=== PATIENT | female | born 1990 | race Caucasian/White ===

== ENCOUNTER 2017-02-22 11:56 | Emergency (ER) | payer MEDICAID ==
[~2017-02-22] VITALS: Ht 157.5 cm; Wt 68.0 kg
[2017-02-22 12:04] VITALS: Ht 157.5 cm; Wt 68.0 kg
[2017-02-22] MEDS ORDERED: ONDANSETRON (ODT) 4 MG TAB ODT STA (13:24)
[2017-02-22] MEDS ORDERED: ACETAMINOPHEN 325 MG TAB PO ONE (13:30)
[2017-02-22 13:35] LABS: URINE BLOOD (Dip) POC Negative (NEGATIVE)
[2017-02-22 13:48] LABS: ADD SCAN DIFF NO
[2017-02-22 13:51] LABS: BASOPHILS % 0.2 % (0.0-2.0); EOSINOPHILS # 0.1 10^3/ul (0.0-0.5); EOSINOPHILS % 1.6 % (0.0-7.0); HEMATOCRIT 36.3 % (37.0-47.0); HEMOGLOBIN 11.7 g/dl (12.0-16.0); LYMPHOCYTES # 1.3 10^3/ul (0.8-2.9); LYMPHOCYTES % 20.3 % (15.0-51.0); MEAN CORPUSCULAR HGB CONC 32.2 g/dl (32.0-37.0); MEAN CORPUSCULAR VOLUME 93.1 fl (82.0-101.0); MEAN PLATELET VOLUME 8.4 fl (7.4-10.4); MONOCYTE # 0.7 10^3/ul (0.3-0.9); MONOCYTES % 10.3 % (0.0-11.0); NEUTROPHIL # 4.3 10^3/ul (1.6-7.5); NEUTROPHILS % 67.1 % (39.0-77.0); PLATELET COUNT 355 10^3/UL (140-415); RED CELL DISTRIBUTION WIDTH 14.4 % (11.5-14.5); WHITE BLOOD COUNT 6.4 10^3/ul (4.8-10.8)
[2017-02-22 14:02] LABS: POTASSIUM 3.9 mmol/L (3.5-5.1)
[2017-02-22 14:04] LABS: CREATININE 0.58 mg/dl (0.44-1.00)
[2017-02-22 14:05] LABS: CALCIUM 9.1 mg/dl (8.4-10.2)
[2017-02-22] MEDS ORDERED: ACET500C5 PO (14:17)
[2017-02-22] MEDS ORDERED: ONDA4TAB8 PO (14:17)
[2017-02-22] MEDS ORDERED: IBUP400T22 PO (14:18)
[2017-02-22 14:25] VITALS: BP 111/69; PULSE 70; RESP 18; TEMP 98.3
--- NOTE | 2017-02-22 14:48 | ERD ---
ER Documentation Chief Complaint Date/Time DATE: 02/22/17 TIME: 14:45 Chief Complaint bodyache fever headache HPI Patient is a 26-year-old female who presents to the ED with 1 month of body aches. She states that she has pain along all her joints and muscles. She states that this has been going on for 1 month and she has taken Tylenol which is helped with her symptoms. She denies headache, dizziness, weakness. She denies cough, chest pain, shortness of breath or difficulty breathing. She denies abdominal pain, vomiting, diarrhea or constipation. She states that she occasionally gets nauseous. She denies dysuria or urgency. Denies any other complaints. She has not seen a primary care regarding this issue. Denies leg pain or swelling. ROS All systems reviewed and are negative except as per history of present illness. Medications Home Meds Active Scripts Ibuprofen* (Motrin*) 400 Mg Tab, 400 MG PO Q6, #30 TAB Prov:KRISTIN ALVAREZ-C 02/22/17 Ondansetron Hcl* (Zofran*) 4 Mg Tablet, 4 MG PO Q6H for NAUSEA AND/OR VOMITING, #30 TAB Prov:KRISTIN ALVAREZC 02/22/17 Acetaminophen* (Tylophen*) 500 Mg Capsule, 1 CAP PO Q6H Y for PAIN AND OR ELEVATED TEMP, #20 CAP Prov:KRISTIN ALVAREZ-C 02/22/17 Allergies Allergies: Coded Allergies: No Known Allergy (Unverified , 02/22/17) PMhx/Soc Medical and Surgical Hx: pt denies Medical Hx, pt denies Surgical Hx History of Surgery: No Anesthesia Reaction: No Hx Neurological Disorder: No Hx Respiratory Disorders: No Hx Cardiac Disorders: No Hx Psychiatric Problems: No Hx Miscellaneous Medical Probl: No Hx Alcohol Use: No Hx Substance Use: No Hx Tobacco Use: No FmHx Family History: No coronary disease, No diabetes, No other Physical Exam Vitals Vital Signs Date Time Temp Pulse Resp B/P Pulse Ox O2 Delivery O2 Flow Rate FiO2 02/22/17 14:25 98.3 70 18 111/69 100 Room Air 02/22/17 12:04 98.3 72 18 110/69 100 Physical Exam GENERAL: Well-developed, well-nourished female. Appears in no acute distress. HEAD: Normocephalic, atraumatic. EYES: Pupils are equally reactive bilaterally. EOMs grossly intact. No conjunctival erythema. ENT: Moist mucous membranes. No uvula deviation. No kissing tonsils. No exudates. NECK: Supple. No lymphadenopathy or thyromegaly. No meningismus. negative kernig. negative brudinski. LUNG: Clear to auscultation bilaterally. No rhonchi, wheezing, rales or coarse breath sounds. HEART: Regular rate and rhythm. No murmurs, rubs or gallops. ABDOMEN: No scars, ecchymosis or rashes noted. Soft, nontender, and nondistended. Positive bowel sounds in all four quadrants. No rebound tenderness , no guarding. (-) McBurneys point tenderness. No CVA tenderness. BACK: No midline tenderness. Extremities: Equal pulses bilaterally. No peripheral clubbing, cyanosis or edema. No unilateral leg swelling. NEUROLOGIC: Alert and oriented. Moving all four extremities. 5/5 strength in all extremities. Normal speech. Steady gait. SKIN: Normal color. Warm and dry. No rashes or lesions. Capillary refill < 2 seconds Result Diagram: 02/22/17 1340 02/22/17 1340 Results 24 hrs Laboratory Tests Test 02/22/17 13:35 02/22/17 13:40 Bedside Urine pH (LAB) 6.0 Bedside Urine Protein (LAB) Negative Bedside Urine Glucose (UA) Negative Bedside Urine Ketones (LAB) Negative Bedside Urine Blood Negative Bedside Urine Nitrite (LAB) Negative Bedside Urine Leukocyte Esterase (L Negative White Blood Count 6.410^3/ul Red Blood Count 3.9010^6/ul Hemoglobin 11.7g/dl Hematocrit 36.3% Mean Corpuscular Volume 93.1fl Mean Corpuscular Hemoglobin 30.0pg Mean Corpuscular Hemoglobin Concent 32.2g/dl Red Cell Distribution Width 14.4% Platelet Count 35859^3/UL Mean Platelet Volume 8.4fl Neutrophils % 67.1% Lymphocytes % 20.3% Monocytes % 10.3% Eosinophils % 1.6% Basophils % 0.2% Nucleated Red Blood Cells % 0.0/100WBC Neutrophils # 4.310^3/ul Lymphocytes # 1.310^3/ul Monocytes # 0.710^3/ul Eosinophils # 0.110^3/ul Basophils # 0.010^3/ul Nucleated Red Blood Cells # 0.010^3/ul Sodium Level 142mmol/L Potassium Level 3.9mmol/L Chloride Level 105mmol/L Carbon Dioxide Level 24mmol/L Anion Gap 17 Blood Urea Nitrogen 10mg/dl Creatinine 0.58mg/dl Glucose Level 117mg/dl Calcium Level 9.1mg/dl Current Medications Medications (Trade) Dose Ordered Sig/Lilli Route PRN Reason Start Time Stop Time Status Last Admin Dose Admin Acetaminophen (Tylenol Tab) 650 mg ONCE ONCE PO 02/22/17 13:30 02/22/17 13:31 DC 02/22/17 13:36 Ondansetron HCl (Zofran Odt) 4 mg ONCE STAT ODT 02/22/17 13:24 02/22/17 13:26 DC 02/22/17 13:36 Procedures/MDM ER COURSE: I kept the patient and/or family informed of laboratory and diagnostic imaging results throughout the emergency room course. MEDICATIONS: tylenol, zofran. Tolerated well with no adverse reaction. LAB INTERPRETATION: CBC showed no evidence of systemic infection or severe anemia. BMP showed no evidence of electrolyte abnormalities, severe acidosis, alkalosis, renal failure , or liver disease. UA showed no evidence of leukocytes, nitrites or hematuria. Urine test was negative. MEDICAL DECISION MAKING: This is a 26-year-old who presents with 1 month of body aches. Vital signs were reviewed. Patient is afebrile. Patient is not hypoxic. Patient is not toxic or ill-appearing. Patient has body aches of unknown etiology. I do not think any imaging studies was necessary at this time as she did not have focal tenderness upon exam. Her cranial nerves II through XII are intact. And her symptoms have been going on for over one month. I advised patient to follow-up with her medical insurance claims specialist for autoimmune check. Low suspicion for pneumonia, PE, pneumothorax, ACS, epiglottitis, obstruction, TB, pertussis, meningitis, sepsis. Low suspicion for ACS, PE, AAA, dissection, DVT DISCHARGE: At this time, patient is stable for discharge and outpatient management with no new complaints during the ER course. Patient was sent home with Tylenol, Motrin , Zofran and list of rheumatologists in the area to follow-up with.. Patient will be discharged home with instructions to recheck for new or worsening symptoms such as fever, nausea, weakness, LOC and to follow up with primary care in the next 1-2 days. Patient was advised to return to the ER for any new or worsening symptoms. Plan was discussed and patient and/or family understands and agrees. Home instructions were given. Departure Diagnosis: Primary Impression: Body aches Condition: Stable Referrals: [facility] () Usted se ribera hecho un examen mdico de control que le indica que no est en na condicin que requiera tratamiento urgente en el Departamento de Emergencia. Un estudio ms profundo y el tratamiento de torres condicin pueden esperar sin ningn riesgo hasta que usted sea atendida/o en el consultorio de torres mdico o na cl radha. Es responsabilidad suya arreglar na terry para el seguimiento del aranza. MANEJO DE CONDICIONES NO URGENTES EN EL FUTURO 1) Si usted tiene un mdico de atencin primaria: Usted debera llamar a torres mdico de atencin primaria antes de venir al departamento de emergencia. Despus de las horas de consultorio, torres doctor o torres asociado/a est disponible por telfono. El mdico o enfermero de katelyn en el servicio telefnico puede asesorarle por robyn medio para atender el problema, o aranza contrario se puede programar na terry. 2) Si usted no tiene un mdico de atencin primaria: Llame al mdico o clnica de referencia que aparece abajo tanya las horas de consultorio para hacer na terry para que le vean. CLINICAS: [facility] [phone] [address] [facility] [phone] [facility] [phone] [address] [facility] [phone] [place] [id number] [phone] [facility]. [phone] [address] Additional Instructions: Llame al doctor MAANA y emeterio na TERRY PARA DENTRO DE 1-2 MCCOLLUM.Dgale a la secretaria que nosotros le instruimos hacer esta terry.Avise o llame si torres condicin se empeora antes de la terry. Regresa aqui si peor o no mejor. seguimiento con rheumatologo para chequar autoinmune KRISTIN ALVAREZ PA-C Feb 22, 2017 14:48
== END 2017-02-22 14:25 | disposition home or self-care (01) ==
LOC: FTE 11:56
DX: R52 Pain, unspecified (principal); R11.0 Nausea
CPT/HCPCS: 80048; 81003; 85025; Z7610; 99283

== ENCOUNTER 2017-05-17 21:12 | Inpatient (IN) | payer MEDICAID ==
[~2017-05-17] VITALS: Ht 165.1 cm; Wt 55.6 kg
[~2017-05-17 21:12] MED LIST: ACET500C5 PO; IBUP400T22 PO; ONDA4TAB8 PO
--- NOTE | 2017-05-17 22:06 | ERD ---
ER Documentation Chief Complaint Date/Time DATE: 05/17/17 TIME: 22:02 Chief Complaint SOB; no hx of resp prob; cough for 2 mos HPI This 26-year-old female presents here in emergency department for complaints of cough for 2 months, on-and-off shortness of breath. Patient denies any wheezing. Patient denies any fever or chills. Patient has been having dry cough , does not cough up any phlegm or blood. Patient has on and off chest pain at times. Patient does not have any sick contact. Patient does verbalize feeling anxious at times. She does complain of dyspnea on exertion and dyspnea on lying down at times. ROS All systems reviewed and are negative except as per history of present illness. Medications Home Meds Active Scripts Ibuprofen* (Motrin*) 400 Mg Tab, 400 MG PO Q6, #30 TAB Prov:KRISTIN ALVAREZ PA-C 02/22/17 Ondansetron Hcl* (Zofran*) 4 Mg Tablet, 4 MG PO Q6H for NAUSEA AND/OR VOMITING, #30 TAB Prov:KRISTIN ALVAREZ PA-C 02/22/17 Acetaminophen* (Tylophen*) 500 Mg Capsule, 1 CAP PO Q6H Y for PAIN AND OR ELEVATED TEMP, #20 CAP Prov:KRISTIN ALVAREZ PA-C 02/22/17 Allergies Allergies: Coded Allergies: No Known Allergy (Unverified , 02/22/17) PMhx/Soc Medical and Surgical Hx: pt denies Medical Hx, pt denies Surgical Hx History of Surgery: No Anesthesia Reaction: No Hx Neurological Disorder: No Hx Respiratory Disorders: No Hx Cardiac Disorders: No Hx Psychiatric Problems: No Hx Miscellaneous Medical Probl: No Hx Alcohol Use: No Hx Substance Use: No Hx Tobacco Use: No FmHx Family History: No coronary disease, No diabetes, No other Physical Exam Vitals Vital Signs Date Time Temp Pulse Resp B/P Pulse Ox O2 Delivery O2 Flow Rate FiO2 05/18/17 05:06 Nasal Cannula 2.0 05/17/17 21:18 97.7 65 20 138/83 100 Physical Exam GENERAL: The patient is well developed and appropriate for usual state of health, in no apparent distress. CHEST: Clear to auscultation bilaterally. There are no rales, wheezes or rhonchi. HEART: Regular rate and rhythm. No murmurs, clicks, rubs or gallops. No S3 or S4. ABDOMEN: Soft, nontender and nondistended. Good bowel sounds. No rebound or guarding. No gross peritonitis. No gross organomegaly or masses. No Spring sign or McBurney point tenderness. BACK: No midline or flank tenderness. EXTREMITIES: Equal pulses bilaterally. There is no peripheral clubbing, cyanosis or edema. No focal swelling or erythema. Full range of motion. Grossly neurovascularly intact. NEURO: Alert and oriented. Cranial nerves 2-12 intact. Motor strength in all 4 extremities with 5/5 strength. Sensation grossly intact. Normal speech and gait. SKIN: There is no apparent rash or petechia. The skin is warm and dry. HEMATOLOGIC AND LYMPHATIC: There is no evidence of excessive bruising or lymphedema. No gross cervical, axillary, or inguinal lymphadenopathy. Result Diagram: 05/17/178 05/17/178 Results 24 hrs Laboratory Tests Test 05/17/17 02:18 White Blood Count 6.710^3/ul Red Blood Count 4.3810^6/ul Hemoglobin 13.3g/dl Hematocrit 41.4% Mean Corpuscular Volume 94.5fl Mean Corpuscular Hemoglobin 30.4pg Mean Corpuscular Hemoglobin Concent 32.1g/dl Red Cell Distribution Width 15.6% Platelet Count 84557^3/UL Mean Platelet Volume 10.5fl Neutrophils % 55.7% Lymphocytes % 34.8% Monocytes % 7.8% Eosinophils % 0.3% Basophils % 0.5% Nucleated Red Blood Cells % 0.0/100WBC Neutrophils # 3.710^3/ul Lymphocytes # 2.310^3/ul Monocytes # 0.510^3/ul Eosinophils # 0.010^3/ul Basophils # 0.010^3/ul Nucleated Red Blood Cells # 0.010^3/ul Sodium Level 139mmol/L Potassium Level 5.1mmol/L Chloride Level 107mmol/L Carbon Dioxide Level 21mmol/L Anion Gap 16 Blood Urea Nitrogen 10mg/dl Creatinine 0.69mg/dl Glucose Level 93mg/dl Calcium Level 9.0mg/dl Total Bilirubin 0.2mg/dl Direct Bilirubin 0.00mg/dl Indirect Bilirubin 0.2mg/dl Aspartate Amino Transf (AST/SGOT) 117IU/L Alanine Aminotransferase (ALT/SGPT) 91IU/L Alkaline Phosphatase 141IU/L Troponin I 0.034ng/ml B-Type Natriuretic Peptide 4100PG/ML Total Protein 9.8g/dl Albumin 4.6g/dl Globulin 5.20g/dl Albumin/Globulin Ratio 0.88 Current Medications Medications (Trade) Dose Ordered Sig/Lilli Route PRN Reason Start Time Stop Time Status Last Admin Dose Admin Sodium Chloride (NS) 100 ml @ ud STK-MED ONCE .ROUTE 05/18/17 04:29 05/18/17 04:30 DC Iohexol (Omnipaque 300mg/ ml) 150 ml STK-MED ONCE .ROUTE 05/18/17 04:29 05/18/17 04:30 DC EKG was done, read by me and is sinus tachycardia at a rate of 101, normal axis , there is no ST changes or changes in the EKG that indicates any cardiac emergencies at this time. Patient's EKG was also reviewed by Dr. Maloney. Impression: no acute findings on EKG PROCEDURE: Chest. CLINICAL INDICATION: Cough. TECHNIQUE: Single frontal view of the chest was obtained. COMPARISON: None. FINDINGS: The cardiac silhouette is enlarged. The aortic arch is unremarkable. There is no focal consolidation, vascular congestion or pleural effusion. There is no pneumothorax. IMPRESSION: Cardiomegaly. .Felix Fonseca MD, Date Time Electronically viewed and signed by .Felix Fonseca MD, on 05/17/2017 22:58 .T/ CC: WILLOW HAWLEY SLEEP TECHNICIAN Procedures/MDM Medical Decision Making: Patient is elevated BNP, has cardiomegaly, considering this, I discussed this case with my attending physician, , patient will be transferred to ER 1 for further evaluation and management, CT angiogram of the chest was ordered and pending results at this time. She is stable at this time. No symptoms of respiratory distress. Departure Diagnosis: Primary Impression: Shortness of breath Additional Impressions: Elevated brain natriuretic peptide (BNP) level Cardiomegaly Condition: Fair WILLOW HAWLEY NP May 17, 2017 22:06
--- NOTE | 2017-05-17 22:59 | RADRPT ---
PROCEDURE: Chest. CLINICAL INDICATION: Cough. TECHNIQUE: Single frontal view of the chest was obtained. COMPARISON: None. FINDINGS: The cardiac silhouette is enlarged. The aortic arch is unremarkable. There is no focal consolidati on, vascular congestion or pleural effusion. There is no pneumothorax. IMPRESSION: Cardiomegaly. .Felix Fonseca MD, MD Date Time Electronically viewed and signed by .Felix Fonseca MD, on 05/17/2017 22:58 .T/
[2017-05-18] VITALS (8 sets, daily range): BP systolic 111–118; BP diastolic 70–79; PULSE 88–101; RESP 16–20; Ht 165.1 cm; Wt 55.6 kg
[2017-05-18 02:32] LABS: ADD SCAN DIFF NO
[2017-05-18 02:34] LABS: BASOPHILS % 0.5 % (0.0-2.0); EOSINOPHILS % 0.3 % (0.0-7.0); HEMATOCRIT 41.4 % (37.0-47.0); HEMOGLOBIN 13.3 g/dl (12.0-16.0); LYMPHOCYTES # 2.3 10^3/ul (0.8-2.9); LYMPHOCYTES % 34.8 % (15.0-51.0); MEAN CORPUSCULAR HEMOGLOBIN 30.4 pg (29.0-33.0); MEAN CORPUSCULAR HGB CONC 32.1 g/dl (32.0-37.0); MEAN CORPUSCULAR VOLUME 94.5 fl (82.0-101.0); MEAN PLATELET VOLUME 10.5 fl (7.4-10.4); MONOCYTE # 0.5 10^3/ul (0.3-0.9); MONOCYTES % 7.8 % (0.0-11.0); NEUTROPHIL # 3.7 10^3/ul (1.6-7.5); NEUTROPHILS % 55.7 % (39.0-77.0); PLATELET COUNT 257 10^3/UL (140-415); RED BLOOD COUNT 4.38 10^6/ul (4.20-5.40); RED CELL DISTRIBUTION WIDTH 15.6 % (11.5-14.5); WHITE BLOOD COUNT 6.7 10^3/ul (4.8-10.8)
[2017-05-18 02:58] LABS: ALBUMIN 4.6 g/dl (3.3-4.9); ALBUMIN/GLOBULIN RATIO 0.88; BILIRUBIN,INDIRECT 0.2 mg/dl (0-1.1); BILIRUBIN,TOTAL 0.2 mg/dl (0.2-1.3); CREATININE 0.69 mg/dl (0.44-1.00); POTASSIUM 5.1 mmol/L (3.5-5.1); TOTAL PROTEIN 9.8 g/dl (6.1-8.1)
[2017-05-18 03:09] LABS: TROPONIN-I 0.034 ng/ml (0.00-0.12)
[2017-05-18] MEDS ORDERED: IOHEXOL 300MG/ML 150 ML BTL ONE (04:29)
[2017-05-18] MEDS ORDERED: SOD CHLORIDE 0.9% 100 ML ONE (04:29)
[2017-05-18] MEDS ORDERED: LEVO75TA5 PO (05:51)
--- NOTE | 2017-05-18 05:55 | RADRPT ---
PROCEDURE: CT angiogram of the chest with contrast. CLINICAL INDICATION: Shortness of breath. TECHNIQUE: CT angiogram of the chest was obtained using a multi-detector high-resolution CT. Con tiguous axial images were obtained during the dynamic injection of 100 cc of Omnipaque 300 intraveno us contrast. Coronal and sagittal reformatted images were obtained. 3-D reformatted images were al so obtained. Images were reviewed on a PACS workstation. One or more of the following dose reduction techniques were used: - Automated exposure control. - Adjustment of the mA and/or kV according to patient size. - Use of iterative reconstruction technique. Exam CTD/vol = 5.99 mGy. Total exam DLP = 233.43 mGy-cm. COMPARISON: None. FINDINGS: The main pulmonary artery followed to the segmental divisions are well opacified. There is no filli ng defect or evidence of pulmonary embolism. The heart is mildly enlarged. There is a moderate to l arge pericardial effusion measuring up to 2.0 cm in thickness. The aorta is of normal course and arnie iber without evidence of aneurysm or dissection. There is no evidence of chest wall mass. The visualized thyroid is unremarkable. There are enlarge d axillary lymph nodes bilaterally with the largest measuring 2.5 x 1.8 cm. There are no enlarged m ediastinal lymph nodes by CT criteria. There are small hilar lymph nodes bilaterally with the large st measuring 1.3 x 1.1 cm. There are small calcified subcarinal and left hilar lymph nodes. There are mild ground-glass and tree-in-bud opacities bilaterally. There is no parenchymal consolidation or pleural effusion. The central tracheobronchial tree is within normal limits. Limited evaluation of the upper abdomen is unremarkable. IMPRESSION: No evidence of pulmonary embolism or aortic dissection. Mild cardiomegaly with moderate to large pericardial effusion. Bilateral mild ground-glass and tree-in-bud opacities suggestive of an infectious/inflammatory bronc hiolitis. Bilateral mild to moderate axillary lymphadenopathy. .Felix Fonseca MD, Date Time Electronically viewed and signed by .Felix Fonseca MD, on 05/18/2017 05:54 .T/
[2017-05-18] MEDS ORDERED: ONDANSETRON 4 MG INJ IV PRN ×2 (06:00→20:00)
[2017-05-18] MEDS ORDERED: ACETAMINOPHEN 325 MG TAB PO PRN ×2 (06:00→20:00)
[2017-05-18] MEDS ORDERED: NACL 0.9% 3 ML SYG IV SCH (06:30)
[2017-05-18] MEDS ORDERED: FUROSEMIDE 40 MG INJ IV ONE (06:30)
[2017-05-18] MEDS ORDERED: LEVOTHYROXINE 75 MCG TAB PO SCH (07:00)
[2017-05-18] MEDS: PANTOPRAZOLE 40 MG INJ IV SCH (09:01)
--- NOTE | 2017-05-18 11:08 | HP ---
Date/Time of Note Date/Time of Note DATE: 05/18/17 TIME: 10:58 Assessment/Plan VTE Prophylaxis VTE Prophylaxis Intervention: SCD's Lines/Catheters IV Catheter Type (from [facility]): [facility] Assessment/Plan Assessment/Plan 26 yo F discharged from [facility] February 2017 after new diagnosis of severe hypothyroidism who now presents with shortness of breath and is found to have pericardial effusion as well as bronchiolitis 1. Acute Shortness of breath 2/2 #2 2. Interesting constellation of symptoms to include 1. Moderate to large pericardial effusion. 2. Bilateral infectious/inflammatory bronchiolitis. 3. Bilateral mild to moderate axillary lymphadenopathy and diffuse cervical adenopathy on Thyroid USS 03/2017. 4. Positive rheumatoid factor 3. Severe Hypothyroidism with evidence of thyroiditis and single 1.7cm R sided nodule concerning for autoimmune disease 4. Acute r/o chronic transaminitis PLAN: Patient's condition has a broad list of differentials including autoimmune disease, possible TB, or a rare not so visible pathology. However her acute problem now is her shortness of breath which is likely secondary to her pericardial effusion and bronchiolitis. We will therefore start her on empiric antibiotics, get cardiology consultation to assist in management of the pericardial effusion. If patient is to undergo a pericardiocentesis, sample will be sent for workup and further testing. I have obtained Endocrinology consultation, and I will also obtain hematology oncology consultation to see what their recommendations are. Patient also has cervical and axillary lymphnodes which we may be able to biopsy. I will also attempt to obtain rheumatology review and further interventions will be the security system sales consultant recommendations on the patient's clinical course. In the interim the patient to be kept comfortable with supplemental oxygen, pain control, antiemetics and antipyretics if indicated. She will be continued on her home dose of 75 mcg of levothyroxine, I will defer to Endocrinology for further management. Prophylaxis will be with ambulation and SCDs Patient HPI/ROS Admit Date/Time Admit Date/Time May 18, 2017 at 05:57 Hx of Present Illness Patient is a 26-year-old female with an interesting medical history. She was recently seen at all review in February 2014 where she had presented with severe lethargy. She was worked up in detail, and she was diagnosed with severe hypothyroidism after she was found to have a TSH of 115. At that time as well she has complained of some joint pain lethargy and muscle tenderness, and from the records the patient has with her it looks like they might have done a basic rheumatologic screen. She was found to have a positive rheumatoid factor but there is no other significant finding. She was discharged home and she was scheduled to follow-up as outpatient with Endocrinology next month. She was started on levothyroxine at 75 mcg. However she developed shortness of breath over the last 3-4 days that has worsened. Because of that she came to the emergency room. A CAT scan was abnormal for moderate to large pericardial effusion as well as bilateral bronchiolitis as well as bilateral lymphadenopathy. She is being admitted for further workup. She has not had any fever, the patient also denies cough, she continues to have lethargy and occasional muscle joint pains and aches. There is no family history of autoimmune disorder as far as the family knows, however they are not really sure what that means. The patient's grandmother also had thyroid problems, and she also had joint and muscle pains. There is no other significant findings. The patient has not had hemoptysis, no blood in her stool in her urine, she has not had any weight loss, she does get fatigued easily. She denies heat or cold intolerance, has been no nausea or vomiting. All other systems are reviewed and negative. ROS 12 point review if systems was done and pertinent findings are as noted. PMH/Family/Social Past Medical History * Recently diagnosed severe hypothyroidism Past Surgical History Past Surgical Hx: no surgical history Family History Significant Family History: other Social History Alcohol Use: none Smoking Status: Never smoker Drug Use: none Exam/Review of Systems Vital Signs Vitals Vital Signs Date Time Temp Pulse Resp B/P Pulse Ox O2 Delivery O2 Flow Rate FiO2 05/18/17 09:35 88 05/18/17 08:23 98.2 18 111/79 100 05/18/17 05:06 Nasal Cannula 2.0 Exam Constitutional: alert, oriented, other (ill looking) Psych: anxiety Head: atraumatic, normocephalic Eyes: PERRL, No icteric ENMT: mucosa pink and moist Neck: non-tender, supple, No jvd Respiratory: clear to auscultation, diminished breath sounds Cardiovascular: murmurs/extra sounds, regular rate and rhythm, No edema Gastrointestinal: bowel sounds, non-tender, soft Musculoskeletal: nl extremities to inspection, nl gait and stance Extremities: normal pulses, No edema Neurological: lethargic, nl mental status, No focal weakness Skin: No rash or lesions Labs Result Diagram: 05/17/1721705/17/17217 Medications Medications Current Medications Ondansetron HCl (Zofran Inj) 4 mg Q6H PRN IV NAUSEA AND/OR VOMITING; Start at 06:30 Pantoprazole (Protonix Iv) 40 mg DAILY@06 IV Last administered on 05/18/17t 09: 01; Admin Dose 40 MG; Start 05/18/17 at 07:00 Procedures Procedures Current Medications Medications (Trade) Dose Ordered Sig/Lilli Route PRN Reason Start Time Stop Time Status Last Admin Dose Admin Sodium Chloride (NS) 100 ml @ ud STK-MED ONCE .ROUTE 05/18/17 04:29 05/18/17 04:30 DC 05/18/17 04:29 20 ML/SEC Iohexol (Omnipaque 300mg/ ml) 150 ml STK-MED ONCE .ROUTE 05/18/17 04:29 05/18/17 04:30 DC 05/18/17 04:29 150 ML Ondansetron HCl (Zofran Inj) 4 mg ER BRIDGE PRN IV NAUSEA AND/OR VOMITING 05/18/17 06:00 05/18/17 06:33 DC Acetaminophen (Tylenol Tab) 650 mg ER BRIDGE PRN PO MILD PAIN/FEVER 05/18/17 06:00 05/18/17 06:33 DC IV Flush (NS 3 ml) 3 ml PER PROTOCOL IV 05/18/17 06:30 Ondansetron HCl (Zofran Inj) 4 mg Q6H PRN IV NAUSEA AND/OR VOMITING 05/18/17 06:30 Furosemide (Lasix) 40 mg ONCE ONCE IV 05/18/17 06:30 05/18/17 06:32 DC Pantoprazole (Protonix Iv) 40 mg DAILY@06 IV 05/18/17 07:00 05/18/17 09:01 40 MG Levothyroxine Sodium (Synthroid) 75 mcg BEFORE BREAKFAST PO 05/18/17 07:00 05/18/17 09:01 75 MCG PROCEDURE: CT angiogram of the chest with contrast. CLINICAL INDICATION: Shortness of breath. TECHNIQUE: CT angiogram of the chest was obtained using a multi-detector high -resolution CT. Contiguous axial images were obtained during the dynamic injection of 100 cc of Omnipaque 300 intravenous contrast. Coronal and sagittal reformatted images were obtained. 3-D reformatted images were also obtained. Images were reviewed on a PACS workstation. One or more of the following dose reduction techniques were used: - Automated exposure control. - Adjustment of the mA and/or kV according to patient size. - Use of iterative reconstruction technique. Exam CTD/vol = 5.99 mGy. Total exam DLP = 233.43 mGy-cm. COMPARISON: None. FINDINGS: The main pulmonary artery followed to the segmental divisions are well opacified. There is no filling defect or evidence of pulmonary embolism. The heart is mildly enlarged. There is a moderate to large pericardial effusion measuring up to 2.0 cm in thickness. The aorta is of normal course and caliber without evidence of aneurysm or dissection. There is no evidence of chest wall mass. The visualized thyroid is unremarkable. There are enlarged axillary lymph nodes bilaterally with the largest measuring 2.5 x 1.8 cm. There are no enlarged mediastinal lymph nodes by CT criteria. There are small hilar lymph nodes bilaterally with the largest measuring 1.3 x 1.1 cm. There are small calcified subcarinal and left hilar lymph nodes. There are mild ground-glass and tree-in-bud opacities bilaterally. There is no parenchymal consolidation or pleural effusion. The central tracheobronchial tree is within normal limits. Limited evaluation of the upper abdomen is unremarkable. IMPRESSION: No evidence of pulmonary embolism or aortic dissection. Mild cardiomegaly with moderate to large pericardial effusion. Bilateral mild ground-glass and tree-in-bud opacities suggestive of an infectious/inflammatory bronchiolitis. Bilateral mild to moderate axillary lymphadenopathy. .Felix Fonseca MD, MD Date Time Electronically viewed and signed by .Felix Fonseca MD, MD on 05/18/2017 05:54 PROCEDURE: Chest. CLINICAL INDICATION: Cough. TECHNIQUE: Single frontal view of the chest was obtained. COMPARISON: None. FINDINGS: The cardiac silhouette is enlarged. The aortic arch is unremarkable. There is no focal consolidation, vascular congestion or pleural effusion. There is no pneumothorax. IMPRESSION: Cardiomegaly. .Felix Fonseca MD, MD Date Time Electronically viewed and signed by .Felix Fonseca MD, MD on 05/17/2017 22:58 .T/ CC: WILLOW HAWLEY. PET COUNSELOR Thyroid ultrasound done March 22, 2017 Impression: Diffusely hypoechoic and mildly heterogeneous thyroid, parenchymal changes are of unclear etiology. Differential considerations included thyroiditis such as Cecil's thyroiditis will order autoimmune thyroiditis and clinical correlation is needed. Irregularly margined nodule is suggested as well within the isthmus to the right of the midline. Cervical adenopathy of unclear significance STEPHANIE MACIAS. May 18, 2017 11:07
[2017-05-18 14:42] LABS: C-REACTIVE PROTEIN < 0.5 mg/dl (0.0-0.9)
[2017-05-18 14:51] LABS: T3 UPTAKE 26.5 % (23.5-40.5)
[2017-05-18] MEDS: morphine 2 MG INJ IV PRN (16:19)
--- NOTE | 2017-05-18 19:39 | RADRPT ---
Echocardiogram Report Patient Name: GORGE ROBERT Gender: Female Date: 1990 Study Date: 18-May-2017 Maintenance Services Dispatcher: Jose Burk [facility] Location: [id number] Ref. Physician: LAZ LUCIANO Quality: Good Procedures: Transthoracic echocardiogram with complete 2D, M-Mode, and doppler examination. Indications: Pericardial Effusion. Shortness of breath. 2D/M Mode Doppler Measurement Value Normal Ranges Measurement Value Normal Ranges LVIDd 2D 4.1 3.5 - 5.6 cm AV Peak Abdon 0.8 m/sec LVIDs 2D 2.8 2.1 - 4.1 cm AV Peak PG 3.0 mmHg FS 2D 31.9 % LVOT Peak Abdon 0.6 m/sec LVPWd 2D 0.9 0.6 - 1.1 cm LVOT Peak PG 2.0 mmHg IVSd 2D 1.0 0.6 - 1.1 cm MV E Peak Abdon 0.6 m/sec IVS/LVPW 2D 1.1 MV A Peak Abdon 0.4 m/sec AoR Diam 2D 2.9 2.0 - 3.7 cm MV E/A 1.4 LA/Ao 2D 1 0 - 1 MV Decel Time 102 msec EDV 2D 69.4 cm3 MV E/A 1.4 ESV 2D 22.0 cm3 TR Peak Abdon 3.0 m/sec LA Dimen 2D 2.1 2.3 - 4.0 cm TR Peak PG 36.0 mmHg RVSP 39.0 mmHg Findings Left Ventricle: Normal left ventricular cavity size. Normal left ventricular wall thickness. Mild global left ventricular systolic dysfunction. Ejection fraction is visually estimated at 4045 %. Right Ventricle: Mild right ventricular systolic dysfunction. Mild enlargement of right ventricle. Moderate right ventricular hypokinesis. Left Atrium: The left atrium is normal in size. Right Atrium: There is mild enlargement of right atrium. Mitral Valve: Normal appearance and function of the mitral valve with trace physiologic regurgitation. Aortic Valve: Normal appearance of the aortic valve. No significant aortic stenosis or insufficiency. Tricuspid Valve: Normal appearance of the tricuspid valve. Estimated peak PA systolic pressure 39 mmHg. There is trace to mild tricuspid regurgitation. Pulmonic Valve: Normal pulmonic valve appearance. There is mild pulmonic regurgitation. Pericardium: Moderate pericardial effusion. Aorta: Normal aortic root. IVC: Normal size and normal respiratory collapse consistent with normal right atrial pressure. Conclusions Normal left ventricular cavity size. Normal left ventricular wall thickness. Mild global left ventricular systolic dysfunction. Ejection fraction is visually estimated at 40-45 %. Mild right ventricular systolic dysfunction.. Mild enlargement of right ventricle. Moderate right ventricular hypokinesis. There is mild enlargement of right atrium. Normal appearance of the tricuspid valve. Estimated peak PA systolic pressure 39 mmHg. There is trace to mild tricuspid regurgitation. Normal pulmonic valve appearance. There is mild pulmonic regurgitation. Moderate pericardial effusion. Electronically Signed By: Byron Baptiste 18-May-2017 19:38:21 -0700 Patient Name: GORGE ROBERT Study Date: 18-May-2017 [id number]
--- NOTE | 2017-05-18 19:54 | CONS ---
Date/Time of Note Date/Time of Note DATE: 05/18/17 TIME: 19:46 Assessment/Plan Assessment/Plan Chief Complaint/Hosp Course IMp: 1.Pericardial effusion-moderate by echo with no isgns of echo tamponade at this time. STable BP, HR at 100. ? viral/secondary to hypothyroid/rheum 2.Cardiomyopathy-EF 40-45% by echo 3.Increased LFT's 4.Hypothyroid Recc: -Tele -serial ecg's -TREat hypothyroid state -follow BP/HR -Avoid signifcany volume depletion -NSAIDS for now. POssible need to drain if becomes more significant with signs of tamponade/pending tamponade Problems: Consultation Date/Type/Reason Admit Date/Time May 18, 2017 at 05:57 Date of Consultation: May 18, 2017 Type of Consultation: cardiology Reason for Consultation pericardial effusion Referring Provider: STEPHANIE MACIAS Hx of Present Illness 26 y/o female without significant PMH who p/w c/o sob and was found to have pericardial effusion and mild transaminitis and possible pulmonary infection by CT. Constitutional: no complaints Eyes: no complaints ENT: no complaints Respiratory: shortness of breath Cardiovascular: orthopenea Gastrointestinal: no complaints, other Genitourinary: no complaints Musculoskeletal: other (weakness) Skin: no complaints Neurologic: no complaints Endocrine: no complaints Psychological: anxiety Past Medical History Medical History: no pertinent history Past Surgical History Past Surgical Hx: no surgical history Social History Alcohol Use: none Smoking Status: Never smoker Drug Use: none Exam/Review of Systems Vital Signs Vitals Vital Signs Date Time Temp Pulse Resp B/P Pulse Ox O2 Delivery O2 Flow Rate FiO2 05/18/17 17:08 98.0 73 20 112/79 100 05/18/17 05:06 Nasal Cannula 2.0 Exam Constitutional: alert, oriented Psych: no complaints Head: normocephalic ENMT: mucosa pink and moist Neck: jvd (8-9 cm water), supple Respiratory: diminished breath sounds (at bases/B) Cardiovascular: regular rate and rhythm Gastrointestinal: non-tender, soft Musculoskeletal: muscle tone (normal) Extremities: edema (none) Neurological: other (No focal deficits) Results Result Diagram: 05/17/1721705/17/17217 Results 24 hrs Laboratory Tests Test 05/18/17 09:00 05/18/17 09:15 Erythrocyte Sedimentation Rate 96 H C-Reactive Protein < 0.5 Free Thyroxine Index 2.57 Thyroxine (T4) 9.7 Triiodothyronine (T3) Uptake 26.5 Hemoglobin A1c 5.4 Triglycerides Level 222 H Cholesterol Level 80 L LDL Cholesterol, Calculated 20 HDL Cholesterol 16 L Cholesterol/HDL Ratio 5.0 Thyroid Stimulating Hormone (TSH) 132.000 H Medications Medications Current Medications Ondansetron HCl (Zofran Inj) 4 mg Q6H PRN IV NAUSEA AND/OR VOMITING; Start at 06:30 Pantoprazole (Protonix Iv) 40 mg DAILY@06 IV Last administered on 05/18/17 09: 01; Admin Dose 40 MG; Start 05/18/17 at 07:00 Morphine Sulfate (morphine) 2 mg Q4H PRN IV pain 6-10 Last administered on 05/18 16:19; Admin Dose 2 MG; Start 05/18/17 at 16:00 GENEVIEVE HERNANDEZ May 18, 2017 19:54
[2017-05-18 21:22] LABS: CREATINE KINASE 114 IU/L (23-200)
[2017-05-18 21:41] LABS: TIME 2135
[2017-05-18] MEDS: IBUPROFEN 600 MG TAB PO SCH (21:56)
[2017-05-18] MEDS ORDERED: LIOTHYRONINE 5 MCG TAB PO ONE (23:30)
--- NOTE | 2017-05-18 23:39 | CONS ---
Date/Time of Note Date/Time of Note DATE: 05/18/17 TIME: 23:37 Assessment/Plan Assessment/Plan Chief Complaint/Hosp Course Bilateral mild to moderate axillary lymphadenopathy and diffuse cervical adenopathy on Thyroid USS 03/2017. PROCEED WITH BIOCHEMICAL W-UP CT ABD- TO COMPLETE STAGING MAY NEED A BX INCREASED TOTAL PROTEIN AND GLOBULIN W-UP ORDERED Moderate to large pericardial effusion. Bilateral infectious/inflammatory bronchiolitis. Positive rheumatoid factor RHEUMATOLOGY EVAL Pericardial effusion-moderate by echo with no signs of echo tamponade at this time. Cardiomyopathy-EF 40-45% by echo Acute Shortness of breath Increased LFT's Severe Hypothyroidism with evidence of thyroiditis and single 1.7cm R sided nodule concerning for autoimmune disease Problems: Consultation Date/Type/Reason Admit Date/Time May 18, 2017 at 05:57 Date of Consultation: May 18, 2017 Type of Consultation: HEMEON Reason for Consultation LN-[facility] Referring Provider: STEPHANIE MACIAS Hx of Present Illness Patient is a 26-year-old female with an interesting medical history. She was recently seen at all review in February 2014 where she had presented with severe lethargy. She was worked up in detail, and she was diagnosed with severe hypothyroidism after she was found to have a TSH of 115. At that time as well she has complained of some joint pain lethargy and muscle tenderness, and from the records the patient has with her it looks like they might have done a basic rheumatologic screen. She was found to have a positive rheumatoid factor but there is no other significant finding. She was discharged home and she was scheduled to follow-up as outpatient with Endocrinology next month. She was started on levothyroxine at 75 mcg. However she developed shortness of breath over the last 3-4 days that has worsened. Because of that she came to the emergency room. A CAT scan was abnormal for moderate to large pericardial effusion as well as bilateral bronchiolitis as well as bilateral lymphadenopathy. She is being admitted for further workup. She has not had any fever, the patient also denies cough, she continues to have lethargy and occasional muscle joint pains and aches. There is no family history of autoimmune disorder as far as the family knows, however they are not really sure what that means. The patient's grandmother also had thyroid problems, and she also had joint and muscle pains. There is no other significant findings. The patient has not had hemoptysis, no blood in her stool in her urine, she has not had any weight loss, she does get fatigued easily. She denies heat or cold intolerance, has been no nausea or vomiting. All other systems are reviewed and negative. CT angiogram of the chest with contrast. - Bilateral mild to moderate axillary lymphadenopathy. I WAS ASKED TO PROVIDE HEMEONC CONSULT ROS 12 point review if systems was done and pertinent findings are as noted. PMH/Family/Social Past Medical History * Recently diagnosed severe hypothyroidism Past Surgical History Past Surgical Hx: no surgical history Family History Significant Family History: other Social History Alcohol Use: none Smoking Status: Never smoker Drug Use: none Constitutional: no complaints Eyes: no complaints ENT: no complaints Respiratory: shortness of breath Cardiovascular: orthopenea Gastrointestinal: no complaints, other Genitourinary: no complaints Musculoskeletal: other (weakness) Skin: no complaints Neurologic: no complaints Endocrine: no complaints Psychological: no complaints Past Medical History Medical History: no pertinent history Past Surgical History Past Surgical Hx: no surgical history Social History Alcohol Use: none Smoking Status: Never smoker Drug Use: none Exam/Review of Systems Vital Signs Vitals Vital Signs Date Time Temp Pulse Resp B/P Pulse Ox O2 Delivery O2 Flow Rate FiO2 05/18/17 20:27 101 05/18/17 20:08 98.2 16 112/70 96 05/18/17 05:06 Nasal Cannula 2.0 Exam Constitutional: alert, oriented, other (ill looking) Psych: anxiety Head: atraumatic, normocephalic Eyes: PERRL, No icteric ENMT: mucosa pink and moist Neck: non-tender, supple, No jvd Respiratory: clear to auscultation, diminished breath sounds Cardiovascular: murmurs/extra sounds, regular rate and rhythm, No edema Gastrointestinal: bowel sounds, non-tender, soft Musculoskeletal: nl extremities to inspection, nl gait and stance Extremities: normal pulses, No edema Neurological: lethargic, nl mental status, No focal weakness Skin: No rash or lesions LN- MILD BL LN-[facility] BREAST- NO MASSES Results Result Diagram: 05/17/1721705/17/17217 Results 24 hrs Laboratory Tests Test 05/18/17 09:00 05/18/17 09:15 05/18/17 20:35 05/18/17 21:35 Erythrocyte Sedimentation Rate 96 H C-Reactive Protein < 0.5 Free Thyroxine Index 2.57 Thyroxine (T4) 9.7 Triiodothyronine (T3) Uptake 26.5 Hemoglobin A1c 5.4 Triglycerides Level 222 H Cholesterol Level 80 L LDL Cholesterol, Calculated 20 HDL Cholesterol 16 L Cholesterol/HDL Ratio 5.0 Thyroid Stimulating Hormone (TSH) 132.000 H Creatine Kinase 114 Rheumatoid Factor Screen NEGATIVE Hepatitis B Surface Antigen NEGATIVE Hepatitis C Antibody NEGATIVE HIV (1&2) Antibody NEGATIVE TB Skin Test Induration Pending TB Skin Test Administer Date 05/18/17 TB Skin Test Administer Time 2134 TB Skin Test Injection Site Left Upper Forearm Medications Medications Current Medications Ondansetron HCl (Zofran Inj) 4 mg Q6H PRN IV NAUSEA AND/OR VOMITING; Start at 06:30 Pantoprazole (Protonix Iv) 40 mg DAILY@06 IV Last administered on 05/18/17 09: 01; Admin Dose 40 MG; Start 05/18/17 at 07:00 Morphine Sulfate (morphine) 2 mg Q4H PRN IV pain 6-10 Last administered on 05/18 16:19; Admin Dose 2 MG; Start 05/18/17 at 16:00 Acetaminophen (Tylenol Tab) 650 mg Q6H PRN PO PAIN AND OR ELEVATED TEMP; Start 05/18/17 at 20:00 Ibuprofen (Motrin) 600 mg Q8 PO Last administered on 05/18/17 21:56; Admin Dose 600 MG; Start 05/18/17 at 22:00 Procedures Procedures [place] [address] Radiology Main Line: [phone] DIAGNOSTIC IMAGING REPORT Patient: GORGE ROBERT : 1990 Age: 26 Sex: F MR #: [id number] DOS: 05/18/17 0355 Ordering MD: DEREJE JEAN BAPTISTE DO Location: E/R Room/Bed: PROCEDURE: CT angiogram of the chest with contrast. CLINICAL INDICATION: Shortness of breath. TECHNIQUE: CT angiogram of the chest was obtained using a multi-detector high -resolution CT. Contiguous axial images were obtained during the dynamic injection of 100 cc of Omnipaque 300 intravenous contrast. Coronal and sagittal reformatted images were obtained. 3-D reformatted images were also obtained. Images were reviewed on a PACS workstation. One or more of the following dose reduction techniques were used: - Automated exposure control. - Adjustment of the mA and/or kV according to patient size. - Use of iterative reconstruction technique. Exam CTD/vol = 5.99 mGy. Total exam DLP = 233.43 mGy-cm. COMPARISON: None. FINDINGS: The main pulmonary artery followed to the segmental divisions are well opacified. There is no filling defect or evidence of pulmonary embolism. The heart is mildly enlarged. There is a moderate to large pericardial effusion measuring up to 2.0 cm in thickness. The aorta is of normal course and caliber without evidence of aneurysm or dissection. There is no evidence of chest wall mass. The visualized thyroid is unremarkable. There are enlarged axillary lymph nodes bilaterally with the largest measuring 2.5 x 1.8 cm. There are no enlarged mediastinal lymph nodes by CT criteria. There are small hilar lymph nodes bilaterally with the largest measuring 1.3 x 1.1 cm. There are small calcified subcarinal and left hilar lymph nodes. There are mild ground-glass and tree-in-bud opacities bilaterally. There is no parenchymal consolidation or pleural effusion. The central tracheobronchial tree is within normal limits. Limited evaluation of the upper abdomen is unremarkable. IMPRESSION: No evidence of pulmonary embolism or aortic dissection. Mild cardiomegaly with moderate to large pericardial effusion. Bilateral mild ground-glass and tree-in-bud opacities suggestive of an infectious/inflammatory bronchiolitis. Bilateral mild to moderate axillary lymphadenopathy. .Felix Fonseca MD, MD Date Time Electronically viewed and signed by .Felix Fonseca MD, MD on 05/18/2017 05:54 .T/ CC: DEREJE JEAN BAPTISTE VERA M MD May 18, 2017 23:39
[2017-05-19] VITALS (12 sets, daily range): BP systolic 99–109; BP diastolic 54–68; PULSE 78–105; RESP 16–20
[2017-05-19] MEDS: IBUPROFEN 600 MG TAB PO SCH ×3 (06:34→22:30)
[2017-05-19] MEDS: LEVOTHYROXINE 125 MCG TAB PO SCH (06:34)
[2017-05-19] MEDS: PANTOPRAZOLE 40 MG INJ IV SCH (06:34)
[2017-05-19] MEDS ORDERED: LEVOTHYROXINE 75 MCG TAB PO SCH (07:00)
[2017-05-19 07:32] LABS: BASOPHILS % 0.4 % (0.0-2.0); EOSINOPHILS % 0.6 % (0.0-7.0); HEMATOCRIT 36.2 % (37.0-47.0); HEMOGLOBIN 11.5 g/dl (12.0-16.0); LYMPHOCYTES # 1.9 10^3/ul (0.8-2.9); LYMPHOCYTES % 40.5 % (15.0-51.0); MEAN CORPUSCULAR HEMOGLOBIN 30.7 pg (29.0-33.0); MEAN CORPUSCULAR HGB CONC 31.8 g/dl (32.0-37.0); MEAN CORPUSCULAR VOLUME 96.5 fl (82.0-101.0); MEAN PLATELET VOLUME 11.3 fl (7.4-10.4); MONOCYTE # 0.4 10^3/ul (0.3-0.9); MONOCYTES % 7.6 % (0.0-11.0); NEUTROPHIL # 2.3 10^3/ul (1.6-7.5); PLATELET COUNT 237 10^3/UL (140-415); RED BLOOD COUNT 3.75 10^6/ul (4.20-5.40); RED CELL DISTRIBUTION WIDTH 15.3 % (11.5-14.5); WHITE BLOOD COUNT 4.6 10^3/ul (4.8-10.8)
[2017-05-19 07:39] LABS: ADD SCAN DIFF NO
[2017-05-19 07:47] LABS: INR 0.95; PROTIME 12.7 Sec (12.2-14.2)
[2017-05-19 07:48] LABS: PARTIAL THROMBOPLASTIN TIME 41.9 Sec (25.0-35.0)
[2017-05-19 07:54] LABS: BILIRUBIN,INDIRECT 0.2 mg/dl (0-1.1); BILIRUBIN,TOTAL 0.2 mg/dl (0.2-1.3); CALCIUM 8.7 mg/dl (8.4-10.2); CREATININE 0.78 mg/dl (0.44-1.00); MAGNESIUM 2.1 mg/dl (1.7-2.5); POTASSIUM 4.7 mmol/L (3.5-5.1); TOTAL PROTEIN 8.5 g/dl (6.1-8.1)
[2017-05-19 07:56] LABS: CHOL/HDL RATIO 4.9 RATIO
[2017-05-19 07:57] LABS: IRON 23 ug/dl (35-150)
[2017-05-19 08:06] LABS: TOTAL IRON BINDING CAPACITY 315 ug/dl (241-421)
[2017-05-19 08:07] LABS: ALBUMIN 3.9 g/dl (3.3-4.9); ALBUMIN/GLOBULIN RATIO 0.95; BILIRUBIN,INDIRECT 0.2 mg/dl (0-1.1); BILIRUBIN,TOTAL 0.2 mg/dl (0.2-1.3); CALCIUM 8.5 mg/dl (8.4-10.2); CREATININE 0.74 mg/dl (0.44-1.00)
[2017-05-19 08:21] LABS: LACTATE DEHYDROGENASE 974 IU/L (313-618); URIC ACID 6.7 mg/dl (3.1-7.9)
[2017-05-19 08:29] LABS: IMMUNOGLOBULIN A 292 mg/dl (70-400); IMMUNOGLOBULIN M 270 mg/dl (40-230)
[2017-05-19 08:42] LABS: IMMUNOGLOBULIN G 2603 mg/dl (700-1600)
[2017-05-19] MEDS: LEVOFLOXACIN 750MG/D5W (PMX) 150 ML IVPB SCH (14:32)
--- NOTE | 2017-05-19 16:10 | CONS ---
Date/Time of Note Date/Time of Note DATE: 05/19/17 TIME: 15:56 Assessment/Plan Assessment/Plan Problems: (1) Pericardial effusion Status: Acute Comment: As near as I am able to infer from the records from all of you she had had normal chest x-ray in February then had an abnormal chest x-ray with cardiomegaly in March. The patient has plus minus shortness of breath. She clearly has a myxedematous state. These states can be associated with pleural effusions. I will of course defer off to our colleagues in cardiology about how to best approach this but I have a suspicion this may not be insidious. However given that she is also from [facility] we have limited information on her and she has diffuse adenopathy which is not necessarily consistent with a mixed edematous state we may need to keep a very open mind about what is going on here. I concur with the infectious disease and rheumatologic workups the primary team has undertaken (2) Chronic thyroiditis Status: Chronic Comment: She has positive antithyroid antibodies based on the information we have from [facility]. 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 She is to be on thyroid hormone replacement therapy. Due to her youth we can go to full dose replacement therapy. She had been on 75 mcg and is barely budged her thyroid test based compared to when she was at [facility]. As such we will go ahead and push this up to 125 mcg a day. To accelerate the process I gave her a single dose of liothyronine to help get her feeling better. Is my anticipation that if we assume that all is due to the thyroid she will straighten out in the next few weeks. Please note she has almost all of the physical manifestations and findings of hypothyroidism Consultation Date/Type/Reason Admit Date/Time May 18, 2017 at 05:57 Date of Consultation: May 19, 2017 Type of Consultation: Endocrinology Reason for Consultation Hypothyroidism with myxedema; pericardial effusion; pleural effusion Referring Provider: STEPHANIE MACIAS Hx of Present Illness 26-year-old [facility] single young lady recently admitted and worked up at [facility]. She presented with change in voice is gravelly voice thickened cool dry skin and a goiter. She is found to have a TSH in excess of 100 and a low free T4. As patient describes that she had an ultrasound-guided biopsy of the submandibular lymph glands. Pathology was consistent with benign reactive process the lymph nodes were 3.1 cm in size. She was placed on levothyroxine 75 mcg a day and discharged to follow-up in the clinic. She has a 3 month history of cough without fevers chills or sweats. She has no other known medical problems the best of the information the family can give. We have received information from [facility] which is reviewed in conjunction with this case. Constitutional: no complaints (Denies fevers chills or sweats) Eyes: no complaints ENT: other (The mother reports the patient has had a change in her voice over the last a month with a significantly deeper and gravelly voice. This is reportedly improved in the few short weeks that she has been on levothyroxine) Respiratory: cough (3 months of cough without hemoptysis or sputum production. Plus minus shortness of breath.), shortness of breath Cardiovascular: orthopenea (1 of my colleagues is described orthopnea although my history with the patient is modestly different) Gastrointestinal: constipation, other Genitourinary: no complaints Musculoskeletal: other (Patient reports arthralgias and myalgias and achiness.) Skin: other (Thickening of the skin with lack of perspiration and cool to the touch.) Neurologic: no complaints Endocrine: no complaints Psychological: no complaints Past Medical History New diagnosis of hypothyroidism; Ab0 Medical History: no pertinent history Past Surgical History Past Surgical Hx: no surgical history Family History Significant Family History: no pertinent family hx Social History Alcohol Use: none Smoking Status: Never smoker Drug Use: none Exam/Review of Systems Vital Signs Vitals Vital Signs Date Time Temp Pulse Resp B/P Pulse Ox O2 Delivery O2 Flow Rate FiO2 05/19/17 12:41 105 05/19/17 11:53 98.7 18 105/67 100 05/19/17 07:44 Nasal Cannula 2.0 Intake and Output 05/18/17 05/18/17 05/19/17 15:00 23:00 07:00 Intake Total 800 ml Balance 800 ml Exam Constitutional: alert, oriented Head: atraumatic, normocephalic Eyes: EOMI, nl conjunctiva, nl lids, nl sclera ENMT: mucosa pink and moist, nl external ears & nose, nl lips & teeth, nl nasal mucosa & septum Neck: non-tender, supple, thyromegaly (Thyroid is modestly enlarged and rather firm to the touch.) Respiratory: clear to auscultation, normal air movement Cardiovascular: nl pulses, other (I do not appreciate a pulses paradoxus on examination), regular rate and rhythm Gastrointestinal: nl liver, spleen, non-tender, soft Results Result Diagram: 05/19/17 0630 05/19/17 0630 Results 24 hrs Laboratory Tests Test 05/18/17 20:35 05/18/17 21:35 05/19/17 00:30 05/19/17 05:24 Creatine Kinase 114 Rheumatoid Factor Screen NEGATIVE Hepatitis B Surface Antigen NEGATIVE Hepatitis C Antibody NEGATIVE HIV (1&2) Antibody NEGATIVE TB Skin Test Induration Pending TB Skin Test Administer Date 05/18/17 TB Skin Test Administer Time 2134 TB Skin Test Injection Site Left Upper Forearm Troponin I 0.039 Iron Level 23 L Total Iron Binding Capacity 315 Percent Iron Saturation 7 L Test 05/19/17 06:30 White Blood Count 4.6 #L Red Blood Count 3.75 L Hemoglobin 11.5 L Hematocrit 36.2 L Mean Corpuscular Volume 96.5 Mean Corpuscular Hemoglobin 30.7 Mean Corpuscular Hemoglobin Concent 31.8 L Red Cell Distribution Width 15.3 H Platelet Count 237 Mean Platelet Volume 11.3 H Neutrophils % 50.0 Lymphocytes % 40.5 Monocytes % 7.6 Eosinophils % 0.6 Basophils % 0.4 Nucleated Red Blood Cells % 0.0 Neutrophils # 2.3 Lymphocytes # 1.9 Monocytes # 0.4 Eosinophils # 0.0 Basophils # 0.0 Nucleated Red Blood Cells # 0.0 Prothrombin Time 12.7 Prothrombin Time Ratio 1.0 INR International Normalized Ratio 0.95 Activated Partial Thromboplast Time 41.9 H Sodium Level 141 Potassium Level 4.7 Chloride Level 104 Carbon Dioxide Level 23 Anion Gap 19 H Blood Urea Nitrogen 11 Creatinine 0.78 Glucose Level 73 Hemoglobin A1c 5.5 Uric Acid 6.7 Calcium Level 8.7 Magnesium Level 2.1 Total Bilirubin 0.2 Direct Bilirubin 0.00 Indirect Bilirubin 0.2 Aspartate Amino Transf (AST/SGOT) 83 H Alanine Aminotransferase (ALT/SGPT) 71 H Alkaline Phosphatase 117 Lactate Dehydrogenase 974 H Troponin I 0.031 Total Protein 8.5 H Albumin 4.0 Globulin 4.10 H Albumin/Globulin Ratio 0.95 Triglycerides Level 198 H Cholesterol Level 89 L LDL Cholesterol, Calculated 31 # HDL Cholesterol 18 L Cholesterol/HDL Ratio 4.9 Vitamin B12 Level > 1000 H Folate 16.0 Immunoglobulin A 292 Immunoglobulin G 2603 H Immunoglobulin M 270 H Medications Medications Current Medications Ondansetron HCl (Zofran Inj) 4 mg Q6H PRN IV NAUSEA AND/OR VOMITING; Start at 06:30 Pantoprazole (Protonix Iv) 40 mg DAILY@06 IV Last administered on 05/19/17 06: 34; Admin Dose 40 MG; Start 05/18/17 at 07:00 Morphine Sulfate (morphine) 2 mg Q4H PRN IV pain 6-10 Last administered on 05/18 16:19; Admin Dose 2 MG; Start 05/18/17 at 16:00 Acetaminophen (Tylenol Tab) 650 mg Q6H PRN PO PAIN AND OR ELEVATED TEMP; Start 05/18/17 at 20:00 Ibuprofen 600 mg 600 mg Q8 PO Last administered on 05/19/17 13:44; Admin Dose 600 MG; Start 05/18/17 at 22:00 Levofloxacin/ Dextrose (Levaquin 750 Mg/ D5W 150 ml (Pmx)) 150 ml @ 100 mls/hr Q24H IVPB Last administered on 05/19/17 14:32; Admin Dose 100 MLS/HR; Start at 14:30 ISABELLA FRENCH MD May 19, 2017 16:09
--- NOTE | 2017-05-19 17:37 | CONS ---
Date/Time of Note Date/Time of Note DATE: 05/19/17 TIME: 17:30 Assessment/Plan Assessment/Plan Chief Complaint/Hosp Course IMp: 1.Pericardial effusion-moderate by echo with no signs of echo tamponade by initial echo. Sable BP, HR around 100. ? secondary to hypothyroid-most likely/ viral/rheum 2.Cardiomyopathy-EF 40-45% by echo 3.Increased LFT's 4.Hypothyroid-secondary to Cecil's Thyroiditis/+ antithyroid AB at OSH Recc: -maintain on tele and follow closely for signs of pnding tamponade -serial ecg's -Treat hypothyroid state as you are doing -follow BP/HR -Avoid signifcant volume depletion -NSAIDS for now. -AM ECG -Follow exam/Pulsus -No definite indication for pericardiocentesis at this time. Will repeat echo in 1-2 days to re-assess effusion Problems: Consultation Date/Type/Reason Admit Date/Time May 18, 2017 at 05:57 Initial Consult Date 05/19/17 Type of Consultation: cardiology Reason for Consultation pericardial effusion Referring Provider: STEPHANIE MACIAS Exam/Review of Systems Vital Signs Vitals Vital Signs Date Time Temp Pulse Resp B/P Pulse Ox O2 Delivery O2 Flow Rate FiO2 05/19/17 16:44 97.5 105 18 109/60 98 05/19/17 07:44 Nasal Cannula 2.0 Intake and Output 05/18/17 05/18/17 05/19/17 15:00 23:00 07:00 Intake Total 800 ml Balance 800 ml Exam Review of Systems: CONSTITUTIONAL: No fevers, chills. PULMONARY: mild sob-improving CARDIOVASCULAR: No chest pain/palpitations GASTROINTESTINAL: No nausea/vomiting. GENITOURINARY: No hematuria/dysuria. MUSCULOSKELETAL: No myagias/arthalgias. PSYCHIATRIC: The patient denies depression. NEUROLOGIC: No weakness Constitutional: alert, oriented Psych: no complaints Head: normocephalic ENMT: mucosa pink and moist Neck: jvd (8-9 cm water), supple Respiratory: clear to auscultation Cardiovascular: other (mild tachycardia, regular rhythm) Gastrointestinal: non-tender, soft Musculoskeletal: muscle tone (normal) Extremities: edema (none) Neurological: other (No focal defcits) Results Result Diagram: 05/19/1730 05/19/17 0630 Results 24 hrs Laboratory Tests Test 05/18/17 20:35 05/18/17 21:35 05/19/17 00:30 05/19/17 05:24 Creatine Kinase 114 Rheumatoid Factor Screen NEGATIVE Hepatitis B Surface Antigen NEGATIVE Hepatitis C Antibody NEGATIVE HIV (1&2) Antibody NEGATIVE TB Skin Test Induration Pending TB Skin Test Administer Date 05/18/17 TB Skin Test Administer Time 2134 TB Skin Test Injection Site Left Upper Forearm Troponin I 0.039 Iron Level 23 L Total Iron Binding Capacity 315 Percent Iron Saturation 7 L Test 05/19/17 06:30 White Blood Count 4.6 #L Red Blood Count 3.75 L Hemoglobin 11.5 L Hematocrit 36.2 L Mean Corpuscular Volume 96.5 Mean Corpuscular Hemoglobin 30.7 Mean Corpuscular Hemoglobin Concent 31.8 L Red Cell Distribution Width 15.3 H Platelet Count 237 Mean Platelet Volume 11.3 H Neutrophils % 50.0 Lymphocytes % 40.5 Monocytes % 7.6 Eosinophils % 0.6 Basophils % 0.4 Nucleated Red Blood Cells % 0.0 Neutrophils # 2.3 Lymphocytes # 1.9 Monocytes # 0.4 Eosinophils # 0.0 Basophils # 0.0 Nucleated Red Blood Cells # 0.0 Prothrombin Time 12.7 Prothrombin Time Ratio 1.0 INR International Normalized Ratio 0.95 Activated Partial Thromboplast Time 41.9 H Sodium Level 141 Potassium Level 4.7 Chloride Level 104 Carbon Dioxide Level 23 Anion Gap 19 H Blood Urea Nitrogen 11 Creatinine 0.78 Glucose Level 73 Hemoglobin A1c 5.5 Uric Acid 6.7 Calcium Level 8.7 Magnesium Level 2.1 Total Bilirubin 0.2 Direct Bilirubin 0.00 Indirect Bilirubin 0.2 Aspartate Amino Transf (AST/SGOT) 83 H Alanine Aminotransferase (ALT/SGPT) 71 H Alkaline Phosphatase 117 Lactate Dehydrogenase 974 H Troponin I 0.031 Total Protein 8.5 H Albumin 4.0 Globulin 4.10 H Albumin/Globulin Ratio 0.95 Triglycerides Level 198 H Cholesterol Level 89 L LDL Cholesterol, Calculated 31 # HDL Cholesterol 18 L Cholesterol/HDL Ratio 4.9 Vitamin B12 Level > 1000 H Folate 16.0 Immunoglobulin A 292 Immunoglobulin G 2603 H Immunoglobulin M 270 H Medications Medications Current Medications Ondansetron HCl (Zofran Inj) 4 mg Q6H PRN IV NAUSEA AND/OR VOMITING; Start at 06:30 Pantoprazole (Protonix Iv) 40 mg DAILY@06 IV Last administered on 05/19/17 06: 34; Admin Dose 40 MG; Start 05/18/17 at 07:00 Morphine Sulfate (morphine) 2 mg Q4H PRN IV pain 6-10 Last administered on 05/18 16:19; Admin Dose 2 MG; Start 05/18/17 at 16:00 Acetaminophen (Tylenol Tab) 650 mg Q6H PRN PO PAIN AND OR ELEVATED TEMP; Start 05/18/17 at 20:00 Ibuprofen 600 mg 600 mg Q8 PO Last administered on 05/19/17 13:44; Admin Dose 600 MG; Start 05/18/17 at 22:00 Levofloxacin/ Dextrose (Levaquin 750 Mg/ D5W 150 ml (Pmx)) 150 ml @ 100 mls/hr Q24H IVPB Last administered on 05/19/17 14:32; Admin Dose 100 MLS/HR; Start at 14:30 GENEVIEVE HERNANDEZ May 19, 2017 17:37
--- NOTE | 2017-05-19 19:09 | PN ---
Date/Time of Note Date/Time of Note DATE: 05/19/17 TIME: 18:50 Assessment/Plan VTE Prophylaxis VTE Prophylaxis Intervention: SCD's Lines/Catheters IV Catheter Type (from Nrs): Saline Lock Urinary Cath still in place: No Assessment/Plan Assessment/Plan 26 yo F discharged from [facility] February 2017 after new diagnosis of severe hypothyroidism who now presents with shortness of breath and is found to have pericardial effusion as well as bronchiolitis 1. Acute Shortness of breath 2/2 #2 ; improving 2. Severe Hypothyroidism with evidence of thyroiditis and single 1.7cm R sided nodule concerning for autoimmune disease with + antithyroid AB 3. Moderate pericardial effusion with no signs of echo tamponade ? secondary to hypothyroid-most likely/viral/rheum 3. Bilateral infectious/inflammatory bronchiolitis;' on abx 4. Bilateral mild to moderate axillary lymphadenopathy and diffuse cervical adenopathy on Thyroid USS 03/2017. 5. Positive rheumatoid factor 6. Acute transaminitis 7. Cardiomyopathy-EF 40-45% by echo 8. Dyslipidemia PLAN: Continue current supportive care Appreciate all consultants review will follow their recommendations Await all test results try to get rheumatology consult Continue abx repeat echo planned for 2-3 days Subjective 24 Hr Interval Summary Free Text/Dictation Patient states she's feeling slightly better, she had L/n biopsy done in [place] but doesn't know the results Exam/Review of Systems Vital Signs Vitals Vital Signs Date Time Temp Pulse Resp B/P Pulse Ox O2 Delivery O2 Flow Rate FiO2 05/19/17 16:44 97.5 105 18 109/60 98 05/19/17 07:44 Nasal Cannula 2.0 Intake and Output 05/18/17 05/18/17 05/19/17 15:00 23:00 07:00 Intake Total 800 ml Balance 800 ml Exam Constitutional: alert, oriented, other less ill looking Psych: anxiety Head: atraumatic, normocephalic Eyes: PERRL, No icteric ENMT: mucosa pink and moist Neck: non-tender, supple, No jvd Respiratory: clear to auscultation, diminished breath sounds Cardiovascular: murmurs/extra sounds, regular rate and rhythm, No edema Gastrointestinal: bowel sounds, non-tender, soft Musculoskeletal: nl extremities to inspection, nl gait and stance Extremities: normal pulses, No edema Neurological: lethargic, nl mental status, No focal weakness Skin: No rash or lesions Results Result Diagram: 05/19/17 0630 05/19/17 0630 Results 24 hrs Laboratory Tests Test 05/18/17 20:35 05/18/17 21:35 05/19/17 00:30 05/19/17 05:24 Creatine Kinase 114 Rheumatoid Factor Screen NEGATIVE Hepatitis B Surface Antigen NEGATIVE Hepatitis C Antibody NEGATIVE HIV (1&2) Antibody NEGATIVE TB Skin Test Induration Pending TB Skin Test Administer Date 05/18/17 TB Skin Test Administer Time 2134 TB Skin Test Injection Site Left Upper Forearm Troponin I 0.039 Iron Level 23 L Total Iron Binding Capacity 315 Percent Iron Saturation 7 L Test 05/19/17 06:30 White Blood Count 4.6 #L Red Blood Count 3.75 L Hemoglobin 11.5 L Hematocrit 36.2 L Mean Corpuscular Volume 96.5 Mean Corpuscular Hemoglobin 30.7 Mean Corpuscular Hemoglobin Concent 31.8 L Red Cell Distribution Width 15.3 H Platelet Count 237 Mean Platelet Volume 11.3 H Neutrophils % 50.0 Lymphocytes % 40.5 Monocytes % 7.6 Eosinophils % 0.6 Basophils % 0.4 Nucleated Red Blood Cells % 0.0 Neutrophils # 2.3 Lymphocytes # 1.9 Monocytes # 0.4 Eosinophils # 0.0 Basophils # 0.0 Nucleated Red Blood Cells # 0.0 Prothrombin Time 12.7 Prothrombin Time Ratio 1.0 INR International Normalized Ratio 0.95 Activated Partial Thromboplast Time 41.9 H Sodium Level 141 Potassium Level 4.7 Chloride Level 104 Carbon Dioxide Level 23 Anion Gap 19 H Blood Urea Nitrogen 11 Creatinine 0.78 Glucose Level 73 Hemoglobin A1c 5.5 Uric Acid 6.7 Calcium Level 8.7 Magnesium Level 2.1 Total Bilirubin 0.2 Direct Bilirubin 0.00 Indirect Bilirubin 0.2 Aspartate Amino Transf (AST/SGOT) 83 H Alanine Aminotransferase (ALT/SGPT) 71 H Alkaline Phosphatase 117 Lactate Dehydrogenase 974 H Troponin I 0.031 Total Protein 8.5 H Albumin 4.0 Globulin 4.10 H Albumin/Globulin Ratio 0.95 Triglycerides Level 198 H Cholesterol Level 89 L LDL Cholesterol, Calculated 31 # HDL Cholesterol 18 L Cholesterol/HDL Ratio 4.9 Vitamin B12 Level > 1000 H Folate 16.0 Immunoglobulin A 292 Immunoglobulin G 2603 H Immunoglobulin M 270 H Medications Medications Current Medications Ondansetron HCl (Zofran Inj) 4 mg Q6H PRN IV NAUSEA AND/OR VOMITING; Start at 06:30 Pantoprazole (Protonix Iv) 40 mg DAILY@06 IV Last administered on 05/19/17 06: 34; Admin Dose 40 MG; Start 05/18/17 at 07:00 Morphine Sulfate (morphine) 2 mg Q4H PRN IV pain 6-10 Last administered on 05/18 16:19; Admin Dose 2 MG; Start 05/18/17 at 16:00 Acetaminophen (Tylenol Tab) 650 mg Q6H PRN PO PAIN AND OR ELEVATED TEMP; Start 05/18/17 at 20:00 Ibuprofen 600 mg 600 mg Q8 PO Last administered on 05/19/17 13:44; Admin Dose 600 MG; Start 05/18/17 at 22:00 Levofloxacin/ Dextrose (Levaquin 750 Mg/ D5W 150 ml (Pmx)) 150 ml @ 100 mls/hr Q24H IVPB Last administered on 05/19/17 14:32; Admin Dose 100 MLS/HR; Start at 14:30 STEPHANIE MACIAS May 19, 2017 19:00
--- NOTE | 2017-05-19 20:59 | CONS ---
Date/Time of Note Date/Time of Note DATE: 05/19/17 TIME: 20:56 Assessment/Plan Assessment/Plan Chief Complaint/Hosp Course Bilateral mild to moderate axillary lymphadenopathy, MORE ON THE L and diffuse cervical adenopathy on Thyroid USS 03/2017. PROCEED WITH BIOCHEMICAL W-UP CT ABD- TO COMPLETE STAGING BX L AXILLARY LN IF NO OTHER LN NOTED ANEMIA PROB DILUTIONAL LEUKOPENIA- NEW MONITOR INCREASED TOTAL PROTEIN AND GLOBULIN W-UP ORDERED Cecil's disease with myxedema Severe Hypothyroidism with evidence of thyroiditis and single 1.7cm R sided nodule concerning for autoimmune disease Moderate to large pericardial effusion. Bilateral infectious/inflammatory bronchiolitis. Positive rheumatoid factor RHEUMATOLOGY EVAL Pericardial effusion-moderate by echo with no signs of echo tamponade at this time. Cardiomyopathy-EF 40-45% by echo Acute Shortness of breath Increased LFT's Problems: Consultation Date/Type/Reason Admit Date/Time May 18, 2017 at 05:57 Initial Consult Date 05/19/17 Type of Consultation: HEMEON Referring Provider: STEPHANIE MACIAS Exam/Review of Systems Vital Signs Vitals Vital Signs Date Time Temp Pulse Resp B/P Pulse Ox O2 Delivery O2 Flow Rate FiO2 05/19/17 20:29 90 05/19/17 20:23 97.8 16 102/66 100 05/19/17 07:44 Nasal Cannula 2.0 Intake and Output 05/18/17 05/18/17 05/19/17 15:00 23:00 07:00 Intake Total 800 ml Balance 800 ml Results Result Diagram: 05/19/17 0630 05/19/17 0630 Results 24 hrs Laboratory Tests Test 05/18/17 21:35 05/19/17 00:30 05/19/17 05:24 05/19/17 06:30 TB Skin Test Induration Pending TB Skin Test Administer Date 05/18/17 TB Skin Test Administer Time 2134 TB Skin Test Injection Site Left Upper Forearm Troponin I 0.039 0.031 Iron Level 23 L Total Iron Binding Capacity 315 Percent Iron Saturation 7 L White Blood Count 4.6 #L Red Blood Count 3.75 L Hemoglobin 11.5 L Hematocrit 36.2 L Mean Corpuscular Volume 96.5 Mean Corpuscular Hemoglobin 30.7 Mean Corpuscular Hemoglobin Concent 31.8 L Red Cell Distribution Width 15.3 H Platelet Count 237 Mean Platelet Volume 11.3 H Neutrophils % 50.0 Lymphocytes % 40.5 Monocytes % 7.6 Eosinophils % 0.6 Basophils % 0.4 Nucleated Red Blood Cells % 0.0 Neutrophils # 2.3 Lymphocytes # 1.9 Monocytes # 0.4 Eosinophils # 0.0 Basophils # 0.0 Nucleated Red Blood Cells # 0.0 Prothrombin Time 12.7 Prothrombin Time Ratio 1.0 INR International Normalized Ratio 0.95 Activated Partial Thromboplast Time 41.9 H Sodium Level 141 Potassium Level 4.7 Chloride Level 104 Carbon Dioxide Level 23 Anion Gap 19 H Blood Urea Nitrogen 11 Creatinine 0.78 Glucose Level 73 Hemoglobin A1c 5.5 Uric Acid 6.7 Calcium Level 8.7 Magnesium Level 2.1 Total Bilirubin 0.2 Direct Bilirubin 0.00 Indirect Bilirubin 0.2 Aspartate Amino Transf (AST/SGOT) 83 H Alanine Aminotransferase (ALT/SGPT) 71 H Alkaline Phosphatase 117 Lactate Dehydrogenase 974 H Total Protein 8.5 H Albumin 4.0 Globulin 4.10 H Albumin/Globulin Ratio 0.95 Triglycerides Level 198 H Cholesterol Level 89 L LDL Cholesterol, Calculated 31 # HDL Cholesterol 18 L Cholesterol/HDL Ratio 4.9 Vitamin B12 Level > 1000 H Folate 16.0 Immunoglobulin A 292 Immunoglobulin G 2603 H Immunoglobulin M 270 H Medications Medications Current Medications Ondansetron HCl (Zofran Inj) 4 mg Q6H PRN IV NAUSEA AND/OR VOMITING; Start at 06:30 Pantoprazole (Protonix Iv) 40 mg DAILY@06 IV Last administered on 05/19/17 06: 34; Admin Dose 40 MG; Start 05/18/17 at 07:00 Morphine Sulfate (morphine) 2 mg Q4H PRN IV pain 6-10 Last administered on 05/18 16:19; Admin Dose 2 MG; Start 05/18/17 at 16:00 Acetaminophen (Tylenol Tab) 650 mg Q6H PRN PO PAIN AND OR ELEVATED TEMP; Start 05/18/17 at 20:00 Ibuprofen 600 mg 600 mg Q8 PO Last administered on 05/19/17 13:44; Admin Dose 600 MG; Start 05/18/17 at 22:00 Levofloxacin/ Dextrose (Levaquin 750 Mg/ D5W 150 ml (Pmx)) 150 ml @ 100 mls/hr Q24H IVPB Last administered on 05/19/17 14:32; Admin Dose 100 MLS/HR; Start at 14:30 DEEPA OCONNELL MD May 19, 2017 20:59
[2017-05-20] VITALS (13 sets, daily range): BP systolic 97–114; BP diastolic 63–76; PULSE 77–93; RESP 16–18
[2017-05-20] MEDS: morphine 2 MG INJ IV PRN (01:57)
[2017-05-20 05:15] LABS: PROTEIN, TOTAL 8.3 g/dL (6.1-8.1)
[2017-05-20] MEDS: IBUPROFEN 600 MG TAB PO SCH ×3 (05:58→21:38)
[2017-05-20] MEDS: LEVOTHYROXINE 125 MCG TAB PO SCH (05:58)
[2017-05-20] MEDS: PANTOPRAZOLE 40 MG INJ IV SCH (05:58)
[2017-05-20] MEDS ORDERED: BARIUM SULF 2% 450 ML BTL (BERRY SMOOTHIE) PO ONE (07:00)
[2017-05-20 08:16] LABS: CALCIUM 8.4 mg/dl (8.4-10.2); CREATININE 0.72 mg/dl (0.44-1.00); POTASSIUM 4.9 mmol/L (3.5-5.1)
--- NOTE | 2017-05-20 11:06 | PN ---
Date/Time of Note Date/Time of Note DATE: 05/20/17 TIME: 11:05 Assessment/Plan VTE Prophylaxis VTE Prophylaxis Intervention: SCD's Lines/Catheters IV Catheter Type (from Nrs): Saline Lock Urinary Cath still in place: No Assessment/Plan Assessment/Plan 26 yo F discharged from [facility] February 2017 after new diagnosis of severe hypothyroidism who now presents with shortness of breath and is found to have pericardial effusion as well as bronchiolitis 1. Acute Shortness of breath 2/2 #2 ; improving 2. Severe Hypothyroidism with evidence of thyroiditis and single 1.7cm R sided nodule concerning for autoimmune disease with + antithyroid AB 3. Moderate pericardial effusion with no signs of echo tamponade ? secondary to hypothyroid-most likely/viral/rheum 3. Bilateral infectious/inflammatory bronchiolitis;' on abx 4. Bilateral mild to moderate axillary lymphadenopathy and diffuse cervical adenopathy on Thyroid USS 03/2017. * Pathology from needle biopsy showed reactive lymphocytes 5. Acute transaminitis: improved 6. Dyslipidemia 7. Cardiomyopathy-EF 40-45% by echo 8. New ?Raynaud's phenomenon and hand petechiae PLAN: * repeat echo planned per cardiology, f/u timimg * This patient needs rheumatology review, all evidence is pointing to an autoimmune or inflammatory process in my opinion. Dr Wyatt had earlier accepted to consult on the patient, will await his review, if not, patient may need to be transferred for higher level of care. * Continue levothyroxine per endo * Await all test results * Continue abx / Continue current supportive care * Appreciate all consultants review will follow their recommendations / rheum will review today Subjective 24 Hr Interval Summary Free Text/Dictation Patient c/o purple discoloration of fingers and point erythema in palms Exam/Review of Systems Vital Signs Vitals Vital Signs Date Time Temp Pulse Resp B/P Pulse Ox O2 Delivery O2 Flow Rate FiO2 05/20/17 08:15 79 05/20/17 08:02 98.0 18 97/63 98 05/19/17 07:44 Nasal Cannula 2.0 Intake and Output 05/19/17 05/19/17 05/20/17 15:00 23:00 07:00 Intake Total 1100 ml Output Total 200 ml 400 ml Balance 900 ml -400 ml Exam Constitutional: alert, oriented, ill looking, Psych: anxiety Head: atraumatic, normocephalic Eyes: PERRL, No icteric ENMT: mucosa pink and moist Neck: non-tender, supple, No jvd Respiratory: clear to auscultation, diminished breath sounds Cardiovascular: murmurs/extra sounds, regular rate and rhythm, No edema Gastrointestinal: bowel sounds, non-tender, soft Musculoskeletal: ?Raynaud's Phenomenon in fingers with petechial lesion in palm Extremities: normal pulses, No edema Neurological: lethargic, nl mental status, No focal weakness Skin: No rash or lesions Results Result Diagram: 05/19/17 0630 05/20/17 0645 Results 24 hrs Laboratory Tests Test 05/20/17 06:45 Sodium Level 140 Potassium Level 4.9 Chloride Level 102 Carbon Dioxide Level 23 Anion Gap 20 H Blood Urea Nitrogen 14 Creatinine 0.72 Glucose Level 80 Calcium Level 8.4 Medications Medications Current Medications Ondansetron HCl (Zofran Inj) 4 mg Q6H PRN IV NAUSEA AND/OR VOMITING; Start at 06:30 Pantoprazole (Protonix Iv) 40 mg DAILY@06 IV Last administered on 05/20/17 05: 58; Admin Dose 40 MG; Start 05/18/17 at 07:00 Morphine Sulfate (morphine) 2 mg Q4H PRN IV pain 6-10 Last administered on 01:57; Admin Dose 2 MG; Start 05/18/17 at 16:00 Acetaminophen (Tylenol Tab) 650 mg Q6H PRN PO PAIN AND OR ELEVATED TEMP; Start 05/18/17 at 20:00 Ibuprofen 600 mg 600 mg Q8 PO Last administered on 05/20/17 05:58; Admin Dose 600 MG; Start 05/18/17 at 22:00 Levofloxacin/ Dextrose (Levaquin 750 Mg/ D5W 150 ml (Pmx)) 150 ml @ 100 mls/hr Q24H IVPB Last administered on 05/19/17 14:32; Admin Dose 100 MLS/HR; Start at 14:30 Procedures Procedures Summary of findings: 1. Leukopenia and hypochromic anemia with normal platelet count and normal indicis 2. Elevated LDH 974 3. Normal creatinine kinase 4. Mild hypoproteinemia 5. Dyslipidemia with elevated triglycerides and low HDL 6. Elevated IgG and IgM with normal IgA 7. Negative rheumatoid factor GILBERTO,BOLATITO M. May 20, 2017 11:06
--- NOTE | 2017-05-20 12:41 | CONS ---
Date/Time of Note Date/Time of Note DATE: 05/20/17 TIME: 12:38 Assessment/Plan Assessment/Plan Problems: (1) Acute labyrinthitis Status: Acute Comment: Will add meclizine 25 mg tid and advise that there is ondansetron available if pt. 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 LT4 125 mcg daily. Family advised it will be weeks to months for symptoms to fully resolve. Consultation Date/Type/Reason Admit Date/Time May 18, 2017 at 05:57 Initial Consult Date 05/19/17 Type of Consultation: Endocrinology Reason for Consultation Hypothyroidism Referring Provider: STEPHANIE MACIAS 24 HR Interval Summary Constitutional: No no complaints Detailed Summary Respiratory: no complaints, No cough, No shortness of breath Cardiovascular: chest pain Gastrointestinal: nausea (associated w/ primary complaint of dizziness) Genitourinary: no complaints Musculoskeletal: no complaints Neurologic: dizziness Exam/Review of Systems Vital Signs Vitals VS - Last 72 Hours, by Label Date Time Temp Pulse Resp B/P Pulse Ox O2 Delivery O2 Flow Rate FiO2 05/20/17 12:14 90 05/20/17 11:59 98.0 67 18 105/72 98 05/20/17 08:15 79 05/20/17 08:02 98.0 80 18 97/63 98 05/20/17 04:49 97.8 83 16 97/64 99 05/20/17 04:43 77 05/20/17 00:46 93 05/20/17 00:09 97.0 82 16 107/66 99 05/19/17 20:29 90 05/19/17 20:23 97.8 94 16 102/66 100 05/19/17 16:44 97.5 105 18 109/60 98 05/19/17 16:33 95 05/19/17 12:41 105 05/19/17 11:53 98.7 83 18 105/67 100 05/19/17 08:47 78 05/19/17 08:27 97.6 81 19 107/68 95 05/19/17 07:44 Nasal Cannula 2.0 05/19/17 04:22 98.1 77 20 99/67 99 05/19/17 04:21 80 05/19/17 00:49 98.2 79 20 109/54 99 05/19/17 00:19 93 05/18/17 22:45 98.0 05/18/17 20:27 101 05/18/17 20:08 98.2 101 16 112/70 96 05/18/17 17:08 98.0 73 20 112/79 100 05/18/17 16:50 94 05/18/17 12:55 90 05/18/17 12:27 98.4 93 20 118/70 100 05/18/17 09:35 88 05/18/17 08:23 98.2 77 18 111/79 100 05/18/17 05:06 Nasal Cannula 2.0 05/17/17 21:18 97.7 65 20 138/83 100 Vital Signs Date Time Temp Pulse Resp B/P Pulse Ox O2 Delivery O2 Flow Rate FiO2 05/20/17 12:14 90 05/20/17 11:59 98.0 18 105/72 98 05/19/17 07:44 Nasal Cannula 2.0 Intake and Output 05/19/17 05/19/17 05/20/17 15:00 23:00 07:00 Intake Total 1100 ml Output Total 200 ml 400 ml Balance 900 ml -400 ml Exam Constitutional: alert, oriented, well developed Psych: nl mood/affect, no complaints Respiratory: clear to auscultation, normal air movement Cardiovascular: nl pulses, regular rate and rhythm, No edema, No murmurs/extra sounds, No rub Gastrointestinal: bowel sounds, nl liver, spleen, non-tender, soft, No mass, No rebound or guarding Musculoskeletal: nl extremities to inspection Extremities: normal pulses, No clubbing, No cyanosis, No edema Neurological: [employer]EL[employer] II-XII intact, nl mental status, nl speech, nl strength Results Result Diagram: 05/19/17 0630 05/20/17 0645 Results 24 hrs Laboratory Tests Test 05/20/17 06:45 Sodium Level 140 Potassium Level 4.9 Chloride Level 102 Carbon Dioxide Level 23 Anion Gap 20 H Blood Urea Nitrogen 14 Creatinine 0.72 Glucose Level 80 Calcium Level 8.4 Medications Medications Current Medications Ondansetron HCl (Zofran Inj) 4 mg Q6H PRN IV NAUSEA AND/OR VOMITING; Start at 06:30 Pantoprazole (Protonix Iv) 40 mg DAILY@06 IV Last administered on 05/20/17 05: 58; Admin Dose 40 MG; Start 05/18/17 at 07:00 Morphine Sulfate (morphine) 2 mg Q4H PRN IV pain 6-10 Last administered on 01:57; Admin Dose 2 MG; Start 05/18/17 at 16:00 Acetaminophen (Tylenol Tab) 650 mg Q6H PRN PO PAIN AND OR ELEVATED TEMP; Start 05/18/17 at 20:00 Ibuprofen 600 mg 600 mg Q8 PO Last administered on 05/20/17 05:58; Admin Dose 600 MG; Start 05/18/17 at 22:00 Levofloxacin/ Dextrose (Levaquin 750 Mg/ D5W 150 ml (Pmx)) 150 ml @ 100 mls/hr Q24H IVPB Last administered on 05/19/17 14:32; Admin Dose 100 MLS/HR; Start at 14:30 GLEN ALMARAZ MD May 20, 2017 12:41
[2017-05-20] MEDS: LEVOFLOXACIN 750MG/D5W (PMX) 150 ML IVPB SCH (14:16)
[2017-05-20] MEDS ORDERED: SOD CHLORIDE 0.9% 100 ML ONE (15:03)
[2017-05-20] MEDS ORDERED: IOHEXOL 300MG/ML 150 ML BTL ONE (15:03)
[2017-05-20 15:06] LABS: ALBUMIN 3.4 g/dL (3.8-4.8)
--- NOTE | 2017-05-20 16:05 | RADRPT ---
PROCEDURE: CT abdomen and pelvis without and with contrast. CLINICAL INDICATION: Neoplastic disease. Staging examination. TECHNIQUE: CT scan of the abdomen and pelvis was performed before and after the uneventful intravenous administ ration of 100 cc of Omnipaque 300. Oral contrast was also given prior to the examination. Coronal an d sagittal reformatted images were obtained from the axial source images. The total exam CTDI equal s 4.39, 4.78 mGy and the total exam DLP equals 476.3 mGy-cm. One or more of the following dose reduction techniques were used: - Automated exposure control. - Adjustment of the mA and/or kV according to patient size. - Use of iterative reconstruction technique. COMPARISON: CT angiography of the chest dated 05/18/2017. FINDINGS: Visualized lower thorax: There is extensive tree in bud opacity and subpleural ground-glass opacity in within the visualized lungs, mildly improved. The heart is enlarged and there is a moderate to large pericardial effusion measuring 2.1 cm in maximal thickness, similar when compared with the recent CT scan. Hepatobiliary system and spleen: There is mild diffuse heterogeneous enhancement of the liver, consistent with a phase of contrast be tween arterial and portal venous phases. There are indeterminate enhancing foci at the junction of segments 4 be and 5 measuring 7 mm, in segment 4B measuring 10 mm, and in the junction of segment 5 and 6 measuring 4.4 cm. There is no intra or extrahepatic biliary ductal dilatation. The gallbladder is unremarkable. The spleen is unremarkable. The pancreas is unremarkable. Adrenal glands and genitourinary system: The adrenal glands are unremarkable. There is a punctate nonobstructing stone at the lower pole of t he left kidney. There are no renal masses or hydronephrosis. The urinary bladder is unremarkable. The uterus and adnexa are unremarkable. Gastrointestinal system: The stomach and small bowel are unremarkable. There is no bowel wall thickening or evidence of obstr uction. The appendix is not identified. There is nonspecific trace fluid adjacent to the cecum in t he right lower quadrant, but no additional findings to suggest underlying appendicitis. Peritoneum, avascular, and lymphatics: There is no free intraperitoneal air. There are prominent bilateral inguinal and bilateral external iliac chain lymph nodes The aorta is nonaneurysmal. There is a small fat containing umbilical herni a. Musculoskeletal system: There are no concerning osseous lesions. IMPRESSION: 1. Cardiomegaly and moderate to large pericardial effusion, not significantly change. 2. Bibasilar bronchiolitis, mildly improved when compared with the prior chest CT of 05/18/2017. 3. Nonspecific enhancing foci within the liver as described. Correlation with a multiphase CT scan or MRI with Eovist is recommended for further evaluation. 4. Punctate left nonobstructing nephrolithiasis. 5. Nonspecific trace fluid adjacent to the cecum in the right lower quadrant. Nonvisualization of the appendix, but without additional findings to suggest appendicitis. 6. Prominent bilateral inguinal and left external iliac chain lymph nodes, which are nonspecific. RPTAT: EE .Serge Coreas MD, MD Date Time Electronically viewed and signed by .Serge Coreas MD, on 05/20/2017 16:05 .P/
[2017-05-20] MEDS: MECLIZINE 25 MG TAB PO SCH ×2 (16:21→21:38)
--- NOTE | 2017-05-20 16:35 | CONS ---
Date/Time of Note Date/Time of Note DATE: 05/20/17 TIME: 16:31 Assessment/Plan Assessment/Plan Additional Assessment/Plan 1.Pericardial effusion-moderate by echo with no signs of echo tamponade by initial echo.\ Sable BP, HR 2.Cardiomyopathy-EF 40-45% by echo and CT scan 3.Increased LFT's 4.Hypothyroid-secondary to Cecil's Thyroiditis/+ antithyroid AB at OSH Ct chest No evidence of pulmonary embolism or aortic dissection. Mild cardiomegaly with moderate to large pericardial effusion. Bilateral mild ground-glass and tree-in-bud opacities suggestive of an infectious/inflammatory bronchiolitis. Bilateral mild to moderate axillary lymphadenopathy. Recc: -Follow exam/Pulsus and BP -No definite indication for pericardial window pericardiocentesis at this time. Will repeat echo in 1-2 days to re-assess effusion Consultation Date/Type/Reason Admit Date/Time May 18, 2017 at 05:57 Constitutional: No no complaints Eyes: no complaints, No discharge, No other, No pain, No redness, No visual change ENT: other (The mother reports the patient has had a change in her voice over the last a month with a significantly deeper and gravelly voice. This is reportedly improved in the few short weeks that she has been on levothyroxine), No bleeding, No congestion, No discharge, No dysphagia, No no complaints, No pain, No sore throat Respiratory: no complaints, No cough, No other, No pain, No pleuritic pain, No shortness of breath, No sputum, No wheezing Cardiovascular: chest pain Gastrointestinal: nausea (associated w/ primary complaint of dizziness) Genitourinary: no complaints Musculoskeletal: no complaints Skin: other (Thickening of the skin with lack of perspiration and cool to the touch.) Neurologic: dizziness Endocrine: no complaints Psychological: nl mood/affect, no complaints Past Medical History Medical History: no pertinent history Past Surgical History Past Surgical Hx: no surgical history Social History Alcohol Use: none Smoking Status: Never smoker Drug Use: none Exam/Review of Systems Vital Signs Vitals Vital Signs Date Time Temp Pulse Resp B/P Pulse Ox O2 Delivery O2 Flow Rate FiO2 05/20/17 16:19 79 05/20/17 11:59 98.0 18 105/72 98 05/19/17 07:44 Nasal Cannula 2.0 Intake and Output 05/19/17 05/19/17 05/20/17 15:00 23:00 07:00 Intake Total 1100 ml Output Total 200 ml 400 ml Balance 900 ml -400 ml Exam Psych: nl mood/affect, no complaints Head: atraumatic, normocephalic Eyes: EOMI, PERRL, nl conjunctiva, nl lids, nl sclera ENMT: nl external ears & nose, nl lips & teeth, nl nasal mucosa & septum Neck: non-tender, supple Respiratory: clear to auscultation, normal air movement Cardiovascular: nl pulses, regular rate and rhythm Results Result Diagram: 05/19/17 0630 05/20/17 0645 Results 24 hrs Laboratory Tests Test 05/20/17 06:45 Sodium Level 140 Potassium Level 4.9 Chloride Level 102 Carbon Dioxide Level 23 Anion Gap 20 H Blood Urea Nitrogen 14 Creatinine 0.72 Glucose Level 80 Calcium Level 8.4 Medications Medications Current Medications Ondansetron HCl (Zofran Inj) 4 mg Q6H PRN IV NAUSEA AND/OR VOMITING; Start at 06:30 Pantoprazole (Protonix Iv) 40 mg DAILY@06 IV Last administered on 05/20/17 05: 58; Admin Dose 40 MG; Start 05/18/17 at 07:00 Morphine Sulfate (morphine) 2 mg Q4H PRN IV pain 6-10 Last administered on 01:57; Admin Dose 2 MG; Start 05/18/17 at 16:00 Acetaminophen (Tylenol Tab) 650 mg Q6H PRN PO PAIN AND OR ELEVATED TEMP; Start 05/18/17 at 20:00 Ibuprofen 600 mg 600 mg Q8 PO Last administered on 05/20/17 16:20; Admin Dose 600 MG; Start 05/18/17 at 22:00 Levofloxacin/ Dextrose (Levaquin 750 Mg/ D5W 150 ml (Pmx)) 150 ml @ 100 mls/hr Q24H IVPB Last administered on 05/20/17 14:16; Admin Dose 100 MLS/HR; Start at 14:30 Meclizine HCl (Antivert) 25 mg TID PO Last administered on 05/20/17 16:21; Admin Dose 25 MG; Start 05/20/17 at 14:00 KRYSTAL HARRIS MD May 20, 2017 16:35
[2017-05-20 17:02] LABS: TB-NIL 0.03 IU/mL
--- NOTE | 2017-05-20 17:19 | CONS ---
Date/Time of Note Date/Time of Note DATE: 05/20/17 TIME: 17:17 Assessment/Plan Assessment/Plan Additional Assessment/Plan 1.Pericardial effusion-moderate by echo with no signs of echo tamponade by initial echo. Sable BP, HR around 100. ? secondary to hypothyroid-most likely/ viral/rheum - BP stable - will f/up with ECHO tomorrow to evaluate for effusion cahnges if any 2.Cardiomyopathy-EF 40-45% by echo - not in CHF by exam 3.Increased LFT's - primary follows 4.Hypothyroid-secondary to Cecil's Thyroiditis/+ antithyroid AB at OSH - Rx as needed Consultation Date/Type/Reason Admit Date/Time May 18, 2017 at 05:57 Initial Consult Date 05/19/17 Type of Consultation: Endocrinology Referring Provider: STEPHANIE MACIAS 24 HR Interval Summary Free Text/Dictation No acute change - not in tamponade by exam - seen by CT surgery - no pericardial window for no w- pending repeat ECHO. ROS: No fever, no chills, no nausea, no vomiting, no diarrhea/constipation No recent weight changes No chest pain, no PND, no orthopnea No dizziness, blurred vision No thirst, no heat or cold intolerance Exam/Review of Systems Vital Signs Vitals Vital Signs Date Time Temp Pulse Resp B/P Pulse Ox O2 Delivery O2 Flow Rate FiO2 05/20/17 16:19 79 05/20/17 11:59 98.0 18 105/72 98 05/19/17 07:44 Nasal Cannula 2.0 Intake and Output 05/19/17 05/19/17 05/20/17 15:00 23:00 07:00 Intake Total 1100 ml Output Total 200 ml 400 ml Balance 900 ml -400 ml Exam General: WN/WD/NAD, AOx 3 HEENT: Unicetric/atraumatic/EOMI (follow commands) NECK: JVD elevated, no thyromegaly Lymph: no lymphadenopathy HEART: regular with no S3, II/ systolic murmur at apex LUNGS: Coarse sounds ABD: soft, NT, ND, +BS : Intact Neuro: non focal SKIN: chronic changes EXT: trace edema Results Result Diagram: 05/19/17 0630 05/20/17 0645 Results 24 hrs Laboratory Tests Test 05/20/17 06:45 Sodium Level 140 Potassium Level 4.9 Chloride Level 102 Carbon Dioxide Level 23 Anion Gap 20 H Blood Urea Nitrogen 14 Creatinine 0.72 Glucose Level 80 Calcium Level 8.4 Medications Medications Current Medications Ondansetron HCl (Zofran Inj) 4 mg Q6H PRN IV NAUSEA AND/OR VOMITING; Start at 06:30 Pantoprazole (Protonix Iv) 40 mg DAILY@06 IV Last administered on 05/20/17 05: 58; Admin Dose 40 MG; Start 05/18/17 at 07:00 Morphine Sulfate (morphine) 2 mg Q4H PRN IV pain 6-10 Last administered on 01:57; Admin Dose 2 MG; Start 05/18/17 at 16:00 Acetaminophen (Tylenol Tab) 650 mg Q6H PRN PO PAIN AND OR ELEVATED TEMP; Start 05/18/17 at 20:00 Ibuprofen 600 mg 600 mg Q8 PO Last administered on 05/20/17 16:20; Admin Dose 600 MG; Start 05/18/17 at 22:00 Levofloxacin/ Dextrose (Levaquin 750 Mg/ D5W 150 ml (Pmx)) 150 ml @ 100 mls/hr Q24H IVPB Last administered on 05/20/17 14:16; Admin Dose 100 MLS/HR; Start at 14:30 Meclizine HCl (Antivert) 25 mg TID PO Last administered on 05/20/17 16:21; Admin Dose 25 MG; Start 05/20/17 at 14:00 WILL LUNA MD May 20, 2017 17:19
--- NOTE | 2017-05-20 17:35 | CONS ---
Date/Time of Note Date/Time of Note DATE: 05/20/17 TIME: 17:30 Assessment/Plan Assessment/Plan Chief Complaint/Hosp Course Bilateral mild to moderate axillary lymphadenopathy, MORE ON THE L and diffuse cervical adenopathy on Thyroid USS 03/2017. BIOCHEMICAL W-UP- P CT ABD- Prominent bilateral inguinal and left external iliac chain lymph nodes, which are nonspecific. 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 Bilateral infectious/inflammatory bronchiolitis. Positive rheumatoid factor RHEUMATOLOGY EVAL Pericardial effusion-moderate by echo with no signs of echo tamponade at this time. Cardiomyopathy-EF 40-45% by echo Acute Shortness of breath Increased LFT's Problems: Consultation Date/Type/Reason Admit Date/Time May 18, 2017 at 05:57 Initial Consult Date 05/19/17 [facility] Referring Provider: STEPHANIE MACIAS 24 HR Interval Summary Free Text/Dictation ALL NOTED NO NEW EVENTS W-UP IN PROGRESS Exam/Review of Systems Vital Signs Vitals Vital Signs Date Time Temp Pulse Resp B/P Pulse Ox O2 Delivery O2 Flow Rate FiO2 05/20/17 16:19 79 05/20/17 11:59 98.0 18 105/72 98 05/19/17 07:44 Nasal Cannula 2.0 Intake and Output 05/19/17 05/19/17 05/20/17 15:00 23:00 07:00 Intake Total 1100 ml Output Total 200 ml 400 ml Balance 900 ml -400 ml Exam Constitutional: alert, oriented, other less ill looking Psych: anxiety Head: atraumatic, normocephalic Eyes: PERRL, No icteric ENMT: mucosa pink and moist Neck: non-tender, supple, No jvd Respiratory: clear to auscultation, diminished breath sounds Cardiovascular: murmurs/extra sounds, regular rate and rhythm, No edema Gastrointestinal: bowel sounds, non-tender, soft Musculoskeletal: nl extremities to inspection, nl gait and stance Extremities: normal pulses, No edema Neurological: lethargic, nl mental status, No focal weakness Skin: No rash or lesions Results Result Diagram: 05/19/17 0630 05/20/17 0645 Results 24 hrs Laboratory Tests Test 05/20/17 06:45 Sodium Level 140 Potassium Level 4.9 Chloride Level 102 Carbon Dioxide Level 23 Anion Gap 20 H Blood Urea Nitrogen 14 Creatinine 0.72 Glucose Level 80 Calcium Level 8.4 Medications Medications Current Medications Ondansetron HCl (Zofran Inj) 4 mg Q6H PRN IV NAUSEA AND/OR VOMITING; Start at 06:30 Pantoprazole (Protonix Iv) 40 mg DAILY@06 IV Last administered on 05/20/17 05: 58; Admin Dose 40 MG; Start 05/18/17 at 07:00 Morphine Sulfate (morphine) 2 mg Q4H PRN IV pain 6-10 Last administered on 01:57; Admin Dose 2 MG; Start 05/18/17 at 16:00 Acetaminophen (Tylenol Tab) 650 mg Q6H PRN PO PAIN AND OR ELEVATED TEMP; Start 05/18/17 at 20:00 Ibuprofen 600 mg 600 mg Q8 PO Last administered on 05/20/17 16:20; Admin Dose 600 MG; Start 05/18/17 at 22:00 Levofloxacin/ Dextrose (Levaquin 750 Mg/ D5W 150 ml (Pmx)) 150 ml @ 100 mls/hr Q24H IVPB Last administered on 05/20/17 14:16; Admin Dose 100 MLS/HR; Start at 14:30 Meclizine HCl (Antivert) 25 mg TID PO Last administered on 05/20/17 16:21; Admin Dose 25 MG; Start 05/20/17 at 14:00 Procedures Procedures [place] [id number] Radiology Main Line: [phone] DIAGNOSTIC IMAGING REPORT Patient: GORGE ROBERT : 1990 Age: 26 Sex: F MR #: [id number] DOS: 05/20/17 0000 Ordering MD: DEEPA OCONNELL MD [place] [facility] [place]Bed: [facility] PROCEDURE: CT abdomen and pelvis without and with contrast. CLINICAL INDICATION: Neoplastic disease. Staging examination. TECHNIQUE: CT scan of the abdomen and pelvis was performed before and after the uneventful intravenous administration of 100 cc of Omnipaque 300. Oral contrast was also given prior to the examination. Coronal and sagittal reformatted images were obtained from the axial source images. The total exam CTDI equals 4.39, 4.78 mGy and the total exam DLP equals 476.3 mGy-cm. One or more of the following dose reduction techniques were used: - Automated exposure control. - Adjustment of the mA and/or kV according to patient size. - Use of iterative reconstruction technique. COMPARISON: CT angiography of the chest dated 05/18/2017. FINDINGS: Visualized lower thorax: There is extensive tree in bud opacity and subpleural ground-glass opacity in within the visualized lungs, mildly improved. The heart is enlarged and there is a moderate to large pericardial effusion measuring 2.1 cm in maximal thickness, similar when compared with the recent CT scan. Hepatobiliary system and spleen: There is mild diffuse heterogeneous enhancement of the liver, consistent with a phase of contrast between arterial and portal venous phases. There are indeterminate enhancing foci at the junction of segments 4 be and 5 measuring 7 mm, in segment 4B measuring 10 mm, and in the junction of segment 5 and 6 measuring 4.4 cm. There is no intra or extrahepatic biliary ductal dilatation. The gallbladder is unremarkable. The spleen is unremarkable. The pancreas is unremarkable. Adrenal glands and genitourinary system: The adrenal glands are unremarkable. There is a punctate nonobstructing stone at the lower pole of the left kidney. There are no renal masses or hydronephrosis. The urinary bladder is unremarkable. The uterus and adnexa are unremarkable. Gastrointestinal system: The stomach and small bowel are unremarkable. There is no bowel wall thickening or evidence of obstruction. The appendix is not identified. There is nonspecific trace fluid adjacent to the cecum in the right lower quadrant, but no additional findings to suggest underlying appendicitis. Peritoneum, avascular, and lymphatics: There is no free intraperitoneal air. There are prominent bilateral inguinal and bilateral external iliac chain lymph nodes The aorta is nonaneurysmal. There is a small fat containing umbilical hernia. Musculoskeletal system: There are no concerning osseous lesions. IMPRESSION: 1. Cardiomegaly and moderate to large pericardial effusion, not significantly change. 2. Bibasilar bronchiolitis, mildly improved when compared with the prior chest CT of 05/18/2017. 3. Nonspecific enhancing foci within the liver as described. Correlation with a multiphase CT scan or MRI with Eovist is recommended for further evaluation. 4. Punctate left nonobstructing nephrolithiasis. 5. Nonspecific trace fluid adjacent to the cecum in the right lower quadrant. Nonvisualization of the appendix, but without additional findings to suggest appendicitis. 6. Prominent bilateral inguinal and left external iliac chain lymph nodes, which are nonspecific. RPTAT: EE .Serge Coreas MD, MD Date Time Electronically viewed and signed by .Serge Coreas MD, on 05/20/2017 16:05 .P/ CC: DEEPA OCONNELL MD, VERA M MD May 20, 2017 17:35
--- NOTE | 2017-05-20 20:14 | CONS ---
Date/Time of Note Date/Time of Note DATE: 05/20/17 TIME: 19:13 Assessment/Plan Assessment/Plan Chief Complaint/Hosp Course Ass. 1. Cecil's Thyroiditis 2. Severe Hypothyroidism 3. Pericardial effusion 4. Elevated ESR 5. Hypergammaglobulinemia 6. MIld anemia 7. Mild leukopenia 8. Shortness of breath 9. Fatigue This patient appears to likely have a systemic autoimmune process such as Lupus , of which Cecil's thyroiditis is likely only a part. Some of her symptoms are likely due to the hypothyroidism, but that doesn't definitely explain the lymphadenopathy and pericardial effusion and bronchiolitis. She does have mild leukopenia, consistent with SLE (or viral syndrome). Problems: Additional Assessment/Plan Plan: 1. Additional labs ordered. 2. May benefit from corticosteroids in view of pericardial effusion, if cardiology feels would be helpful, and bronchiolitis, if no evidence of infection. 3. Consider additional infection work up Consultation Date/Type/Reason Admit Date/Time May 18, 2017 at 05:57 Date of Consultation: May 20, 2017 Reason for Consultation SOB, Fatigue Hx of Present Illness 26 y/o woman who was well until four months ago when started to developed fatigue and dry cough. A month later had two months of rash at arms and face which resolved with "creams." Subsequently developed some shortness of breath and was noted to have hypothyroidism with TSH of 136, with antithyroid antibodies. Also thyroid nodule and diffuse lymphadenopathy. Was started on some levothyroxine and underwent lymph node biopsy at [facility] which was consistent with reactive process. Now was admitted with increased SOB and noted to have pericardial effusion, without tamponade, and lower lobe bronchiolitis. No evidence of pulmonary fibrosis. Has had some diffuse puffiness and diffuse aches over last several weeks. Unclear if true joint swelling. At present has mild SOB at rest, some nausea today, Denies other rashes, Raynaud 's, photosensitivity, fever, chills, DVT, Long history of vague headaches for years. SEE ABOVE Constitutional: poor po, requiring O2, No chills, No diaphoresis, No disoriented, No febrile, No improved, No no complaints, No other, No requiring IVF Eyes: no complaints, No discharge, No other, No pain, No redness, No visual change ENT: No bleeding, No congestion, No discharge, No dysphagia, No no complaints, No other, No pain, No sore throat Respiratory: cough, shortness of breath, No no complaints, No other, No pain, No pleuritic pain, No sputum, No wheezing Cardiovascular: No chest pain, No edema, No lightheadedness, No no complaints, No orthopenea, No other, No palpitations, No paroxysmal nocturnal dyspnea Gastrointestinal: decreased appetite, nausea, No blood, No constipation, No diarrhea, No pain Genitourinary: No bleeding, No discharge, No dysuria, No flank pain, No hematuria, No no complaints, No other Musculoskeletal: No back pain, No bone/joint pain, No neck pain, No no complaints, No other, No restricted range of motion, No swelling Skin: No bruising, No erythema, No laceration, No no complaints, No other, No pruritis, No rash, No skin lesions Neurologic: No confusion, No dizziness, No focal-weakness, No headache, No no complaints, No other, No seizure, No syncope Endocrine: no complaints, No dry skin, No other, No polydypsia, No polyuria, No temp intolerance Lymphatic: adenopathy, no complaints, No lymphadema, No other, No tender nodes Psychological: anxiety, No confusion, No depression, No nl mood/affect, No no complaints, No other, No suicidal Immunologic: immunodeficiency, No no complaints, No other, No pruritis, No rhinitis, No urticaria Past Medical History Medical History: no pertinent history Past Surgical History Past Surgical Hx: no surgical history Social History Alcohol Use: none Smoking Status: Never smoker Drug Use: none Exam/Review of Systems Vital Signs Vitals Vital Signs Date Time Temp Pulse Resp B/P Pulse Ox O2 Delivery O2 Flow Rate FiO2 05/20/17 17:53 98.0 90 18 109/73 98 05/19/17 07:44 Nasal Cannula 2.0 Intake and Output 05/19/17 05/19/17 05/20/17 15:00 23:00 07:00 Intake Total 1100 ml Output Total 200 ml 400 ml Balance 900 ml -400 ml Exam WDWN woman, appearing a little frail. Alert, Oriented x3. Skin without lesions. HEENT without acute oral or ocular lesions noted. Neck with mild thyromegaly. Chest Bibasilar crackles and possible decreased breath sounds. Heart RR. No def murmur noted. Abdomen Soft. No tenderness or masses. Ext. No CC or Edema MS No joint tenderness wexcept mildly at MCPs. No synovitis. Neurol grossly intact Results Result Diagram: 05/19/17 0630 05/20/17 0645 Results 24 hrs Laboratory Tests Test 05/20/17 06:45 Sodium Level 140 Potassium Level 4.9 Chloride Level 102 Carbon Dioxide Level 23 Anion Gap 20 H Blood Urea Nitrogen 14 Creatinine 0.72 Glucose Level 80 Calcium Level 8.4 Medications Medications Current Medications Ondansetron HCl (Zofran Inj) 4 mg Q6H PRN IV NAUSEA AND/OR VOMITING; Start at 06:30 Pantoprazole (Protonix Iv) 40 mg DAILY@06 IV Last administered on 05/20/17 05: 58; Admin Dose 40 MG; Start 05/18/17 at 07:00 Morphine Sulfate (morphine) 2 mg Q4H PRN IV pain 6-10 Last administered on 01:57; Admin Dose 2 MG; Start 05/18/17 at 16:00 Acetaminophen (Tylenol Tab) 650 mg Q6H PRN PO PAIN AND OR ELEVATED TEMP; Start 05/18/17 at 20:00 Ibuprofen 600 mg 600 mg Q8 PO Last administered on 05/20/17 16:20; Admin Dose 600 MG; Start 05/18/17 at 22:00 Levofloxacin/ Dextrose (Levaquin 750 Mg/ D5W 150 ml (Pmx)) 150 ml @ 100 mls/hr Q24H IVPB Last administered on 05/20/17 14:16; Admin Dose 100 MLS/HR; Start at 14:30 Meclizine HCl (Antivert) 25 mg TID PO Last administered on 05/20/17 16:21; Admin Dose 25 MG; Start 05/20/17 at 14:00 YOHANA DURAND MD May 20, 2017 19:25
[2017-05-20] MEDS ORDERED: LORAZEPAM 2 MG INJ IV ONE (21:00)
[2017-05-20 21:44] LABS: FORTY EIGHT HOUR READING 0 mm (0-9)
[2017-05-21] VITALS (23 sets, daily range): BP systolic 86–115; BP diastolic 58–75; PULSE 75–140; RESP 18–33
[2017-05-21] MEDS: morphine 2 MG INJ IV PRN ×2 (03:57→09:11)
[2017-05-21] MEDS ORDERED: HYDROmorphONE 1 MG/ML SYG IV STA (05:58)
[2017-05-21] MEDS: IBUPROFEN 600 MG TAB PO SCH (06:00)
[2017-05-21] MEDS: PANTOPRAZOLE 40 MG INJ IV SCH (06:00)
[2017-05-21] MEDS: LEVOTHYROXINE 125 MCG TAB PO SCH (06:15)
[2017-05-21 07:56] LABS: CREATININE 0.74 mg/dl (0.44-1.00); POTASSIUM 4.6 mmol/L (3.5-5.1)
[2017-05-21] MEDS: MECLIZINE 25 MG TAB PO SCH ×3 (09:11→21:44)
[2017-05-21 09:14] LABS: COMPLEMENT C3 44 mg/dl (88-165)
[2017-05-21 09:19] LABS: COMPLEMENT C4 < 8 mg/dl (14-44)
--- NOTE | 2017-05-21 12:04 | CONS ---
Date/Time of Note Date/Time of Note DATE: 05/21/17 TIME: 12:01 Assessment/Plan Assessment/Plan Problems: (1) Body aches Status: Acute Comment: Increase anti-inflammatory and acetaminophen to max doses. Pt. may need steroids. Defer to rheum (2) Hypothyroidism due to Cecil's thyroiditis Status: Chronic Comment: Cont. LT4 125 mcg/d. Rheum considering possibility pt. may have SLE. Consultation Date/Type/Reason Admit Date/Time May 18, 2017 at 05:57 Initial Consult Date 05/19/17 Type of Consultation: Endocrinology Reason for Consultation Hypothyroidism Referring Provider: STEPHANIE MACIAS 24 HR Interval Summary Constitutional: other (diffuse pain), No no complaints Detailed Summary ENT: pain Respiratory: pain Cardiovascular: chest pain Gastrointestinal: pain Musculoskeletal: back pain, bone/joint pain Exam/Review of Systems Vital Signs Vitals VS - Last 72 Hours, by Label Date Time Temp Pulse Resp B/P Pulse Ox O2 Delivery O2 Flow Rate FiO2 05/21/17 08:00 98.5 20 115/75 97 05/21/17 08:00 124 05/21/17 04:35 88 05/21/17 04:04 97.8 84 18 100/69 100 05/21/17 00:14 97 05/20/17 23:56 98.4 91 18 106/73 98 05/20/17 20:34 88 05/20/17 19:43 98.2 85 18 114/76 98 05/20/17 17:53 98.0 90 18 109/73 98 05/20/17 16:19 79 05/20/17 12:14 90 05/20/17 11:59 98.0 67 18 105/72 98 05/20/17 08:15 79 05/20/17 08:02 98.0 80 18 97/63 98 05/20/17 04:49 97.8 83 16 97/64 99 05/20/17 04:43 77 05/20/17 00:46 93 05/20/17 00:09 97.0 82 16 107/66 99 05/19/17 20:29 90 05/19/17 20:23 97.8 94 16 102/66 100 05/19/17 16:44 97.5 105 18 109/60 98 05/19/17 16:33 95 05/19/17 12:41 105 05/19/17 11:53 98.7 83 18 105/67 100 05/19/17 08:47 78 05/19/17 08:27 97.6 81 19 107/68 95 05/19/17 07:44 Nasal Cannula 2.0 05/19/17 04:22 98.1 77 20 99/67 99 05/19/17 04:21 80 05/19/17 00:49 98.2 79 20 109/54 99 05/19/17 00:19 93 05/18/17 22:45 98.0 05/18/17 20:27 101 05/18/17 20:08 98.2 101 16 112/70 96 05/18/17 17:08 98.0 73 20 112/79 100 05/18/17 16:50 94 05/18/17 12:55 90 05/18/17 12:27 98.4 93 20 118/70 100 Vital Signs Date Time Temp Pulse Resp B/P Pulse Ox O2 Delivery O2 Flow Rate FiO2 05/21/17 08:00 98.5 20 115/75 97 05/21/17 08:00 124 05/19/17 07:44 Nasal Cannula 2.0 Intake and Output 05/20/17 05/20/17 05/21/17 15:00 23:00 07:00 Intake Total 390 ml 400 ml Balance 390 ml 400 ml Exam Constitutional: alert, distress (in obvious discomfort), oriented, well developed Psych: anxiety Respiratory: clear to auscultation, normal air movement Cardiovascular: nl pulses, regular rate and rhythm, No edema, No murmurs/extra sounds, No rub Gastrointestinal: bowel sounds, nl liver, spleen, soft, tender, No mass, No rebound or guarding Musculoskeletal: joint tenderness, nl extremities to inspection Extremities: normal pulses, No clubbing, No cyanosis, No edema Neurological: SPIRAL RUNNER II-XII intact, nl mental status, nl speech, nl strength Results Result Diagram: 05/19/17 0630 05/21/17 0709 Results 24 hrs Laboratory Tests Test 05/21/17 07:09 Sodium Level 136 Potassium Level 4.6 Chloride Level 100 Carbon Dioxide Level 20 L Anion Gap 21 H Blood Urea Nitrogen 14 Creatinine 0.74 Glucose Level 71 Calcium Level 9.0 Creatine Kinase 95 Complement C3 44 L Complement C4 < 8 L Medications Medications Current Medications Ondansetron HCl (Zofran Inj) 4 mg Q6H PRN IV NAUSEA AND/OR VOMITING; Start at 06:30 Pantoprazole (Protonix Iv) 40 mg DAILY@06 IV Last administered on 05/21/17 06: 00; Admin Dose 40 MG; Start 05/18/17 at 07:00 Morphine Sulfate (morphine) 2 mg Q4H PRN IV pain 6-10 Last administered on 09:11; Admin Dose 2 MG; Start 05/18/17 at 16:00 Acetaminophen (Tylenol Tab) 650 mg Q6H PRN PO PAIN AND OR ELEVATED TEMP; Start 05/18/17 at 20:00 Ibuprofen 600 mg 600 mg Q8 PO Last administered on 05/21/17 06:00; Admin Dose 600 MG; Start 05/18/17 at 22:00 Levofloxacin/ Dextrose (Levaquin 750 Mg/ D5W 150 ml (Pmx)) 150 ml @ 100 mls/hr Q24H IVPB Last administered on 05/20/17 14:16; Admin Dose 100 MLS/HR; Start at 14:30 Meclizine HCl (Antivert) 25 mg TID PO Last administered on 05/21/17 09:11; Admin Dose 25 MG; Start 05/20/17 at 14:00 GLEN ALMARAZ MD May 21, 2017 12:04
--- NOTE | 2017-05-21 13:40 | PN ---
Date/Time of Note Date/Time of Note DATE: 05/21/17 TIME: 13:39 Assessment/Plan VTE Prophylaxis VTE Prophylaxis Intervention: SCD's Lines/Catheters IV Catheter Type (from Nrs): Saline Lock Urinary Cath still in place: No Assessment/Plan Assessment/Plan Patient will likely benefit from systemic steroids and Nsaid therapy. Exam/Review of Systems Vital Signs Vitals Vital Signs Date Time Temp Pulse Resp B/P Pulse Ox O2 Delivery O2 Flow Rate FiO2 05/21/17 12:19 18 92/61 05/21/17 12:00 140 05/21/17 08:00 98.5 97 05/19/17 07:44 Nasal Cannula 2.0 Intake and Output 05/20/17 05/20/17 05/21/17 15:00 23:00 07:00 Intake Total 390 ml 400 ml Balance 390 ml 400 ml Results Result Diagram: 05/19/17 0630 05/21/17 0709 Results 24 hrs Laboratory Tests Test 05/21/17 07:09 Sodium Level 136 Potassium Level 4.6 Chloride Level 100 Carbon Dioxide Level 20 L Anion Gap 21 H Blood Urea Nitrogen 14 Creatinine 0.74 Glucose Level 71 Calcium Level 9.0 Creatine Kinase 95 Complement C3 44 L Complement C4 < 8 L Medications Medications Current Medications Ondansetron HCl (Zofran Inj) 4 mg Q6H PRN IV NAUSEA AND/OR VOMITING; Start at 06:30 Pantoprazole (Protonix Iv) 40 mg DAILY@06 IV Last administered on 05/21/17 06: 00; Admin Dose 40 MG; Start 05/18/17 at 07:00 Morphine Sulfate 2 mg 2 mg Q4H PRN IV pain 6-10 Last administered on 05/21/17 09:11; Admin Dose 2 MG; Start 05/18/17 at 16:00 Levofloxacin/ Dextrose (Levaquin 750 Mg/ D5W 150 ml (Pmx)) 150 ml @ 100 mls/hr Q24H IVPB Last administered on 05/20/17 14:16; Admin Dose 100 MLS/HR; Start at 14:30 Meclizine HCl (Antivert) 25 mg TID PO Last administered on 05/21/17 09:11; Admin Dose 25 MG; Start 05/20/17 at 14:00 Acetaminophen (Tylenol Tab) 1,000 mg Q6H PRN PO PAIN AND OR ELEVATED TEMP; Start 05/21/17 at 14:00 Ibuprofen (Motrin) 800 mg Q8 PO ; Start 05/21/17 at 14:00 STEPHANIE MACIAS May 21, 2017 13:39
[2017-05-21] MEDS: IBUPROFEN 800 MG TAB PO SCH ×2 (13:59→21:44)
[2017-05-21] MEDS: LEVOFLOXACIN 750MG/D5W (PMX) 150 ML IVPB SCH (14:00)
[2017-05-21] MEDS ORDERED: METHYLPREDNISOLONE 125 MG INJ IV ONE (14:00)
--- NOTE | 2017-05-21 14:46 | PN ---
Date/Time of Note Date/Time of Note DATE: 05/21/17 TIME: 14:44 Assessment/Plan Lines/Catheters IV Catheter Type (from Nrs): Saline Lock Anthony in Place (from Nrsg): No Assessment/Plan Chief Complaint/Hosp Course .Pericardial effusion-moderate by echo with no signs of echo tamponade by initial echo.\ Sable BP, HR 2.Cardiomyopathy-EF 40-45% by echo and CT scan 3.Increased LFT's 4.Hypothyroid-secondary to Cecil's Thyroiditis/+ antithyroid AB at OSH Ct chest No evidence of pulmonary embolism or aortic dissection. Mild cardiomegaly with moderate to large pericardial effusion. Bilateral mild ground-glass and tree-in-bud opacities suggestive of an infectious/inflammatory bronchiolitis. Bilateral mild to moderate axillary lymphadenopathy. Problems: Subjective 24 Hr Interval Summary Constitutional: improved Pain Control: mild Exam/Review of Systems Vital Signs Vitals Vital Signs Date Time Temp Pulse Resp B/P Pulse Ox O2 Delivery O2 Flow Rate FiO2 05/21/17 12:19 18 92/61 05/21/17 12:00 140 05/21/17 08:00 98.5 97 05/19/17 07:44 Nasal Cannula 2.0 Intake and Output 05/20/17 05/20/17 05/21/17 15:00 23:00 07:00 Intake Total 390 ml 400 ml Balance 390 ml 400 ml Exam ENMT: mucosa pink and moist, nl external ears & nose, nl lips & teeth, nl nasal mucosa & septum Neck: non-tender, supple Respiratory: clear to auscultation, normal air movement Cardiovascular: nl pulses, regular rate and rhythm Gastrointestinal: nl liver, spleen, non-tender, soft Results Result Diagram: 05/19/17 0630 05/21/17 0709 KRYSTAL HARRIS MD May 21, 2017 14:45
--- NOTE | 2017-05-21 15:49 | CONS ---
Date/Time of Note Date/Time of Note DATE: 05/21/17 TIME: 15:45 Assessment/Plan Assessment/Plan Additional Assessment/Plan 1.Pericardial effusion-moderate by echo with no signs of echo tamponade by initial echo. Sable BP, HR around 100. ? secondary to hypothyroid-most likely/ viral/rheum - BP stable - f/up with ECHO today withmod to large effusion - pt with tachycardia but not in tamponade by exam - I spoke with Dr. Lopez - will bolus now and satrt o NS now - possible window to follow - will make NPO past midnight now. 2.Cardiomyopathy-EF 40-45% by echo - not in CHF by exam 3.Increased LFT's - primary follows 4.Hypothyroid-secondary to Cecil's Thyroiditis/+ antithyroid AB at OSH - Rx as needed Consultation Date/Type/Reason Admit Date/Time May 18, 2017 at 05:57 Initial Consult Date 05/19/17 Type of Consultation: Endocrinology Referring Provider: STEPHANIE MACIAS 24 HR Interval Summary Free Text/Dictation BP stable - f/up with ECHO today withmod to large effusion - pt with tachycardia but not in tamponade by exam - I spoke with Dr. Lopez - will bolus now and satrt o NS now - possible window to follow - will make NPO past midnight now. Exam/Review of Systems Vital Signs Vitals Vital Signs Date Time Temp Pulse Resp B/P Pulse Ox O2 Delivery O2 Flow Rate FiO2 05/21/17 12:19 18 92/61 05/21/17 12:00 140 05/21/17 08:00 98.5 97 05/19/17 07:44 Nasal Cannula 2.0 Intake and Output 05/20/17 05/20/17 05/21/17 15:00 23:00 07:00 Intake Total 390 ml 400 ml Balance 390 ml 400 ml Exam ROS: No fever, no chills, no nausea, no vomiting, no diarrhea/constipation No recent weight changes No chest pain, no PND, no orthopnea + SOB, tired No dizziness, blurred vision No thirst, no heat or cold intolerance General: WN/WD/NAD, AOx 3 HEENT: Unicetric/atraumatic/EOMI (follows commands) NECK: JVD elevated, no thyromegaly Lymph: no lymphadenopathy HEART: regular with no S3, II/ systolic murmur at apex, no pulsus paradoxus LUNGS: Coarse sounds ABD: soft, NT, ND, +BS : Intact Neuro: non focal SKIN: chronic changes EXT: trace edema Results Result Diagram: 05/19/17 0630 05/21/17 0709 Results 24 hrs Laboratory Tests Test 05/21/17 07:09 Sodium Level 136 Potassium Level 4.6 Chloride Level 100 Carbon Dioxide Level 20 L Anion Gap 21 H Blood Urea Nitrogen 14 Creatinine 0.74 Glucose Level 71 Calcium Level 9.0 Creatine Kinase 95 Complement C3 44 L Complement C4 < 8 L Medications Medications Current Medications Ondansetron HCl (Zofran Inj) 4 mg Q6H PRN IV NAUSEA AND/OR VOMITING; Start at 06:30 Pantoprazole (Protonix Iv) 40 mg DAILY@06 IV Last administered on 05/21/17 06: 00; Admin Dose 40 MG; Start 05/18/17 at 07:00 Morphine Sulfate 2 mg 2 mg Q4H PRN IV pain 6-10 Last administered on 05/21/17 09:11; Admin Dose 2 MG; Start 05/18/17 at 16:00 Levofloxacin/ Dextrose (Levaquin 750 Mg/ D5W 150 ml (Pmx)) 150 ml @ 100 mls/hr Q24H IVPB Last administered on 05/21/17 14:00; Admin Dose 100 MLS/HR; Start at 14:30 Meclizine HCl (Antivert) 25 mg TID PO Last administered on 05/21/17 13:59; Admin Dose 25 MG; Start 05/20/17 at 14:00 Acetaminophen (Tylenol Tab) 1,000 mg Q6H PRN PO PAIN AND OR ELEVATED TEMP; Start 05/21/17 at 14:00 Ibuprofen (Motrin) 800 mg Q8 PO Last administered on 05/21/17 13:59; Admin Dose 800 MG; Start 05/21/17 at 14:00 Prednisone (Prednisone) 50 mg DAILY PO ; Start 05/22/17 at 09:00 WILL LUNA MD May 21, 2017 15:49
[2017-05-21] MEDS ORDERED: SOD CHLORIDE 0.9% 500 ML IV ONE ×2 (16:30→21:00)
[2017-05-21] MEDS: SOD CHLORIDE 0.9% 1,000 ML IV SCH (17:00)
[2017-05-21] MEDS: ACETAMINOPHEN 500 MG TAB PO PRN (20:41)
--- NOTE | 2017-05-21 21:49 | CONS ---
Date/Time of Note Date/Time of Note DATE: 05/21/17 TIME: 21:29 Consultation Date/Type/Reason Admit Date/Time May 18, 2017 at 05:57 Date of Consultation: May 21, 2017 Type of Consultation: Infectious disease Reason for Consultation Bronchiolitis, pericarditis, thyroiditis (Cecil's close) Referring Provider: LAZ LUCIANO Patient is a 26-year-old, single, female who presented on 629 with a chief complaint of tachycardia and an enlarged heart. Patient had previously been evaluated presenting with a dry cough several weeks in advance. She was noted to have an enlarged heart after she was admitted and discharged within a 24-hour period for her dry cough. She was recalled to have further evaluation. She was noted to have a TSH of 115 and later 136. Reactive lymphadenopathy was found on her neck. This was biopsied and showed, at worst, reactive lymph nodes. She was admitted to the hospital as above and she was found to have on echocardiogram: The following 1 mild left ventricular diastolic dysfunction. To moderate right ventricular hypokinesis. 3 ejection fraction of 40-45%. 4 moderate pericardial effusion. On physical examination on admission she was noted to have reactive lymph nodes in her axillae 2.5-1.8 cm she had antithyroid antibodies showed enlarged heart on chest x-ray which I might add appears to have a globular configuration consistent with pericardial effusion. Chest x-ray subsequently revealed tree in bud compatible with inflammation and bronchiolitis. Her white count remained in the normal range with a fairly normal differential ranging between an initial 6700 and most recent 4600. Her sedimentation rate was 96 mm/h. She had a number of serologies which were negative including rheumatoid arthritis factor negative HIV and hepatitis B and C. She was seen by Dr. Jesus Freeman who suggested this is suspicious for systemic lupus erythematosus. I concur with Dr. Freeman. The patient has been treated with 50 mg of prednisone and Levaquin and remains on nasal oxygen. She feels better than when she came in as far as her breathing but seems to require oxygen. She has been seen by Dr Wing, our vascular surgeon, who is considering her for a pericardial window. Physical examination: Physical examination reveals a well-developed well-nourished pleasant female lying in bed. Blood pressure is 89/69 pulse 96 respirations 18 she is afebrile. She was not observed to cough or produce any sputum. She has incipient acne on her cheeks. Her pupils are equal round react to light and extraocular movements are full. There is no scleral icterus. Neck is supple there is no jugular venous distention there is no visible thyroid. Chest is clear to auscultation. Heart is regular and rapid at 102. Abdomen is soft no palpable organs or masses imaged extremities show no edema cyanosis or clubbing. Initial impression: Bronchiolitis Pericarditis Hypothyroidism Cecil's thyroiditis Collagen vascular disease: Systemic lupus erythematosus. Recommendation. Continue Levaquin Continue prednisone Pericardial window or pericardiocentesis Urinalysis I seen this patient for Dr.Jerrold Kishore Yates MD Constitutional: other (diffuse pain), No no complaints Eyes: discharge, no complaints, other, pain, redness, visual change ENT: pain Respiratory: pain Cardiovascular: chest pain Gastrointestinal: pain Genitourinary: No bleeding, No discharge, No dysuria, No flank pain, No hematuria, No no complaints, No other Musculoskeletal: back pain, bone/joint pain Skin: No bruising, No erythema, No laceration, No no complaints, No other, No pruritis, No rash, No skin lesions Neurologic: No confusion, No dizziness, No focal-weakness, No headache, No no complaints, No other, No seizure, No syncope Endocrine: no complaints, other, polydypsia, polyuria, No dry skin, No temp intolerance Lymphatic: no complaints, No adenopathy, No lymphadema, No other, No tender nodes Psychological: anxiety Immunologic: No immunodeficiency, No no complaints, No other, No pruritis, No rhinitis, No urticaria Past Medical History Medical History: no pertinent history Past Surgical History Past Surgical Hx: no surgical history Social History Alcohol Use: none Smoking Status: Never smoker Drug Use: none Exam/Review of Systems Vital Signs Vitals Vital Signs Date Time Temp Pulse Resp B/P Pulse Ox O2 Delivery O2 Flow Rate FiO2 05/21/17 20:30 92 32 90/62 100 05/21/17 20:00 97.7 Nasal Cannula 4.0 Intake and Output 05/20/17 05/20/17 05/21/17 15:00 23:00 07:00 Intake Total 390 ml 400 ml Balance 390 ml 400 ml Results Result Diagram: 05/19/17 0630 05/21/17 0709 Results 24 hrs Laboratory Tests Test 05/21/17 07:09 05/21/17 20:22 Sodium Level 136 Potassium Level 4.6 Chloride Level 100 Carbon Dioxide Level 20 L Anion Gap 21 H Blood Urea Nitrogen 14 Creatinine 0.74 Glucose Level 71 Calcium Level 9.0 Creatine Kinase 95 Complement C3 44 L Complement C4 < 8 L Bedside Glucose 106 Medications Medications Current Medications Ondansetron HCl (Zofran Inj) 4 mg Q6H PRN IV NAUSEA AND/OR VOMITING; Start at 06:30 Pantoprazole (Protonix Iv) 40 mg DAILY@06 IV Last administered on 05/21/17 06: 00; Admin Dose 40 MG; Start 05/18/17 at 07:00 Morphine Sulfate 2 mg 2 mg Q4H PRN IV pain 6-10 Last administered on 05/21/17 09:11; Admin Dose 2 MG; Start 05/18/17 at 16:00 Levofloxacin/ Dextrose (Levaquin 750 Mg/ D5W 150 ml (Pmx)) 150 ml @ 100 mls/hr Q24H IVPB Last administered on 05/21/17 14:00; Admin Dose 100 MLS/HR; Start at 14:30 Meclizine HCl (Antivert) 25 mg TID PO Last administered on 05/21/17 13:59; Admin Dose 25 MG; Start 05/20/17 at 14:00 Acetaminophen (Tylenol Tab) 1,000 mg Q6H PRN PO PAIN AND OR ELEVATED TEMP Last administered on 05/21/17 20:41; Admin Dose 1,000 MG; Start 05/21/17 at 14:00 Ibuprofen (Motrin) 800 mg Q8 PO Last administered on 05/21/17 13:59; Admin Dose 800 MG; Start 05/21/17 at 14:00 Prednisone 50 mg 50 mg DAILY PO ; Start 05/22/17 at 09:00 Sodium Chloride 1,000 ml @ 100 mls/hr Q10H IV Last administered on 05/21/17 17 :00; Admin Dose 100 MLS/HR; Start 05/21/17 at 16:30 Sodium Chloride (NS) 500 ml @ 500 mls/hr Q1H ONCE IV ; Start 05/21/17 at 21:00; Stop 05/21/17 at 21:59 Carmita YATES MD May 21, 2017 21:48
[2017-05-21 22:20] LABS: SEVENTY TWO HOUR READING 0 mm (0-9)
[2017-05-22] VITALS (25 sets, daily range): BP systolic 87–142; BP diastolic 64–105; PULSE 67–114; RESP 16–32
--- NOTE | 2017-05-22 00:05 | CONS ---
Date/Time of Note Date/Time of Note DATE: 05/21/17 TIME: 19:04 Assessment/Plan Assessment/Plan Chief Complaint/Hosp Course Bilateral mild to moderate axillary lymphadenopathy, MORE ON THE L and diffuse cervical adenopathy on Thyroid USS 03/2017. BIOCHEMICAL W-UP- P CT ABD- Prominent bilateral inguinal and left external iliac chain lymph nodes, which are nonspecific. 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 POS WINDOW Bilateral infectious/inflammatory bronchiolitis. Positive rheumatoid factor RHEUMATOLOGY EVAL Pericardial effusion-moderate by echo with no signs of echo tamponade at this time. Cardiomyopathy-EF 40-45% by echo Acute Shortness of breath Increased LFT's Problems: Consultation Date/Type/Reason Admit Date/Time May 18, 2017 at 05:57 Initial Consult Date 05/19/17 Type of Consultation: [facility] Referring Provider: LAZ LUCIANO 24 HR Interval Summary Free Text/Dictation ALL NOTED Transferred to ICU 05/21 for worsening symptoms related to pericardial effusion. possible window INCREASED LDH- NOTED Exam/Review of Systems Vital Signs Vitals Vital Signs Date Time Temp Pulse Resp B/P Pulse Ox O2 Delivery O2 Flow Rate FiO2 05/21/17 20:30 92 32 90/62 100 05/21/17 20:00 97.7 Nasal Cannula 4.0 Exam Constitutional: alert, oriented, other (ill looking) Psych: anxiety Head: atraumatic, normocephalic Eyes: PERRL, No icteric ENMT: mucosa pink and moist Neck: non-tender, supple, No jvd Respiratory: clear to auscultation, diminished breath sounds Cardiovascular: murmurs/extra sounds, regular rate and rhythm, No edema Gastrointestinal: bowel sounds, non-tender, soft Musculoskeletal: nl extremities to inspection, nl gait and stance Extremities: normal pulses, No edema Neurological: lethargic, nl mental status, No focal weakness Skin: No rash or lesions LN- MILD BL LN-NEHEMIAH BREAST- NO MASSES Results Result Diagram: 05/19/17 0630 05/21/17 0709 Results 24 hrs Laboratory Tests Test 05/21/17 07:09 05/21/17 20:22 Sodium Level 136 Potassium Level 4.6 Chloride Level 100 Carbon Dioxide Level 20 L Anion Gap 21 H Blood Urea Nitrogen 14 Creatinine 0.74 Glucose Level 71 Calcium Level 9.0 Creatine Kinase 95 Complement C3 44 L Complement C4 < 8 L Bedside Glucose 106 Medications Medications Current Medications Ondansetron HCl (Zofran Inj) 4 mg Q6H PRN IV NAUSEA AND/OR VOMITING; Start at 06:30 Pantoprazole (Protonix Iv) 40 mg DAILY@06 IV Last administered on 05/21/17 06: 00; Admin Dose 40 MG; Start 05/18/17 at 07:00 Morphine Sulfate 2 mg 2 mg Q4H PRN IV pain 6-10 Last administered on 05/21/17 09:11; Admin Dose 2 MG; Start 05/18/17 at 16:00 Levofloxacin/ Dextrose (Levaquin 750 Mg/ D5W 150 ml (Pmx)) 150 ml @ 100 mls/hr Q24H IVPB Last administered on 05/21/17 14:00; Admin Dose 100 MLS/HR; Start at 14:30 Meclizine HCl (Antivert) 25 mg TID PO Last administered on 05/21/17 21:44; Admin Dose 25 MG; Start 05/20/17 at 14:00 Acetaminophen (Tylenol Tab) 1,000 mg Q6H PRN PO PAIN AND OR ELEVATED TEMP Last administered on 05/21/17 20:41; Admin Dose 1,000 MG; Start 05/21/17 at 14:00 Ibuprofen (Motrin) 800 mg Q8 PO Last administered on 05/21/17 21:44; Admin Dose 800 MG; Start 05/21/17 at 14:00 Prednisone 50 mg 50 mg DAILY PO ; Start 05/22/17 at 09:00 Sodium Chloride (NS) 1,000 ml @ 100 mls/hr Q10H IV Last administered on 17:00; Admin Dose 100 MLS/HR; Start 05/21/17 at 16:30 DEEPA OCONNELL MD May 22, 2017 00:05
[2017-05-22] MEDS: SOD CHLORIDE 0.9% 1,000 ML IV SCH ×5 (02:30→22:06)
[2017-05-22 06:00] LABS: CALCIUM 7.3 mg/dl (8.4-10.2); CREATININE 1.24 mg/dl (0.44-1.00); POTASSIUM 5.4 mmol/L (3.5-5.1)
[2017-05-22 06:07] LABS: ABNORMAL IP MESSAGE 1; HEMATOCRIT 29.8 % (37.0-47.0); HEMOGLOBIN 9.7 g/dl (12.0-16.0); MEAN CORPUSCULAR HEMOGLOBIN 31.2 pg (29.0-33.0); MEAN CORPUSCULAR HGB CONC 32.6 g/dl (32.0-37.0); MEAN CORPUSCULAR VOLUME 95.8 fl (82.0-101.0); PLATELET COUNT 189 10^3/UL (140-415); RED BLOOD COUNT 3.11 10^6/ul (4.20-5.40); RED CELL DISTRIBUTION WIDTH 15.4 % (11.5-14.5); WHITE BLOOD COUNT 23.2 10^3/ul (4.8-10.8)
[2017-05-22] MEDS: IBUPROFEN 800 MG TAB PO SCH ×2 (06:17→14:00)
[2017-05-22] MEDS: PANTOPRAZOLE 40 MG INJ IV SCH (06:17)
[2017-05-22] MEDS: LEVOTHYROXINE 125 MCG TAB PO SCH (06:18)
[2017-05-22] MEDS ORDERED: SUCCINYLCHOLINE CHLORIDE 100 MG/5 ML SYG IV ONE (07:00)
[2017-05-22] MEDS ORDERED: ALBUTEROL 0.083% (NEB) 2.5 MG/3 ML AMP ONE (07:00)
--- NOTE | 2017-05-22 07:33 | CONS ---
Date/Time of Note Date/Time of Note DATE: 05/22/17 TIME: 07:32 Assessment/Plan Assessment/Plan Chief Complaint/Hosp Course Bilateral mild to moderate axillary lymphadenopathy, MORE ON THE L and diffuse cervical adenopathy on Thyroid USS 03/2017. BIOCHEMICAL W-UP- P CT ABD- Prominent bilateral inguinal and left external iliac chain lymph nodes, which are nonspecific. 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 POS WINDOW Bilateral infectious/inflammatory bronchiolitis. Positive rheumatoid factor RHEUMATOLOGY EVAL Pericardial effusion-moderate by echo with no signs of echo tamponade at this time. Cardiomyopathy-EF 40-45% by echo Acute Shortness of breath Increased LFT's Problems: Consultation Date/Type/Reason Admit Date/Time May 18, 2017 at 05:57 Initial Consult Date 05/19/17 Type of Consultation: [facility] Referring Provider: LAZ LUCIANO 24 HR Interval Summary Free Text/Dictation ALL NOTED Exam/Review of Systems Vital Signs Vitals Vital Signs Date Time Temp Pulse Resp B/P Pulse Ox O2 Delivery O2 Flow Rate FiO2 05/22/17 06:27 100 2.0 05/22/17 06:00 71 19 93/66 Nasal Cannula 05/22/17 04:00 97.6 Intake and Output 05/21/17 05/21/17 05/22/17 15:00 23:00 07:00 Intake Total 2050 ml 700 ml Balance 2050 ml 700 ml Exam Constitutional: alert, oriented, other (ill looking) Psych: anxiety Head: atraumatic, normocephalic Eyes: PERRL, No icteric ENMT: mucosa pink and moist Neck: non-tender, supple, No jvd Respiratory: clear to auscultation, diminished breath sounds Cardiovascular: murmurs/extra sounds, regular rate and rhythm, No edema Gastrointestinal: bowel sounds, non-tender, soft Musculoskeletal: nl extremities to inspection, nl gait and stance Extremities: normal pulses, No edema Neurological: lethargic, nl mental status, No focal weakness Skin: No rash or lesions LN- MILD BL LN-NEHEMIAH BREAST- NO MASSES Results Result Diagram: 05/22/1752605/22/17 05 Results 24 hrs Laboratory Tests Test 05/21/17 20:22 05/22/17 05:27 Bedside Glucose 106 White Blood Count 23.2 #H Red Blood Count 3.11 L Hemoglobin 9.7 L Hematocrit 29.8 L Mean Corpuscular Volume 95.8 Mean Corpuscular Hemoglobin 31.2 Mean Corpuscular Hemoglobin Concent 32.6 Red Cell Distribution Width 15.4 H Platelet Count 189 # Mean Platelet Volume 11.0 H Neutrophils % Eosinophils % Neutrophils # Eosinophils # Sodium Level 130 L Potassium Level 5.4 H Chloride Level 105 Carbon Dioxide Level 17 L Anion Gap 13 # Blood Urea Nitrogen 19 Creatinine 1.24 H Glucose Level 145 # Calcium Level 7.3 L Medications Medications Current Medications Ondansetron HCl (Zofran Inj) 4 mg Q6H PRN IV NAUSEA AND/OR VOMITING; Start at 06:30 Pantoprazole (Protonix Iv) 40 mg DAILY@06 IV Last administered on 05/22/17 06: 17; Admin Dose 40 MG; Start 05/18/17 at 07:00 Morphine Sulfate 2 mg 2 mg Q4H PRN IV pain 6-10 Last administered on 05/21/17 09:11; Admin Dose 2 MG; Start 05/18/17 at 16:00 Levofloxacin/ Dextrose (Levaquin 750 Mg/ D5W 150 ml (Pmx)) 150 ml @ 100 mls/hr Q24H IVPB Last administered on 05/21/17 14:00; Admin Dose 100 MLS/HR; Start at 14:30 Meclizine HCl (Antivert) 25 mg TID PO Last administered on 05/21/17 21:44; Admin Dose 25 MG; Start 05/20/17 at 14:00 Acetaminophen (Tylenol Tab) 1,000 mg Q6H PRN PO PAIN AND OR ELEVATED TEMP Last administered on 05/21/17 20:41; Admin Dose 1,000 MG; Start 05/21/17 at 14:00 Ibuprofen (Motrin) 800 mg Q8 PO Last administered on 05/22/17 06:17; Admin Dose 800 MG; Start 05/21/17 at 14:00 Prednisone 50 mg 50 mg DAILY PO ; Start 05/22/17 at 09:00 Sodium Chloride (NS) 1,000 ml @ 100 mls/hr Q10H IV Last administered on t 05:00; Admin Dose 100 MLS/HR; Start 05/21/17 at 16:30 DEEPA OCONNELL MD May 22, 2017 07:33
--- NOTE | 2017-05-22 09:55 | CONS ---
Date/Time of Note Date/Time of Note DATE: 05/22/17 TIME: 09:52 Assessment/Plan Assessment/Plan Chief Complaint/Hosp Course 26-year-old [place] single young lady recently admitted and worked up at [facility]. She presented with change in voice is gravelly voice thickened cool dry skin and a goiter. She is found to have a TSH in excess of 100 and a low free T4. As patient describes that she had an ultrasound-guided biopsy of the submandibular lymph glands. Pathology was consistent with benign reactive process the lymph nodes were 3.1 cm in size. She was placed on levothyroxine 75 mcg a day and discharged to follow-up in the clinic. She has a 3 month history of cough without fevers chills or sweats. She has no other known medical problems the best of the information the family can give. We have received information from [facility] which is reviewed in conjunction with this case. Problems: (1) Iron deficiency anemia Status: Chronic Comment: As per hematology!! 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 Comment: recheck free levels (3) Pericardial effusion Status: Acute Comment: as per rheum and cardiology Consultation Date/Type/Reason Admit Date/Time May 18, 2017 at 05:57 Initial Consult Date 05/21/17 Type of Consultation: Endocrinology Reason for Consultation Hypothyroid with positive anti thyroid antibodies, iron deficit anemia, adenopathy, possible rheumatologic disorder Referring Provider: LAZ LUCIANO Detailed Summary Respiratory: no complaints Cardiovascular: no complaints Gastrointestinal: no complaints Musculoskeletal: other (diffusely achy) Exam/Review of Systems Vital Signs Vitals Vital Signs Date Time Temp Pulse Resp B/P Pulse Ox O2 Delivery O2 Flow Rate FiO2 05/22/17 08:00 67 05/22/17 06:27 100 2.0 05/22/17 06:00 19 93/66 Nasal Cannula 05/22/17 04:00 97.6 Intake and Output 05/21/17 05/21/17 05/22/17 15:00 23:00 07:00 Intake Total 2050 ml 700 ml Balance 2050 ml 700 ml Exam no changes Results Result Diagram: 05/22/17 0527 05/22/17 0527 Results 24 hrs Laboratory Tests Test 05/21/17 20:22 05/22/17 05:27 Bedside Glucose 106 White Blood Count 23.2 #H Red Blood Count 3.11 L Hemoglobin 9.7 L Hematocrit 29.8 L Mean Corpuscular Volume 95.8 Mean Corpuscular Hemoglobin 31.2 Mean Corpuscular Hemoglobin Concent 32.6 Red Cell Distribution Width 15.4 H Platelet Count 189 # Mean Platelet Volume 11.0 H Neutrophils % Eosinophils % Neutrophils # Eosinophils # Sodium Level 130 L Potassium Level 5.4 H Chloride Level 105 Carbon Dioxide Level 17 L Anion Gap 13 # Blood Urea Nitrogen 19 Creatinine 1.24 H Glucose Level 145 # Calcium Level 7.3 L Medications Medications Current Medications Ondansetron HCl (Zofran Inj) 4 mg Q6H PRN IV NAUSEA AND/OR VOMITING; Start at 06:30 Pantoprazole (Protonix Iv) 40 mg DAILY@06 IV Last administered on 05/22/17 06: 17; Admin Dose 40 MG; Start 05/18/17 at 07:00 Morphine Sulfate 2 mg 2 mg Q4H PRN IV pain 6-10 Last administered on 05/21/17 09:11; Admin Dose 2 MG; Start 05/18/17 at 16:00 Levofloxacin/ Dextrose (Levaquin 750 Mg/ D5W 150 ml (Pmx)) 150 ml @ 100 mls/hr Q24H IVPB Last administered on 05/21/17 14:00; Admin Dose 100 MLS/HR; Start at 14:30 Meclizine HCl (Antivert) 25 mg TID PO Last administered on 05/21/17 21:44; Admin Dose 25 MG; Start 05/20/17 at 14:00 Acetaminophen (Tylenol Tab) 1,000 mg Q6H PRN PO PAIN AND OR ELEVATED TEMP Last administered on 05/21/17 20:41; Admin Dose 1,000 MG; Start 05/21/17 at 14:00 Ibuprofen (Motrin) 800 mg Q8 PO Last administered on 05/22/17 06:17; Admin Dose 800 MG; Start 05/21/17 at 14:00 Prednisone 50 mg 50 mg DAILY PO ; Start 05/22/17 at 09:00 Sodium Chloride (NS) 1,000 ml @ 100 mls/hr Q10H IV Last administered on t 05:00; Admin Dose 100 MLS/HR; Start 05/21/17 at 16:30 ISABELLA FRENCH MD May 22, 2017 09:55
[2017-05-22 10:05] LABS: BURR CELLS 1+; LYMPHOCYTES # 1.6 10^3/ul (0.8-2.9); MONOCYTE # 0.5 10^3/ul (0.3-0.9)
[2017-05-22] MEDS: predniSONE 50 MG TAB PO SCH (10:36)
[2017-05-22] MEDS: MECLIZINE 25 MG TAB PO SCH ×3 (10:36→21:00)
--- NOTE | 2017-05-22 10:36 | CONS ---
Date/Time of Note Date/Time of Note DATE: 05/22/17 TIME: 10:19 Assessment/Plan Assessment/Plan Additional Assessment/Plan 1.Pericardial effusion-moderate by echo with no signs of echo tamponade by initial echo. Sable BP, HR around 100. ? secondary to hypothyroid-most likely/ viral/rheum - BP stable - f/up with ECHO today with mod to large effusion - pt with tachycardia but not in tamponade by exam - I spoke with Dr. Lopez - will bolus now and srart on NS now - possible window to follow - will make NPO past midnight now. STABLE IN ICU - WILL AWAIT SURGICAL EVALUATION. BP stable. 2.Cardiomyopathy-EF 40-45% by echo - not in CHF by exam - EF unchanged. 3.Increased LFT's - primary follows - no pain now. 4.Hypothyroid-secondary to Cecil's Thyroiditis/+ antithyroid AB at OSH - Rx as needed. 5. Hypotention - responded to fluids. Consultation Date/Type/Reason Admit Date/Time May 18, 2017 at 05:57 Initial Consult Date 05/19/17 Type of Consultation: Endocrinology Referring Provider: LAZ LUCIANO 26 HR Interval Summary Free Text/Dictation No win ICU - not in tamponade by exam - will hydrate - await surgical dispo. ROS: No fever, no chills, no nausea, no vomiting, no diarrhea/constipation No recent weight changes No chest pain, no PND, no orthopnea No dizziness, blurred vision No thirst, no heat or cold intolerance Exam/Review of Systems Vital Signs Vitals Vital Signs Date Time Temp Pulse Resp B/P Pulse Ox O2 Delivery O2 Flow Rate FiO2 05/22/17 08:00 67 05/22/17 06:27 100 2.0 05/22/17 06:00 19 93/66 Nasal Cannula 05/22/17 04:00 97.6 Intake and Output 05/21/17 05/21/17 05/22/17 15:00 23:00 07:00 Intake Total 2050 ml 700 ml Balance 2050 ml 700 ml Exam General: WN/WD/NAD, AOx 3 HEENT: Unicetric/atraumatic/EOMI (follow commands) NECK: JVD elevated, no thyromegaly Lymph: no lymphadenopathy HEART: regular with no S3, II/ systolic murmur at apex + Rub LUNGS: Coarse sounds ABD: soft, NT, ND, +BS : Intact Neuro: non focal SKIN: chronic changes EXT: trace edema Results Result Diagram: 05/22/1752605/22/17526 Results 24 hrs Laboratory Tests Test 05/21/17 20:22 05/22/17 05:27 Bedside Glucose 106 White Blood Count 23.2 #H Red Blood Count 3.11 L Hemoglobin 9.7 L Hematocrit 29.8 L Mean Corpuscular Volume 95.8 Mean Corpuscular Hemoglobin 31.2 Mean Corpuscular Hemoglobin Concent 32.6 Red Cell Distribution Width 15.4 H Platelet Count 189 # Mean Platelet Volume 11.0 H Neutrophils % 82.0 H Band Neutrophils % 9.0 H Lymphocytes % 7.0 L Monocytes % 2.0 Eosinophils % Neutrophils # 19.0 H Lymphocytes # 1.6 Monocytes # 0.5 Eosinophils # Sodium Level 130 L Potassium Level 5.4 H Chloride Level 105 Carbon Dioxide Level 17 L Anion Gap 13 # Blood Urea Nitrogen 19 Creatinine 1.24 H Glucose Level 145 # Calcium Level 7.3 L Medications Medications Current Medications Ondansetron HCl (Zofran Inj) 4 mg Q6H PRN IV NAUSEA AND/OR VOMITING; Start at 06:30 Pantoprazole (Protonix Iv) 40 mg DAILY@06 IV Last administered on 05/22/17 06: 17; Admin Dose 40 MG; Start 05/18/17 at 07:00 Morphine Sulfate 2 mg 2 mg Q4H PRN IV pain 6-10 Last administered on 05/21/17 09:11; Admin Dose 2 MG; Start 05/18/17 at 16:00 Levofloxacin/ Dextrose (Levaquin 750 Mg/ D5W 150 ml (Pmx)) 150 ml @ 100 mls/hr Q24H IVPB Last administered on 05/21/17 14:00; Admin Dose 100 MLS/HR; Start at 14:30 Meclizine HCl (Antivert) 25 mg TID PO Last administered on 05/21/17 21:44; Admin Dose 25 MG; Start 05/20/17 at 14:00 Acetaminophen (Tylenol Tab) 1,000 mg Q6H PRN PO PAIN AND OR ELEVATED TEMP Last administered on 05/21/17 20:41; Admin Dose 1,000 MG; Start 05/21/17 at 14:00 Ibuprofen (Motrin) 800 mg Q8 PO Last administered on 05/22/17 06:17; Admin Dose 800 MG; Start 05/21/17 at 14:00 Prednisone 50 mg 50 mg DAILY PO ; Start 05/22/17 at 09:00 Sodium Chloride (NS) 1,000 ml @ 100 mls/hr Q10H IV Last administered on 05:00; Admin Dose 100 MLS/HR; Start 05/21/17 at 16:30 WILL LUNA MD May 22, 2017 10:36
[2017-05-22 10:53] LABS: ADD SCAN DIFF NO; TOTAL CELLS COUNTED % 100
--- NOTE | 2017-05-22 12:21 | PN ---
Date/Time of Note Date/Time of Note DATE: 05/22/17 TIME: 12:18 Assessment/Plan VTE Prophylaxis VTE Prophylaxis Intervention: other Lines/Catheters IV [facility] Type (from [facility] Urinary Cath still in place: No Assessment/Plan Chief Complaint/Hosp Course Patient with pericardial effusion transferred to the ICU for hypotension I spoke with Dr. Kaufman Plan for pericardial window and axillary lymph node biopsy Problems: Subjective 24 Hr Interval Summary Free Text/Dictation Patient transferred to the ICU for hypotension currently feeling better I spoke with Dr. Buck Plan for pericardial window and possible axillary lymph node biopsy Exam/Review of Systems Vital Signs Vitals Vital Signs Date Time Temp Pulse Resp B/P Pulse Ox O2 Delivery O2 Flow Rate FiO2 05/22/17 12:00 98.2 81 20 97/64 100 Nasal Cannula 05/22/17 10:50 2.0 Intake and Output 05/21/17 05/21/17 05/22/17 15:00 23:00 07:00 Intake Total 2050 ml 800 ml Balance 2050 ml 800 ml Exam ENMT: nl external ears & nose, nl lips & teeth, nl nasal mucosa & septum Neck: non-tender, supple Respiratory: clear to auscultation, normal air movement Cardiovascular: nl pulses, regular rate and rhythm Gastrointestinal: nl liver, spleen, non-tender, soft Results Result Diagram: 05/22/1727 05/22/17 05 Results 24 hrs Laboratory Tests Test 05/21/17 20:22 05/22/17 05:27 Bedside Glucose 106 White Blood Count 23.2 #H Red Blood Count 3.11 L Hemoglobin 9.7 L Hematocrit 29.8 L Mean Corpuscular Volume 95.8 Mean Corpuscular Hemoglobin 31.2 Mean Corpuscular Hemoglobin Concent 32.6 Red Cell Distribution Width 15.4 H Platelet Count 189 # Mean Platelet Volume 11.0 H Neutrophils % 82.0 H Band Neutrophils % 9.0 H Lymphocytes % 7.0 L Monocytes % 2.0 Eosinophils % Neutrophils # 19.0 H Lymphocytes # 1.6 Monocytes # 0.5 Eosinophils # Sodium Level 130 L Potassium Level 5.4 H Chloride Level 105 Carbon Dioxide Level 17 L Anion Gap 13 # Blood Urea Nitrogen 19 Creatinine 1.24 H Glucose Level 145 # Calcium Level 7.3 L Medications Medications Current Medications Ondansetron HCl (Zofran Inj) 4 mg Q6H PRN IV NAUSEA AND/OR VOMITING; Start at 06:30 Pantoprazole (Protonix Iv) 40 mg DAILY@06 IV Last administered on 05/22/17 06: 17; Admin Dose 40 MG; Start 05/18/17 at 07:00 Morphine Sulfate 2 mg 2 mg Q4H PRN IV pain 6-10 Last administered on 05/21/17 09:11; Admin Dose 2 MG; Start 05/18/17 at 16:00 Levofloxacin/ Dextrose (Levaquin 750 Mg/ D5W 150 ml (Pmx)) 150 ml @ 100 mls/hr Q24H IVPB Last administered on 05/21/17 14:00; Admin Dose 100 MLS/HR; Start at 14:30 Meclizine HCl (Antivert) 25 mg TID PO Last administered on 05/22/17 10:36; Admin Dose 25 MG; Start 05/20/17 at 14:00 Acetaminophen (Tylenol Tab) 1,000 mg Q6H PRN PO PAIN AND OR ELEVATED TEMP Last administered on 05/21/17 20:41; Admin Dose 1,000 MG; Start 05/21/17 at 14:00 Ibuprofen (Motrin) 800 mg Q8 PO Last administered on 05/22/17 06:17; Admin Dose 800 MG; Start 05/21/17 at 14:00 Prednisone 50 mg 50 mg DAILY PO Last administered on 05/22/17 10:36; Admin Dose 50 MG; Start 05/22/17 at 09:00 Sodium Chloride (NS) 1,000 ml @ 100 mls/hr Q10H IV Last administered on 05:00; Admin Dose 100 MLS/HR; Start 05/21/17 at 16:30 KRYSTAL HARRIS MD May 22, 2017 12:21
[2017-05-22 13:00] LABS: THYROID MICROSOMAL ANTIBODY >900 IU/mL (<9)
[2017-05-22] MEDS: LEVOFLOXACIN 750MG/D5W (PMX) 150 ML IVPB SCH (15:27)
--- NOTE | 2017-05-22 16:07 | PN ---
Date/Time of Note Date/Time of Note DATE: 05/22/17 TIME: 15:56 Assessment/Plan VTE Prophylaxis VTE Prophylaxis Intervention: SCD's Lines/Catheters IV Catheter Type (from Nrs): Urinary Cath still in place: No Assessment/Plan Chief Complaint/Hosp Course 26 yo F discharged from [facility] February 2017 after new diagnosis of severe hypothyroidism who now presents with shortness of breath and is found to have pericardial effusion as well as bronchiolitis 1. Acute Shortness of breath 2/2 #2 ; improving 2. 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 Moderate pericardial effusion likely secondary to viral/autoimmune Pericardial window today 3. Bilateral infectious/inflammatory bronchiolitis Continue antibiotics 4. Bilateral mild to moderate axillary lymphadenopathy and diffuse cervical adenopathy on Thyroid USS 03/2017. Pathology from needle biopsy showed reactive lymphocytes Plan for axillary biopsy today 5. Acute transaminitis: improved 6. Dyslipidemia 7. Cardiomyopathy-EF 40-45% by echo 8. New Raynaud's phenomenon and hand petechiae Rheumatology consult appreciated Prophylaxis: SCDs Problems: Subjective 24 Hr Interval Summary Constitutional: no complaints Exam/Review of Systems Vital Signs Vitals Vital Signs Date Time Temp Pulse Resp B/P Pulse Ox O2 Delivery O2 Flow Rate FiO2 05/22/17 15:00 85 26 108/87 100 Nasal Cannula 05/22/17 12:00 98.2 05/22/17 10:50 2.0 Intake and Output 05/21/17 05/21/17 05/22/17 15:00 23:00 07:00 Intake Total 2050 ml 800 ml Balance 2050 ml 800 ml Exam Constitutional: alert Respiratory: clear to auscultation Cardiovascular: regular rate and rhythm Gastrointestinal: soft, No distended Musculoskeletal: nl extremities to inspection Results Result Diagram: 05/22/1727 05/22/17526 Results 24 hrs Laboratory Tests Test 05/21/17 20:22 05/22/17 05:27 Bedside Glucose 106 White Blood Count 23.2 #H Red Blood Count 3.11 L Hemoglobin 9.7 L Hematocrit 29.8 L Mean Corpuscular Volume 95.8 Mean Corpuscular Hemoglobin 31.2 Mean Corpuscular Hemoglobin Concent 32.6 Red Cell Distribution Width 15.4 H Platelet Count 189 # Mean Platelet Volume 11.0 H Neutrophils % 82.0 H Band Neutrophils % 9.0 H Lymphocytes % 7.0 L Monocytes % 2.0 Eosinophils % Neutrophils # 19.0 H Lymphocytes # 1.6 Monocytes # 0.5 Eosinophils # Sodium Level 130 L Potassium Level 5.4 H Chloride Level 105 Carbon Dioxide Level 17 L Anion Gap 13 # Blood Urea Nitrogen 19 Creatinine 1.24 H Glucose Level 145 # Calcium Level 7.3 L Medications Medications Current Medications Ondansetron HCl (Zofran Inj) 4 mg Q6H PRN IV NAUSEA AND/OR VOMITING; Start at 06:30 Pantoprazole (Protonix Iv) 40 mg DAILY@06 IV Last administered on 05/22/17 06: 17; Admin Dose 40 MG; Start 05/18/17 at 07:00 Morphine Sulfate 2 mg 2 mg Q4H PRN IV pain 6-10 Last administered on 05/21/17 09:11; Admin Dose 2 MG; Start 05/18/17 at 16:00 Levofloxacin/ Dextrose (Levaquin 750 Mg/ D5W 150 ml (Pmx)) 150 ml @ 100 mls/hr Q24H IVPB Last administered on 05/22/17 15:27; Admin Dose 100 MLS/HR; Start at 14:30 Meclizine HCl (Antivert) 25 mg TID PO Last administered on 05/22/17 10:36; Admin Dose 25 MG; Start 05/20/17 at 14:00 Acetaminophen (Tylenol Tab) 1,000 mg Q6H PRN PO PAIN AND OR ELEVATED TEMP Last administered on 05/21/17 20:41; Admin Dose 1,000 MG; Start 05/21/17 at 14:00 Ibuprofen (Motrin) 800 mg Q8 PO Last administered on 05/22/17 06:17; Admin Dose 800 MG; Start 05/21/17 at 14:00 Prednisone 50 mg 50 mg DAILY PO Last administered on 05/22/17 10:36; Admin Dose 50 MG; Start 05/22/17 at 09:00 Sodium Chloride (NS) 1,000 ml @ 100 mls/hr Q10H IV Last administered on 15:27; Admin Dose 100 MLS/HR; Start 05/21/17 at 16:30 ADRIÁN STALLINGS May 22, 2017 16:07
[2017-05-22 16:22] LABS: ADD UMIC YES; UR ASCORBIC ACID 20 mg/dL (NEGATIVE); UR BACTERIA FEW /HPF (NONE SEEN); UR BILIRUBIN (Dip) NEGATIVE (NEGATIVE); UR BLOOD (Dip) 3+ mg/dL (NEGATIVE); UR CLARITY SLIGHTLY CLOUDY (CLEAR); UR COLOR YELLOW (YELLOW); UR GLUCOSE (Dip) NEGATIVE (NEGATIVE); UR KETONES (Dip) NEGATIVE (NEGATIVE); UR LEUKOCYTE ESTERASE (Dip) NEGATIVE Leu/ul (NEGATIVE); UR NITRITE (Dip) NEGATIVE (NEGATIVE); UR RBC 6 /HPF (0-5); UR SPECIFIC GRAVITY (Dip) 1.014 (1.003-1.030); UR SQUAMOUS EPITHELIAL CELL FEW /HPF (FEW); UR TOTAL PROTEIN (Dip) 1+ mg/dl (NEGATIVE); UR UROBILINOGEN (Dip) NEGATIVE (NEGATIVE)
[2017-05-22 16:36] LABS: CREATININE 1.26 mg/dl (0.44-1.00); POTASSIUM 5.4 mmol/L (3.5-5.1)
--- NOTE | 2017-05-22 16:55 | CONS ---
Date/Time of Note Date/Time of Note DATE: 05/22/17 TIME: 16:49 Assessment/Plan Assessment/Plan Chief Complaint/Hosp Course Subjective: No acute changes overnight, transferred to ICU for hypotension, off pressors, laying comfortably in bed, no fevers Antimicrobials: Levaquin Physical examination: A well-developed well-nourished pleasant female lying in bed. PERRL, neck is supple. Chest is clear to auscultation. Heart rate regular, S1, S2 Abdomen is soft, bowel tones present Extremities without cyanosis or edema Assessment: 1. Bronchiolitis 2. Pericarditis 3. Collagen vascular disease/systemic lupus erythematosus 4. Hypo-thyroidism/Cecil's thyroiditis Plan: Clinically stable, cardiology and cardiothoracic surgery follow. Plan for pericardial window and axillary lymph node biopsy. Continue antibiotics [facility] staff Problems: Consultation Date/Type/Reason Admit Date/Time May 18, 2017 at 05:57 Initial Consult Date 05/21/17 Type of Consultation: Infectious disease Referring Provider: LAZ LUCIANO Exam/Review of Systems Vital Signs Vitals Vital Signs Date Time Temp Pulse Resp B/P Pulse Ox O2 Delivery O2 Flow Rate FiO2 05/22/17 16:00 72 05/22/17 15:00 26 108/87 100 Nasal Cannula 05/22/17 12:00 98.2 05/22/17 10:50 2.0 Intake and Output 05/21/17 05/21/17 05/22/17 15:00 23:00 07:00 Intake Total 2050 ml 800 ml Balance 2050 ml 800 ml Results Result Diagram: 05/22/17 0527 05/22/17 1500 Results 24 hrs Laboratory Tests Test 05/21/17 20:22 05/22/17 05:27 05/22/17 14:00 05/22/17 15:00 Bedside Glucose 106 White Blood Count 23.2 #H Red Blood Count 3.11 L Hemoglobin 9.7 L Hematocrit 29.8 L Mean Corpuscular Volume 95.8 Mean Corpuscular Hemoglobin 31.2 Mean Corpuscular Hemoglobin Concent 32.6 Red Cell Distribution Width 15.4 H Platelet Count 189 # Mean Platelet Volume 11.0 H Neutrophils % 82.0 H Band Neutrophils % 9.0 H Lymphocytes % 7.0 L Monocytes % 2.0 Eosinophils % Neutrophils # 19.0 H Lymphocytes # 1.6 Monocytes # 0.5 Eosinophils # Sodium Level 130 L 134 L Potassium Level 5.4 H 5.4 H Chloride Level 105 104 Carbon Dioxide Level 17 L 15 L Anion Gap 13 # 20 #H Blood Urea Nitrogen 19 24 H Creatinine 1.24 H 1.26 H Glucose Level 145 # 114 Calcium Level 7.3 L 8.0 L Urine Color YELLOW Urine Clarity SLIGHTLY CLOUDY A Urine pH 5.0 Urine Specific [place] 1.014 Urine Ketones NEGATIVE Urine Nitrite NEGATIVE Urine Bilirubin NEGATIVE Urine Urobilinogen NEGATIVE Urine Leukocyte Esterase NEGATIVE Urine Microscopic RBC 6 H Urine Microscopic WBC 23 H Urine Squamous Epithelial Cells FEW Urine Bacteria FEW A Urine Hemoglobin 3+ H Urine Glucose NEGATIVE Urine Total Protein 1+ H Random Cortisol 30.2 Medications Medications Current Medications Ondansetron HCl (Zofran Inj) 4 mg Q6H PRN IV NAUSEA AND/OR VOMITING; Start at 06:30 Pantoprazole (Protonix Iv) 40 mg DAILY@06 IV Last administered on 05/22/17 06: 17; Admin Dose 40 MG; Start 05/18/17 at 07:00 Morphine Sulfate 2 mg 2 mg Q4H PRN IV pain 6-10 Last administered on 05/21/17 09:11; Admin Dose 2 MG; Start 05/18/17 at 16:00 Levofloxacin/ Dextrose (Levaquin 750 Mg/ D5W 150 ml (Pmx)) 150 ml @ 100 mls/hr Q24H IVPB Last administered on 05/22/17 15:27; Admin Dose 100 MLS/HR; Start at 14:30 Meclizine HCl (Antivert) 25 mg TID PO Last administered on 05/22/17 10:36; Admin Dose 25 MG; Start 05/20/17 at 14:00 Acetaminophen (Tylenol Tab) 1,000 mg Q6H PRN PO PAIN AND OR ELEVATED TEMP Last administered on 05/21/17 20:41; Admin Dose 1,000 MG; Start 05/21/17 at 14:00 Ibuprofen (Motrin) 800 mg Q8 PO Last administered on 05/22/17 06:17; Admin Dose 800 MG; Start 05/21/17 at 14:00 Prednisone 50 mg 50 mg DAILY PO Last administered on 05/22/17 10:36; Admin Dose 50 MG; Start 05/22/17 at 09:00 Sodium Chloride (NS) 1,000 ml @ 100 mls/hr Q10H IV Last administered on t 15:27; Admin Dose 100 MLS/HR; Start 05/21/17 at 16:30 JANNY LUTZ NP May 22, 2017 16:55
[2017-05-22 16:59] LABS: ANA SCREEN POSITIVE (NEGATIVE); ANA TITER > OR = 1:1280 titer
[2017-05-22 16:59] LABS: HOMOCYSTEINE - CARDIOVASCULAR 8.6 umol/L (<10.4)
[2017-05-22] MEDS ORDERED: MIDAZOLAM 1 MG/ML 2 ML INJ ONE (18:29)
[2017-05-22] MEDS ORDERED: PHENYLephrine (100 MCG/ML) 5ML SYG ONE (18:30)
[2017-05-22] MEDS ORDERED: HEPARIN 1000 UNITS/NS (A-LINE) 0 ML ONE (18:33)
--- NOTE | 2017-05-22 19:34 | CONS ---
Date/Time of Note Date/Time of Note DATE: 05/22/17 TIME: 18:58 Assessment/Plan Assessment/Plan Chief Complaint/Hosp Course Impression: 1. Acute renal failure . This patient has had a rise in her serum creatinine which has almost doubled in the last 5 days. She has had several factors which could contribute to the rise in her serum creatinine including having two separate IV radio contrast imaging procedures. She has been on ibuprofen intermittently and her blood pressure has at times been low. Some of these factors could contribute to her having an episode of acute tubular necrosis with a rising serum creatinine. She does have proteinuria. She also has evidence of autoimmune disease and therefore this could be a manifestation of autoimmune disease and acute glomerulonephritis. She has an elevated REYNALDO and this could represent a manifestation of early lupus nephritis. An extensive workup is in progress. The patient is now in surgery having a pericardial window placed and lymph node biopsy. She is on high doses of prednisone which seems to be appropriate in view of her evidence of autoimmune disease without obvious evidence of infection. 2. Cecil's thyroiditis 3. Severe hypothyroidism 4. Pericardial effusion 5. Anemia and leukopenia 6. Bronchiolitis 7. Positive REYNALDO with high titer 8. Low serum complements 9. Hyperkalemia , decreased CO2 level Plan: 1 Discontinue ibuprofen 2. Urine for protein creatinine ratio 3. Continue current IV fluid 4. Add lactate level and repeat lactate dehydrogenase to today's labs. 5. Monitor daily renal function 6. I will follow the patient along with you. Problems: Consultation Date/Type/Reason Admit Date/Time May 18, 2017 at 05:57 Date of Consultation: May 22, 2017 Type of Consultation: renal Reason for Consultation Renal failure Referring Provider: ADRIÁN STALLINGS of Present Illness This 26-year-old female is being seen now because of a rising serum creatinine. The patient on 05/18/2017 because of shortness of breath. I was asked to see the patient because her serum creatinine had risen from 0.69 on admission to 1.26 today. The patient is Slovenian-speaking only. I used a video shrimping boat captain to communicate with the patient and her family. The patient denies a prior history of kidney disease. The patient says she was well until about 3 months ago when she started to develop fatigue and some joint aching. The patient was admitted to [facility] and was found to be hypothyroid. The patient was put on thyroid supplementation. The patient on admission here has been found to have multiple issues including a large pericardial effusion, thyroiditis, lymphadenopathy, elevated sedimentation rate, hypergammaglobulinemia, elevated REYNALDO, low serum complements anemia, leukopenia, bronchiolitis, decreased ejection fraction and hypokinesis on echocardiogram. The patient while at all at [facility] did have a lymph node biopsy with findings consistent with a reactive process. The patient was born in [facility]. The patient has been on ibuprofen while in the hospital. Since this admission she has had a CT scan of the chest and a separate CT scan of the abdomen both with IV contrast material. The patient has at times been hypotensive. Constitutional: poor po Eyes: no complaints ENT: pain Respiratory: cough, shortness of breath Cardiovascular: no complaints Gastrointestinal: no complaints Genitourinary: no complaints Musculoskeletal: bone/joint pain, other (diffusely achy) Skin: No bruising, No erythema, No laceration, No no complaints, No other, No pruritis, No rash, No skin lesions Neurologic: No confusion, No dizziness, No focal-weakness, No headache, No no complaints, No other, No seizure, No syncope Endocrine: no complaints, other, polydypsia, polyuria, No dry skin, No temp intolerance Lymphatic: no complaints, No adenopathy, No lymphadema, No other, No tender nodes Psychological: anxiety Immunologic: No immunodeficiency, No no complaints, No other, No pruritis, No rhinitis, No urticaria Past Medical History Medical History: hypothyroid Past Surgical History Past Surgical Hx: no surgical history Family History Significant Family History: no pertinent family hx Social History Alcohol Use: none Smoking Status: Never smoker Drug Use: none Exam/Review of Systems Vital Signs Vitals Vital Signs Date Time Temp Pulse Resp B/P Pulse Ox O2 Delivery O2 Flow Rate FiO2 05/22/17 18:00 70 27 130/95 100 Nasal Cannula 05/22/17 17:00 98.8 05/22/17 10:50 2.0 Intake and Output 05/21/17 05/21/17 05/22/17 15:00 23:00 07:00 Intake Total 2050 ml 800 ml Balance 2050 ml 800 ml Exam Constitutional: alert, oriented, well developed ENMT: nl external ears & nose, nl lips & teeth, nl nasal mucosa & septum Neck: non-tender, supple Respiratory: crackles/rales Cardiovascular: regular rate and rhythm Gastrointestinal: bowel sounds, soft Musculoskeletal: nl extremities to inspection Skin: nl turgor, No rash or lesions Lymph: enlarged Results Result Diagram: 05/22/17 0527 05/22/17 1500 Results 24 hrs Laboratory Tests Test 05/21/17 20:22 05/22/17 05:27 05/22/17 14:00 05/22/17 15:00 Bedside Glucose 106 White Blood Count 23.2 #H Red Blood Count 3.11 L Hemoglobin 9.7 L Hematocrit 29.8 L Mean Corpuscular Volume 95.8 Mean Corpuscular Hemoglobin 31.2 Mean Corpuscular Hemoglobin Concent 32.6 Red Cell Distribution Width 15.4 H Platelet Count 189 # Mean Platelet Volume 11.0 H Neutrophils % 82.0 H Band Neutrophils % 9.0 H Lymphocytes % 7.0 L Monocytes % 2.0 Eosinophils % Neutrophils # 19.0 H Lymphocytes # 1.6 Monocytes # 0.5 Eosinophils # Sodium Level 130 L 134 L Potassium Level 5.4 H 5.4 H Chloride Level 105 104 Carbon Dioxide Level 17 L 15 L Anion Gap 13 # 20 #H Blood Urea Nitrogen 19 24 H Creatinine 1.24 H 1.26 H Glucose Level 145 # 114 Calcium Level 7.3 L 8.0 L Urine Color YELLOW Urine Clarity SLIGHTLY CLOUDY A Urine pH 5.0 Urine Specific [place] 1.014 Urine Ketones NEGATIVE Urine Nitrite NEGATIVE Urine Bilirubin NEGATIVE Urine Urobilinogen NEGATIVE Urine Leukocyte Esterase NEGATIVE Urine Microscopic RBC 6 H Urine Microscopic WBC 23 H Urine Squamous Epithelial Cells FEW Urine Bacteria FEW A Urine Hemoglobin 3+ H Urine Glucose NEGATIVE Urine Total Protein 1+ H Random Cortisol 30.2 Medications Medications Current Medications Ondansetron HCl (Zofran Inj) 4 mg Q6H PRN IV NAUSEA AND/OR VOMITING; Start at 06:30 Pantoprazole (Protonix Iv) 40 mg DAILY@06 IV Last administered on 05/22/17 06: 17; Admin Dose 40 MG; Start 05/18/17 at 07:00 Morphine Sulfate 2 mg 2 mg Q4H PRN IV pain 6-10 Last administered on 05/21/17 09:11; Admin Dose 2 MG; Start 05/18/17 at 16:00 Levofloxacin/ Dextrose (Levaquin 750 Mg/ D5W 150 ml (Pmx)) 150 ml @ 100 mls/hr Q24H IVPB Last administered on 05/22/17 15:27; Admin Dose 100 MLS/HR; Start at 14:30 Meclizine HCl (Antivert) 25 mg TID PO Last administered on 05/22/17 10:36; Admin Dose 25 MG; Start 05/20/17 at 14:00 Acetaminophen (Tylenol Tab) 1,000 mg Q6H PRN PO PAIN AND OR ELEVATED TEMP Last administered on 05/21/17 20:41; Admin Dose 1,000 MG; Start 05/21/17 at 14:00 Prednisone 50 mg 50 mg DAILY PO Last administered on 05/22/17 10:36; Admin Dose 50 MG; Start 05/22/17 at 09:00 Sodium Chloride (NS) 1,000 ml @ 100 mls/hr Q10H IV Last administered on 15:27; Admin Dose 100 MLS/HR; Start 05/21/17 at 16:30 MATEUS BEDOLLA MD May 22, 2017 19:08
[2017-05-22] MEDS ORDERED: SODIUM CL BACTERIOSTATIC 30 ML INJ ONE ×3 (19:57→20:12)
[2017-05-22] MEDS ORDERED: NEOSTIGMINE 3 MG/3 ML SYRINGE ONE (20:10)
[2017-05-22] MEDS ORDERED: LIDOCAINE 2% (SDV) 5 ML INJ ONE (20:10)
[2017-05-22] MEDS ORDERED: ROCURONIUM 50 MG INJ ONE (20:10)
[2017-05-22] MEDS ORDERED: GLYCOPYRROLATE 0.4 MG INJ ONE (20:10)
[2017-05-22] MEDS ORDERED: ETOMIDATE 20 MG INJ ONE (20:10)
[2017-05-22] MEDS ORDERED: CEFAZOLIN 1 GM INJ ONE (20:11)
--- NOTE | 2017-05-22 20:15 | CONS ---
Date/Time of Note Date/Time of Note DATE: 05/22/17 TIME: 20:01 Consult Date/Type/Reason Admit Date/Time May 18, 2017 at 05:57 Initial Consult Date 05/22/17 Type of Consultation: Rheum Ordering Provider: ADRIÁN STALLINGS Patient transferred to ICU with hypotension. Patient undergoing pericardial window procedure. This AM noted to have marked leukocytosis as well as increased anemia and decreased platelet count. REYNALDO highly positive, with low complement. Creatinine has increased some over last few days. Objective Vital Signs Date Time Temp Pulse Resp B/P Pulse Ox O2 Delivery O2 Flow Rate FiO2 05/22/17 18:00 70 27 130/95 100 Nasal Cannula 05/22/17 17:00 98.8 05/22/17 10:50 2.0 Intake and Output 05/21/17 05/21/17 05/22/17 15:00 23:00 07:00 Intake Total 2050 ml 800 ml Balance 2050 ml 800 ml Results/Medications Result Diagram: 05/22/17 0527 05/22/17 1500 Results 24 hrs Laboratory Tests Test 05/21/17 20:22 05/22/17 05:27 05/22/17 14:00 05/22/17 15:00 Bedside Glucose 106 White Blood Count 23.2 #H Red Blood Count 3.11 L Hemoglobin 9.7 L Hematocrit 29.8 L Mean Corpuscular Volume 95.8 Mean Corpuscular Hemoglobin 31.2 Mean Corpuscular Hemoglobin Concent 32.6 Red Cell Distribution Width 15.4 H Platelet Count 189 # Mean Platelet Volume 11.0 H Neutrophils % 82.0 H Band Neutrophils % 9.0 H Lymphocytes % 7.0 L Monocytes % 2.0 Eosinophils % Neutrophils # 19.0 H Lymphocytes # 1.6 Monocytes # 0.5 Eosinophils # Sodium Level 130 L 134 L Potassium Level 5.4 H 5.4 H Chloride Level 105 104 Carbon Dioxide Level 17 L 15 L Anion Gap 13 # 20 #H Blood Urea Nitrogen 19 24 H Creatinine 1.24 H 1.26 H Glucose Level 145 # 114 Calcium Level 7.3 L 8.0 L Urine Color YELLOW Urine Clarity SLIGHTLY CLOUDY A Urine pH 5.0 Urine Specific [place] 1.014 Urine Ketones NEGATIVE Urine Nitrite NEGATIVE Urine Bilirubin NEGATIVE Urine Urobilinogen NEGATIVE Urine Leukocyte Esterase NEGATIVE Urine Microscopic RBC 6 H Urine Microscopic WBC 23 H Urine Squamous Epithelial Cells FEW Urine Bacteria FEW A Urine Hemoglobin 3+ H Urine Glucose NEGATIVE Urine Total Protein 1+ H Random Cortisol 30.2 Medications Current Medications Ondansetron HCl (Zofran Inj) 4 mg Q6H PRN IV NAUSEA AND/OR VOMITING; Start at 06:30 Pantoprazole (Protonix Iv) 40 mg DAILY@06 IV Last administered on 05/22/17 06: 17; Admin Dose 40 MG; Start 05/18/17 at 07:00 Morphine Sulfate 2 mg 2 mg Q4H PRN IV pain 6-10 Last administered on 05/21/17 09:11; Admin Dose 2 MG; Start 05/18/17 at 16:00 Levofloxacin/ Dextrose (Levaquin 750 Mg/ D5W 150 ml (Pmx)) 150 ml @ 100 mls/hr Q24H IVPB Last administered on 05/22/17 15:27; Admin Dose 100 MLS/HR; Start at 14:30 Meclizine HCl (Antivert) 25 mg TID PO Last administered on 05/22/17 10:36; Admin Dose 25 MG; Start 05/20/17 at 14:00 Acetaminophen (Tylenol Tab) 1,000 mg Q6H PRN PO PAIN AND OR ELEVATED TEMP Last administered on 05/21/17 20:41; Admin Dose 1,000 MG; Start 05/21/17 at 14:00 Prednisone 50 mg 50 mg DAILY PO Last administered on 05/22/17 10:36; Admin Dose 50 MG; Start 05/22/17 at 09:00 Sodium Chloride (NS) 1,000 ml @ 100 mls/hr Q10H IV Last administered on 15:27; Admin Dose 100 MLS/HR; Start 05/21/17 at 16:30 Assessment/Plan Chief Complaint/Hosp Course Ass. 1. Systemic Lupus Erythematosis with highly positive REYNALDO, low C3 and C4, Cecil's Thyroiditis, likely pericarditis, lymphadenopathy, bronchiolitis, Elev. ESR, Hypergammaglobulinemia, Leukopenia (until recently) 2. Leukocytosi, anemia, decreased platelet count this am. Unclear if hemolyzing. 3. Cecil's Thyroiditis 4. Severe Hypothyroidism 5. Pericardial effusion 4. Shortness of breath 5. Hypergammaglobulinemia Problems: Additional Assessment/Plan Plan: 1. Will start Solumedrol 125 mg q 8 hours at this point. (I discussed potential side effects of steroids with patient and family during my initial visit). 2. Stat CBC prior to Solumedrol. 3. Haptoglobin in AM in view of recent Hct drop YOHANA DURAND MD May 22, 2017 20:14
--- NOTE | 2017-05-22 20:15 | OPR ---
Date/Time of Note Date/Time of Note DATE: 05/22/17 TIME: 20:10 Operative Report Procedure Date: May 22, 2017 Preoperative Diagnosis Pericardial effusion Postoperative Diagnosis Pericardial effusion Operation Performed Pericardial window Left thoracotomy and pulmonary decortication Bronchoscopy Surgeon: KRYSTAL HARRIS MD Anesthesia: general Estimated Blood Loss: 50 - 100 ml's Specimens Pericardium Pericardial fluid Tubes/Drains Chest tube Placed to Complications: None Pt Condition Post Procedure: critical Disposition: PACU Indications Pericardial effusion Operative\Procedure Findings Dictated Procedure Description Patient was placed supine position prepped and draped in usual sterile fashion bronchoscopy was done after induction of anesthesia and placement of a double- lumen and the tracheal tube no evidence of any endotracheal lesions were noted Patient was placed in the slightly left side up prepped and draped in usual sterile fashion timeout was called antibiotics was given and I started A 10 cm incision was made in the left anterolateral thoracotomy below the breast Incision was taken down to subcutaneous tissue which was then opened using electrocautery Left seventh intercostal space was opened using electrocautery Chest retractor was placed Adhesions were noted from the lung and about 500 cc of fluid was noted to be in the left pleural cavity which was drained The lung was decorticated adhesions were taken down Pericardium was grabbed using 2 hemostats Phrenic nerve was identified and protected A 2 x 2 centimeter area of anterolateral pericardium was resected using Metzenbaum scissors About 800 cc of clear fluid was noted to be coming from the pericardium which was drained and sent for pathological examination No evidence of any bleeding was noted A 28 Greek chest tube was placed into the pleural cavity A 24 Greek Eleazar was placed into the pericardium There both brought out through lower stab wounds and secured to skin using 2-0 silk sutures The ribs were reapproximated using #2 Vicryl suture [id number] 3 Subcutaneous tissues were irrigated and closed in 2 layers of 0 Vicryl suture first for the deep tissues 2-0 Vicryl suture for subcu and 4-0 Monocryl suture for running subcuticular skin closure Steri-Strips were applied Patient tolerated procedure well State hemodynamically stable throughout the operation KRYSTAL HARRIS MD May 22, 2017 20:15
[2017-05-22] MEDS ORDERED: DIPHENHYDRAMINE 50 MG INJ IV PRN (20:30)
[2017-05-22] MEDS ORDERED: EPHEDrine SULFATE 50 MG/5 ML SYG IV PRN (20:30)
[2017-05-22] MEDS ORDERED: ONDANSETRON 4 MG INJ IV PRN (20:30)
[2017-05-22] MEDS ORDERED: METOCLOPRAMIDE 10 MG INJ IV PRN (20:30)
[2017-05-22] MEDS ORDERED: MEPERIDINE 25 MG INJ IV PRN (20:30)
[2017-05-22] MEDS ORDERED: morphine (1 MG/ML) 10ML SYRINGE IV PRN ×2 (20:30)
--- NOTE | 2017-05-22 20:55 | RADRPT ---
Vent Rate: 77 bpm RR Interval: 0 msec TN Interval: 140 msec QRS Duration: 78 msec QT Interval: 404 msec QTC Interval: 457 msec P-R-T Cascade: 35 - 157 - 7 degrees Normal sinus rhythm Right axis deviation Right ventricular hypertrophy with repolarization abnormality Nonspecific T wave abnormality Abnormal ECG Electronically Signed By: Monroe Blackwood [id number]
[2017-05-22 21:38] LABS: ADD SCAN DIFF NO
[2017-05-22 21:40] LABS: HEMOGLOBIN 10.9 g/dl (12.0-16.0); MEAN CORPUSCULAR HEMOGLOBIN 31.1 pg (29.0-33.0); MEAN CORPUSCULAR HGB CONC 32.1 g/dl (32.0-37.0); MEAN CORPUSCULAR VOLUME 96.9 fl (82.0-101.0); PLATELET COUNT 206 10^3/UL (140-415); RED BLOOD COUNT 3.51 10^6/ul (4.20-5.40); RED CELL DISTRIBUTION WIDTH 15.3 % (11.5-14.5); WHITE BLOOD COUNT 22.3 10^3/ul (4.8-10.8)
[2017-05-22] MEDS ORDERED: PROPOFOL 100 ML ONE (21:43)
[2017-05-22] MEDS ORDERED: PROPOFOL 100 ML IV SCH (22:00)
[2017-05-22] MEDS: PROPOFOL 100 ML IV SCH (22:06)
[2017-05-22] MEDS: METHYLPREDNISOLONE 125 MG INJ IV SCH (22:09)
[2017-05-22 22:12] LABS: AADO2 Arterial 115.4 mmHg (7.0-24.0); Arterial Base Excess -17.9 mmol/L (-3.0-3); Arterial COHb 0.3 % (0.0-3.0); Arterial Fraction of Oxyhgb 98.6 % (93.0-99.0); Arterial HCO3 9.6 mmol/L (22.0-26.0); Arterial MetHb 0.3 % (0.0-1.5); Arterial Total Hemglobin 12.4 g/dl (12.0-18.0); MODE VENT - AC
[2017-05-22 22:21] LABS: LYMPHOCYTES # 1.6 10^3/ul (0.8-2.9); MONOCYTE # 1.1 10^3/ul (0.3-0.9); NEUTROPHIL # 15.6 10^3/ul (1.6-7.5)
[2017-05-22 22:22] LABS: BURR CELLS 2+
[2017-05-22] MEDS ORDERED: NA BICARBONATE 8.4% 50 ML SYG IV STA (22:24)
[2017-05-22] MEDS ORDERED: NA BICARBONATE 8.4% 50 ML SYG ONE (22:28)
[2017-05-22] MEDS ORDERED: SOD CHLORIDE 0.9% 1,000 ML IV ONE (22:30)
[2017-05-22] MEDS: morphine 2 MG INJ IV PRN (23:19)
[2017-05-23] VITALS (37 sets, daily range): BP systolic 103–146; BP diastolic 70–98; PULSE 73–97; RESP 15–34
[2017-05-23] MEDS ORDERED: VANCOMYCIN 1 GM (PMX) 250 ML IVPB SCH (01:30)
[2017-05-23] MEDS ORDERED: SODIUM BICARBONATE (IV ADD) 100 MEQ in SOD CHLORIDE 0.9% 1,000 ML IV SCH ×4 (01:30)
[2017-05-23] MEDS ORDERED: PIPER-TAZO 3.375 GM IV (PMX) 100 ML IVPB ONE (01:30)
[2017-05-23] MEDS ORDERED: SOD CHLORIDE 0.9% 1,000 ML IV ONE (01:30)
[2017-05-23] MEDS ORDERED: NACL IV SCH (01:53)
[2017-05-23] MEDS ORDERED: DEXTROSE IV SCH (01:53)
[2017-05-23] MEDS ORDERED: SODIUM BICARBONATE IV SCH (01:53)
[2017-05-23] MEDS: PROPOFOL 100 ML IV SCH (03:32)
[2017-05-23] MEDS: morphine 2 MG INJ IV PRN ×3 (03:39→12:39)
[2017-05-23 05:08] LABS: ADD SCAN DIFF NO
[2017-05-23 05:19] LABS: BASOPHILS % 0.1 % (0.0-2.0); HEMATOCRIT 29.7 % (37.0-47.0); HEMOGLOBIN 9.6 g/dl (12.0-16.0); LYMPHOCYTES # 1.3 10^3/ul (0.8-2.9); MEAN CORPUSCULAR HEMOGLOBIN 31.3 pg (29.0-33.0); MEAN CORPUSCULAR HGB CONC 32.3 g/dl (32.0-37.0); MEAN CORPUSCULAR VOLUME 96.7 fl (82.0-101.0); MEAN PLATELET VOLUME 11.8 fl (7.4-10.4); MONOCYTE # 0.6 10^3/ul (0.3-0.9); MONOCYTES % 4.4 % (0.0-11.0); NEUTROPHIL # 11.9 10^3/ul (1.6-7.5); NEUTROPHILS % 85.9 % (39.0-77.0); NUCLEATED RED BLOOD CELLS% 0.1 /100WBC (0.0-0.0); PLATELET COUNT 189 10^3/UL (140-415); RED BLOOD COUNT 3.07 10^6/ul (4.20-5.40); RED CELL DISTRIBUTION WIDTH 15.5 % (11.5-14.5); WHITE BLOOD COUNT 13.9 10^3/ul (4.8-10.8)
[2017-05-23] MEDS: METHYLPREDNISOLONE 125 MG INJ IV SCH ×3 (05:56→21:58)
[2017-05-23] MEDS: PANTOPRAZOLE 40 MG INJ IV SCH (05:56)
[2017-05-23] MEDS: LEVOTHYROXINE 125 MCG TAB PO SCH (07:00)
[2017-05-23 07:33] LABS: CREATININE 0.87 mg/dl (0.44-1.00); MAGNESIUM 1.8 mg/dl (1.7-2.5); PHOSPHORUS 2.4 mg/dl (2.5-4.9); POTASSIUM 4.3 mmol/L (3.5-5.1)
[2017-05-23 07:37] LABS: PROTEIN/CREAT RATIO 0.56 RATIO
--- NOTE | 2017-05-23 08:47 | RADRPT ---
PROCEDURE: X-ray Chest. CLINICAL INDICATION: Pneumothorax. TECHNIQUE: Single view chest x-ray. COMPARISON: Exam dated 05/18/2017. FINDINGS: There is a well-positioned ETT with its tip 3.6 cm above the aubrey and there is a left-sided thorac ostomy tube in place. There is subcutaneous emphysema overlying the left chest wall. There are athe rosclerotic changes of the aorta. The cardiopericardial silhouette remains enlarged. Extensive bila teral alveolar disease is not significantly changed. There is no effusion or pneumothorax. There a re no acute osseous abnormalities. IMPRESSION: 1. Interval placement of a left-sided thoracostomy tube with no residual pneumothorax. 2. Enlarged cardiopericardial silhouette and bilateral alveolar disease, not significantly changed. RPTAT: EE .Serge Coreas MD, Date Time Electronically viewed and signed by .Serge Coreas MD, on 05/23/2017 08:47 .P/
[2017-05-23] MEDS: predniSONE 50 MG TAB PO SCH (09:00)
[2017-05-23] MEDS: MECLIZINE 25 MG TAB PO SCH ×3 (09:00→21:44)
--- NOTE | 2017-05-23 09:57 | PN ---
Date/Time of Note Date/Time of Note DATE: 05/23/17 TIME: 09:55 Assessment/Plan Lines/Catheters IV Catheter Type (from Nrsg): A Line Anthony in Place (from Nrsg): Yes Assessment/Plan Chief Complaint/Hosp Course Patient with pericardial effusion Status post pericardial window Chest tube with 133 cc of drainage Awaiting pathology We will continue chest tube suction Discussed with the referring physicians Problems: Subjective 24 Hr Interval Summary Status post pericardial window Constitutional: improved Pain Control: moderate Exam/Review of Systems Vital Signs Vitals Vital Signs Date Time Temp Pulse Resp B/P Pulse Ox O2 Delivery O2 Flow Rate FiO2 05/23/17 07:00 83 21 141/96 100 Mechanical Ventilator 05/23/17 05:25 50 05/23/17 04:00 99.1 05/22/17 10:50 2.0 Intake and Output 05/22/17 05/22/17 05/23/17 15:00 23:00 07:00 Intake Total 300 ml 1100 ml 3266.8 ml Output Total 700 ml 975 ml 493 ml Balance -400 ml 125 ml 2773.8 ml Exam ENMT: mucosa pink and moist, nl external ears & nose, nl lips & teeth, nl nasal mucosa & septum Neck: non-tender, supple Respiratory: clear to auscultation, normal air movement Cardiovascular: nl pulses, regular rate and rhythm Gastrointestinal: nl liver, spleen, non-tender, soft Results Result Diagram: 05/23/1741905/23/17419 KRYSTAL HARRIS MD May 23, 2017 09:57
[2017-05-23] MEDS ORDERED: GLUCOSE GEL 15 GRAM TUBE PO PRN ×2 (10:00)
[2017-05-23] MEDS ORDERED: DEXTROSE 50% 50 ML SYRINGE IV PRN ×2 (10:00)
[2017-05-23] MEDS ORDERED: GLUCAGON 1 MG INJ IM PRN (10:00)
[2017-05-23] MEDS ORDERED: GLUCOSE GEL 15 GRAM TUBE BUCCAL PRN (10:00)
--- NOTE | 2017-05-23 10:22 | CONS ---
Date/Time of Note Date/Time of Note DATE: 05/23/17 TIME: 10:17 Assessment/Plan Assessment/Plan Chief Complaint/Hosp Course 26[facility] recently admitted and worked up at [facility]. She presented with change in voice is gravelly voice thickened cool dry skin and a goiter. She is found to have a TSH in excess of 100 and a low free T4. As patient describes that she had an ultrasound-guided biopsy of the submandibular lymph glands. Pathology was consistent with benign reactive process the lymph nodes were 3.1 cm in size. She was placed on levothyroxine 75 mcg a day and discharged to follow-up in the clinic. She has a 3 month history of cough without fevers chills or sweats. She has no other known medical problems the best of the information the family can give. We have received information from [facility] which is reviewed in conjunction with this case. At that time she has developed pericardial tamponade on requiring placement of a window. She is being seen in rheumatologic consultation, below and hematology consultation Problems: (1) Pericardial effusion Status: Acute Comment: She had pericardial tamponade and is immediately post pericardial window placement. At this time she remains on the ventilator. She has a lactic acidosis present and her serum calcium has decreased. (2) Chronic thyroiditis Status: Chronic Comment: She is on replacement therapy for this. Her free T4 is coming up nicely. 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 Qualifiers: Iron deficiency anemia type: unspecified iron deficiency Qualified Code: D50.9 - Iron deficiency anemia, unspecified iron deficiency anemia type (5) Body aches Status: Acute Comment: My index of suspicion this represents a hematologic abnormality such as lymphoma or leukemia is low. I however do suspect that this represents a primary rheumatologic disorder. Given the lactic acidosis and hypocalcemia I will check an ionized calcium and follow-up on the lactic acid. Her workup for AFB so far is negative. Other unusual infections should be considered. I do not believe this represents Nocardia as a for instance. Consultation Date/Type/Reason Admit Date/Time May 18, 2017 at 05:57 Initial Consult Date 05/21/17 Type of Consultation: Endocrinology Reason for Consultation Antibody positive hypothyroidism/chronic with myxedema; lactic acidosis; hypocalcemia Referring Provider: ADRIÁN STALLINGS 24 HR Interval Summary Subjective hx not possible: pt critical status Detailed Summary Respiratory: other Exam/Review of Systems Vital Signs Vitals Vital Signs Date Time Temp Pulse Resp B/P Pulse Ox O2 Delivery O2 Flow Rate FiO2 05/23/17 10:00 79 27 124/92 100 Mechanical Ventilator 05/23/17 08:15 40 05/23/17 08:00 98.6 05/22/17 10:50 2.0 Intake and Output 05/22/17 05/22/17 05/23/17 15:00 23:00 07:00 Intake Total 300 ml 1100 ml 3266.8 ml Output Total 700 ml 975 ml 533 ml Balance -400 ml 125 ml 2733.8 ml Exam Patient had pericardial window placed last night for temp and on. Please see the dictation from the cardiothoracic surgeon are reviewed described clear fluid with the pericardium at the time of the surgery Constitutional: non-verbal ENMT: intubated Respiratory: clear to auscultation, normal air movement Cardiovascular: nl pulses, regular rate and rhythm Results Result Diagram: 05/23/17 0420 05/23/17 0420 Results 24 hrs Laboratory Tests Test 05/22/17 14:00 05/22/17 15:00 05/22/17 21:30 05/22/17 23:30 Urine Color YELLOW Urine Clarity SLIGHTLY CLOUDY A Urine pH 5.0 Urine Specific [place] 1.014 Urine Ketones NEGATIVE Urine Nitrite NEGATIVE Urine Bilirubin NEGATIVE Urine Urobilinogen NEGATIVE Urine Leukocyte Esterase NEGATIVE Urine Microscopic RBC 6 H Urine Microscopic WBC 23 H Urine Squamous Epithelial Cells FEW Urine Bacteria FEW A Urine Hemoglobin 3+ H Urine Random Creatinine 92.19 Urine Protein/Creatinine Ratio 0.56 Urine Glucose NEGATIVE Urine Total Protein 52.0 H Sodium Level 134 L Potassium Level 5.4 H Chloride Level 104 Carbon Dioxide Level 15 L Anion Gap 20 #H Blood Urea Nitrogen 24 H Creatinine 1.26 H Glucose Level 114 Calcium Level 8.0 L Random Cortisol 30.2 White Blood Count 22.3 H Red Blood Count 3.51 L Hemoglobin 10.9 L Hematocrit 34.0 L Mean Corpuscular Volume 96.9 Mean Corpuscular Hemoglobin 31.1 Mean Corpuscular Hemoglobin Concent 32.1 Red Cell Distribution Width 15.3 H Platelet Count 206 Mean Platelet Volume 11.0 H Neutrophils % 70.0 Band Neutrophils % 18.0 H Lymphocytes % 7.0 L Monocytes % 5.0 Eosinophils % Neutrophils # 15.6 H Lymphocytes # 1.6 Monocytes # 1.1 H Eosinophils # Lactic Acid Level 6.3 *H Lactate Dehydrogenase 5802 H Blood Gas Specimen Source Blood arterial Arterial Blood Date Drawn 05/22/2017 10:00:07 PM Arterial Blood pH (Temp corrected) 7.146 *L Arterial Blood pCO2 (Temp correct) 28.5 L Arterial Blood pO2 (Temp corrected) 353.1 H Arterial Blood HCO3 9.6 *L Arterial Blood Base Excess -17.9 L Arterial Blood Oxygen Saturation 99.2 H Tres Test N/A Arterial Blood Gas Puncture Site A-Line Arterial Blood Carboxyhemoglobin 0.3 Arterial Blood Methemoglobin 0.3 Blood Gas A-a O2 Differential 115.4 H Oxyhemoglobin Percent 98.6 Total Hemoglobin 12.4 Blood Gas Temperature 37.0 Blood Gas Respiration Rate 14.0 Blood Gas Actual Respiration Rate 27 Blood Gas Modality VENT - AC FiO2 70.0 Blood Gas Tidal Volume 450.0 Blood Gas Low PEEP Setting 5.0 Blood Gas Critical Value Read Back A YOSELYN MORIN Blood Gas Notified Whom UP Blood Gas Notified Time 05/22/2017 10:11:50 PM Test 05/23/17 00:30 05/23/17 04:20 05/23/17 08:20 Lactic Acid Level 11.1 *H White Blood Count 13.9 #H Red Blood Count 3.07 L Hemoglobin 9.6 L Hematocrit 29.7 L Mean Corpuscular Volume 96.7 Mean Corpuscular Hemoglobin 31.3 Mean Corpuscular Hemoglobin Concent 32.3 Red Cell Distribution Width 15.5 H Platelet Count 189 Mean Platelet Volume 11.8 H Neutrophils % 85.9 H Lymphocytes % 9.0 L Monocytes % 4.4 Eosinophils % 0.0 Basophils % 0.1 Nucleated Red Blood Cells % 0.1 H Neutrophils # 11.9 H Lymphocytes # 1.3 Monocytes # 0.6 Eosinophils # 0.0 Basophils # 0.0 Nucleated Red Blood Cells # 0.0 Sodium Level 139 Potassium Level 4.3 Chloride Level 111 H Carbon Dioxide Level 13 L Anion Gap 19 H Blood Urea Nitrogen 18 Creatinine 0.87 Glucose Level 221 #H Calcium Level 7.0 L Phosphorus Level 2.4 L Magnesium Level 1.8 Free Thyroxine 1.30 Free Triiodothyronine (T3) pg/mL 2.00 L Lab Scanned Report REFERENCE LAB Medications Medications Current Medications Ondansetron HCl (Zofran Inj) 4 mg Q6H PRN IV NAUSEA AND/OR VOMITING; Start at 06:30 Pantoprazole (Protonix Iv) 40 mg DAILY@06 IV Last administered on 05/23/17 05: 56; Admin Dose 40 MG; Start 05/18/17 at 07:00 Morphine Sulfate 2 mg 2 mg Q4H PRN IV pain 6-10 Last administered on 05/23/17 07:54; Admin Dose 2 MG; Start 05/18/17 at 16:00 Levofloxacin/ Dextrose (Levaquin 750 Mg/ D5W 150 ml (Pmx)) 150 ml @ 100 mls/hr Q24H IVPB Last administered on 05/22/17 15:27; Admin Dose 100 MLS/HR; Start at 14:30 Meclizine HCl (Antivert) 25 mg TID PO Last administered on 05/22/17 10:36; Admin Dose 25 MG; Start 05/20/17 at 14:00 Acetaminophen (Tylenol Tab) 1,000 mg Q6H PRN PO PAIN AND OR ELEVATED TEMP Last administered on 05/21/17 20:41; Admin Dose 1,000 MG; Start 05/21/17 at 14:00 Methylprednisolone Sodium Succinate 125 mg 125 mg Q8 IV Last administered on 05:56; Admin Dose 125 MG; Start 05/22/17 at 22:00 Propofol 100 ml @ 1.668 mls/ hr Q12H IV Last administered on 05/23/17 03:32; Admin Dose 16.68 MLS/HR; Start 05/22/17 at 22:00 Sodium Bicarbonate/ Dextrose/Sodium Chloride (Na Bicarb/D5-1/ 4ns) 1,100 ml @ 100 mls/hr Q11H IV Last administered on 05/23/17 03:00; Admin Dose 100 MLS/HR; Start 05/23/17 at 01:53 Insulin Aspart (Novolog Insulin Pen) NOVOLOG *MILD* ALGORI... Q4 SC ; Start 05/23 at 13:00 Miscellaneous Information 1 ea NOTE XX ; Start 05/23/17 at 10:00 Glucose (Glutose) 15 gm Q15M PRN PO DECREASED GLUCOSE; Start 05/23/17 at 10:00 Glucose (Glutose) 22.5 gm Q15M PRN PO DECREASED GLUCOSE; Start 05/23/17 at 10:00 Dextrose (D50w Syringe) 25 ml Q15M PRN IV DECREASED GLUCOSE; Start 05/23/17 at 10:00 Dextrose (D50w Syringe) 50 ml Q15M PRN IV DECREASED GLUCOSE; Start 05/23/17 at 10:00 Glucagon (Glucagen) 1 mg Q15M PRN IM DECREASED GLUCOSE; Start 05/23/17 at 10:00 Glucose (Glutose) 15 gm Q15M PRN BUCCAL DECREASED GLUCOSE; Start 05/23/17 at 10: 00 ISABELLA FRENCH MD May 23, 2017 10:22
--- NOTE | 2017-05-23 10:28 | CONS ---
Date/Time of Note Date/Time of Note DATE: 05/23/17 TIME: 10:22 Assessment/Plan Assessment/Plan Chief Complaint/Hosp Course Assessment 1. Hypoxemic respiratory failure following recent pericardial window and chest tube placement 2. Severe metabolic acidosis unclear etiology does not appear secondary to hypoperfusion. 3. Renal insufficiency possibly secondary to underlying vasculitis from SLE 4. Positive REYNALDO and low complement levels suggestive of systemic lupus erythematous 5. Cecil's thyroiditis. Plan 1. CPAP trial with extubation if tolerated 2. Incentive spirometry and bronchodilators as needed 3. Continue steroids per rheumatology 4. Await pericardial fluid studies. 5. Continue thyroid replacement. 6. DVT and GI prophylaxis 7. Speech therapy eval in a.m. and advance diet as tolerated Disposition Continue ICU care. Problems: Consultation Date/Type/Reason Admit Date/Time May 18, 2017 at 05:57 Date of Consultation: May 23, 2017 Type of Consultation: Pulmonary ICU Reason for Consultation Respiratory failure Hx of Present Illness 26-year-old lady with complicated history. Recently found to have pericardial effusion underwent pericardiocentesis with window yesterday and chest tube placement. Postoperatively she had respiratory distress requiring reintubation and continued mechanical ventilation overnight. In addition she had marked metabolic acidosis with increasing lactic acid. She has recently been found to have highly positive REYNALDO and low complement levels suggestive of SLE. In addition she has hypothyroidism and palpable cervical lymphadenopathy. She is recently been commenced on steroids by rheumatology. Continues extensive workup. This morning she is awake alert and on mechanical ventilation is comfortable with improving metabolic acidosis. Currently unable to perform patient is intubated on mechanical ventilation Constitutional: poor po, requiring O2, No chills, No diaphoresis, No disoriented, No febrile, No improved, No no complaints, No other, No requiring IVF Eyes: no complaints, No discharge, No other, No pain, No redness, No visual change ENT: No bleeding, No congestion, No discharge, No dysphagia, No no complaints, No other, No pain, No sore throat Respiratory: cough, shortness of breath, No no complaints, No other, No pain, No pleuritic pain, No sputum, No wheezing Cardiovascular: No chest pain, No edema, No lightheadedness, No no complaints, No orthopenea, No other, No palpitations, No paroxysmal nocturnal dyspnea Gastrointestinal: decreased appetite, nausea, No blood, No constipation, No diarrhea, No pain Genitourinary: No bleeding, No discharge, No dysuria, No flank pain, No hematuria, No no complaints, No other Musculoskeletal: No back pain, No bone/joint pain, No neck pain, No no complaints, No other, No restricted range of motion, No swelling Skin: No bruising, No erythema, No laceration, No no complaints, No other, No pruritis, No rash, No skin lesions Neurologic: No confusion, No dizziness, No focal-weakness, No headache, No no complaints, No other, No seizure, No syncope Endocrine: no complaints, No dry skin, No other, No polydypsia, No polyuria, No temp intolerance Lymphatic: adenopathy, no complaints, No lymphadema, No other, No tender nodes Psychological: anxiety, No confusion, No depression, No nl mood/affect, No no complaints, No other, No suicidal Immunologic: immunodeficiency, No no complaints, No other, No pruritis, No rhinitis, No urticaria Past Medical History Hypothyroidism Medical History: hypothyroid Past Surgical History Previous lymph node biopsy reactive tissue. Past Surgical Hx: no surgical history Social History Alcohol Use: none Smoking Status: Never smoker Drug Use: none Exam/Review of Systems Vital Signs Vitals Vital Signs Date Time Temp Pulse Resp B/P Pulse Ox O2 Delivery O2 Flow Rate FiO2 05/23/17 10:00 79 27 124/92 100 Mechanical Ventilator 05/23/17 08:15 40 05/23/17 08:00 98.6 05/22/17 10:50 2.0 Intake and Output 05/22/17 05/22/17 05/23/17 15:00 23:00 07:00 Intake Total 300 ml 1100 ml 3266.8 ml Output Total 700 ml 975 ml 533 ml Balance -400 ml 125 ml 2733.8 ml Exam PHYSICAL EXAMINATION GENERAL: Thin lady intubated on mechanical ventilation appears comfortable at rest VITAL SIGNS: see below. HEENT: Pupils equal, round, and reactive to light. CARDIAC: S1, S2, 1/6 systolic ejection murmur CHEST: Diminished air entry bilaterally. ABDOMEN: Mildly distended. Bowel sounds present no guarding or rebound EXTREMITIES: No cyanosis, clubbing edema +1 NEUROLOGIC: Generalized weakness Results Chest x-ray no infiltrates or effusions chest tube in place. Result Diagram: 05/23/1741905/23/170 Results 24 hrs Laboratory Tests Test 05/22/17 14:00 05/22/17 15:00 05/22/17 21:30 05/22/17 23:30 Urine Color YELLOW Urine Clarity SLIGHTLY CLOUDY A Urine pH 5.0 Urine Specific [place] 1.014 Urine Ketones NEGATIVE Urine Nitrite NEGATIVE Urine Bilirubin NEGATIVE Urine Urobilinogen NEGATIVE Urine Leukocyte Esterase NEGATIVE Urine Microscopic RBC 6 H Urine Microscopic WBC 23 H Urine Squamous Epithelial Cells FEW Urine Bacteria FEW A Urine Hemoglobin 3+ H Urine Random Creatinine 92.19 Urine Protein/Creatinine Ratio 0.56 Urine Glucose NEGATIVE Urine Total Protein 52.0 H Sodium Level 134 L Potassium Level 5.4 H Chloride Level 104 Carbon Dioxide Level 15 L Anion Gap 20 #H Blood Urea Nitrogen 24 H Creatinine 1.26 H Glucose Level 114 Calcium Level 8.0 L Random Cortisol 30.2 White Blood Count 22.3 H Red Blood Count 3.51 L Hemoglobin 10.9 L Hematocrit 34.0 L Mean Corpuscular Volume 96.9 Mean Corpuscular Hemoglobin 31.1 Mean Corpuscular Hemoglobin Concent 32.1 Red Cell Distribution Width 15.3 H Platelet Count 206 Mean Platelet Volume 11.0 H Neutrophils % 70.0 Band Neutrophils % 18.0 H Lymphocytes % 7.0 L Monocytes % 5.0 Eosinophils % Neutrophils # 15.6 H Lymphocytes # 1.6 Monocytes # 1.1 H Eosinophils # Lactic Acid Level 6.3 *H Lactate Dehydrogenase 5802 H Blood Gas Specimen Source Blood arterial Arterial Blood Date Drawn 05/22/2017 10:00:07 PM Arterial Blood pH (Temp corrected) 7.146 *L Arterial Blood pCO2 (Temp correct) 28.5 L Arterial Blood pO2 (Temp corrected) 353.1 H Arterial Blood HCO3 9.6 *L Arterial Blood Base Excess -17.9 L Arterial Blood Oxygen Saturation 99.2 H Tres Test N/A Arterial Blood Gas Puncture Site A-Line Arterial Blood Carboxyhemoglobin 0.3 Arterial Blood Methemoglobin 0.3 Blood Gas A-a O2 Differential 115.4 H Oxyhemoglobin Percent 98.6 Total Hemoglobin 12.4 Blood Gas Temperature 37.0 Blood Gas Respiration Rate 14.0 Blood Gas Actual Respiration Rate 27 Blood Gas Modality VENT - AC FiO2 70.0 Blood Gas Tidal Volume 450.0 Blood Gas Low PEEP Setting 5.0 Blood Gas Critical Value Read Back A YOSELYN MORIN Blood Gas Notified Whom UP Blood Gas Notified Time 05/22/2017 10:11:50 PM Test 05/23/17 00:30 05/23/17 04:20 05/23/17 08:20 Lactic Acid Level 11.1 *H White Blood Count 13.9 #H Red Blood Count 3.07 L Hemoglobin 9.6 L Hematocrit 29.7 L Mean Corpuscular Volume 96.7 Mean Corpuscular Hemoglobin 31.3 Mean Corpuscular Hemoglobin Concent 32.3 Red Cell Distribution Width 15.5 H Platelet Count 189 Mean Platelet Volume 11.8 H Neutrophils % 85.9 H Lymphocytes % 9.0 L Monocytes % 4.4 Eosinophils % 0.0 Basophils % 0.1 Nucleated Red Blood Cells % 0.1 H Neutrophils # 11.9 H Lymphocytes # 1.3 Monocytes # 0.6 Eosinophils # 0.0 Basophils # 0.0 Nucleated Red Blood Cells # 0.0 Sodium Level 139 Potassium Level 4.3 Chloride Level 111 H Carbon Dioxide Level 13 L Anion Gap 19 H Blood Urea Nitrogen 18 Creatinine 0.87 Glucose Level 221 #H Calcium Level 7.0 L Phosphorus Level 2.4 L Magnesium Level 1.8 Free Thyroxine 1.30 Free Triiodothyronine (T3) pg/mL 2.00 L Lab Scanned Report REFERENCE LAB Medications Medications Current Medications Ondansetron HCl (Zofran Inj) 4 mg Q6H PRN IV NAUSEA AND/OR VOMITING; Start at 06:30 Pantoprazole (Protonix Iv) 40 mg DAILY@06 IV Last administered on 05/23/17 05: 56; Admin Dose 40 MG; Start 05/18/17 at 07:00 Morphine Sulfate 2 mg 2 mg Q4H PRN IV pain 6-10 Last administered on 05/23/17 07:54; Admin Dose 2 MG; Start 05/18/17 at 16:00 Levofloxacin/ Dextrose (Levaquin 750 Mg/ D5W 150 ml (Pmx)) 150 ml @ 100 mls/hr Q24H IVPB Last administered on 05/22/17 15:27; Admin Dose 100 MLS/HR; Start at 14:30 Meclizine HCl (Antivert) 25 mg TID PO Last administered on 05/22/17 10:36; Admin Dose 25 MG; Start 05/20/17 at 14:00 Acetaminophen (Tylenol Tab) 1,000 mg Q6H PRN PO PAIN AND OR ELEVATED TEMP Last administered on 05/21/17 20:41; Admin Dose 1,000 MG; Start 05/21/17 at 14:00 Methylprednisolone Sodium Succinate 125 mg 125 mg Q8 IV Last administered on 05:56; Admin Dose 125 MG; Start 05/22/17 at 22:00 Propofol 100 ml @ 1.668 mls/ hr Q12H IV Last administered on 05/23/17 03:32; Admin Dose 16.68 MLS/HR; Start 05/22/17 at 22:00 Sodium Bicarbonate/ Dextrose/Sodium Chloride (Na Bicarb/D5-1/ 4ns) 1,100 ml @ 100 mls/hr Q11H IV Last administered on 05/23/17 03:00; Admin Dose 100 MLS/HR; Start 05/23/17 at 01:53 Insulin Aspart (Novolog Insulin Pen) NOVOLOG *MILD* ALGORI... Q4 SC ; Start 05/23 at 13:00 Miscellaneous Information 1 ea NOTE XX ; Start 05/23/17 at 10:00 Glucose (Glutose) 15 gm Q15M PRN PO DECREASED GLUCOSE; Start 05/23/17 at 10:00 Glucose (Glutose) 22.5 gm Q15M PRN PO DECREASED GLUCOSE; Start 05/23/17 at 10:00 Dextrose (D50w Syringe) 25 ml Q15M PRN IV DECREASED GLUCOSE; Start 05/23/17 at 10:00 Dextrose (D50w Syringe) 50 ml Q15M PRN IV DECREASED GLUCOSE; Start 05/23/17 at 10:00 Glucagon (Glucagen) 1 mg Q15M PRN IM DECREASED GLUCOSE; Start 05/23/17 at 10:00 Glucose (Glutose) 15 gm Q15M PRN BUCCAL DECREASED GLUCOSE; Start 05/23/17 at 10: 00 RAKAN BURNS MD, [facility] May 23, 2017 10:28
--- NOTE | 2017-05-23 10:39 | CONS ---
Date/Time of Note Date/Time of Note DATE: 05/23/17 TIME: 10:23 Consult Date/Type/Reason Admit Date/Time May 18, 2017 at 05:57 Initial Consult Date 05/22/17 Type of Consultation: Rheum Ordering Provider: ADRIÁN STALLINGS Subjective Intubated, on C-PAP. Had mild cardiac tamponade and underwent pericardial window procedure last evening, draining 800cc of clear fluid. Started on Solumedrol 125mg tid last PM. Objective Vital Signs Date Time Temp Pulse Resp B/P Pulse Ox O2 Delivery O2 Flow Rate FiO2 05/23/17 10:00 79 27 124/92 100 Mechanical Ventilator 05/23/17 08:15 40 05/23/17 08:00 98.6 05/22/17 10:50 2.0 Intake and Output 05/22/17 05/22/17 05/23/17 15:00 23:00 07:00 Intake Total 300 ml 1100 ml 3266.8 ml Output Total 700 ml 975 ml 533 ml Balance -400 ml 125 ml 2733.8 ml Results/Medications Result Diagram: 05/23/17 0420 05/23/17 0420 Results 24 hrs Laboratory Tests Test 05/22/17 14:00 05/22/17 15:00 05/22/17 21:30 05/22/17 23:30 Urine Color YELLOW Urine Clarity SLIGHTLY CLOUDY A Urine pH 5.0 Urine Specific [place] 1.014 Urine Ketones NEGATIVE Urine Nitrite NEGATIVE Urine Bilirubin NEGATIVE Urine Urobilinogen NEGATIVE Urine Leukocyte Esterase NEGATIVE Urine Microscopic RBC 6 H Urine Microscopic WBC 23 H Urine Squamous Epithelial Cells FEW Urine Bacteria FEW A Urine Hemoglobin 3+ H Urine Random Creatinine 92.19 Urine Protein/Creatinine Ratio 0.56 Urine Glucose NEGATIVE Urine Total Protein 52.0 H Sodium Level 134 L Potassium Level 5.4 H Chloride Level 104 Carbon Dioxide Level 15 L Anion Gap 20 #H Blood Urea Nitrogen 24 H Creatinine 1.26 H Glucose Level 114 Calcium Level 8.0 L Random Cortisol 30.2 White Blood Count 22.3 H Red Blood Count 3.51 L Hemoglobin 10.9 L Hematocrit 34.0 L Mean Corpuscular Volume 96.9 Mean Corpuscular Hemoglobin 31.1 Mean Corpuscular Hemoglobin Concent 32.1 Red Cell Distribution Width 15.3 H Platelet Count 206 Mean Platelet Volume 11.0 H Neutrophils % 70.0 Band Neutrophils % 18.0 H Lymphocytes % 7.0 L Monocytes % 5.0 Eosinophils % Neutrophils # 15.6 H Lymphocytes # 1.6 Monocytes # 1.1 H Eosinophils # Lactic Acid Level 6.3 *H Lactate Dehydrogenase 5802 H Blood Gas Specimen Source Blood arterial Arterial Blood Date Drawn 05/22/2017 10:00:07 PM Arterial Blood pH (Temp corrected) 7.146 *L Arterial Blood pCO2 (Temp correct) 28.5 L Arterial Blood pO2 (Temp corrected) 353.1 H Arterial Blood HCO3 9.6 *L Arterial Blood Base Excess -17.9 L Arterial Blood Oxygen Saturation 99.2 H Tres Test N/A Arterial Blood Gas Puncture Site A-Line Arterial Blood Carboxyhemoglobin 0.3 Arterial Blood Methemoglobin 0.3 Blood Gas A-a O2 Differential 115.4 H Oxyhemoglobin Percent 98.6 Total Hemoglobin 12.4 Blood Gas Temperature 37.0 Blood Gas Respiration Rate 14.0 Blood Gas Actual Respiration Rate 27 Blood Gas Modality VENT - AC FiO2 70.0 Blood Gas Tidal Volume 450.0 Blood Gas Low PEEP Setting 5.0 Blood Gas Critical Value Read Back A YOSELYN MORIN Blood Gas Notified Whom UP Blood Gas Notified Time 05/22/2017 10:11:50 PM Test 05/23/17 00:30 05/23/17 04:20 05/23/17 08:20 Lactic Acid Level 11.1 *H White Blood Count 13.9 #H Red Blood Count 3.07 L Hemoglobin 9.6 L Hematocrit 29.7 L Mean Corpuscular Volume 96.7 Mean Corpuscular Hemoglobin 31.3 Mean Corpuscular Hemoglobin Concent 32.3 Red Cell Distribution Width 15.5 H Platelet Count 189 Mean Platelet Volume 11.8 H Neutrophils % 85.9 H Lymphocytes % 9.0 L Monocytes % 4.4 Eosinophils % 0.0 Basophils % 0.1 Nucleated Red Blood Cells % 0.1 H Neutrophils # 11.9 H Lymphocytes # 1.3 Monocytes # 0.6 Eosinophils # 0.0 Basophils # 0.0 Nucleated Red Blood Cells # 0.0 Sodium Level 139 Potassium Level 4.3 Chloride Level 111 H Carbon Dioxide Level 13 L Anion Gap 19 H Blood Urea Nitrogen 18 Creatinine 0.87 Glucose Level 221 #H Calcium Level 7.0 L Phosphorus Level 2.4 L Magnesium Level 1.8 Free Thyroxine 1.30 Free Triiodothyronine (T3) pg/mL 2.00 L Lab Scanned Report REFERENCE LAB Medications Current Medications Ondansetron HCl (Zofran Inj) 4 mg Q6H PRN IV NAUSEA AND/OR VOMITING; Start at 06:30 Pantoprazole (Protonix Iv) 40 mg DAILY@06 IV Last administered on 05/23/17 05: 56; Admin Dose 40 MG; Start 05/18/17 at 07:00 Morphine Sulfate 2 mg 2 mg Q4H PRN IV pain 6-10 Last administered on 05/23/17 07:54; Admin Dose 2 MG; Start 05/18/17 at 16:00 Levofloxacin/ Dextrose (Levaquin 750 Mg/ D5W 150 ml (Pmx)) 150 ml @ 100 mls/hr Q24H IVPB Last administered on 05/22/17 15:27; Admin Dose 100 MLS/HR; Start at 14:30 Meclizine HCl (Antivert) 25 mg TID PO Last administered on 05/22/17 10:36; Admin Dose 25 MG; Start 05/20/17 at 14:00 Acetaminophen (Tylenol Tab) 1,000 mg Q6H PRN PO PAIN AND OR ELEVATED TEMP Last administered on 05/21/17 20:41; Admin Dose 1,000 MG; Start 05/21/17 at 14:00 Methylprednisolone Sodium Succinate 125 mg 125 mg Q8 IV Last administered on 05:56; Admin Dose 125 MG; Start 05/22/17 at 22:00 Propofol 100 ml @ 1.668 mls/ hr Q12H IV Last administered on 05/23/17 03:32; Admin Dose 16.68 MLS/HR; Start 05/22/17 at 22:00 Sodium Bicarbonate/ Dextrose/Sodium Chloride (Na Bicarb/D5-1/ 4ns) 1,100 ml @ 100 mls/hr Q11H IV Last administered on 05/23/17 03:00; Admin Dose 100 MLS/HR; Start 05/23/17 at 01:53 Insulin Aspart (Novolog Insulin Pen) NOVOLOG *MILD* ALGORI... Q4 SC ; Start 05/23 at 13:00 Miscellaneous Information 1 ea NOTE XX ; Start 05/23/17 at 10:00 Glucose (Glutose) 15 gm Q15M PRN PO DECREASED GLUCOSE; Start 05/23/17 at 10:00 Glucose (Glutose) 22.5 gm Q15M PRN PO DECREASED GLUCOSE; Start 05/23/17 at 10:00 Dextrose (D50w Syringe) 25 ml Q15M PRN IV DECREASED GLUCOSE; Start 05/23/17 at 10:00 Dextrose (D50w Syringe) 50 ml Q15M PRN IV DECREASED GLUCOSE; Start 05/23/17 at 10:00 Glucagon (Glucagen) 1 mg Q15M PRN IM DECREASED GLUCOSE; Start 05/23/17 at 10:00 Glucose (Glutose) 15 gm Q15M PRN BUCCAL DECREASED GLUCOSE; Start 05/23/17 at 10: 00 Assessment/Plan Chief Complaint/Hosp Course Ass. 1. Systemic Lupus Erythematosis with highly positive REYNALDO, low C3 and C4, Cecil's Thyroiditis, pericarditis, lymphadenopathy, bronchiolitis, Elev. ESR, Hypergammaglobulinemia, Leukopenia (until recently) 2. Leukocytosis, anemia, decreased platelet count yesterday. Unclear if hemolyzing. Today leukocytosis improved (in spite of steroids). 3. Lactic acidosis, possible hypocalcemia (albumin and ionized calcium levels pending. Does have low Vitamin D level (?). 4. Cecil's Thyroiditis 5. Severe Hypothyroidism 6. Pericardial effusion. Now s/p pericardial window placement. Problems: Additional Assessment/Plan Plan: Continue Solumedrol 125 mg q 8 hours for now YOHANA DURAND MD May 23, 2017 10:36
[2017-05-23 10:54] LABS: AADO2 Arterial 82.5 mmHg (7.0-24.0); Arterial Base Excess -13.7 mmol/L (-3.0-3); Arterial COHb 0.3 % (0.0-3.0); Arterial Fraction of Oxyhgb 98.5 % (93.0-99.0); Arterial HCO3 10.9 mmol/L (22.0-26.0); Arterial MetHb 0.3 % (0.0-1.5); Arterial Total Hemglobin 11.5 g/dl (12.0-18.0); MODE VENT - AC
[2017-05-23 10:54] LABS: AADO2 Arterial 74.6 mmHg (7.0-24.0); Arterial Base Excess -7.2 mmol/L (-3.0-3); Arterial COHb 0.2 % (0.0-3.0); Arterial Fraction of Oxyhgb 98.3 % (93.0-99.0); Arterial HCO3 16.1 mmol/L (22.0-26.0); Arterial MetHb 0.4 % (0.0-1.5); Arterial Total Hemglobin 9.6 g/dl (12.0-18.0); MODE VENT - AC
--- NOTE | 2017-05-23 11:05 | CONS ---
Date/Time of Note Date/Time of Note DATE: 05/23/17 TIME: 11:03 Assessment/Plan Assessment/Plan Additional Assessment/Plan 1. Renal fx has improved. 2. Mild proteinuria noted, renal bx will be needed 3. Low Calcium wtih nl mag, may be related to acute illness, will ck pth and vit , ionized calcium ordered 4. Inc lactate level, ? cause on broad spectrum abx, will order blood and urine cult nonetheless 5. Will follow Consultation Date/Type/Reason Admit Date/Time May 18, 2017 at 05:57 Initial Consult Date 05/23/17 Type of Consultation: Rheum Referring Provider: ADRIÁN STALLINGS 24 HR Interval Summary Subjective hx not possible: other (intubated) Exam/Review of Systems Vital Signs Vitals Vital Signs Date Time Temp Pulse Resp B/P Pulse Ox O2 Delivery O2 Flow Rate FiO2 05/23/17 10:00 79 27 124/92 100 Mechanical Ventilator 05/23/17 08:15 40 05/23/17 08:00 98.6 05/22/17 10:50 2.0 Intake and Output 05/22/17 05/22/17 05/23/17 15:00 23:00 07:00 Intake Total 300 ml 1100 ml 3266.8 ml Output Total 700 ml 975 ml 533 ml Balance -400 ml 125 ml 2733.8 ml Exam Neck: No jvd Respiratory: clear to auscultation Cardiovascular: regular rate and rhythm Gastrointestinal: soft Extremities: No edema Results Result Diagram: 05/23/17 0420 05/23/17 0420 Results 24 hrs Laboratory Tests Test 05/22/17 14:00 05/22/17 15:00 05/22/17 21:30 05/22/17 23:30 Urine Color YELLOW Urine Clarity SLIGHTLY CLOUDY A Urine pH 5.0 Urine Specific [place] 1.014 Urine Ketones NEGATIVE Urine Nitrite NEGATIVE Urine Bilirubin NEGATIVE Urine Urobilinogen NEGATIVE Urine Leukocyte Esterase NEGATIVE Urine Microscopic RBC 6 H Urine Microscopic WBC 23 H Urine Squamous Epithelial Cells FEW Urine Bacteria FEW A Urine Hemoglobin 3+ H Urine Random Creatinine 92.19 Urine Protein/Creatinine Ratio 0.56 Urine Glucose NEGATIVE Urine Total Protein 52.0 H Sodium Level 134 L Potassium Level 5.4 H Chloride Level 104 Carbon Dioxide Level 15 L Anion Gap 20 #H Blood Urea Nitrogen 24 H Creatinine 1.26 H Glucose Level 114 Calcium Level 8.0 L Random Cortisol 30.2 White Blood Count 22.3 H Red Blood Count 3.51 L Hemoglobin 10.9 L Hematocrit 34.0 L Mean Corpuscular Volume 96.9 Mean Corpuscular Hemoglobin 31.1 Mean Corpuscular Hemoglobin Concent 32.1 Red Cell Distribution Width 15.3 H Platelet Count 206 Mean Platelet Volume 11.0 H Neutrophils % 70.0 Band Neutrophils % 18.0 H Lymphocytes % 7.0 L Monocytes % 5.0 Eosinophils % Neutrophils # 15.6 H Lymphocytes # 1.6 Monocytes # 1.1 H Eosinophils # Lactic Acid Level 6.3 *H Lactate Dehydrogenase 5802 H Blood Gas Specimen Source Blood arterial Arterial Blood Date Drawn 05/22/2017 10:00:07 PM Arterial Blood pH (Temp corrected) 7.146 *L Arterial Blood pCO2 (Temp correct) 28.5 L Arterial Blood pO2 (Temp corrected) 353.1 H Arterial Blood HCO3 9.6 *L Arterial Blood Base Excess -17.9 L Arterial Blood Oxygen Saturation 99.2 H Tres Test N/A Arterial Blood Gas Puncture Site A-Line Arterial Blood Carboxyhemoglobin 0.3 Arterial Blood Methemoglobin 0.3 Blood Gas A-a O2 Differential 115.4 H Oxyhemoglobin Percent 98.6 Total Hemoglobin 12.4 Blood Gas Temperature 37.0 Blood Gas Respiration Rate 14.0 Blood Gas Actual Respiration Rate 27 Blood Gas Modality VENT - AC FiO2 70.0 Blood Gas Tidal Volume 450.0 Blood Gas Low PEEP Setting 5.0 Blood Gas Critical Value Read Back A YOSELYN MORIN Blood Gas Notified Whom UP Blood Gas Notified Time 05/22/2017 10:11:50 PM Test 05/23/17 00:30 05/23/17 04:20 05/23/17 07:00 05/23/17 08:20 Blood Gas Specimen Source Blood arterial Blood arterial Arterial Blood Date Drawn 05/23/2017 12:30:48 AM 05/23/2017 8:05:47 AM Arterial Blood pH (Temp corrected) 7.302 L 7.416 Arterial Blood pCO2 (Temp correct) 22.5 L 25.7 L Arterial Blood pO2 (Temp corrected) 248.7 H 253.0 H Arterial Blood HCO3 10.9 L 16.1 L Arterial Blood Base Excess -13.7 L -7.2 L Arterial Blood Oxygen Saturation 99.1 H 98.9 H Tres Test N/A N/A Arterial Blood Gas Puncture Site A-Line A-Line Arterial Blood Carboxyhemoglobin 0.3 0.2 Arterial Blood Methemoglobin 0.3 0.4 Blood Gas A-a O2 Differential 82.5 H 74.6 H Oxyhemoglobin Percent 98.5 98.3 Total Hemoglobin 11.5 L 9.6 L Blood Gas Temperature 37.0 37.0 Blood Gas Respiration Rate 14.0 14.0 Blood Gas Actual Respiration Rate 27 20 Blood Gas Modality VENT - AC VENT - AC FiO2 50.0 50.0 Blood Gas Tidal Volume 450.0 450.0 Blood Gas Low PEEP Setting 5.0 5.0 Blood Gas Notified Whom UP CW Blood Gas Notified Time 05/23/2017 12:47:06 AM 05/23/2017 8:32:05 AM Lactic Acid Level 11.1 *H White Blood Count 13.9 #H Red Blood Count 3.07 L Hemoglobin 9.6 L Hematocrit 29.7 L Mean Corpuscular Volume 96.7 Mean Corpuscular Hemoglobin 31.3 Mean Corpuscular Hemoglobin Concent 32.3 Red Cell Distribution Width 15.5 H Platelet Count 189 Mean Platelet Volume 11.8 H Neutrophils % 85.9 H Lymphocytes % 9.0 L Monocytes % 4.4 Eosinophils % 0.0 Basophils % 0.1 Nucleated Red Blood Cells % 0.1 H Neutrophils # 11.9 H Lymphocytes # 1.3 Monocytes # 0.6 Eosinophils # 0.0 Basophils # 0.0 Nucleated Red Blood Cells # 0.0 Sodium Level 139 Potassium Level 4.3 Chloride Level 111 H Carbon Dioxide Level 13 L Anion Gap 19 H Blood Urea Nitrogen 18 Creatinine 0.87 Glucose Level 221 #H Calcium Level 7.0 L Phosphorus Level 2.4 L Magnesium Level 1.8 Free Thyroxine 1.30 Free Triiodothyronine (T3) pg/mL 2.00 L Lab Scanned Report REFERENCE LAB Medications Medications Current Medications Ondansetron HCl (Zofran Inj) 4 mg Q6H PRN IV NAUSEA AND/OR VOMITING; Start at 06:30 Pantoprazole (Protonix Iv) 40 mg DAILY@06 IV Last administered on 05/23/17 05: 56; Admin Dose 40 MG; Start 05/18/17 at 07:00 Morphine Sulfate 2 mg 2 mg Q4H PRN IV pain 6-10 Last administered on 05/23/17 07:54; Admin Dose 2 MG; Start 05/18/17 at 16:00 Levofloxacin/ Dextrose (Levaquin 750 Mg/ D5W 150 ml (Pmx)) 150 ml @ 100 mls/hr Q24H IVPB Last administered on 05/22/17 15:27; Admin Dose 100 MLS/HR; Start at 14:30 Meclizine HCl (Antivert) 25 mg TID PO Last administered on 05/22/17 10:36; Admin Dose 25 MG; Start 05/20/17 at 14:00 Acetaminophen (Tylenol Tab) 1,000 mg Q6H PRN PO PAIN AND OR ELEVATED TEMP Last administered on 05/21/17 20:41; Admin Dose 1,000 MG; Start 05/21/17 at 14:00 Methylprednisolone Sodium Succinate 125 mg 125 mg Q8 IV Last administered on 05:56; Admin Dose 125 MG; Start 05/22/17 at 22:00 Propofol (Diprivan) 100 ml @ 1.668 mls/ hr Q12H IV Last administered on 03:32; Admin Dose 16.68 MLS/HR; Start 05/22/17 at 22:00 Insulin Aspart (Novolog Insulin Pen) NOVOLOG *MILD* ALGORI... Q4 SC ; Start 05/23 at 13:00 Miscellaneous Information 1 ea NOTE XX ; Start 05/23/17 at 10:00 Glucose (Glutose) 15 gm Q15M PRN PO DECREASED GLUCOSE; Start 05/23/17 at 10:00 Glucose (Glutose) 22.5 gm Q15M PRN PO DECREASED GLUCOSE; Start 05/23/17 at 10:00 Dextrose (D50w Syringe) 25 ml Q15M PRN IV DECREASED GLUCOSE; Start 05/23/17 at 10:00 Dextrose (D50w Syringe) 50 ml Q15M PRN IV DECREASED GLUCOSE; Start 05/23/17 at 10:00 Glucagon (Glucagen) 1 mg Q15M PRN IM DECREASED GLUCOSE; Start 05/23/17 at 10:00 Glucose 15 gm 15 gm Q15M PRN BUCCAL DECREASED GLUCOSE; Start 05/23/17 at 10:00 Lactated Ringer's (Lr) 1,000 ml @ 75 mls/hr [id number] IV ; Start 05/23/17 at 10:30 WILL DAILEY MD May 23, 2017 11:05
[2017-05-23] MEDS: LACTATED RINGER'S 1,000 ML IV SCH (11:08)
--- NOTE | 2017-05-23 11:15 | CONS ---
Date/Time of Note Date/Time of Note DATE: 05/23/17 TIME: 11:14 Assessment/Plan Assessment/Plan Chief Complaint/Hosp Course No acute changes overnight, patient is intubated sedated and looks comfortable. Vital signs: Temperature 98.6 pulse 78 respirations 20 blood pressure 124/83 saturation 100% on 40 FiO2 Laboratory data: WBC 13.9 H&H 9.6 and 29.7 platelets 189 neutrophils 85.9 BUN 18 creatinine 0.87 lactic acid 11.1 Microbiology pleural and pericardial fluids cultures pending near swab came back negative for MRSA Antimicrobials: Levaquin, status post vancomycin Zosyn and Ancef dose Indwelling's: Left sided chest tubes, endotracheal tube, NG tube, Anthony catheter Physical examination: Well-developed well-nourished young woman who is intubated sedated and in no distress. Head atraumatic, normocephalic sclera nonicteric pupils reactive to light equally. Neck is supple, trachea midline. Chest rise symmetrical, breath sounds diminished to left. Abdomen soft bowel tones present. Extremities without cyanosis, trace dependent edema. Assessment: 1. Pericardial effusion, status post pericardial window, left thoracotomy and pulmonary decortication on May 22, 2017 2. Postop respiratory failure 3. Systemic lupus erythematosus 4. Cecil's thyroiditis 5. Leukocytosis, remains on Solu Medrol 6. Bronchiolitis Plan: Remains hemodynamically stable, continue antibiotics, vent management as per pulmonary, await for intraoperative cultures, follow recommendations of consultants. Discussed with staff Problems: Consultation Date/Type/Reason Admit Date/Time May 18, 2017 at 05:57 Initial Consult Date 05/21/17 Type of Consultation: ID Referring Provider: ADRIÁN STALLINGS Exam/Review of Systems Vital Signs Vitals Vital Signs Date Time Temp Pulse Resp B/P Pulse Ox O2 Delivery O2 Flow Rate FiO2 05/23/17 10:00 79 27 124/92 100 Mechanical Ventilator 05/23/17 08:15 40 05/23/17 08:00 98.6 05/22/17 10:50 2.0 Intake and Output 05/22/17 05/22/17 05/23/17 15:00 23:00 07:00 Intake Total 300 ml 1100 ml 3266.8 ml Output Total 700 ml 975 ml 533 ml Balance -400 ml 125 ml 2733.8 ml Results Result Diagram: 05/23/17 0420 05/23/17 0420 Results 24 hrs Laboratory Tests Test 05/22/17 14:00 05/22/17 15:00 05/22/17 21:30 05/22/17 23:30 Urine Color YELLOW Urine Clarity SLIGHTLY CLOUDY A Urine pH 5.0 Urine Specific [place] 1.014 Urine Ketones NEGATIVE Urine Nitrite NEGATIVE Urine Bilirubin NEGATIVE Urine Urobilinogen NEGATIVE Urine Leukocyte Esterase NEGATIVE Urine Microscopic RBC 6 H Urine Microscopic WBC 23 H Urine Squamous Epithelial Cells FEW Urine Bacteria FEW A Urine Hemoglobin 3+ H Urine Random Creatinine 92.19 Urine Protein/Creatinine Ratio 0.56 Urine Glucose NEGATIVE Urine Total Protein 52.0 H Sodium Level 134 L Potassium Level 5.4 H Chloride Level 104 Carbon Dioxide Level 15 L Anion Gap 20 #H Blood Urea Nitrogen 24 H Creatinine 1.26 H Glucose Level 114 Calcium Level 8.0 L Random Cortisol 30.2 White Blood Count 22.3 H Red Blood Count 3.51 L Hemoglobin 10.9 L Hematocrit 34.0 L Mean Corpuscular Volume 96.9 Mean Corpuscular Hemoglobin 31.1 Mean Corpuscular Hemoglobin Concent 32.1 Red Cell Distribution Width 15.3 H Platelet Count 206 Mean Platelet Volume 11.0 H Neutrophils % 70.0 Band Neutrophils % 18.0 H Lymphocytes % 7.0 L Monocytes % 5.0 Eosinophils % Neutrophils # 15.6 H Lymphocytes # 1.6 Monocytes # 1.1 H Eosinophils # Lactic Acid Level 6.3 *H Lactate Dehydrogenase 5802 H Blood Gas Specimen Source Blood arterial Arterial Blood Date Drawn 05/22/2017 10:00:07 PM Arterial Blood pH (Temp corrected) 7.146 *L Arterial Blood pCO2 (Temp correct) 28.5 L Arterial Blood pO2 (Temp corrected) 353.1 H Arterial Blood HCO3 9.6 *L Arterial Blood Base Excess -17.9 L Arterial Blood Oxygen Saturation 99.2 H Tres Test N/A Arterial Blood Gas Puncture Site A-Line Arterial Blood Carboxyhemoglobin 0.3 Arterial Blood Methemoglobin 0.3 Blood Gas A-a O2 Differential 115.4 H Oxyhemoglobin Percent 98.6 Total Hemoglobin 12.4 Blood Gas Temperature 37.0 Blood Gas Respiration Rate 14.0 Blood Gas Actual Respiration Rate 27 Blood Gas Modality VENT - AC FiO2 70.0 Blood Gas Tidal Volume 450.0 Blood Gas Low PEEP Setting 5.0 Blood Gas Critical Value Read Back A BERTIROTTI RN Blood Gas Notified Whom UP Blood Gas Notified Time 05/22/2017 10:11:50 PM Test 05/23/17 00:30 05/23/17 04:20 05/23/17 07:00 05/23/17 08:20 Blood Gas Specimen Source Blood arterial Blood arterial Arterial Blood Date Drawn 05/23/2017 12:30:48 AM 05/23/2017 8:05:47 AM Arterial Blood pH (Temp corrected) 7.302 L 7.416 Arterial Blood pCO2 (Temp correct) 22.5 L 25.7 L Arterial Blood pO2 (Temp corrected) 248.7 H 253.0 H Arterial Blood HCO3 10.9 L 16.1 L Arterial Blood Base Excess -13.7 L -7.2 L Arterial Blood Oxygen Saturation 99.1 H 98.9 H Tres Test N/A N/A Arterial Blood Gas Puncture Site A-Line A-Line Arterial Blood Carboxyhemoglobin 0.3 0.2 Arterial Blood Methemoglobin 0.3 0.4 Blood Gas A-a O2 Differential 82.5 H 74.6 H Oxyhemoglobin Percent 98.5 98.3 Total Hemoglobin 11.5 L 9.6 L Blood Gas Temperature 37.0 37.0 Blood Gas Respiration Rate 14.0 14.0 Blood Gas Actual Respiration Rate 27 20 Blood Gas Modality VENT - AC VENT - AC FiO2 50.0 50.0 Blood Gas Tidal Volume 450.0 450.0 Blood Gas Low PEEP Setting 5.0 5.0 Blood Gas Notified Whom UP CW Blood Gas Notified Time 05/23/2017 12:47:06 AM 05/23/2017 8:32:05 AM Lactic Acid Level 11.1 *H White Blood Count 13.9 #H Red Blood Count 3.07 L Hemoglobin 9.6 L Hematocrit 29.7 L Mean Corpuscular Volume 96.7 Mean Corpuscular Hemoglobin 31.3 Mean Corpuscular Hemoglobin Concent 32.3 Red Cell Distribution Width 15.5 H Platelet Count 189 Mean Platelet Volume 11.8 H Neutrophils % 85.9 H Lymphocytes % 9.0 L Monocytes % 4.4 Eosinophils % 0.0 Basophils % 0.1 Nucleated Red Blood Cells % 0.1 H Neutrophils # 11.9 H Lymphocytes # 1.3 Monocytes # 0.6 Eosinophils # 0.0 Basophils # 0.0 Nucleated Red Blood Cells # 0.0 Sodium Level 139 Potassium Level 4.3 Chloride Level 111 H Carbon Dioxide Level 13 L Anion Gap 19 H Blood Urea Nitrogen 18 Creatinine 0.87 Glucose Level 221 #H Calcium Level 7.0 L Phosphorus Level 2.4 L Magnesium Level 1.8 Free Thyroxine 1.30 Free Triiodothyronine (T3) pg/mL 2.00 L Lab Scanned Report REFERENCE LAB Medications Medications Current Medications Ondansetron HCl (Zofran Inj) 4 mg Q6H PRN IV NAUSEA AND/OR VOMITING; Start at 06:30 Pantoprazole (Protonix Iv) 40 mg DAILY@06 IV Last administered on 05/23/17 05: 56; Admin Dose 40 MG; Start 05/18/17 at 07:00 Morphine Sulfate 2 mg 2 mg Q4H PRN IV pain 6-10 Last administered on 05/23/17 07:54; Admin Dose 2 MG; Start 05/18/17 at 16:00 Levofloxacin/ Dextrose (Levaquin 750 Mg/ D5W 150 ml (Pmx)) 150 ml @ 100 mls/hr Q24H IVPB Last administered on 05/22/17 15:27; Admin Dose 100 MLS/HR; Start at 14:30 Meclizine HCl (Antivert) 25 mg TID PO Last administered on 05/22/17 10:36; Admin Dose 25 MG; Start 05/20/17 at 14:00 Acetaminophen (Tylenol Tab) 1,000 mg Q6H PRN PO PAIN AND OR ELEVATED TEMP Last administered on 05/21/17 20:41; Admin Dose 1,000 MG; Start 05/21/17 at 14:00 Methylprednisolone Sodium Succinate 125 mg 125 mg Q8 IV Last administered on 05:56; Admin Dose 125 MG; Start 05/22/17 at 22:00 Propofol (Diprivan) 100 ml @ 1.668 mls/ hr Q12H IV Last administered on 03:32; Admin Dose 16.68 MLS/HR; Start 05/22/17 at 22:00 Insulin Aspart (Novolog Insulin Pen) NOVOLOG *MILD* ALGORI... Q4 SC ; Start 05/23 at 13:00 Miscellaneous Information 1 ea NOTE XX ; Start 05/23/17 at 10:00 Glucose (Glutose) 15 gm Q15M PRN PO DECREASED GLUCOSE; Start 05/23/17 at 10:00 Glucose (Glutose) 22.5 gm Q15M PRN PO DECREASED GLUCOSE; Start 05/23/17 at 10:00 Dextrose (D50w Syringe) 25 ml Q15M PRN IV DECREASED GLUCOSE; Start 05/23/17 at 10:00 Dextrose (D50w Syringe) 50 ml Q15M PRN IV DECREASED GLUCOSE; Start 05/23/17 at 10:00 Glucagon (Glucagen) 1 mg Q15M PRN IM DECREASED GLUCOSE; Start 05/23/17 at 10:00 Glucose 15 gm 15 gm Q15M PRN BUCCAL DECREASED GLUCOSE; Start 05/23/17 at 10:00 Lactated Ringer's (Lr) 1,000 ml @ 75 mls/hr [id number] IV Last administered on t 11:08; Admin Dose 75 MLS/HR; Start 05/23/17 at 10:30 Levothyroxine Sodium (Synthroid Iv) 200 mcg ONCE ONCE IV ; Start 05/23/17 at 11: 30; Stop 05/23/17 at 11:31 Levothyroxine Sodium (Synthroid Iv) 100 mcg ONCE ONCE IV ; Start 05/23/17 at 11: 30; Stop 05/23/17 at 11:31 JANNY LUTZ NP May 23, 2017 11:15
[2017-05-23] MEDS ORDERED: LEVOTHYROXINE 100 MCG VIAL IV ONE (11:30)
[2017-05-23] MEDS ORDERED: LEVOTHYROXINE 500 MCG VIAL IV ONE (11:30)
[2017-05-23] MEDS ORDERED: LEVOTHYROXINE 200 MCG VIAL IV ONE (11:30)
[2017-05-23 12:07] LABS: AADO2 Arterial 59.3 mmHg (7.0-24.0); Arterial Base Excess -5.4 mmol/L (-3.0-3); Arterial COHb 0.2 % (0.0-3.0); Arterial Fraction of Oxyhgb 98.4 % (93.0-99.0); Arterial HCO3 17.7 mmol/L (22.0-26.0); Arterial MetHb 0.2 % (0.0-1.5); Arterial Total Hemglobin 10.7 g/dl (12.0-18.0); Blood Gas PS 10; MODE VENT - CPAP
--- NOTE | 2017-05-23 12:16 | PN ---
Date/Time of Note Date/Time of Note DATE: 05/23/17 TIME: 11:40 Assessment/Plan VTE Prophylaxis VTE Prophylaxis Intervention: SCD's Assessment/Plan Chief Complaint/Hosp Course 26 yo F discharged from [facility] February 2017 after new diagnosis of severe hypothyroidism who now presents with shortness of breath and is found to have pericardial effusion as well as bronchiolitis 1. Acute respiratory distress Currently on vent, plan is to extubate today Pulmonology following 2. 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 Moderate pericardial effusion likely secondary to viral/autoimmune Status post pericardial window as well as pulmonary decortication, follow-up on cytology cultures Chest tube in place and draining Cardiology on the case as well as CT surgery 3. Bilateral infectious/inflammatory bronchiolitis Continue antibiotics 4. Bilateral mild to moderate axillary lymphadenopathy and diffuse cervical adenopathy on Thyroid USS 03/2017. Pathology from needle biopsy showed reactive lymphocytes Oncology on the case 5. Acute transaminitis: improved 6. Dyslipidemia 7. Cardiomyopathy-EF 40-45% by echo 8. New Raynaud's phenomenon and hand petechiae Rheumatology consult appreciated 9. Acute kidney injury Creatinine improved this morning Nephrology consultation appreciated Prophylaxis: SCDs Problems: Subjective 24 Hr Interval Summary Subjective hx not possible: pt non-verbal Exam/Review of Systems Vital Signs Vitals Vital Signs Date Time Temp Pulse Resp B/P Pulse Ox O2 Delivery O2 Flow Rate FiO2 05/23/17 10:00 79 27 124/92 100 Mechanical Ventilator 05/23/17 08:15 40 05/23/17 08:00 98.6 05/22/17 10:50 2.0 Intake and Output 05/22/17 05/22/17 05/23/17 15:00 23:00 07:00 Intake Total 300 ml 1100 ml 3266.8 ml Output Total 700 ml 975 ml 533 ml Balance -400 ml 125 ml 2733.8 ml Exam Constitutional: non-verbal ENMT: intubated Respiratory: clear to auscultation Cardiovascular: regular rate and rhythm Gastrointestinal: soft, No distended Musculoskeletal: nl extremities to inspection Results Result Diagram: 05/23/17 0420 05/23/17 0420 Results 24 hrs Laboratory Tests Test 05/22/17 14:00 05/22/17 15:00 05/22/17 21:30 05/22/17 23:30 Urine Color YELLOW Urine Clarity SLIGHTLY CLOUDY A Urine pH 5.0 Urine Specific [place] 1.014 Urine Ketones NEGATIVE Urine Nitrite NEGATIVE Urine Bilirubin NEGATIVE Urine Urobilinogen NEGATIVE Urine Leukocyte Esterase NEGATIVE Urine Microscopic RBC 6 H Urine Microscopic WBC 23 H Urine Squamous Epithelial Cells FEW Urine Bacteria FEW A Urine Hemoglobin 3+ H Urine Random Creatinine 92.19 Urine Protein/Creatinine Ratio 0.56 Urine Glucose NEGATIVE Urine Total Protein 52.0 H Sodium Level 134 L Potassium Level 5.4 H Chloride Level 104 Carbon Dioxide Level 15 L Anion Gap 20 #H Blood Urea Nitrogen 24 H Creatinine 1.26 H Glucose Level 114 Calcium Level 8.0 L Random Cortisol 30.2 White Blood Count 22.3 H Red Blood Count 3.51 L Hemoglobin 10.9 L Hematocrit 34.0 L Mean Corpuscular Volume 96.9 Mean Corpuscular Hemoglobin 31.1 Mean Corpuscular Hemoglobin Concent 32.1 Red Cell Distribution Width 15.3 H Platelet Count 206 Mean Platelet Volume 11.0 H Neutrophils % 70.0 Band Neutrophils % 18.0 H Lymphocytes % 7.0 L Monocytes % 5.0 Eosinophils % Neutrophils # 15.6 H Lymphocytes # 1.6 Monocytes # 1.1 H Eosinophils # Lactic Acid Level 6.3 *H Lactate Dehydrogenase 5802 H Blood Gas Specimen Source Blood arterial Arterial Blood Date Drawn 05/22/2017 10:00:07 PM Arterial Blood pH (Temp corrected) 7.146 *L Arterial Blood pCO2 (Temp correct) 28.5 L Arterial Blood pO2 (Temp corrected) 353.1 H Arterial Blood HCO3 9.6 *L Arterial Blood Base Excess -17.9 L Arterial Blood Oxygen Saturation 99.2 H Tres Test N/A Arterial Blood Gas Puncture Site A-Line Arterial Blood Carboxyhemoglobin 0.3 Arterial Blood Methemoglobin 0.3 Blood Gas A-a O2 Differential 115.4 H Oxyhemoglobin Percent 98.6 Total Hemoglobin 12.4 Blood Gas Temperature 37.0 Blood Gas Respiration Rate 14.0 Blood Gas Actual Respiration Rate 27 Blood Gas Modality VENT - AC FiO2 70.0 Blood Gas Tidal Volume 450.0 Blood Gas Low PEEP Setting 5.0 Blood Gas Critical Value Read Back A YOSELYN MORIN Blood Gas Notified Whom UP Blood Gas Notified Time 05/22/2017 10:11:50 PM Test 05/23/17 00:30 05/23/17 04:20 05/23/17 07:00 05/23/17 08:20 Blood Gas Specimen Source Blood arterial Blood arterial Arterial Blood Date Drawn 05/23/2017 12:30:48 AM 05/23/2017 8:05:47 AM Arterial Blood pH (Temp corrected) 7.302 L 7.416 Arterial Blood pCO2 (Temp correct) 22.5 L 25.7 L Arterial Blood pO2 (Temp corrected) 248.7 H 253.0 H Arterial Blood HCO3 10.9 L 16.1 L Arterial Blood Base Excess -13.7 L -7.2 L Arterial Blood Oxygen Saturation 99.1 H 98.9 H Tres Test N/A N/A Arterial Blood Gas Puncture Site A-Line A-Line Arterial Blood Carboxyhemoglobin 0.3 0.2 Arterial Blood Methemoglobin 0.3 0.4 Blood Gas A-a O2 Differential 82.5 H 74.6 H Oxyhemoglobin Percent 98.5 98.3 Total Hemoglobin 11.5 L 9.6 L Blood Gas Temperature 37.0 37.0 Blood Gas Respiration Rate 14.0 14.0 Blood Gas Actual Respiration Rate 27 20 Blood Gas Modality VENT - AC VENT - AC FiO2 50.0 50.0 Blood Gas Tidal Volume 450.0 450.0 Blood Gas Low PEEP Setting 5.0 5.0 Blood Gas Notified Whom UP CW Blood Gas Notified Time 05/23/2017 12:47:06 AM 05/23/2017 8:32:05 AM Lactic Acid Level 11.1 *H White Blood Count 13.9 #H Red Blood Count 3.07 L Hemoglobin 9.6 L Hematocrit 29.7 L Mean Corpuscular Volume 96.7 Mean Corpuscular Hemoglobin 31.3 Mean Corpuscular Hemoglobin Concent 32.3 Red Cell Distribution Width 15.5 H Platelet Count 189 Mean Platelet Volume 11.8 H Neutrophils % 85.9 H Lymphocytes % 9.0 L Monocytes % 4.4 Eosinophils % 0.0 Basophils % 0.1 Nucleated Red Blood Cells % 0.1 H Neutrophils # 11.9 H Lymphocytes # 1.3 Monocytes # 0.6 Eosinophils # 0.0 Basophils # 0.0 Nucleated Red Blood Cells # 0.0 Sodium Level 139 Potassium Level 4.3 Chloride Level 111 H Carbon Dioxide Level 13 L Anion Gap 19 H Blood Urea Nitrogen 18 Creatinine 0.87 Glucose Level 221 #H Calcium Level 7.0 L Phosphorus Level 2.4 L Magnesium Level 1.8 Free Thyroxine 1.30 Free Triiodothyronine (T3) pg/mL 2.00 L Lab Scanned Report REFERENCE LAB Medications Medications Current Medications Ondansetron HCl (Zofran Inj) 4 mg Q6H PRN IV NAUSEA AND/OR VOMITING; Start at 06:30 Pantoprazole (Protonix Iv) 40 mg DAILY@06 IV Last administered on 05/23/17 05: 56; Admin Dose 40 MG; Start 05/18/17 at 07:00 Morphine Sulfate 2 mg 2 mg Q4H PRN IV pain 6-10 Last administered on 05/23/17 07:54; Admin Dose 2 MG; Start 05/18/17 at 16:00 Levofloxacin/ Dextrose (Levaquin 750 Mg/ D5W 150 ml (Pmx)) 150 ml @ 100 mls/hr Q24H IVPB Last administered on 05/22/17 15:27; Admin Dose 100 MLS/HR; Start at 14:30 Meclizine HCl (Antivert) 25 mg TID PO Last administered on 05/22/17 10:36; Admin Dose 25 MG; Start 05/20/17 at 14:00 Acetaminophen (Tylenol Tab) 1,000 mg Q6H PRN PO PAIN AND OR ELEVATED TEMP Last administered on 05/21/17 20:41; Admin Dose 1,000 MG; Start 05/21/17 at 14:00 Methylprednisolone Sodium Succinate 125 mg 125 mg Q8 IV Last administered on 05:56; Admin Dose 125 MG; Start 05/22/17 at 22:00 Propofol (Diprivan) 100 ml @ 1.668 mls/ hr Q12H IV Last administered on 03:32; Admin Dose 16.68 MLS/HR; Start 05/22/17 at 22:00 Insulin Aspart (Novolog Insulin Pen) NOVOLOG *MILD* ALGORI... Q4 SC ; Start 05/23 at 13:00 Miscellaneous Information 1 ea NOTE XX ; Start 05/23/17 at 10:00 Glucose (Glutose) 15 gm Q15M PRN PO DECREASED GLUCOSE; Start 05/23/17 at 10:00 Glucose (Glutose) 22.5 gm Q15M PRN PO DECREASED GLUCOSE; Start 05/23/17 at 10:00 Dextrose (D50w Syringe) 25 ml Q15M PRN IV DECREASED GLUCOSE; Start 05/23/17 at 10:00 Dextrose (D50w Syringe) 50 ml Q15M PRN IV DECREASED GLUCOSE; Start 05/23/17 at 10:00 Glucagon (Glucagen) 1 mg Q15M PRN IM DECREASED GLUCOSE; Start 05/23/17 at 10:00 Glucose 15 gm 15 gm Q15M PRN BUCCAL DECREASED GLUCOSE; Start 05/23/17 at 10:00 Lactated Ringer's (Lr) 1,000 ml @ 75 mls/hr [id number] IV Last administered on 11:08; Admin Dose 75 MLS/HR; Start 05/23/17 at 10:30 ADRIÁN STALLINGS May 23, 2017 11:51
--- NOTE | 2017-05-23 12:47 | CONS ---
Date/Time of Note Date/Time of Note DATE: 05/23/17 TIME: 12:43 Assessment/Plan Assessment/Plan Additional Assessment/Plan 1.Pericardial effusion-moderate by echo with no signs of echo tamponade by initial echo. Sable BP, HR around 100. ? secondary to hypothyroid-most likely/ viral/rheum - BP stable - f/up with ECHO today with mod to large effusion - S/P WINDOW - MUCH IMPROVED HEMODYNAMICS - WILL AWAIT PATHOLOGY REPORT AND CYTOLOGY FROM PERICARDIAL SAMPLE - TNX TO [facility]. 2.Cardiomyopathy-EF 40-45% by echo - not in CHF by exam - EF unchanged. 3.Increased LFT's - primary follows - no pain now. 4.Hypothyroid-secondary to Cecil's Thyroiditis/+ antithyroid AB at OSH - Rx as needed. 5. Hypotention - responded to fluids. Consultation Date/Type/Reason Admit Date/Time May 18, 2017 at 05:57 Initial Consult Date 05/19/17 Type of Consultation: ID Referring Provider: ADRIÁN STALLINGS 24 HR Interval Summary Free Text/Dictation MUCH BETTER - BEING EXTUBATED NOW - improved hemodynamics - will await path report. ROS: No fever, no chills, no nausea, no vomiting, no diarrhea/constipation No recent weight changes No chest pain, no PND, no orthopnea -better SOB No dizziness, blurred vision No thirst, no heat or cold intolerance Exam/Review of Systems Vital Signs Vitals Vital Signs Date Time Temp Pulse Resp B/P Pulse Ox O2 Delivery O2 Flow Rate FiO2 05/23/17 12:15 74 29 135/89 100 05/23/17 12:00 97.9 Mechanical Ventilator 05/23/17 08:15 40 05/22/17 10:50 2.0 Intake and Output 05/22/17 05/22/17 05/23/17 15:00 23:00 07:00 Intake Total 300 ml 1100 ml 3266.8 ml Output Total 700 ml 975 ml 533 ml Balance -400 ml 125 ml 2733.8 ml Exam General: WN/WD/NAD, AOx 3 HEENT: Unicetric/atraumatic/EOMI ( follow commands) NECK: JVD elevated, no thyromegaly Lymph: no lymphadenopathy HEART: regular with no S3, II/ systolic murmur at apex LUNGS: Coarse sounds, CT in ABD: soft, NT, ND, +BS : Intact Neuro: non focal SKIN: chronic changes EXT: trace edema Results Result Diagram: 05/23/17 0420 05/23/17 0420 Results 24 hrs Laboratory Tests Test 05/22/17 14:00 05/22/17 15:00 05/22/17 21:30 05/22/17 23:30 Urine Color YELLOW Urine Clarity SLIGHTLY CLOUDY A Urine pH 5.0 Urine Specific [place] 1.014 Urine Ketones NEGATIVE Urine Nitrite NEGATIVE Urine Bilirubin NEGATIVE Urine Urobilinogen NEGATIVE Urine Leukocyte Esterase NEGATIVE Urine Microscopic RBC 6 H Urine Microscopic WBC 23 H Urine Squamous Epithelial Cells FEW Urine Bacteria FEW A Urine Hemoglobin 3+ H Urine Random Creatinine 92.19 Urine Protein/Creatinine Ratio 0.56 Urine Glucose NEGATIVE Urine Total Protein 52.0 H Sodium Level 134 L Potassium Level 5.4 H Chloride Level 104 Carbon Dioxide Level 15 L Anion Gap 20 #H Blood Urea Nitrogen 24 H Creatinine 1.26 H Glucose Level 114 Calcium Level 8.0 L Random Cortisol 30.2 White Blood Count 22.3 H Red Blood Count 3.51 L Hemoglobin 10.9 L Hematocrit 34.0 L Mean Corpuscular Volume 96.9 Mean Corpuscular Hemoglobin 31.1 Mean Corpuscular Hemoglobin Concent 32.1 Red Cell Distribution Width 15.3 H Platelet Count 206 Mean Platelet Volume 11.0 H Neutrophils % 70.0 Band Neutrophils % 18.0 H Lymphocytes % 7.0 L Monocytes % 5.0 Eosinophils % Neutrophils # 15.6 H Lymphocytes # 1.6 Monocytes # 1.1 H Eosinophils # Lactic Acid Level 6.3 *H Lactate Dehydrogenase 5802 H Blood Gas Specimen Source Blood arterial Arterial Blood Date Drawn 05/22/2017 10:00:07 PM Arterial Blood pH (Temp corrected) 7.146 *L Arterial Blood pCO2 (Temp correct) 28.5 L Arterial Blood pO2 (Temp corrected) 353.1 H Arterial Blood HCO3 9.6 *L Arterial Blood Base Excess -17.9 L Arterial Blood Oxygen Saturation 99.2 H Tres Test N/A Arterial Blood Gas Puncture Site A-Line Arterial Blood Carboxyhemoglobin 0.3 Arterial Blood Methemoglobin 0.3 Blood Gas A-a O2 Differential 115.4 H Oxyhemoglobin Percent 98.6 Total Hemoglobin 12.4 Blood Gas Temperature 37.0 Blood Gas Respiration Rate 14.0 Blood Gas Actual Respiration Rate 27 Blood Gas Modality VENT - AC FiO2 70.0 Blood Gas Tidal Volume 450.0 Blood Gas Low PEEP Setting 5.0 Blood Gas Critical Value Read Back A YOSELYN MORIN Blood Gas Notified Whom UP Blood Gas Notified Time 05/22/2017 10:11:50 PM Test 05/23/17 00:30 05/23/17 04:20 05/23/17 07:00 05/23/17 08:20 Blood Gas Specimen Source Blood arterial Blood arterial Arterial Blood Date Drawn 05/23/2017 12:30:48 AM 05/23/2017 8:05:47 AM Arterial Blood pH (Temp corrected) 7.302 L 7.416 Arterial Blood pCO2 (Temp correct) 22.5 L 25.7 L Arterial Blood pO2 (Temp corrected) 248.7 H 253.0 H Arterial Blood HCO3 10.9 L 16.1 L Arterial Blood Base Excess -13.7 L -7.2 L Arterial Blood Oxygen Saturation 99.1 H 98.9 H Tres Test N/A N/A Arterial Blood Gas Puncture Site A-Line A-Line Arterial Blood Carboxyhemoglobin 0.3 0.2 Arterial Blood Methemoglobin 0.3 0.4 Blood Gas A-a O2 Differential 82.5 H 74.6 H Oxyhemoglobin Percent 98.5 98.3 Total Hemoglobin 11.5 L 9.6 L Blood Gas Temperature 37.0 37.0 Blood Gas Respiration Rate 14.0 14.0 Blood Gas Actual Respiration Rate 27 20 Blood Gas Modality VENT - AC VENT - AC FiO2 50.0 50.0 Blood Gas Tidal Volume 450.0 450.0 Blood Gas Low PEEP Setting 5.0 5.0 Blood Gas Notified Whom UP Blood Gas Notified Time 05/23/2017 12:47:06 AM 05/23/2017 8:32:05 AM Lactic Acid Level 11.1 *H White Blood Count 13.9 #H Red Blood Count 3.07 L Hemoglobin 9.6 L Hematocrit 29.7 L Mean Corpuscular Volume 96.7 Mean Corpuscular Hemoglobin 31.3 Mean Corpuscular Hemoglobin Concent 32.3 Red Cell Distribution Width 15.5 H Platelet Count 189 Mean Platelet Volume 11.8 H Neutrophils % 85.9 H Lymphocytes % 9.0 L Monocytes % 4.4 Eosinophils % 0.0 Basophils % 0.1 Nucleated Red Blood Cells % 0.1 H Neutrophils # 11.9 H Lymphocytes # 1.3 Monocytes # 0.6 Eosinophils # 0.0 Basophils # 0.0 Nucleated Red Blood Cells # 0.0 Sodium Level 139 Potassium Level 4.3 Chloride Level 111 H Carbon Dioxide Level 13 L Anion Gap 19 H Blood Urea Nitrogen 18 Creatinine 0.87 Glucose Level 221 #H Calcium Level 7.0 L Phosphorus Level 2.4 L Magnesium Level 1.8 Free Thyroxine 1.30 Free Triiodothyronine (T3) pg/mL 2.00 L Lab Scanned Report REFERENCE LAB Test 05/23/17 11:55 05/23/17 11:56 05/23/17 12:00 Lactic Acid Level 4.7 *H Bedside Glucose 277 H Blood Gas Specimen Source Blood arterial Arterial Blood Date Drawn 05/23/2017 12:00:35 PM Arterial Blood pH (Temp corrected) 7.432 Arterial Blood pCO2 (Temp correct) 27.2 L Arterial Blood pO2 (Temp corrected) 194.6 H Arterial Blood HCO3 17.7 L Arterial Blood Base Excess -5.4 L Arterial Blood Oxygen Saturation 98.8 H Tres Test N/A Arterial Blood Gas Puncture Site A-Line Arterial Blood Carboxyhemoglobin 0.2 Arterial Blood Methemoglobin 0.2 Blood Gas A-a O2 Differential 59.3 H Oxyhemoglobin Percent 98.4 Total Hemoglobin 10.7 L Blood Gas Temperature 37.0 Blood Gas Actual Respiration Rate 26 Blood Gas Modality VENT - CPAP FiO2 40.0 Blood Gas Tidal Volume 387.0 Blood Gas Low PEEP Setting 5.0 Blood Gas Pressure Support 10 Blood Gas Notified Whom CW Blood Gas Notified Time 05/23/2017 12:06:44 PM Medications Medications Current Medications Ondansetron HCl (Zofran Inj) 4 mg Q6H PRN IV NAUSEA AND/OR VOMITING; Start at 06:30 Pantoprazole (Protonix Iv) 40 mg DAILY@06 IV Last administered on 05/23/17 05: 56; Admin Dose 40 MG; Start 05/18/17 at 07:00 Morphine Sulfate 2 mg 2 mg Q4H PRN IV pain 6-10 Last administered on 05/23/17 07:54; Admin Dose 2 MG; Start 05/18/17 at 16:00 Levofloxacin/ Dextrose (Levaquin 750 Mg/ D5W 150 ml (Pmx)) 150 ml @ 100 mls/hr Q24H IVPB Last administered on 05/22/17 15:27; Admin Dose 100 MLS/HR; Start at 14:30 Meclizine HCl (Antivert) 25 mg TID PO Last administered on 05/22/17 10:36; Admin Dose 25 MG; Start 05/20/17 at 14:00 Acetaminophen (Tylenol Tab) 1,000 mg Q6H PRN PO PAIN AND OR ELEVATED TEMP Last administered on 05/21/17 20:41; Admin Dose 1,000 MG; Start 05/21/17 at 14:00 Methylprednisolone Sodium Succinate (Solu-Medrol) 125 mg Q8 IV Last administered on 05/23/17 05:56; Admin Dose 125 MG; Start 05/22/17 at 22:00 Insulin Aspart (Novolog Insulin Pen) NOVOLOG *MILD* ALGORI... Q4 SC Last administered on 05/23/17 11:59; Admin Dose 4 UNIT; Start 05/23/17 at 13:00 Miscellaneous Information 1 ea NOTE XX ; Start 05/23/17 at 10:00 Glucose (Glutose) 15 gm Q15M PRN PO DECREASED GLUCOSE; Start 05/23/17 at 10:00 Glucose (Glutose) 22.5 gm Q15M PRN PO DECREASED GLUCOSE; Start 05/23/17 at 10:00 Dextrose (D50w Syringe) 25 ml Q15M PRN IV DECREASED GLUCOSE; Start 05/23/17 at 10:00 Dextrose (D50w Syringe) 50 ml Q15M PRN IV DECREASED GLUCOSE; Start 05/23/17 at 10:00 Glucagon (Glucagen) 1 mg Q15M PRN IM DECREASED GLUCOSE; Start 05/23/17 at 10:00 Glucose 15 gm 15 gm Q15M PRN BUCCAL DECREASED GLUCOSE; Start 05/23/17 at 10:00 Lactated Ringer's (Lr) 1,000 ml @ 75 mls/hr [id number] IV Last administered on 11:08; Admin Dose 75 MLS/HR; Start 05/23/17 at 10:30 WILL LUNA MD May 23, 2017 12:46
[2017-05-23] MEDS ORDERED: INSULIN ASPART [NOVOLOG] 3 ML PEN SC SCH (13:00)
[2017-05-23] MEDS ORDERED: morphine 10 MG INJ IM ONE (14:00)
[2017-05-23] MEDS ORDERED: morphine 2 MG INJ ONE (14:17)
[2017-05-23] MEDS: LEVOFLOXACIN 750MG/D5W (PMX) 150 ML IVPB SCH (14:20)
[2017-05-23] MEDS ORDERED: morphine 2 MG INJ IV ONE (14:30)
[2017-05-23] MEDS: morphine 4 MG/ML VIAL IV PRN ×2 (16:56→21:45)
[2017-05-23] MEDS: INSULIN ASPART [NOVOLOG] 3 ML PEN SC SCH ×2 (17:15→21:00)
[2017-05-23 18:53] LABS: CALCIUM 7.1 mg/dl (8.4-10.2); CREATININE 0.62 mg/dl (0.44-1.00); MAGNESIUM 2.1 mg/dl (1.7-2.5); PHOSPHORUS 1.7 mg/dl (2.5-4.9); POTASSIUM 4.5 mmol/L (3.5-5.1)
[2017-05-23] MEDS ORDERED: SODIUM PHOSPHATE IVPB ONE (21:00)
[2017-05-23] MEDS ORDERED: SOD CHLORIDE 0.9% IVPB ONE (21:00)
[2017-05-23] MEDS ORDERED: SOD CHLORIDE 0.9% 500 ML IV ONE (23:30)
[2017-05-24] VITALS (16 sets, daily range): BP systolic 102–125; BP diastolic 65–88; PULSE 69–86; RESP 15–22
--- NOTE | 2017-05-24 00:14 | CONS ---
Date/Time of Note Date/Time of Note DATE: 05/23/17 TIME: 19:13 vk le Assessment/Plan Assessment/Plan Chief Complaint/Hosp Course Bilateral mild to moderate axillary lymphadenopathy, MORE ON THE L and diffuse cervical adenopathy on Thyroid USS 03/2017. BIOCHEMICAL W-UP- P CT ABD- Prominent bilateral inguinal and left external iliac chain lymph nodes, which are nonspecific. 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 POS WINDOW Bilateral infectious/inflammatory bronchiolitis. Positive rheumatoid factor RHEUMATOLOGY EVAL Pericardial effusion-moderate by echo with no signs of echo tamponade at this time. Cardiomyopathy-EF 40-45% by echo Acute Shortness of breath Increased LFT's Problems: Consultation Date/Type/Reason Admit Date/Time May 18, 2017 at 05:57 Initial Consult Date 05/19/17 Type of Consultation: [facility] Referring Provider: ADRIÁN STALLINGS 24 HR Interval Summary Free Text/Dictation all noted d/w RN Exam/Review of Systems Vital Signs Vitals Vital Signs Date Time Temp Pulse Resp B/P Pulse Ox O2 Delivery O2 Flow Rate FiO2 05/23/17 21:40 3.0 05/23/17 20:00 85 05/23/17 20:00 Nasal Cannula 05/23/17 18:00 26 115/82 97 05/23/17 16:00 98.2 05/23/17 11:40 40 Intake and Output 05/23/17 05/23/17 05/24/17 15:00 23:00 07:00 Intake Total 679 ml 775 ml Output Total 410 ml 140 ml Balance 269 ml 635 ml Exam Constitutional: alert, oriented, other (ill looking) Psych: anxiety Head: atraumatic, normocephalic Eyes: PERRL, No icteric ENMT: mucosa pink and moist Neck: non-tender, supple, No jvd Respiratory: clear to auscultation, diminished breath sounds Cardiovascular: murmurs/extra sounds, regular rate and rhythm, No edema Gastrointestinal: bowel sounds, non-tender, soft Musculoskeletal: nl extremities to inspection, nl gait and stance Extremities: normal pulses, No edema Neurological: lethargic, nl mental status, No focal weakness Skin: No rash or lesions LN- MILD BL LN-NEHEMIAH BREAST- NO MASSES Results Result Diagram: 05/23/17 0420 05/23/17 1810 Results 24 hrs Laboratory Tests Test 05/23/17 00:30 05/23/17 04:20 05/23/17 07:00 05/23/17 08:20 Blood Gas Specimen Source Blood arterial Blood arterial Arterial Blood Date Drawn 05/23/2017 12:30:48 AM 05/23/2017 8:05:47 AM Arterial Blood pH (Temp corrected) 7.302 L 7.416 Arterial Blood pCO2 (Temp correct) 22.5 L 25.7 L Arterial Blood pO2 (Temp corrected) 248.7 H 253.0 H Arterial Blood HCO3 10.9 L 16.1 L Arterial Blood Base Excess -13.7 L -7.2 L Arterial Blood Oxygen Saturation 99.1 H 98.9 H Tres Test N/A N/A Arterial Blood Gas Puncture Site A-Line A-Line Arterial Blood Carboxyhemoglobin 0.3 0.2 Arterial Blood Methemoglobin 0.3 0.4 Blood Gas A-a O2 Differential 82.5 H 74.6 H Oxyhemoglobin Percent 98.5 98.3 Total Hemoglobin 11.5 L 9.6 L Blood Gas Temperature 37.0 37.0 Blood Gas Respiration Rate 14.0 14.0 Blood Gas Actual Respiration Rate 27 20 Blood Gas Modality VENT - AC VENT - AC FiO2 50.0 50.0 Blood Gas Tidal Volume 450.0 450.0 Blood Gas Low PEEP Setting 5.0 5.0 Blood Gas Notified Whom UP Blood Gas Notified Time 05/23/2017 12:47:06 AM 05/23/2017 8:32:05 AM Lactic Acid Level 11.1 *H White Blood Count 13.9 #H Red Blood Count 3.07 L Hemoglobin 9.6 L Hematocrit 29.7 L Mean Corpuscular Volume 96.7 Mean Corpuscular Hemoglobin 31.3 Mean Corpuscular Hemoglobin Concent 32.3 Red Cell Distribution Width 15.5 H Platelet Count 189 Mean Platelet Volume 11.8 H Neutrophils % 85.9 H Lymphocytes % 9.0 L Monocytes % 4.4 Eosinophils % 0.0 Basophils % 0.1 Nucleated Red Blood Cells % 0.1 H Neutrophils # 11.9 H Lymphocytes # 1.3 Monocytes # 0.6 Eosinophils # 0.0 Basophils # 0.0 Nucleated Red Blood Cells # 0.0 Sodium Level 139 Potassium Level 4.3 Chloride Level 111 H Carbon Dioxide Level 13 L Anion Gap 19 H Blood Urea Nitrogen 18 Creatinine 0.87 Glucose Level 221 #H Calcium Level 7.0 L Phosphorus Level 2.4 L Magnesium Level 1.8 Free Thyroxine 1.30 Free Triiodothyronine (T3) pg/mL 2.00 L Lab Scanned Report REFERENCE LAB Test 05/23/17 11:55 05/23/17 11:56 05/23/17 12:00 05/23/17 17:01 Lactic Acid Level 4.7 *H Ionized Calcium (Measured) 1.0 L Albumin 2.8 L Bedside Glucose 277 H 196 Blood Gas Specimen Source Blood arterial Arterial Blood Date Drawn 05/23/2017 12:00:35 PM Arterial Blood pH (Temp corrected) 7.432 Arterial Blood pCO2 (Temp correct) 27.2 L Arterial Blood pO2 (Temp corrected) 194.6 H Arterial Blood HCO3 17.7 L Arterial Blood Base Excess -5.4 L Arterial Blood Oxygen Saturation 98.8 H Tres Test N/A Arterial Blood Gas Puncture Site A-Line Arterial Blood Carboxyhemoglobin 0.2 Arterial Blood Methemoglobin 0.2 Blood Gas A-a O2 Differential 59.3 H Oxyhemoglobin Percent 98.4 Total Hemoglobin 10.7 L Blood Gas Temperature 37.0 Blood Gas Actual Respiration Rate 26 Blood Gas Modality VENT - CPAP FiO2 40.0 Blood Gas Tidal Volume 387.0 Blood Gas Low PEEP Setting 5.0 Blood Gas Pressure Support 10 Blood Gas Notified Whom CW Blood Gas Notified Time 05/23/2017 12:06:44 PM Test 05/23/17 18:10 05/23/17 21:56 Sodium Level 136 Potassium Level 4.5 Chloride Level 106 Carbon Dioxide Level 23 # Anion Gap 12 # Blood Urea Nitrogen 15 Creatinine 0.62 Glucose Level 183 Calcium Level 7.1 L Phosphorus Level 1.7 L Magnesium Level 2.1 Bedside Glucose 148 Medications Medications Current Medications Ondansetron HCl (Zofran Inj) 4 mg Q6H PRN IV NAUSEA AND/OR VOMITING; Start at 06:30 Pantoprazole 40 mg 40 mg DAILY@06 IV Last administered on 05/23/17 05:56; Admin Dose 40 MG; Start 05/18/17 at 07:00 Levofloxacin/ Dextrose (Levaquin 750 Mg/ D5W 150 ml (Pmx)) 150 ml @ 100 mls/hr Q24H IVPB Last administered on 05/23/17 14:20; Admin Dose 100 MLS/HR; Start at 14:30 Meclizine HCl (Antivert) 25 mg TID PO Last administered on 05/23/17 21:44; Admin Dose 25 MG; Start 05/20/17 at 14:00 Acetaminophen (Tylenol Tab) 1,000 mg Q6H PRN PO PAIN AND OR ELEVATED TEMP Last administered on 05/21/17 20:41; Admin Dose 1,000 MG; Start 05/21/17 at 14:00 Methylprednisolone Sodium Succinate (Solu-Medrol) 125 mg Q8 IV Last administered on 05/23/17 21:58; Admin Dose 125 MG; Start 05/22/17 at 22:00 Miscellaneous Information 1 ea NOTE XX ; Start 05/23/17 at 10:00 Glucose (Glutose) 15 gm Q15M PRN PO DECREASED GLUCOSE; Start 05/23/17 at 10:00 Glucose (Glutose) 22.5 gm Q15M PRN PO DECREASED GLUCOSE; Start 05/23/17 at 10:00 Dextrose (D50w Syringe) 25 ml Q15M PRN IV DECREASED GLUCOSE; Start 05/23/17 at 10:00 Dextrose (D50w Syringe) 50 ml Q15M PRN IV DECREASED GLUCOSE; Start 05/23/17 at 10:00 Glucagon (Glucagen) 1 mg Q15M PRN IM DECREASED GLUCOSE; Start 05/23/17 at 10:00 Glucose 15 gm 15 gm Q15M PRN BUCCAL DECREASED GLUCOSE; Start 05/23/17 at 10:00 Lactated Ringer's (Lr) 1,000 ml @ 75 mls/hr [id number] IV Last administered on 11:08; Admin Dose 75 MLS/HR; Start 05/23/17 at 10:30 Morphine Sulfate (morphine) 4 mg Q3H PRN IV PAIN Last administered on 05/23/17 21:45; Admin Dose 4 MG; Start 05/23/17 at 14:00 Diagnostic Test (Pha) 1 ea 1 ea 02 XX ; Start 05/24/17 at 02:00 Sodium Phosphate 30 meq/Sodium Chloride 257.5 ml @ 64.375 mls/ hr ONCE ONCE IVPB Last administered on 05/23/17 21:43; Admin Dose 64.375 MLS/HR; Start at 21:00; Stop 05/24/17 at 00:59 Sodium Chloride (NS) 500 ml @ 500 mls/hr Q1H ONCE IV Last administered on 23:59; Admin Dose 500 MLS/HR; Start 05/23/17 at 23:30; Stop 05/24/17 at 00:29 DEEPA OCONNELL MD May 24, 2017 00:14
[2017-05-24] MEDS: ACCU-CHEK XX SCH (02:00)
[2017-05-24] MEDS ORDERED: ACCU-CHEK XX SCH ×2 (02:00)
[2017-05-24] MEDS: morphine 4 MG/ML VIAL IV PRN ×3 (02:46→18:15)
[2017-05-24] MEDS: LACTATED RINGER'S 1,000 ML IV SCH (02:47)
[2017-05-24 05:05] LABS: ADD SCAN DIFF NO
[2017-05-24 05:11] LABS: BASOPHILS % 0.1 % (0.0-2.0); HEMATOCRIT 31.3 % (37.0-47.0); HEMOGLOBIN 10.2 g/dl (12.0-16.0); LYMPHOCYTES # 1.7 10^3/ul (0.8-2.9); LYMPHOCYTES % 12.3 % (15.0-51.0); MEAN CORPUSCULAR HEMOGLOBIN 31.2 pg (29.0-33.0); MEAN CORPUSCULAR HGB CONC 32.6 g/dl (32.0-37.0); MEAN CORPUSCULAR VOLUME 95.7 fl (82.0-101.0); MEAN PLATELET VOLUME 11.4 fl (7.4-10.4); MONOCYTES % 7.4 % (0.0-11.0); NEUTROPHIL # 10.6 10^3/ul (1.6-7.5); NEUTROPHILS % 79.2 % (39.0-77.0); NUCLEATED RED BLOOD CELLS # 0.2 10^3/ul (0.0-0.0); NUCLEATED RED BLOOD CELLS% 1.1 /100WBC (0.0-0.0); PLATELET COUNT 180 10^3/UL (140-415); RED BLOOD COUNT 3.27 10^6/ul (4.20-5.40); RED CELL DISTRIBUTION WIDTH 15.7 % (11.5-14.5); WHITE BLOOD COUNT 13.4 10^3/ul (4.8-10.8)
[2017-05-24 05:29] LABS: ALBUMIN 2.8 g/dl (3.3-4.9); ALBUMIN/GLOBULIN RATIO 0.9; BILIRUBIN,INDIRECT 0.1 mg/dl (0-1.1); BILIRUBIN,TOTAL 0.1 mg/dl (0.2-1.3); CALCIUM 7.2 mg/dl (8.4-10.2); CREATININE 0.72 mg/dl (0.44-1.00); TOTAL PROTEIN 5.9 g/dl (6.1-8.1)
[2017-05-24] MEDS: LEVOTHYROXINE 125 MCG TAB PO SCH (06:37)
[2017-05-24] MEDS: PANTOPRAZOLE 40 MG INJ IV SCH (06:37)
[2017-05-24] MEDS: METHYLPREDNISOLONE 125 MG INJ IV SCH ×3 (06:37→22:12)
--- NOTE | 2017-05-24 07:04 | RADRPT ---
PROCEDURE: XR Chest. CLINICAL INDICATION: Shortness of breath TECHNIQUE: A single AP view of the chest was obtained. COMPARISON: Chest x-ray dated 05/22/2017 FINDINGS: The endotracheal tube has been removed. A chest tube projects over the left chest. Lung volumes are low. There is diffuse prominence of the interstitial markings. There is a small r ight pleural effusion. No pneumothorax is seen. The cardiomediastinal silhouette is mildly enlarged. The osseous structures are unremarkable. IMPRESSION: 1. Low lung volumes with bibasilar interstitial opacities, which may reflect interstitial edema or pneumonia. Findings are increased when compared to the prior examination. 2. Small right pleural effusion, increased from prior examination. 3. Left chest tube versus pericardial drain in place. 4. Tubes and lines, as described above. RPTAT: HH .Sima James MD, Date Time Electronically viewed and signed by .Sima James MD, on 05/24/2017 07:04 .Fei/
[2017-05-24] MEDS: INSULIN ASPART [NOVOLOG] 3 ML PEN SC SCH ×4 (07:35→21:00)
[2017-05-24] MEDS: ACETAMINOPHEN 500 MG TAB PO PRN (08:26)
--- NOTE | 2017-05-24 08:33 | CONS ---
Date/Time of Note Date/Time of Note DATE: 05/24/17 TIME: 08:15 Assessment/Plan Assessment/Plan Chief Complaint/Hosp Course Impression: 1. Acute renal failure . Her renal function has improved from 2 days ago and is stable . He urine output was low last night and she received a bolus of fluid . Will order urine sodium and creatinine .She does have some mild proteinuria . 2. Cecil's thyroiditis 3. Severe hypothyroidism 4. Pericardial effusion , now with pericardial window . 5. Anemia and leukopenia 6. Bronchiolitis 7. Positive REYNALDO with high titer 8. Low serum complements 9. Hyperkalemia , decreased CO2 level 10. Lactic acidosis , Ph is now normal . 11. elevated liver enzymes .hepatitis serologies are negative . Plan: 1 order urine sodium and creatinine 2. adjust IV fluid 3. Continue current IV fluid 4. can transfer to telemetry 5. Monitor daily renal function 6. I will follow the patient along with you. Problems: Consultation Date/Type/Reason Admit Date/Time May 18, 2017 at 05:57 Initial Consult Date 05/23/17 Type of Consultation: renal Referring Provider: ADRIÁN STALLINGS 24 HR Interval Summary Free Text/Dictation patient is now in the ICU . she is extubated . She c/o pleuritic CP on L chest . Exam/Review of Systems Vital Signs Vitals Vital Signs Date Time Temp Pulse Resp B/P Pulse Ox O2 Delivery O2 Flow Rate FiO2 05/24/17 07:00 77 19 102/75 92 Nasal Cannula 05/24/17 04:00 98.0 05/24/17 02:02 3.0 05/23/17 11:40 40 Intake and Output 05/23/17 05/23/17 05/24/17 15:00 23:00 07:00 Intake Total 679 ml 775 ml 250 ml Output Total 410 ml 245 ml 240 ml Balance 269 ml 530 ml 10 ml Exam Constitutional: alert, oriented, well developed Respiratory: clear to auscultation, normal air movement Cardiovascular: regular rate and rhythm Gastrointestinal: non-tender, soft Extremities: edema Results Result Diagram: 05/24/17 0455 05/24/17 0455 Results 24 hrs Laboratory Tests Test 05/23/17 08:20 05/23/17 11:55 05/23/17 11:56 05/23/17 12:00 Lab Scanned Report REFERENCE LAB Lactic Acid Level 4.7 *H Ionized Calcium (Measured) 1.0 L Albumin 2.8 L Bedside Glucose 277 H Blood Gas Specimen Source Blood arterial Arterial Blood Date Drawn 05/23/2017 12:00:35 PM Arterial Blood pH (Temp corrected) 7.432 Arterial Blood pCO2 (Temp correct) 27.2 L Arterial Blood pO2 (Temp corrected) 194.6 H Arterial Blood HCO3 17.7 L Arterial Blood Base Excess -5.4 L Arterial Blood Oxygen Saturation 98.8 H Tres Test N/A Arterial Blood Gas Puncture Site A-Line Arterial Blood Carboxyhemoglobin 0.2 Arterial Blood Methemoglobin 0.2 Blood Gas A-a O2 Differential 59.3 H Oxyhemoglobin Percent 98.4 Total Hemoglobin 10.7 L Blood Gas Temperature 37.0 Blood Gas Actual Respiration Rate 26 Blood Gas Modality VENT - CPAP FiO2 40.0 Blood Gas Tidal Volume 387.0 Blood Gas Low PEEP Setting 5.0 Blood Gas Pressure Support 10 Blood Gas Notified Whom CW Blood Gas Notified Time 05/23/2017 12:06:44 PM Test 05/23/17 17:01 05/23/17 18:10 05/23/17 21:56 05/24/17 04:55 Bedside Glucose 196 148 Sodium Level 136 137 Potassium Level 4.5 5.0 Chloride Level 106 109 Carbon Dioxide Level 23 # 24 Anion Gap 12 # 9 Blood Urea Nitrogen 15 17 Creatinine 0.62 0.72 Glucose Level 183 137 # Calcium Level 7.1 L 7.2 L Phosphorus Level 1.7 L 3.2 Magnesium Level 2.1 2.2 White Blood Count 13.4 H Red Blood Count 3.27 L Hemoglobin 10.2 L Hematocrit 31.3 L Mean Corpuscular Volume 95.7 Mean Corpuscular Hemoglobin 31.2 Mean Corpuscular Hemoglobin Concent 32.6 Red Cell Distribution Width 15.7 H Platelet Count 180 Mean Platelet Volume 11.4 H Neutrophils % 79.2 H Lymphocytes % 12.3 L Monocytes % 7.4 Eosinophils % 0.0 Basophils % 0.1 Nucleated Red Blood Cells % 1.1 H Neutrophils # 10.6 H Lymphocytes # 1.7 Monocytes # 1.0 H Eosinophils # 0.0 Basophils # 0.0 Nucleated Red Blood Cells # 0.2 H Lactic Acid Level 3.2 H Total Bilirubin 0.1 L Direct Bilirubin 0.00 Indirect Bilirubin 0.1 Aspartate Amino Transf (AST/SGOT) 1398 H Alanine Aminotransferase (ALT/SGPT) 1241 H Alkaline Phosphatase 66 Total Protein 5.9 L Albumin 2.8 L Globulin 3.10 Albumin/Globulin Ratio 0.90 Test 05/24/17 07:53 Bedside Glucose 124 Medications Medications Current Medications Ondansetron HCl (Zofran Inj) 4 mg Q6H PRN IV NAUSEA AND/OR VOMITING; Start at 06:30 Pantoprazole 40 mg 40 mg DAILY@06 IV Last administered on 05/24/17 06:37; Admin Dose 40 MG; Start 05/18/17 at 07:00 Levofloxacin/ Dextrose (Levaquin 750 Mg/ D5W 150 ml (Pmx)) 150 ml @ 100 mls/hr Q24H IVPB Last administered on 05/23/17 14:20; Admin Dose 100 MLS/HR; Start at 14:30 Meclizine HCl (Antivert) 25 mg TID PO Last administered on 05/23/17 21:44; Admin Dose 25 MG; Start 05/20/17 at 14:00 Acetaminophen (Tylenol Tab) 1,000 mg Q6H PRN PO PAIN AND OR ELEVATED TEMP Last administered on 05/21/17 20:41; Admin Dose 1,000 MG; Start 05/21/17 at 14:00 Methylprednisolone Sodium Succinate (Solu-Medrol) 125 mg Q8 IV Last administered on 05/24/17 06:37; Admin Dose 125 MG; Start 05/22/17 at 22:00 Miscellaneous Information 1 ea NOTE XX ; Start 05/23/17 at 10:00 Glucose (Glutose) 15 gm Q15M PRN PO DECREASED GLUCOSE; Start 05/23/17 at 10:00 Glucose (Glutose) 22.5 gm Q15M PRN PO DECREASED GLUCOSE; Start 05/23/17 at 10:00 Dextrose (D50w Syringe) 25 ml Q15M PRN IV DECREASED GLUCOSE; Start 05/23/17 at 10:00 Dextrose (D50w Syringe) 50 ml Q15M PRN IV DECREASED GLUCOSE; Start 05/23/17 at 10:00 Glucagon (Glucagen) 1 mg Q15M PRN IM DECREASED GLUCOSE; Start 05/23/17 at 10:00 Glucose 15 gm 15 gm Q15M PRN BUCCAL DECREASED GLUCOSE; Start 05/23/17 at 10:00 Lactated Ringer's (Lr) 1,000 ml @ 75 mls/hr [id number] IV Last administered on 02:47; Admin Dose 75 MLS/HR; Start 05/23/17 at 10:30 Morphine Sulfate (morphine) 4 mg Q3H PRN IV PAIN Last administered on 05/24/17 06:37; Admin Dose 4 MG; Start 05/23/17 at 14:00 Diagnostic Test (Pha) (Accu-Chek) 1 02 XX ; Start 05/24/17 at 02:00 AMTEUS BEDOLLA MD May 24, 2017 08:25
[2017-05-24] MEDS ORDERED: MECLIZINE 25 MG TAB PO PRN (09:00)
[2017-05-24] MEDS: SOD CHLORIDE 0.9% 1,000 ML IV SCH (09:11)
--- NOTE | 2017-05-24 09:28 | RADRPT ---
Echocardiogram Report Patient Name: GORGE ROBERT Gender: Female Date: 1990 Study Date: 21-May-2017 [employer] Operator: Rosio [facility] Location: [id number] Ref. Physician: WILL LUNA Quality: Adequate Procedures: Transthoracic echocardiogram examination. Indications: F/U Pericardial Effusion. Findings Left Ventricle: Lower limits of normal left ventricular systolic function. The left ventricular ejection fraction is visually estimated at 45 %. Right Ventricle: Mild enlargement of right ventricle. Right Atrium: Mild RA enlargement. Aortic Valve: Normal appearance and function of the aortic valve. Pericardium: Moderate to large pericardial effusion. IVC: Normal inferior vena cava appearance and respiratory collapse. Conclusions 1.Lower limits of normal left ventricular systolic function. The left ventricular ejection fraction is visually estimated at 45 %. 2.Mild RA enlargement. 3.Moderate to large pericardial effusion. Electronically Signed By: Will Luna 21-May-2017 16:12:25 -0700 Patient Name: GORGE ROBERT Study Date: 21-May-2017 [id number]
--- NOTE | 2017-05-24 10:00 | CONS ---
Date/Time of Note Date/Time of Note DATE: 05/24/17 TIME: 09:59 Assessment/Plan Assessment/Plan Chief Complaint/Hosp Course Bilateral mild to moderate axillary lymphadenopathy, MORE ON THE L and diffuse cervical adenopathy on Thyroid USS 03/2017. BIOCHEMICAL W-UP- P CT ABD- Prominent bilateral inguinal and left external iliac chain lymph nodes, which are nonspecific. 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 POS WINDOW Bilateral infectious/inflammatory bronchiolitis. Positive rheumatoid factor RHEUMATOLOGY EVAL Pericardial effusion-moderate by echo with no signs of echo tamponade at this time. Cardiomyopathy-EF 40-45% by echo Acute Shortness of breath Increased LFT's Problems: Consultation Date/Type/Reason Admit Date/Time May 18, 2017 at 05:57 Initial Consult Date 05/19/17 Type of Consultation: [facility] Referring Provider: ADRIÁN STALLINGS 24 HR Interval Summary Free Text/Dictation ALL NOTED D/W RN BMBX AND LN BX ORDERED Exam/Review of Systems Vital Signs Vitals Vital Signs Date Time Temp Pulse Resp B/P Pulse Ox O2 Delivery O2 Flow Rate FiO2 05/24/17 08:00 Nasal Cannula 1.0 05/24/17 07:00 77 19 102/75 92 05/24/17 04:00 98.0 05/23/17 11:40 40 Intake and Output 05/23/17 05/23/17 05/24/17 15:00 23:00 07:00 Intake Total 679 ml 775 ml 250 ml Output Total 410 ml 245 ml 240 ml Balance 269 ml 530 ml 10 ml Exam Constitutional: alert, oriented, other (ill looking) Psych: anxiety Head: atraumatic, normocephalic Eyes: PERRL, No icteric ENMT: mucosa pink and moist Neck: non-tender, supple, No jvd Respiratory: clear to auscultation, diminished breath sounds Cardiovascular: murmurs/extra sounds, regular rate and rhythm, No edema Gastrointestinal: bowel sounds, non-tender, soft Musculoskeletal: nl extremities to inspection, nl gait and stance Extremities: normal pulses, No edema Neurological: lethargic, nl mental status, No focal weakness Skin: No rash or lesions LN- MILD BL LN-NEHEMIAH BREAST- NO MASSES Results Result Diagram: 05/24/17 0455 05/24/17 0455 Results 24 hrs Laboratory Tests Test 05/23/17 11:55 05/23/17 11:56 05/23/17 12:00 05/23/17 17:01 Lactic Acid Level 4.7 *H Ionized Calcium (Measured) 1.0 L Albumin 2.8 L Bedside Glucose 277 H 196 Blood Gas Specimen Source Blood arterial Arterial Blood Date Drawn 05/23/2017 12:00:35 PM Arterial Blood pH (Temp corrected) 7.432 Arterial Blood pCO2 (Temp correct) 27.2 L Arterial Blood pO2 (Temp corrected) 194.6 H Arterial Blood HCO3 17.7 L Arterial Blood Base Excess -5.4 L Arterial Blood Oxygen Saturation 98.8 H Tres Test N/A Arterial Blood Gas Puncture Site A-Line Arterial Blood Carboxyhemoglobin 0.2 Arterial Blood Methemoglobin 0.2 Blood Gas A-a O2 Differential 59.3 H Oxyhemoglobin Percent 98.4 Total Hemoglobin 10.7 L Blood Gas Temperature 37.0 Blood Gas Actual Respiration Rate 26 Blood Gas Modality VENT - CPAP FiO2 40.0 Blood Gas Tidal Volume 387.0 Blood Gas Low PEEP Setting 5.0 Blood Gas Pressure Support 10 Blood Gas Notified Whom CW Blood Gas Notified Time 05/23/2017 12:06:44 PM Test 05/23/17 18:10 05/23/17 21:56 05/24/17 04:55 05/24/17 07:53 Sodium Level 136 137 Potassium Level 4.5 5.0 Chloride Level 106 109 Carbon Dioxide Level 23 # 24 Anion Gap 12 # 9 Blood Urea Nitrogen 15 17 Creatinine 0.62 0.72 Glucose Level 183 137 # Calcium Level 7.1 L 7.2 L Phosphorus Level 1.7 L 3.2 Magnesium Level 2.1 2.2 Bedside Glucose 148 124 White Blood Count 13.4 H Red Blood Count 3.27 L Hemoglobin 10.2 L Hematocrit 31.3 L Mean Corpuscular Volume 95.7 Mean Corpuscular Hemoglobin 31.2 Mean Corpuscular Hemoglobin Concent 32.6 Red Cell Distribution Width 15.7 H Platelet Count 180 Mean Platelet Volume 11.4 H Neutrophils % 79.2 H Lymphocytes % 12.3 L Monocytes % 7.4 Eosinophils % 0.0 Basophils % 0.1 Nucleated Red Blood Cells % 1.1 H Neutrophils # 10.6 H Lymphocytes # 1.7 Monocytes # 1.0 H Eosinophils # 0.0 Basophils # 0.0 Nucleated Red Blood Cells # 0.2 H Erythrocyte Sedimentation Rate 50 H Lactic Acid Level 3.2 H Total Bilirubin 0.1 L Direct Bilirubin 0.00 Indirect Bilirubin 0.1 Aspartate Amino Transf (AST/SGOT) 1398 H Alanine Aminotransferase (ALT/SGPT) 1241 H Alkaline Phosphatase 66 Total Protein 5.9 L Albumin 2.8 L Globulin 3.10 Albumin/Globulin Ratio 0.90 Medications Medications Current Medications Ondansetron HCl (Zofran Inj) 4 mg Q6H PRN IV NAUSEA AND/OR VOMITING; Start at 06:30 Pantoprazole 40 mg 40 mg DAILY@06 IV Last administered on 05/24/17 06:37; Admin Dose 40 MG; Start 05/18/17 at 07:00 Levofloxacin/ Dextrose (Levaquin 750 Mg/ D5W 150 ml (Pmx)) 150 ml @ 100 mls/hr Q24H IVPB Last administered on 05/23/17 14:20; Admin Dose 100 MLS/HR; Start at 14:30 Acetaminophen (Tylenol Tab) 1,000 mg Q6H PRN PO PAIN AND OR ELEVATED TEMP Last administered on 05/24/17 08:26; Admin Dose 1,000 MG; Start 05/21/17 at 14:00 Methylprednisolone Sodium Succinate (Solu-Medrol) 125 mg Q8 IV Last administered on 05/24/17 06:37; Admin Dose 125 MG; Start 05/22/17 at 22:00 Miscellaneous Information 1 ea NOTE XX ; Start 05/23/17 at 10:00 Glucose (Glutose) 15 gm Q15M PRN PO DECREASED GLUCOSE; Start 05/23/17 at 10:00 Glucose (Glutose) 22.5 gm Q15M PRN PO DECREASED GLUCOSE; Start 05/23/17 at 10:00 Dextrose (D50w Syringe) 25 ml Q15M PRN IV DECREASED GLUCOSE; Start 05/23/17 at 10:00 Dextrose (D50w Syringe) 50 ml Q15M PRN IV DECREASED GLUCOSE; Start 05/23/17 at 10:00 Glucagon (Glucagen) 1 mg Q15M PRN IM DECREASED GLUCOSE; Start 05/23/17 at 10:00 Glucose (Glutose) 15 gm Q15M PRN BUCCAL DECREASED GLUCOSE; Start 05/23/17 at 10: 00 Morphine Sulfate (morphine) 4 mg Q3H PRN IV PAIN Last administered on 05/24/17 06:37; Admin Dose 4 MG; Start 05/23/17 at 14:00 Diagnostic Test (Pha) (Accu-Chek) 1 ea 02 XX ; Start 05/24/17 at 02:00 Meclizine HCl 25 mg 25 mg Q8H PRN PO NAUSEA; Start 05/24/17 at 09:00 Sodium Chloride (NS) 1,000 ml @ 100 mls/hr Q10H IV Last administered on 09:11; Admin Dose 100 MLS/HR; Start 05/24/17 at 09:00 DEEPA OCONNELL MD May 24, 2017 10:00
--- NOTE | 2017-05-24 10:17 | CONS ---
Date/Time of Note Date/Time of Note DATE: 05/24/17 TIME: 10:11 Consult Date/Type/Reason Admit Date/Time May 18, 2017 at 05:57 Initial Consult Date 05/23/17 Type of Consultation: Pulmonary ICU Ordering Provider: ADRIÁN STALLINGS Subjective Patient was extubated yesterday remains awake alert comfortable. Chest tubes to show a moderate output. Currently she is hemodynamically stable. Objective Vital Signs Date Time Temp Pulse Resp B/P Pulse Ox O2 Delivery O2 Flow Rate FiO2 05/24/17 09:00 75 22 113/88 95 Nasal Cannula 1.0 05/24/17 08:00 98.1 05/23/17 11:40 40 Intake and Output 05/23/17 05/23/17 05/24/17 15:00 23:00 07:00 Intake Total 679 ml 775 ml 250 ml Output Total 410 ml 245 ml 240 ml Balance 269 ml 530 ml 10 ml Exam PHYSICAL EXAMINATION GENERAL: Chronically ill-appearing young lady comfortable at rest VITAL SIGNS: see below. HEENT: Pupils equal, round, and reactive to light. CARDIAC: S1, S2, 1/6 systolic ejection murmur CHEST: Diminished air entry bilaterally. Bilateral rales left chest tube in place ABDOMEN: Mildly distended. Bowel sounds present no guarding or rebound EXTREMITIES: No cyanosis, clubbing edema +1 NEUROLOGIC: Generalized weakness Results/Medications Result Diagram: 05/24/17 0455 05/24/17 0455 Results 24 hrs Laboratory Tests Test 05/23/17 11:55 05/23/17 11:56 05/23/17 12:00 05/23/17 17:01 Lactic Acid Level 4.7 *H Ionized Calcium (Measured) 1.0 L Albumin 2.8 L Bedside Glucose 277 H 196 Blood Gas Specimen Source Blood arterial Arterial Blood Date Drawn 05/23/2017 12:00:35 PM Arterial Blood pH (Temp corrected) 7.432 Arterial Blood pCO2 (Temp correct) 27.2 L Arterial Blood pO2 (Temp corrected) 194.6 H Arterial Blood HCO3 17.7 L Arterial Blood Base Excess -5.4 L Arterial Blood Oxygen Saturation 98.8 H Tres Test N/A Arterial Blood Gas Puncture Site A-Line Arterial Blood Carboxyhemoglobin 0.2 Arterial Blood Methemoglobin 0.2 Blood Gas A-a O2 Differential 59.3 H Oxyhemoglobin Percent 98.4 Total Hemoglobin 10.7 L Blood Gas Temperature 37.0 Blood Gas Actual Respiration Rate 26 Blood Gas Modality VENT - CPAP FiO2 40.0 Blood Gas Tidal Volume 387.0 Blood Gas Low PEEP Setting 5.0 Blood Gas Pressure Support 10 Blood Gas Notified Whom CW Blood Gas Notified Time 05/23/2017 12:06:44 PM Test 05/23/17 18:10 05/23/17 21:56 05/24/17 04:55 05/24/17 07:53 Sodium Level 136 137 Potassium Level 4.5 5.0 Chloride Level 106 109 Carbon Dioxide Level 23 # 24 Anion Gap 12 # 9 Blood Urea Nitrogen 15 17 Creatinine 0.62 0.72 Glucose Level 183 137 # Calcium Level 7.1 L 7.2 L Phosphorus Level 1.7 L 3.2 Magnesium Level 2.1 2.2 Bedside Glucose 148 124 White Blood Count 13.4 H Red Blood Count 3.27 L Hemoglobin 10.2 L Hematocrit 31.3 L Mean Corpuscular Volume 95.7 Mean Corpuscular Hemoglobin 31.2 Mean Corpuscular Hemoglobin Concent 32.6 Red Cell Distribution Width 15.7 H Platelet Count 180 Mean Platelet Volume 11.4 H Neutrophils % 79.2 H Lymphocytes % 12.3 L Monocytes % 7.4 Eosinophils % 0.0 Basophils % 0.1 Nucleated Red Blood Cells % 1.1 H Neutrophils # 10.6 H Lymphocytes # 1.7 Monocytes # 1.0 H Eosinophils # 0.0 Basophils # 0.0 Nucleated Red Blood Cells # 0.2 H Erythrocyte Sedimentation Rate 50 H Lactic Acid Level 3.2 H Total Bilirubin 0.1 L Direct Bilirubin 0.00 Indirect Bilirubin 0.1 Aspartate Amino Transf (AST/SGOT) 1398 H Alanine Aminotransferase (ALT/SGPT) 1241 H Alkaline Phosphatase 66 Total Protein 5.9 L Albumin 2.8 L Globulin 3.10 Albumin/Globulin Ratio 0.90 Medications Current Medications Ondansetron HCl (Zofran Inj) 4 mg Q6H PRN IV NAUSEA AND/OR VOMITING; Start at 06:30 Pantoprazole 40 mg 40 mg DAILY@06 IV Last administered on 05/24/17t 06:37; Admin Dose 40 MG; Start 05/18/17 at 07:00 Levofloxacin/ Dextrose (Levaquin 750 Mg/ D5W 150 ml (Pmx)) 150 ml @ 100 mls/hr Q24H IVPB Last administered on 05/23/17 14:20; Admin Dose 100 MLS/HR; Start at 14:30 Acetaminophen (Tylenol Tab) 1,000 mg Q6H PRN PO PAIN AND OR ELEVATED TEMP Last administered on 05/24/17 08:26; Admin Dose 1,000 MG; Start 05/21/17 at 14:00 Methylprednisolone Sodium Succinate (Solu-Medrol) 125 mg Q8 IV Last administered on 05/24/17 06:37; Admin Dose 125 MG; Start 05/22/17 at 22:00 Miscellaneous Information 1 ea NOTE XX ; Start 05/23/17 at 10:00 Glucose (Glutose) 15 gm Q15M PRN PO DECREASED GLUCOSE; Start 05/23/17 at 10:00 Glucose (Glutose) 22.5 gm Q15M PRN PO DECREASED GLUCOSE; Start 05/23/17 at 10:00 Dextrose (D50w Syringe) 25 ml Q15M PRN IV DECREASED GLUCOSE; Start 05/23/17 at 10:00 Dextrose (D50w Syringe) 50 ml Q15M PRN IV DECREASED GLUCOSE; Start 05/23/17 at 10:00 Glucagon (Glucagen) 1 mg Q15M PRN IM DECREASED GLUCOSE; Start 05/23/17 at 10:00 Glucose (Glutose) 15 gm Q15M PRN BUCCAL DECREASED GLUCOSE; Start 05/23/17 at 10: 00 Morphine Sulfate (morphine) 4 mg Q3H PRN IV PAIN Last administered on 05/24/17 06:37; Admin Dose 4 MG; Start 05/23/17 at 14:00 Diagnostic Test (Pha) (Accu-Chek) 1 ea 02 XX ; Start 05/24/17 at 02:00 Meclizine HCl 25 mg 25 mg Q8H PRN PO NAUSEA; Start 05/24/17 at 09:00 Sodium Chloride (NS) 1,000 ml @ 100 mls/hr Q10H IV Last administered on 09:11; Admin Dose 100 MLS/HR; Start 05/24/17 at 09:00 Assessment/Plan Chief Complaint/Hosp Course Assessment 1. Hypoxemic respiratory failure following recent pericardial window and chest tube placement. Radiographic evidence of pulmonary edema possible infiltrates 2. Severe metabolic acidosis unclear etiology does not appear secondary to hypoperfusion. Clinically improved 3. Renal insufficiency possibly secondary to underlying vasculitis from SLE, improved 4. Positive REYNALDO and low complement levels suggestive of systemic lupus erythematous 5. Cecil's thyroiditis. Plan 1. Gentle diuresis, will broaden antibiotics for possible underlying pneumonia , add cefepime to Levaquin 2. Incentive spirometry and bronchodilators as needed 3. Continue steroids per rheumatology 4. Await pericardial fluid studies. 5. Continue thyroid replacement. 6. DVT and GI prophylaxis 7. Speech therapy eval advance diet as tolerated 8. PT eval Disposition Continue ICU care. Problems: RAKAN BURNS [facility], [facility] May 24, 2017 10:17
[2017-05-24] MEDS: CEFEPIME 2GM/50 ML (PMX) 50 ML IVPB SCH ×2 (11:51→22:11)
[2017-05-24] MEDS: FUROSEMIDE 20 MG INJ IV SCH ×2 (11:52→18:16)
--- NOTE | 2017-05-24 12:52 | PN ---
Date/Time of Note Date/Time of Note DATE: 05/24/17 TIME: 12:44 Assessment/Plan VTE Prophylaxis VTE Prophylaxis Intervention: SCD's Lines/Catheters IV Catheter Type (from Nrs): Peripheral IV Assessment/Plan Chief Complaint/Hosp Course 26 yo F discharged from [facility] February 2017 after new diagnosis of severe hypothyroidism who now presents with shortness of breath and is found to have pericardial effusion as well as bronchiolitis 1. SLE with highly positive REYNALDO Rheumatology on the case Continue Solu-Medrol 2. 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 Moderate pericardial effusion likely autoimmune Status post pericardial window as well as pulmonary decortication, follow-up on cytology cultures Cardiology on the case as well as CT surgery 3. Bilateral infectious/inflammatory bronchiolitis Continue antibiotics 4. Bilateral mild to moderate axillary lymphadenopathy and diffuse cervical adenopathy on Thyroid USS 03/2017. Pathology from needle biopsy showed reactive lymphocytes Oncology on the case, plan is for biopsy of lymph node and bone marrow biopsy 5. Acute transaminitis: Severely elevated today GI consultation, eval for autoimmune hepatitis Hepatitis panel is negative 6. Dyslipidemia 7. Cardiomyopathy-EF 40-45% by echo 8. New Raynaud's phenomenon and hand petechiae Rheumatology consult appreciated 9. Acute kidney injury Creatinine now stable Nephrology consultation appreciated 10. Acute respiratory distress-resolved Pulmonology following Prophylaxis: SCDs Problems: Subjective 24 Hr Interval Summary Constitutional: no complaints Exam/Review of Systems Vital Signs Vitals Vital Signs Date Time Temp Pulse Resp B/P Pulse Ox O2 Delivery O2 Flow Rate FiO2 05/24/17 12:13 77 05/24/17 11:44 97.5 20 109/75 90 05/24/17 09:00 Nasal Cannula 1.0 05/23/17 11:40 40 Intake and Output 05/23/17 05/23/17 05/24/17 15:00 23:00 07:00 Intake Total 679 ml 775 ml 250 ml Output Total 410 ml 245 ml 240 ml Balance 269 ml 530 ml 10 ml Exam Constitutional: alert, oriented Respiratory: clear to auscultation Cardiovascular: regular rate and rhythm Gastrointestinal: soft, No distended Musculoskeletal: nl extremities to inspection Results Result Diagram: 05/24/17 0455 05/24/17 0455 Results 24 hrs Laboratory Tests Test 05/23/17 17:01 05/23/17 18:10 05/23/17 21:56 05/24/17 04:55 Bedside Glucose 196 148 Sodium Level 136 137 Potassium Level 4.5 5.0 Chloride Level 106 109 Carbon Dioxide Level 23 # 24 Anion Gap 12 # 9 Blood Urea Nitrogen 15 17 Creatinine 0.62 0.72 Glucose Level 183 137 # Calcium Level 7.1 L 7.2 L Phosphorus Level 1.7 L 3.2 Magnesium Level 2.1 2.2 White Blood Count 13.4 H Red Blood Count 3.27 L Hemoglobin 10.2 L Hematocrit 31.3 L Mean Corpuscular Volume 95.7 Mean Corpuscular Hemoglobin 31.2 Mean Corpuscular Hemoglobin Concent 32.6 Red Cell Distribution Width 15.7 H Platelet Count 180 Mean Platelet Volume 11.4 H Neutrophils % 79.2 H Lymphocytes % 12.3 L Monocytes % 7.4 Eosinophils % 0.0 Basophils % 0.1 Nucleated Red Blood Cells % 1.1 H Neutrophils # 10.6 H Lymphocytes # 1.7 Monocytes # 1.0 H Eosinophils # 0.0 Basophils # 0.0 Nucleated Red Blood Cells # 0.2 H Erythrocyte Sedimentation Rate 50 H Lactic Acid Level 3.2 H Total Bilirubin 0.1 L Direct Bilirubin 0.00 Indirect Bilirubin 0.1 Aspartate Amino Transf (AST/SGOT) 1398 H Alanine Aminotransferase (ALT/SGPT) 1241 H Alkaline Phosphatase 66 Total Protein 5.9 L Albumin 2.8 L Globulin 3.10 Albumin/Globulin Ratio 0.90 Test 05/24/17 07:53 05/24/17 09:00 05/24/17 11:51 05/24/17 12:31 Bedside Glucose 124 162 Urine Random Creatinine 138.55 Urine Random Sodium < 13 L Lab Scanned Report REFERENCE LAB Medications Medications Current Medications Ondansetron HCl (Zofran Inj) 4 mg Q6H PRN IV NAUSEA AND/OR VOMITING; Start at 06:30 Pantoprazole 40 mg 40 mg DAILY@06 IV Last administered on 05/24/17t 06:37; Admin Dose 40 MG; Start 05/18/17 at 07:00 Levofloxacin/ Dextrose (Levaquin 750 Mg/ D5W 150 ml (Pmx)) 150 ml @ 100 mls/hr Q24H IVPB Last administered on 05/23/17 14:20; Admin Dose 100 MLS/HR; Start at 14:30 Acetaminophen (Tylenol Tab) 1,000 mg Q6H PRN PO PAIN AND OR ELEVATED TEMP Last administered on 05/24/17 08:26; Admin Dose 1,000 MG; Start 05/21/17 at 14:00 Methylprednisolone Sodium Succinate (Solu-Medrol) 125 mg Q8 IV Last administered on 05/24/17 06:37; Admin Dose 125 MG; Start 05/22/17 at 22:00 Miscellaneous Information 1 ea NOTE XX ; Start 05/23/17 at 10:00 Glucose (Glutose) 15 gm Q15M PRN PO DECREASED GLUCOSE; Start 05/23/17 at 10:00 Glucose (Glutose) 22.5 gm Q15M PRN PO DECREASED GLUCOSE; Start 05/23/17 at 10:00 Dextrose (D50w Syringe) 25 ml Q15M PRN IV DECREASED GLUCOSE; Start 05/23/17 at 10:00 Dextrose (D50w Syringe) 50 ml Q15M PRN IV DECREASED GLUCOSE; Start 05/23/17 at 10:00 Glucagon (Glucagen) 1 mg Q15M PRN IM DECREASED GLUCOSE; Start 05/23/17 at 10:00 Glucose (Glutose) 15 gm Q15M PRN BUCCAL DECREASED GLUCOSE; Start 05/23/17 at 10: 00 Morphine Sulfate (morphine) 4 mg Q3H PRN IV PAIN Last administered on 05/24/17 06:37; Admin Dose 4 MG; Start 05/23/17 at 14:00 Diagnostic Test (Pha) (Accu-Chek) 1 ea 02 XX ; Start 05/24/17 at 02:00 Meclizine HCl 25 mg 25 mg Q8H PRN PO NAUSEA; Start 05/24/17 at 09:00 Sodium Chloride 1,000 ml @ 50 mls/hr Q20H IV Last administered on 05/24/17 09: 11; Admin Dose 100 MLS/HR; Start 05/24/17 at 09:00 Cefepime HCl (Maxipime 2gm/50 ml (Pmx)) 50 ml @ 100 mls/hr Q12 IVPB Last administered on 05/24/17 11:51; Admin Dose 100 MLS/HR; Start 05/24/17 at 11:30 ADRIÁN STALLINGS May 24, 2017 12:52
--- NOTE | 2017-05-24 13:46 | CONS ---
Date/Time of Note Date/Time of Note DATE: 05/24/17 TIME: 13:31 Consult Date/Type/Reason Admit Date/Time May 18, 2017 at 05:57 Initial Consult Date 05/22/17 Type of Consultation: Rheumatology Ordering Provider: ADRIÁN STALLINGS Subjective Extubated. Alert. Feels much better overall. Denies specific muscle weakness. Objective Vital Signs Date Time Temp Pulse Resp B/P Pulse Ox O2 Delivery O2 Flow Rate FiO2 05/24/17 12:13 77 05/24/17 11:44 97.5 20 109/75 90 05/24/17 10:45 Nasal Cannula 2.0 05/23/17 11:40 40 Intake and Output 05/23/17 05/23/17 05/24/17 15:00 23:00 07:00 Intake Total 679 ml 775 ml 250 ml Output Total 410 ml 245 ml 240 ml Balance 269 ml 530 ml 10 ml Exam Alert and oriented. NAD Skin without rash. HEENT without acute lesions Neck. No definite lymphadenopathy noted. Chest Scattered crackles. Chest tubes in place. Heart RR Abdomen. Soft. No masses or tenderness. Ext No cyanosis.\MS No synovitis. Neurol grossly intact. No definite muscle weakness. Psych. No definite anxiety at present. Results/Medications Result Diagram: 05/24/17 0455 05/24/17 0455 Results 24 hrs Laboratory Tests Test 05/23/17 17:01 05/23/17 18:10 05/23/17 21:56 05/24/17 04:55 Bedside Glucose 196 148 Sodium Level 136 137 Potassium Level 4.5 5.0 Chloride Level 106 109 Carbon Dioxide Level 23 # 24 Anion Gap 12 # 9 Blood Urea Nitrogen 15 17 Creatinine 0.62 0.72 Glucose Level 183 137 # Calcium Level 7.1 L 7.2 L Phosphorus Level 1.7 L 3.2 Magnesium Level 2.1 2.2 White Blood Count 13.4 H Red Blood Count 3.27 L Hemoglobin 10.2 L Hematocrit 31.3 L Mean Corpuscular Volume 95.7 Mean Corpuscular Hemoglobin 31.2 Mean Corpuscular Hemoglobin Concent 32.6 Red Cell Distribution Width 15.7 H Platelet Count 180 Mean Platelet Volume 11.4 H Neutrophils % 79.2 H Lymphocytes % 12.3 L Monocytes % 7.4 Eosinophils % 0.0 Basophils % 0.1 Nucleated Red Blood Cells % 1.1 H Neutrophils # 10.6 H Lymphocytes # 1.7 Monocytes # 1.0 H Eosinophils # 0.0 Basophils # 0.0 Nucleated Red Blood Cells # 0.2 H Erythrocyte Sedimentation Rate 50 H Lactic Acid Level 3.2 H Total Bilirubin 0.1 L Direct Bilirubin 0.00 Indirect Bilirubin 0.1 Aspartate Amino Transf (AST/SGOT) 1398 H Alanine Aminotransferase (ALT/SGPT) 1241 H Alkaline Phosphatase 66 Total Protein 5.9 L Albumin 2.8 L Globulin 3.10 Albumin/Globulin Ratio 0.90 Test 05/24/17 07:53 05/24/17 09:00 05/24/17 11:51 05/24/17 12:31 Bedside Glucose 124 162 Urine Random Creatinine 138.55 Urine Random Sodium < 13 L Lab Scanned Report REFERENCE LAB Medications Current Medications Ondansetron HCl (Zofran Inj) 4 mg Q6H PRN IV NAUSEA AND/OR VOMITING; Start at 06:30 Pantoprazole 40 mg 40 mg DAILY@06 IV Last administered on 05/24/17 06:37; Admin Dose 40 MG; Start 05/18/17 at 07:00 Levofloxacin/ Dextrose (Levaquin 750 Mg/ D5W 150 ml (Pmx)) 150 ml @ 100 mls/hr Q24H IVPB Last administered on 05/23/17 14:20; Admin Dose 100 MLS/HR; Start at 14:30 Acetaminophen (Tylenol Tab) 1,000 mg Q6H PRN PO PAIN AND OR ELEVATED TEMP Last administered on 05/24/17 08:26; Admin Dose 1,000 MG; Start 05/21/17 at 14:00 Methylprednisolone Sodium Succinate (Solu-Medrol) 125 mg Q8 IV Last administered on 05/24/17 06:37; Admin Dose 125 MG; Start 05/22/17 at 22:00 Miscellaneous Information 1 ea NOTE XX ; Start 05/23/17 at 10:00 Glucose (Glutose) 15 gm Q15M PRN PO DECREASED GLUCOSE; Start 05/23/17 at 10:00 Glucose (Glutose) 22.5 gm Q15M PRN PO DECREASED GLUCOSE; Start 05/23/17 at 10:00 Dextrose (D50w Syringe) 25 ml Q15M PRN IV DECREASED GLUCOSE; Start 05/23/17 at 10:00 Dextrose (D50w Syringe) 50 ml Q15M PRN IV DECREASED GLUCOSE; Start 05/23/17 at 10:00 Glucagon (Glucagen) 1 mg Q15M PRN IM DECREASED GLUCOSE; Start 05/23/17 at 10:00 Glucose (Glutose) 15 gm Q15M PRN BUCCAL DECREASED GLUCOSE; Start 05/23/17 at 10: 00 Morphine Sulfate (morphine) 4 mg Q3H PRN IV PAIN Last administered on 05/24/17 06:37; Admin Dose 4 MG; Start 05/23/17 at 14:00 Diagnostic Test (Pha) (Accu-Chek) 1 ea 02 XX ; Start 05/24/17 at 02:00 Meclizine HCl 25 mg 25 mg Q8H PRN PO NAUSEA; Start 05/24/17 at 09:00 Sodium Chloride 1,000 ml @ 50 mls/hr Q20H IV Last administered on 05/24/17 09: 11; Admin Dose 100 MLS/HR; Start 05/24/17 at 09:00 Cefepime HCl (Maxipime 2gm/50 ml (Pmx)) 50 ml @ 100 mls/hr Q12 IVPB Last administered on 05/24/17 11:51; Admin Dose 100 MLS/HR; Start 05/24/17 at 11:30 Assessment/Plan Chief Complaint/Hosp Course Ass. 1. Systemic Lupus Erythematosis with highly positive REYNALDO, low C3 and C4, Cecil's Thyroiditis, pericarditis, lymphadenopathy, bronchiolitis, Elev. ESR, Hypergammaglobulinemia, Leukopenia (until recently) 2. Leukocytosis, anemia, decreased platelet count yesterday. Unclear if hemolyzing. Today leukocytosis improved (in spite of steroids). 3. Lactic acidosis, Improved. 4. Marked transaminitis. Will check for muscle etiology with CK. Hepatitis serologies negative, and Smooth muscle antibodies (for autoimmune hepatitis) also negative. 5. Possible hypocalcemia Relatively low albumin. (ionized calcium level pending). Does have low Vitamin D level (?). 6. Cecil's Thyroiditis 7. Severe Hypothyroidism 8. Pericardial effusion. Now s/p pericardial window placement. 9. Hyperglycemia, due to steroids. Problems: Additional Assessment/Plan Plan: Continue steroids same dose today YOHANA DURAND MD May 24, 2017 13:42
[2017-05-24 13:55] LABS: AADO2 Arterial 47.7 mmHg (7.0-24.0); Arterial Base Excess -3.7 mmol/L (-3.0-3); Arterial COHb 0.3 % (0.0-3.0); Arterial Fraction of Oxyhgb 94.8 % (93.0-99.0); Arterial HCO3 20.2 mmol/L (22.0-26.0); Arterial MetHb 0.2 % (0.0-1.5); Arterial Total Hemglobin 11.2 g/dl (12.0-18.0); MODE NASAL CANNULA
--- NOTE | 2017-05-24 14:14 | CONS ---
Date/Time of Note Date/Time of Note DATE: 05/24/17 TIME: 14:11 Assessment/Plan Assessment/Plan Chief Complaint/Hosp Course Transferred to telemetry, alert feels good, looks comfortable Temperature 98.1 pulse 72 respirations 19 blood pressure 114/87 saturation 95% on 2 L WBC 13.4 H&H 10.2 and 31.3 platelets 180 neutrophils 79.2 BUN 17 creatinine 0.72 Antimicrobials: Cefepime, Levaquin Indwelling's: Left sided chest tubes Physical examination: Well-developed well-nourished young woman who is in no distress. Head atraumatic, normocephalic sclera nonicteric pupils reactive to light equally. Neck is supple, trachea midline. Chest rise symmetrical, breath sounds diminished to left. Abdomen soft bowel tones present. Extremities without cyanosis, trace dependent edema. Assessment: 1. Pericardial effusion, status post pericardial window, left thoracotomy and pulmonary decortication on May 22, 2017 2. Postop respiratory failure 3. Systemic lupus erythematosus 4. Cecil's thyroiditis 5. Leukocytosis, remains on Solu Medrol 6. Bronchiolitis Plan: Stable, continue antibiotics, await for intraoperative cultures, follow recommendations of consultants. Discussed with staff Problems: Consultation Date/Type/Reason Admit Date/Time May 18, 2017 at 05:57 Initial Consult Date 05/21/17 Type of Consultation: Infectious disease Referring Provider: ADRIÁN STALLINGS Exam/Review of Systems Vital Signs Vitals Vital Signs Date Time Temp Pulse Resp B/P Pulse Ox O2 Delivery O2 Flow Rate FiO2 05/24/17 12:13 77 05/24/17 11:44 97.5 20 109/75 90 05/24/17 10:45 Nasal Cannula 2.0 05/23/17 11:40 40 Intake and Output 05/23/17 05/23/17 05/24/17 15:00 23:00 07:00 Intake Total 679 ml 775 ml 250 ml Output Total 410 ml 245 ml 240 ml Balance 269 ml 530 ml 10 ml Results Result Diagram: 05/24/17 0455 05/24/17 0455 Results 24 hrs Laboratory Tests Test 05/23/17 17:01 05/23/17 18:10 05/23/17 21:56 05/24/17 04:55 Bedside Glucose 196 148 Sodium Level 136 137 Potassium Level 4.5 5.0 Chloride Level 106 109 Carbon Dioxide Level 23 # 24 Anion Gap 12 # 9 Blood Urea Nitrogen 15 17 Creatinine 0.62 0.72 Glucose Level 183 137 # Calcium Level 7.1 L 7.2 L Phosphorus Level 1.7 L 3.2 Magnesium Level 2.1 2.2 White Blood Count 13.4 H Red Blood Count 3.27 L Hemoglobin 10.2 L Hematocrit 31.3 L Mean Corpuscular Volume 95.7 Mean Corpuscular Hemoglobin 31.2 Mean Corpuscular Hemoglobin Concent 32.6 Red Cell Distribution Width 15.7 H Platelet Count 180 Mean Platelet Volume 11.4 H Neutrophils % 79.2 H Lymphocytes % 12.3 L Monocytes % 7.4 Eosinophils % 0.0 Basophils % 0.1 Nucleated Red Blood Cells % 1.1 H Neutrophils # 10.6 H Lymphocytes # 1.7 Monocytes # 1.0 H Eosinophils # 0.0 Basophils # 0.0 Nucleated Red Blood Cells # 0.2 H Erythrocyte Sedimentation Rate 50 H Lactic Acid Level 3.2 H Total Bilirubin 0.1 L Direct Bilirubin 0.00 Indirect Bilirubin 0.1 Aspartate Amino Transf (AST/SGOT) 1398 H Alanine Aminotransferase (ALT/SGPT) 1241 H Alkaline Phosphatase 66 Creatine Kinase 357 H Total Protein 5.9 L Albumin 2.8 L Globulin 3.10 Albumin/Globulin Ratio 0.90 Test 05/24/17 07:00 05/24/17 07:53 05/24/17 09:00 05/24/17 11:51 Blood Gas Specimen Source Blood arterial Arterial Blood Date Drawn 05/24/2017 7:14:00 AM Arterial Blood pH (Temp corrected) 7.413 Arterial Blood pCO2 (Temp correct) 32.3 L Arterial Blood pO2 (Temp corrected) 85.0 Arterial Blood HCO3 20.2 L Arterial Blood Base Excess -3.7 L Arterial Blood Oxygen Saturation 95.3 Tres Test N/A Arterial Blood Gas Puncture Site Right Brachial Arterial Blood Carboxyhemoglobin 0.3 Arterial Blood Methemoglobin 0.2 Blood Gas A-a O2 Differential 47.7 H Oxyhemoglobin Percent 94.8 Total Hemoglobin 11.2 L Blood Gas Temperature 37.0 Blood Gas Modality NASAL CANNULA FiO2 24.0 Blood Gas Notified Whom TM Blood Gas Notified Time 05/24/2017 7:30:00 AM Bedside Glucose 124 162 Urine Random Creatinine 138.55 Urine Random Sodium < 13 L Test 05/24/17 12:31 Lab Scanned Report REFERENCE LAB Medications Medications Current Medications Ondansetron HCl (Zofran Inj) 4 mg Q6H PRN IV NAUSEA AND/OR VOMITING; Start at 06:30 Pantoprazole 40 mg 40 mg DAILY@06 IV Last administered on 05/24/17 06:37; Admin Dose 40 MG; Start 05/18/17 at 07:00 Levofloxacin/ Dextrose (Levaquin 750 Mg/ D5W 150 ml (Pmx)) 150 ml @ 100 mls/hr Q24H IVPB Last administered on 05/23/17 14:20; Admin Dose 100 MLS/HR; Start at 14:30 Acetaminophen (Tylenol Tab) 1,000 mg Q6H PRN PO PAIN AND OR ELEVATED TEMP Last administered on 05/24/17 08:26; Admin Dose 1,000 MG; Start 05/21/17 at 14:00 Methylprednisolone Sodium Succinate (Solu-Medrol) 125 mg Q8 IV Last administered on 05/24/17 06:37; Admin Dose 125 MG; Start 05/22/17 at 22:00 Miscellaneous Information 1 ea NOTE XX ; Start 05/23/17 at 10:00 Glucose (Glutose) 15 gm Q15M PRN PO DECREASED GLUCOSE; Start 05/23/17 at 10:00 Glucose (Glutose) 22.5 gm Q15M PRN PO DECREASED GLUCOSE; Start 05/23/17 at 10:00 Dextrose (D50w Syringe) 25 ml Q15M PRN IV DECREASED GLUCOSE; Start 05/23/17 at 10:00 Dextrose (D50w Syringe) 50 ml Q15M PRN IV DECREASED GLUCOSE; Start 05/23/17 at 10:00 Glucagon (Glucagen) 1 mg Q15M PRN IM DECREASED GLUCOSE; Start 05/23/17 at 10:00 Glucose (Glutose) 15 gm Q15M PRN BUCCAL DECREASED GLUCOSE; Start 05/23/17 at 10: 00 Morphine Sulfate (morphine) 4 mg Q3H PRN IV PAIN Last administered on 05/24/17 06:37; Admin Dose 4 MG; Start 05/23/17 at 14:00 Diagnostic Test (Pha) (Accu-Chek) 1 ea 02 XX ; Start 05/24/17 at 02:00 Meclizine HCl 25 mg 25 mg Q8H PRN PO NAUSEA; Start 05/24/17 at 09:00 Sodium Chloride 1,000 ml @ 50 mls/hr Q20H IV Last administered on 05/24/17 09: 11; Admin Dose 100 MLS/HR; Start 05/24/17 at 09:00 Cefepime HCl (Maxipime 2gm/50 ml (Pmx)) 50 ml @ 100 mls/hr Q12 IVPB Last administered on 05/24/17 11:51; Admin Dose 100 MLS/HR; Start 05/24/17 at 11:30 JANNY LUTZ NP May 24, 2017 14:14
[2017-05-24] MEDS: LEVOFLOXACIN 750MG/D5W (PMX) 150 ML IVPB SCH (14:30)
--- NOTE | 2017-05-24 15:55 | CONS ---
Date/Time of Note Date/Time of Note DATE: 05/24/17 TIME: 15:50 Assessment/Plan Assessment/Plan Chief Complaint/Hosp Course IMp: 1.Pericardial effusion-moderate by echo with no signs of echo tamponade by initial echo. Sable BP, HR around 100. ? 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 s/p CT Recc: -maintain on tele -Treat hypothyroid state as you are doing -follow BP/HR -Follow volume status closely on gentle lasix diuresis -Continue steroids/abx's and f/u cx data -Ongoing Rheum eval Problems: Consultation Date/Type/Reason Admit Date/Time May 18, 2017 at 05:57 Initial Consult Date 05/19/17 Type of Consultation: cardiology Reason for Consultation pericardial effusion Referring Provider: ADRIÁN STALLINGS Exam/Review of Systems Vital Signs Vitals Vital Signs Date Time Temp Pulse Resp B/P Pulse Ox O2 Delivery O2 Flow Rate FiO2 05/24/17 12:13 77 05/24/17 11:44 97.5 20 109/75 90 05/24/17 10:45 Nasal Cannula 2.0 05/23/17 11:40 40 Intake and Output 05/23/17 05/23/17 05/24/17 15:00 23:00 07:00 Intake Total 679 ml 775 ml 250 ml Output Total 410 ml 245 ml 240 ml Balance 269 ml 530 ml 10 ml Exam Review of Systems: CONSTITUTIONAL: No fevers, chills. PULMONARY: mild pain at surgical site CARDIOVASCULAR: No chest pain/palpitations GASTROINTESTINAL: No nausea/vomiting. GENITOURINARY: No hematuria/dysuria. MUSCULOSKELETAL: No myagias/arthalgias. PSYCHIATRIC: The patient denies depression. NEUROLOGIC: No weakness Constitutional: alert, oriented Psych: no complaints Head: normocephalic ENMT: mucosa pink and moist Neck: jvd (8-9 cm water), supple Respiratory: diminished breath sounds (at bases/B), other (L sided CT) Cardiovascular: regular rate and rhythm Gastrointestinal: non-tender, soft Musculoskeletal: muscle tone (normal) Extremities: edema (none) Neurological: other (No focal; deficits) Results Result Diagram: 05/24/17 0455 05/24/17 0455 Results 24 hrs Laboratory Tests Test 05/23/17 17:01 05/23/17 18:10 05/23/17 21:56 05/24/17 04:55 Bedside Glucose 196 148 Sodium Level 136 137 Potassium Level 4.5 5.0 Chloride Level 106 109 Carbon Dioxide Level 23 # 24 Anion Gap 12 # 9 Blood Urea Nitrogen 15 17 Creatinine 0.62 0.72 Glucose Level 183 137 # Calcium Level 7.1 L 7.2 L Phosphorus Level 1.7 L 3.2 Magnesium Level 2.1 2.2 White Blood Count 13.4 H Red Blood Count 3.27 L Hemoglobin 10.2 L Hematocrit 31.3 L Mean Corpuscular Volume 95.7 Mean Corpuscular Hemoglobin 31.2 Mean Corpuscular Hemoglobin Concent 32.6 Red Cell Distribution Width 15.7 H Platelet Count 180 Mean Platelet Volume 11.4 H Neutrophils % 79.2 H Lymphocytes % 12.3 L Monocytes % 7.4 Eosinophils % 0.0 Basophils % 0.1 Nucleated Red Blood Cells % 1.1 H Neutrophils # 10.6 H Lymphocytes # 1.7 Monocytes # 1.0 H Eosinophils # 0.0 Basophils # 0.0 Nucleated Red Blood Cells # 0.2 H Erythrocyte Sedimentation Rate 50 H Lactic Acid Level 3.2 H Total Bilirubin 0.1 L Direct Bilirubin 0.00 Indirect Bilirubin 0.1 Aspartate Amino Transf (AST/SGOT) 1398 H Alanine Aminotransferase (ALT/SGPT) 1241 H Alkaline Phosphatase 66 Creatine Kinase 357 H Total Protein 5.9 L Albumin 2.8 L Globulin 3.10 Albumin/Globulin Ratio 0.90 Test 05/24/17 07:00 05/24/17 07:53 05/24/17 09:00 05/24/17 11:51 Blood Gas Specimen Source Blood arterial Arterial Blood Date Drawn 05/24/2017 7:14:00 AM Arterial Blood pH (Temp corrected) 7.413 Arterial Blood pCO2 (Temp correct) 32.3 L Arterial Blood pO2 (Temp corrected) 85.0 Arterial Blood HCO3 20.2 L Arterial Blood Base Excess -3.7 L Arterial Blood Oxygen Saturation 95.3 Tres Test N/A Arterial Blood Gas Puncture Site Right Brachial Arterial Blood Carboxyhemoglobin 0.3 Arterial Blood Methemoglobin 0.2 Blood Gas A-a O2 Differential 47.7 H Oxyhemoglobin Percent 94.8 Total Hemoglobin 11.2 L Blood Gas Temperature 37.0 Blood Gas Modality NASAL CANNULA FiO2 24.0 Blood Gas Notified Whom TM Blood Gas Notified Time 05/24/2017 7:30:00 AM Bedside Glucose 124 162 Urine Random Creatinine 138.55 Urine Random Sodium < 13 L Test 05/24/17 12:31 Lab Scanned Report REFERENCE LAB Medications Medications Current Medications Ondansetron HCl (Zofran Inj) 4 mg Q6H PRN IV NAUSEA AND/OR VOMITING; Start at 06:30 Pantoprazole 40 mg 40 mg DAILY@06 IV Last administered on 05/24/17 06:37; Admin Dose 40 MG; Start 05/18/17 at 07:00 Levofloxacin/ Dextrose (Levaquin 750 Mg/ D5W 150 ml (Pmx)) 150 ml @ 100 mls/hr Q24H IVPB Last administered on 05/23/17 14:20; Admin Dose 100 MLS/HR; Start at 14:30 Acetaminophen (Tylenol Tab) 1,000 mg Q6H PRN PO PAIN AND OR ELEVATED TEMP Last administered on 05/24/17 08:26; Admin Dose 1,000 MG; Start 05/21/17 at 14:00 Methylprednisolone Sodium Succinate (Solu-Medrol) 125 mg Q8 IV Last administered on 05/24/17 06:37; Admin Dose 125 MG; Start 05/22/17 at 22:00 Miscellaneous Information 1 ea NOTE XX ; Start 05/23/17 at 10:00 Glucose (Glutose) 15 gm Q15M PRN PO DECREASED GLUCOSE; Start 05/23/17 at 10:00 Glucose (Glutose) 22.5 gm Q15M PRN PO DECREASED GLUCOSE; Start 05/23/17 at 10:00 Dextrose (D50w Syringe) 25 ml Q15M PRN IV DECREASED GLUCOSE; Start 05/23/17 at 10:00 Dextrose (D50w Syringe) 50 ml Q15M PRN IV DECREASED GLUCOSE; Start 05/23/17 at 10:00 Glucagon (Glucagen) 1 mg Q15M PRN IM DECREASED GLUCOSE; Start 05/23/17 at 10:00 Glucose (Glutose) 15 gm Q15M PRN BUCCAL DECREASED GLUCOSE; Start 05/23/17 at 10: 00 Morphine Sulfate (morphine) 4 mg Q3H PRN IV PAIN Last administered on 05/24/17 06:37; Admin Dose 4 MG; Start 05/23/17 at 14:00 Diagnostic Test (Pha) (Accu-Chek) 1 ea 02 XX ; Start 05/24/17 at 02:00 Meclizine HCl 25 mg 25 mg Q8H PRN PO NAUSEA; Start 05/24/17 at 09:00 Sodium Chloride 1,000 ml @ 50 mls/hr Q20H IV Last administered on 05/24/17 09: 11; Admin Dose 100 MLS/HR; Start 05/24/17 at 09:00 Cefepime HCl (Maxipime 2gm/50 ml (Pmx)) 50 ml @ 100 mls/hr Q12 IVPB Last administered on 05/24/17 11:51; Admin Dose 100 MLS/HR; Start 05/24/17 at 11:30 GENEVIEVE HERNANDEZ May 24, 2017 15:55
[2017-05-24 17:52] LABS: MYELOPEROXIDASE ANTIBODY <1.0 AI; PROTEINASE-3 ANTIBODY <1.0 AI
[2017-05-24] MEDS ORDERED: LIDOCAINE 1% (MPF) 5 ML VIAL ONE (18:10)
--- NOTE | 2017-05-24 18:23 | PN ---
Date/Time of Note Date/Time of Note DATE: 05/24/17 TIME: 18:21 Assessment/Plan Lines/Catheters IV Catheter Type (from Nrs): Peripheral IV Assessment/Plan Chief Complaint/Hosp Course Patient with pericardial effusion Status post pericardial window Chest tube with 185 cc of drainage Awaiting pathology We will continue chest tube suction Discussed with the referring physicians Problems: Subjective 24 Hr Interval Summary Constitutional: improved Pain Control: mild Exam/Review of Systems Vital Signs Vitals Vital Signs Date Time Temp Pulse Resp B/P Pulse Ox O2 Delivery O2 Flow Rate FiO2 05/24/17 16:13 72 05/24/17 15:59 97.8 20 125/81 100 05/24/17 10:45 Nasal Cannula 2.0 05/23/17 11:40 40 Intake and Output 05/23/17 05/23/17 05/24/17 15:00 23:00 07:00 Intake Total 679 ml 775 ml 250 ml Output Total 410 ml 245 ml 240 ml Balance 269 ml 530 ml 10 ml Exam ENMT: mucosa pink and moist, nl external ears & nose, nl lips & teeth, nl nasal mucosa & septum Neck: non-tender, supple Respiratory: clear to auscultation, normal air movement Cardiovascular: nl pulses, regular rate and rhythm Gastrointestinal: nl liver, spleen, non-tender, soft Results Result Diagram: 05/24/17 0455 05/24/17 0455 KRYSTAL HARRIS MD May 24, 2017 18:23
[2017-05-24 21:02] LABS: CYCLIC CITRULLINATED PEP IGG <16 UNITS
--- NOTE | 2017-05-24 22:11 | RADRPT ---
PROCEDURE: Ultrasound guided left axillary lymph node biopsy. CLINICAL INDICATION: Left axillary lymph node enlargement. TECHNIQUE: Prior to the procedure, informed consent was obtained. Risks including bleeding and in fection were explained to the patient. The patient understood and was willing to proceed. A proced ural pause was performed. The patient's name, date of , and procedure to be performed were [email or web address] ified. Using local anesthetic, sterile technique and ultrasound guidance, an 18-gauge automated core biopsy needle was used to biopsy of the left axillary enlarged lymph node. Multiple passes were made. Ad equate tissue was obtained according to the pathologist present during the biopsy. Specimens were s ent for histology as well as culture and sensitivity. The patient tolerated the procedure well. COMPARISON: CT scan of the chest dated 05/18/2017. FINDINGS: Images demonstrate the enlarged left axillary lymph node, and subsequent images demonstrate a needle within the left axillary lymph node. IMPRESSION: 1. Satisfactory ultrasound-guided axillary lymph node biopsy. RPTAT: QQ .Earl Espinoza MD, MD Date Time Electronically viewed and signed by .Earl Espinoza MD, on 05/24/2017 22:10 .R/
[2017-05-24 23:32] LABS: ADD UMIC YES; UR AMORPHOUS CRYSTAL FEW /HPF (NONE SEEN); UR ASCORBIC ACID NEGATIVE (NEGATIVE); UR BACTERIA FEW /HPF (NONE SEEN); UR BILIRUBIN (Dip) NEGATIVE (NEGATIVE); UR BLOOD (Dip) 2+ mg/dL (NEGATIVE); UR CLARITY TURBID (CLEAR); UR COLOR AMBER (YELLOW); UR GLUCOSE (Dip) NEGATIVE (NEGATIVE); UR KETONES (Dip) NEGATIVE (NEGATIVE); UR LEUKOCYTE ESTERASE (Dip) NEGATIVE Leu/ul (NEGATIVE); UR MUCUS MANY /HPF (NONE SEEN); UR NITRITE (Dip) NEGATIVE (NEGATIVE); UR RBC 61 /HPF (0-5); UR SPECIFIC GRAVITY (Dip) 1.023 (1.003-1.030); UR SQUAMOUS EPITHELIAL CELL FEW /HPF (FEW); UR TOTAL PROTEIN (Dip) 1+ mg/dl (NEGATIVE); UR UROBILINOGEN (Dip) NEGATIVE (NEGATIVE)
[2017-05-24] MEDS: BISACODYL (EC) 5 MG TAB PO PRN (23:56)
[2017-05-25] VITALS (12 sets, daily range): BP systolic 109–125; BP diastolic 73–97; PULSE 53–71; RESP 14–20
[2017-05-25] MEDS: morphine 4 MG/ML VIAL IV PRN ×5 (00:50→22:58)
[2017-05-25] MEDS: SOD CHLORIDE 0.9% 1,000 ML IV SCH ×3 (00:54→23:43)
[2017-05-25] MEDS: ACCU-CHEK XX SCH (02:00)
[2017-05-25] MEDS: ONDANSETRON 4 MG INJ IV PRN ×2 (06:09→13:57)
[2017-05-25] MEDS: PANTOPRAZOLE 40 MG INJ IV SCH (06:12)
[2017-05-25] MEDS: METHYLPREDNISOLONE 125 MG INJ IV SCH ×2 (06:16→21:38)
[2017-05-25] MEDS: FUROSEMIDE 20 MG INJ IV SCH ×2 (06:16→17:17)
[2017-05-25] MEDS: LEVOTHYROXINE 125 MCG TAB PO SCH (06:16)
[2017-05-25 08:10] LABS: ADD SCAN DIFF NO
[2017-05-25 08:19] LABS: BASOPHILS % 0.3 % (0.0-2.0); HEMATOCRIT 34.5 % (37.0-47.0); HEMOGLOBIN 10.9 g/dl (12.0-16.0); LYMPHOCYTES # 2.2 10^3/ul (0.8-2.9); LYMPHOCYTES % 14.6 % (15.0-51.0); MEAN CORPUSCULAR HEMOGLOBIN 30.4 pg (29.0-33.0); MEAN CORPUSCULAR HGB CONC 31.6 g/dl (32.0-37.0); MEAN CORPUSCULAR VOLUME 96.1 fl (82.0-101.0); MEAN PLATELET VOLUME 12.1 fl (7.4-10.4); MONOCYTE # 1.3 10^3/ul (0.3-0.9); MONOCYTES % 8.7 % (0.0-11.0); NEUTROPHILS % 73.8 % (39.0-77.0); NUCLEATED RED BLOOD CELLS # 0.8 10^3/ul (0.0-0.0); NUCLEATED RED BLOOD CELLS% 5.5 /100WBC (0.0-0.0); PLATELET COUNT 138 10^3/UL (140-415); RED BLOOD COUNT 3.59 10^6/ul (4.20-5.40); RED CELL DISTRIBUTION WIDTH 15.6 % (11.5-14.5); WHITE BLOOD COUNT 14.9 10^3/ul (4.8-10.8)
[2017-05-25] MEDS: CEFEPIME 2GM/50 ML (PMX) 50 ML IVPB SCH ×2 (08:22→21:38)
[2017-05-25] MEDS: INSULIN ASPART [NOVOLOG] 3 ML PEN SC SCH ×4 (08:22→21:56)
[2017-05-25 08:48] LABS: ALBUMIN 2.8 g/dl (3.3-4.9); ALBUMIN/GLOBULIN RATIO 0.93; BILIRUBIN,INDIRECT 0.2 mg/dl (0-1.1); BILIRUBIN,TOTAL 0.2 mg/dl (0.2-1.3); CALCIUM 7.4 mg/dl (8.4-10.2); CREATININE 0.9 mg/dl (0.44-1.00); TOTAL PROTEIN 5.8 g/dl (6.1-8.1)
[2017-05-25 09:23] LABS: MAGNESIUM 2.1 mg/dl (1.7-2.5); PHOSPHORUS 3.2 mg/dl (2.5-4.9)
--- NOTE | 2017-05-25 09:40 | RADRPT ---
PROCEDURE: X-ray Chest. CLINICAL INDICATION: Pneumonia. CHF. TECHNIQUE: Single view chest x-ray. COMPARISON: Exam is 05/24/2017. FINDINGS: Dual left thoracostomy tubes remain in position. The cardiomediastinal silhouette remains enlarged. There is mildly improved diffuse interstitial disease. There is no pneumothorax. Patchy bilateral perihilar parenchymal disease is also improved. There is residual contrast material in the left co mayra. There are no acute osseous abnormalities. IMPRESSION: 1. Cardiomegaly with findings of resolving hydrostatic edema and bilateral perihilar opacity. No p neumothorax. RPTAT: GG .Serge Coreas MD, MD Date Time Electronically viewed and signed by .Serge Coreas MD, on 05/25/2017 09:40 .P/
--- NOTE | 2017-05-25 12:52 | CONS ---
Date/Time of Note Date/Time of Note DATE: 05/25/17 TIME: 12:48 Assessment/Plan Assessment/Plan Chief Complaint/Hosp Course IMp: 1.Pericardial effusion-moderate by echo with no signs of echo tamponade by initial echo. Sable BP, HR around 100. ? 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 s/p CT Recc: -maintain on tele -Continue to treat hypothyroid state as you are doing -follow BP/HR -Follow volume status closely on gentle lasix diuresis -Continue steroids/abx's and f/u cx data -Ongoing Rheum eval/heme-onc eval -To have BM bx today Problems: Consultation Date/Type/Reason Admit Date/Time May 18, 2017 at 05:57 Initial Consult Date 05/19/17 Type of Consultation: cardiology Reason for Consultation pericardial effusion Referring Provider: ADRIÁN STALLINGS Exam/Review of Systems Vital Signs Vitals Vital Signs Date Time Temp Pulse Resp B/P Pulse Ox O2 Delivery O2 Flow Rate FiO2 05/25/17 12:22 53 05/25/17 12:05 97.2 16 109/73 92 05/25/17 08:37 Nasal Cannula 2.0 05/23/17 11:40 40 Intake and Output 05/24/17 05/24/17 05/25/17 15:00 23:00 07:00 Intake Total 220 ml 800 ml 1150 ml Output Total 15 ml 550 ml 1280 ml Balance 205 ml 250 ml -130 ml Exam Review of Systems: CONSTITUTIONAL: No fevers, chills. PULMONARY: No sob CARDIOVASCULAR: chest pain at CT site GASTROINTESTINAL: No nausea/vomiting. GENITOURINARY: No hematuria/dysuria. MUSCULOSKELETAL: No myagias/arthalgias. PSYCHIATRIC: The patient denies depression. NEUROLOGIC: No weakness Constitutional: alert Psych: no complaints ENMT: mucosa pink and moist Neck: jvd (8 cm water), supple Respiratory: diminished breath sounds (at bases/B), other (L sided CT in place) Cardiovascular: regular rate and rhythm Gastrointestinal: non-tender, soft Musculoskeletal: muscle tone (normal) Extremities: edema (none) Neurological: other (No focal deficits) Results Result Diagram: 05/25/17 0645 05/25/17 0645 Results 24 hrs Laboratory Tests Test 05/24/17 18:14 05/24/17 22:05 05/24/17 22:30 05/25/17 06:45 Bedside Glucose 158 162 Urine Color DASIA Urine Clarity TURBID A Urine pH 5.0 Urine Specific [place] 1.023 Urine Ketones NEGATIVE Urine Nitrite NEGATIVE Urine Bilirubin NEGATIVE Urine Urobilinogen NEGATIVE Urine Leukocyte Esterase NEGATIVE Urine Microscopic RBC 61 H Urine Microscopic WBC 0 Urine Squamous Epithelial Cells FEW Urine Amorphous Crystals FEW A Urine Bacteria FEW A Urine Hyaline Casts FEW A Urine Mucus MANY A Urine Hemoglobin 2+ H Urine Glucose NEGATIVE Urine Total Protein 1+ H White Blood Count 14.9 H Red Blood Count 3.59 L Hemoglobin 10.9 L Hematocrit 34.5 L Mean Corpuscular Volume 96.1 Mean Corpuscular Hemoglobin 30.4 Mean Corpuscular Hemoglobin Concent 31.6 L Red Cell Distribution Width 15.6 H Platelet Count 138 #L Mean Platelet Volume 12.1 H Neutrophils % 73.8 Lymphocytes % 14.6 L Monocytes % 8.7 Eosinophils % 0.0 Basophils % 0.3 Nucleated Red Blood Cells % 5.5 H Neutrophils # 11.0 H Lymphocytes # 2.2 Monocytes # 1.3 H Eosinophils # 0.0 Basophils # 0.0 Nucleated Red Blood Cells # 0.8 H Sodium Level 137 Potassium Level 5.0 Chloride Level 108 Carbon Dioxide Level 22 Anion Gap 12 Blood Urea Nitrogen 36 #H Creatinine 0.90 Glucose Level 155 Calcium Level 7.4 L Phosphorus Level 3.2 Magnesium Level 2.1 Total Bilirubin 0.2 Direct Bilirubin 0.00 Indirect Bilirubin 0.2 Aspartate Amino Transf (AST/SGOT) Alanine Aminotransferase (ALT/SGPT) 1787 H Alkaline Phosphatase 73 Total Protein 5.8 L Albumin 2.8 L Globulin 3.00 Albumin/Globulin Ratio 0.93 Test 05/25/17 07:47 05/25/17 08:17 05/25/17 12:24 Lab Scanned Report REFERENCE LAB Bedside Glucose 155 167 Medications Medications Current Medications Ondansetron HCl (Zofran Inj) 4 mg Q6H PRN IV NAUSEA AND/OR VOMITING Last administered on 05/25/17t 06:09; Admin Dose 4 MG; Start 05/18/17 at 06:30 Pantoprazole 40 mg 40 mg DAILY@06 IV Last administered on 05/25/17 06:12; Admin Dose 40 MG; Start 05/18/17 at 07:00 Levofloxacin/ Dextrose (Levaquin 750 Mg/ D5W 150 ml (Pmx)) 150 ml @ 100 mls/hr Q24H IVPB Last administered on 05/24/17 14:30; Admin Dose 100 MLS/HR; Start at 14:30 Acetaminophen (Tylenol Tab) 1,000 mg Q6H PRN PO PAIN AND OR ELEVATED TEMP Last administered on 05/24/17 08:26; Admin Dose 1,000 MG; Start 05/21/17 at 14:00 Methylprednisolone Sodium Succinate (Solu-Medrol) 125 mg Q8 IV Last administered on 05/25/17 06:16; Admin Dose 125 MG; Start 05/22/17 at 22:00 Miscellaneous Information 1 ea NOTE XX ; Start 05/23/17 at 10:00 Glucose (Glutose) 15 gm Q15M PRN PO DECREASED GLUCOSE; Start 05/23/17 at 10:00 Glucose (Glutose) 22.5 gm Q15M PRN PO DECREASED GLUCOSE; Start 05/23/17 at 10:00 Dextrose (D50w Syringe) 25 ml Q15M PRN IV DECREASED GLUCOSE; Start 05/23/17 at 10:00 Dextrose (D50w Syringe) 50 ml Q15M PRN IV DECREASED GLUCOSE; Start 05/23/17 at 10:00 Glucagon (Glucagen) 1 mg Q15M PRN IM DECREASED GLUCOSE; Start 05/23/17 at 10:00 Glucose (Glutose) 15 gm Q15M PRN BUCCAL DECREASED GLUCOSE; Start 05/23/17 at 10: 00 Morphine Sulfate (morphine) 4 mg Q3H PRN IV PAIN Last administered on 05/25/17 06:22; Admin Dose 4 MG; Start 05/23/17 at 14:00 Diagnostic Test (Pha) (Accu-Chek) 1 ea 02 XX ; Start 05/24/17 at 02:00 Meclizine HCl 25 mg 25 mg Q8H PRN PO NAUSEA; Start 05/24/17 at 09:00 Sodium Chloride 1,000 ml @ 50 mls/hr Q20H IV Last administered on 05/25/17 00: 54; Admin Dose 50 MLS/HR; Start 05/24/17 at 09:00 Cefepime HCl (Maxipime 2gm/50 ml (Pmx)) 50 ml @ 100 mls/hr Q12 IVPB Last administered on 05/25/17 08:22; Admin Dose 100 MLS/HR; Start 05/24/17 at 11:30 Bisacodyl (Dulcolax) 10 mg DAILY PRN PO CONSTIPATION Last administered on 23:56; Admin Dose 10 MG; Start 05/24/17 at 23:00 GENEVIEVE HERNANDEZ May 25, 2017 12:52
--- NOTE | 2017-05-25 13:40 | CONS ---
Date/Time of Note Date/Time of Note DATE: 05/25/17 TIME: 13:27 Consult Date/Type/Reason Admit Date/Time May 18, 2017 at 05:57 Initial Consult Date 05/22/17 Type of Consultation: Rheum Ordering Provider: ADRIÁN STALLINGS Subjective No new complaints other than fatigue. Underwent left axillary lymph node biopsy yesterday. Chest tube still in place, draining. Objective Vital Signs Date Time Temp Pulse Resp B/P Pulse Ox O2 Delivery O2 Flow Rate FiO2 05/25/17 12:22 53 05/25/17 12:05 97.2 16 109/73 92 05/25/17 08:37 Nasal Cannula 2.0 05/23/17 11:40 40 Intake and Output 05/24/17 05/24/17 05/25/17 15:00 23:00 07:00 Intake Total 220 ml 800 ml 1150 ml Output Total 15 ml 550 ml 1280 ml Balance 205 ml 250 ml -130 ml Exam Alert and oriented. NAD Skin without rash. Bandaid at left axilla. HEENT without acute lesions Neck. No definite lymphadenopathy noted. Chest Scattered crackles. Chest tubes in place. Heart RR Abdomen. Soft. No masses or tenderness. Ext No cyanosis. MS No synovitis. Neurol grossly intact. No definite muscle weakness. Psych. No definite anxiety at present. Results/Medications Result Diagram: 05/25/17 0645 05/25/17 0645 Results 24 hrs Laboratory Tests Test 05/24/17 18:14 05/24/17 22:05 05/24/17 22:30 05/25/17 06:45 Bedside Glucose 158 162 Urine Color DASIA Urine Clarity TURBID A Urine pH 5.0 Urine Specific [place] 1.023 Urine Ketones NEGATIVE Urine Nitrite NEGATIVE Urine Bilirubin NEGATIVE Urine Urobilinogen NEGATIVE Urine Leukocyte Esterase NEGATIVE Urine Microscopic RBC 61 H Urine Microscopic WBC 0 Urine Squamous Epithelial Cells FEW Urine Amorphous Crystals FEW A Urine Bacteria FEW A Urine Hyaline Casts FEW A Urine Mucus MANY A Urine Hemoglobin 2+ H Urine Glucose NEGATIVE Urine Total Protein 1+ H White Blood Count 14.9 H Red Blood Count 3.59 L Hemoglobin 10.9 L Hematocrit 34.5 L Mean Corpuscular Volume 96.1 Mean Corpuscular Hemoglobin 30.4 Mean Corpuscular Hemoglobin Concent 31.6 L Red Cell Distribution Width 15.6 H Platelet Count 138 #L Mean Platelet Volume 12.1 H Neutrophils % 73.8 Lymphocytes % 14.6 L Monocytes % 8.7 Eosinophils % 0.0 Basophils % 0.3 Nucleated Red Blood Cells % 5.5 H Neutrophils # 11.0 H Lymphocytes # 2.2 Monocytes # 1.3 H Eosinophils # 0.0 Basophils # 0.0 Nucleated Red Blood Cells # 0.8 H Sodium Level 137 Potassium Level 5.0 Chloride Level 108 Carbon Dioxide Level 22 Anion Gap 12 Blood Urea Nitrogen 36 #H Creatinine 0.90 Glucose Level 155 Calcium Level 7.4 L Phosphorus Level 3.2 Magnesium Level 2.1 Total Bilirubin 0.2 Direct Bilirubin 0.00 Indirect Bilirubin 0.2 Aspartate Amino Transf (AST/SGOT) Alanine Aminotransferase (ALT/SGPT) 1787 H Alkaline Phosphatase 73 Total Protein 5.8 L Albumin 2.8 L Globulin 3.00 Albumin/Globulin Ratio 0.93 Test 05/25/17 07:47 05/25/17 08:17 05/25/17 12:24 Lab Scanned Report REFERENCE LAB Bedside Glucose 155 167 Medications Current Medications Ondansetron HCl (Zofran Inj) 4 mg Q6H PRN IV NAUSEA AND/OR VOMITING Last administered on 05/25/17 06:09; Admin Dose 4 MG; Start 05/18/17 at 06:30 Pantoprazole 40 mg 40 mg DAILY@06 IV Last administered on 05/25/17 06:12; Admin Dose 40 MG; Start 05/18/17 at 07:00 Levofloxacin/ Dextrose (Levaquin 750 Mg/ D5W 150 ml (Pmx)) 150 ml @ 100 mls/hr Q24H IVPB Last administered on 05/24/17 14:30; Admin Dose 100 MLS/HR; Start at 14:30 Acetaminophen (Tylenol Tab) 1,000 mg Q6H PRN PO PAIN AND OR ELEVATED TEMP Last administered on 05/24/17 08:26; Admin Dose 1,000 MG; Start 05/21/17 at 14:00 Methylprednisolone Sodium Succinate (Solu-Medrol) 125 mg Q8 IV Last administered on 05/25/17 06:16; Admin Dose 125 MG; Start 05/22/17 at 22:00 Miscellaneous Information 1 ea NOTE XX ; Start 05/23/17 at 10:00 Glucose (Glutose) 15 gm Q15M PRN PO DECREASED GLUCOSE; Start 05/23/17 at 10:00 Glucose (Glutose) 22.5 gm Q15M PRN PO DECREASED GLUCOSE; Start 05/23/17 at 10:00 Dextrose (D50w Syringe) 25 ml Q15M PRN IV DECREASED GLUCOSE; Start 05/23/17 at 10:00 Dextrose (D50w Syringe) 50 ml Q15M PRN IV DECREASED GLUCOSE; Start 05/23/17 at 10:00 Glucagon (Glucagen) 1 mg Q15M PRN IM DECREASED GLUCOSE; Start 05/23/17 at 10:00 Glucose (Glutose) 15 gm Q15M PRN BUCCAL DECREASED GLUCOSE; Start 05/23/17 at 10: 00 Morphine Sulfate (morphine) 4 mg Q3H PRN IV PAIN Last administered on 05/25/17 06:22; Admin Dose 4 MG; Start 05/23/17 at 14:00 Diagnostic Test (Pha) (Accu-Chek) 1 ea 02 XX ; Start 05/24/17 at 02:00 Meclizine HCl 25 mg 25 mg Q8H PRN PO NAUSEA; Start 05/24/17 at 09:00 Sodium Chloride 1,000 ml @ 50 mls/hr Q20H IV Last administered on 05/25/17 00: 54; Admin Dose 50 MLS/HR; Start 05/24/17 at 09:00 Cefepime HCl (Maxipime 2gm/50 ml (Pmx)) 50 ml @ 100 mls/hr Q12 IVPB Last administered on 05/25/17 08:22; Admin Dose 100 MLS/HR; Start 05/24/17 at 11:30 Bisacodyl (Dulcolax) 10 mg DAILY PRN PO CONSTIPATION Last administered on 23:56; Admin Dose 10 MG; Start 05/24/17 at 23:00 Assessment/Plan Chief Complaint/Hosp Course Ass. 1. Systemic Lupus Erythematosis with highly positive REYNALDO, low C3 and C4, Cecil's Thyroiditis, pericarditis, lymphadenopathy, bronchiolitis, Elev. ESR, Hypergammaglobulinemia, Leukopenia (until recently) 2. Leukocytosis, anemia, decreased platelet count yesterday. No evid. of Hemolysis. 3. Lactic acidosis, Improved. 4. Marked transaminitis. CK only mildly elevated (likely due to the surgery). Acute EBV and Hepatitis serologies negative, and Smooth muscle antibodies (for autoimmune hepatitis) also negative. 5. Possible mild hypocalcemia Relatively low albumin. (ionized calcium 1.0). Does have low Vitamin D level (?). 6. Cecil's Thyroiditis 7. Severe Hypothyroidism 8. Pericardial effusion. Now s/p pericardial window placement. 9. Hyperglycemia, due to steroids. Problems: Additional Assessment/Plan Plan: Will decrease Solumedrol to 60 mg bid. CMV titer pending YOHANA DURAND MD May 25, 2017 13:38
[2017-05-25] MEDS: LEVOFLOXACIN 750MG/D5W (PMX) 150 ML IVPB SCH (14:30)
--- NOTE | 2017-05-25 17:17 | CONS ---
Date/Time of Note Date/Time of Note DATE: 05/25/17 TIME: 17:08 Assessment/Plan Assessment/Plan Additional Assessment/Plan There is a significant raise in the liver functions after patient was started on Levaquin It appears to be her liver functions are secondary to Levaquin And I agreed to DC the Levaquin at this Is a good possibility that she could have lupus and the liver can be affected by the lupus The fact that anti-DNA is negative less likely to have a diagnosis of lupus Recommend hepatitis panel Repeat the liver function I will evaluate the ultrasound CAT scan of the abdomen I will be happy to follow this patient along with Consultation Date/Type/Reason Admit Date/Time May 18, 2017 at 05:57 Reason for Consultation abn lfts Patient admitted to the hospital because of shortness of breath tiredness and weakness She was found to have a severe hypothyroidism Also abnormal liver functions and hence a GI consultation is requested patient unable to give any history at this time Constitutional: no complaints Eyes: no complaints, No discharge, No other, No pain, No redness, No visual change ENT: No bleeding, No congestion, No discharge, No dysphagia, No no complaints, No other, No pain, No sore throat Respiratory: cough, shortness of breath, No no complaints, No other, No pain, No pleuritic pain, No sputum, No wheezing Cardiovascular: No chest pain, No edema, No lightheadedness, No no complaints, No orthopenea, No other, No palpitations, No paroxysmal nocturnal dyspnea Gastrointestinal: decreased appetite, nausea, No blood, No constipation, No diarrhea, No pain Genitourinary: No bleeding, No discharge, No dysuria, No flank pain, No hematuria, No no complaints, No other Musculoskeletal: No back pain, No bone/joint pain, No neck pain, No no complaints, No other, No restricted range of motion, No swelling Skin: No bruising, No erythema, No laceration, No no complaints, No other, No pruritis, No rash, No skin lesions Neurologic: No confusion, No dizziness, No focal-weakness, No headache, No no complaints, No other, No seizure, No syncope Endocrine: no complaints, No dry skin, No other, No polydypsia, No polyuria, No temp intolerance Lymphatic: adenopathy, no complaints, No lymphadema, No other, No tender nodes Psychological: no complaints Immunologic: immunodeficiency, No no complaints, No other, No pruritis, No rhinitis, No urticaria Past Medical History Medical History: hypothyroid Past Surgical History Past Surgical Hx: no surgical history Social History Alcohol Use: none Smoking Status: Never smoker Drug Use: none Exam/Review of Systems Vital Signs Vitals Vital Signs Date Time Temp Pulse Resp B/P Pulse Ox O2 Delivery O2 Flow Rate FiO2 05/25/17 16:47 2.0 05/25/17 16:11 97.8 65 14 109/73 100 05/25/17 08:37 Nasal Cannula 05/23/17 11:40 40 Intake and Output 05/24/17 05/24/17 05/25/17 15:00 23:00 07:00 Intake Total 220 ml 800 ml 1150 ml Output Total 15 ml 550 ml 1280 ml Balance 205 ml 250 ml -130 ml Exam Patient is lethargic she is unable to give me appropriate she is found to have abnormality of lfts She was found to have a been started on the Levaquin Examination of the heart unremarkable Examination of the lungs unremarkable except he has got a chest tube which was placed for the pleural effusion Examination of the abdomen showed no masses no tenderness no distention Results Result Diagram: 05/25/17 0645 05/25/17 0645 Results 24 hrs Laboratory Tests Test 05/24/17 18:14 05/24/17 22:05 05/24/17 22:30 05/25/17 06:45 Bedside Glucose 158 162 Urine Color DASIA Urine Clarity TURBID A Urine pH 5.0 Urine Specific [place] 1.023 Urine Ketones NEGATIVE Urine Nitrite NEGATIVE Urine Bilirubin NEGATIVE Urine Urobilinogen NEGATIVE Urine Leukocyte Esterase NEGATIVE Urine Microscopic RBC 61 H Urine Microscopic WBC 0 Urine Squamous Epithelial Cells FEW Urine Amorphous Crystals FEW A Urine Bacteria FEW A Urine Hyaline Casts FEW A Urine Mucus MANY A Urine Hemoglobin 2+ H Urine Glucose NEGATIVE Urine Total Protein 1+ H White Blood Count 14.9 H Red Blood Count 3.59 L Hemoglobin 10.9 L Hematocrit 34.5 L Mean Corpuscular Volume 96.1 Mean Corpuscular Hemoglobin 30.4 Mean Corpuscular Hemoglobin Concent 31.6 L Red Cell Distribution Width 15.6 H Platelet Count 138 #L Mean Platelet Volume 12.1 H Neutrophils % 73.8 Lymphocytes % 14.6 L Monocytes % 8.7 Eosinophils % 0.0 Basophils % 0.3 Nucleated Red Blood Cells % 5.5 H Neutrophils # 11.0 H Lymphocytes # 2.2 Monocytes # 1.3 H Eosinophils # 0.0 Basophils # 0.0 Nucleated Red Blood Cells # 0.8 H Sodium Level 137 Potassium Level 5.0 Chloride Level 108 Carbon Dioxide Level 22 Anion Gap 12 Blood Urea Nitrogen 36 #H Creatinine 0.90 Glucose Level 155 Calcium Level 7.4 L Phosphorus Level 3.2 Magnesium Level 2.1 Total Bilirubin 0.2 Direct Bilirubin 0.00 Indirect Bilirubin 0.2 Aspartate Amino Transf (AST/SGOT) Alanine Aminotransferase (ALT/SGPT) 1787 H Alkaline Phosphatase 73 Total Protein 5.8 L Albumin 2.8 L Globulin 3.00 Albumin/Globulin Ratio 0.93 Test 05/25/17 07:47 05/25/17 08:17 05/25/17 12:24 Lab Scanned Report REFERENCE LAB Bedside Glucose 155 167 Medications Medications Current Medications Ondansetron HCl (Zofran Inj) 4 mg Q6H PRN IV NAUSEA AND/OR VOMITING Last administered on 05/25/17 13:57; Admin Dose 4 MG; Start 05/18/17 at 06:30 Pantoprazole 40 mg 40 mg DAILY@06 IV Last administered on 05/25/17 06:12; Admin Dose 40 MG; Start 05/18/17 at 07:00 Levofloxacin/ Dextrose (Levaquin 750 Mg/ D5W 150 ml (Pmx)) 150 ml @ 100 mls/hr Q24H IVPB Last administered on 05/24/17 14:30; Admin Dose 100 MLS/HR; Start at 14:30 Acetaminophen (Tylenol Tab) 1,000 mg Q6H PRN PO PAIN AND OR ELEVATED TEMP Last administered on 05/24/17 08:26; Admin Dose 1,000 MG; Start 05/21/17 at 14:00 Miscellaneous Information 1 ea NOTE XX ; Start 05/23/17 at 10:00 Glucose (Glutose) 15 gm Q15M PRN PO DECREASED GLUCOSE; Start 05/23/17 at 10:00 Glucose (Glutose) 22.5 gm Q15M PRN PO DECREASED GLUCOSE; Start 05/23/17 at 10:00 Dextrose (D50w Syringe) 25 ml Q15M PRN IV DECREASED GLUCOSE; Start 05/23/17 at 10:00 Dextrose (D50w Syringe) 50 ml Q15M PRN IV DECREASED GLUCOSE; Start 05/23/17 at 10:00 Glucagon (Glucagen) 1 mg Q15M PRN IM DECREASED GLUCOSE; Start 05/23/17 at 10:00 Glucose (Glutose) 15 gm Q15M PRN BUCCAL DECREASED GLUCOSE; Start 05/23/17 at 10: 00 Morphine Sulfate (morphine) 4 mg Q3H PRN IV PAIN Last administered on 05/25/17 13:57; Admin Dose 4 MG; Start 05/23/17 at 14:00 Diagnostic Test (Pha) (Accu-Chek) 1 ea 02 XX ; Start 05/24/17 at 02:00 Meclizine HCl 25 mg 25 mg Q8H PRN PO NAUSEA; Start 05/24/17 at 09:00 Sodium Chloride 1,000 ml @ 50 mls/hr Q20H IV Last administered on 05/25/17 00: 54; Admin Dose 50 MLS/HR; Start 05/24/17 at 09:00 Cefepime HCl (Maxipime 2gm/50 ml (Pmx)) 50 ml @ 100 mls/hr Q12 IVPB Last administered on 05/25/17 08:22; Admin Dose 100 MLS/HR; Start 05/24/17 at 11:30 Bisacodyl (Dulcolax) 10 mg DAILY PRN PO CONSTIPATION Last administered on 23:56; Admin Dose 10 MG; Start 05/24/17 at 23:00 Methylprednisolone Sodium Succinate (Solu-Medrol) 60 mg Q12 IV ; Start 05/25/17 at 21:00 SHUBHAM JENNINGS MD May 25, 2017 17:17
--- NOTE | 2017-05-25 18:35 | PN ---
Date/Time of Note Date/Time of Note DATE: 05/25/17 TIME: 18:31 Assessment/Plan VTE Prophylaxis VTE Prophylaxis Intervention: SCD's Lines/Catheters IV Catheter Type (from Nrs): Peripheral IV Urinary Cath still in place: No Assessment/Plan Chief Complaint/Hosp Course 26 yo F discharged from [facility] February 2017 after new diagnosis of severe hypothyroidism who now presents with shortness of breath and is found to have pericardial effusion as well as bronchiolitis 1. SLE with highly positive REYNALDO Rheumatology on the case Continue Solu-Medrol 2. 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 Moderate pericardial effusion likely autoimmune Status post pericardial window as well as pulmonary decortication, follow-up on cytology cultures Cardiology on the case as well as CT surgery 3. Bilateral infectious/inflammatory bronchiolitis Continue cefepime but DC Levaquin secondary to transaminitis 4. Bilateral mild to moderate axillary lymphadenopathy and diffuse cervical adenopathy on Thyroid USS 03/2017. Pathology from needle biopsy showed reactive lymphocytes Pathology from biopsy of lymph node shows no evidence of malignancy Bone marrow biopsy canceled today as patient was short of breath and unstable for another biopsy 5. Acute transaminitis: Severely elevated today GI consultation treated, eval for autoimmune hepatitis Hepatitis panel is negative DC Levaquin as may be be contributing to her transaminitis 6. Dyslipidemia 7. Cardiomyopathy-EF 40-45% by echo 8. New Raynaud's phenomenon and hand petechiae Rheumatology consult appreciated 9. Acute kidney injury Creatinine now stable Nephrology consultation appreciated 10. Acute respiratory distress-resolved Pulmonology following Prophylaxis: SCDs Problems: Subjective 24 Hr Interval Summary Gastrointestinal: pain Exam/Review of Systems Vital Signs Vitals Vital Signs Date Time Temp Pulse Resp B/P Pulse Ox O2 Delivery O2 Flow Rate FiO2 05/25/17 16:47 2.0 05/25/17 16:11 97.8 65 14 109/73 100 05/25/17 08:37 Nasal Cannula 05/23/17 11:40 40 Intake and Output 05/24/17 05/24/17 05/25/17 15:00 23:00 07:00 Intake Total 220 ml 800 ml 1150 ml Output Total 15 ml 550 ml 1280 ml Balance 205 ml 250 ml -130 ml Exam Constitutional: alert, distress Respiratory: clear to auscultation Cardiovascular: regular rate and rhythm Gastrointestinal: soft, tender, No distended Musculoskeletal: nl extremities to inspection Results Result Diagram: 05/25/17 0645 05/25/17 0645 Results 24 hrs Laboratory Tests Test 05/24/17 22:05 05/24/17 22:30 05/25/17 06:45 05/25/17 07:47 Bedside Glucose 162 Urine Color DASIA Urine Clarity TURBID A Urine pH 5.0 Urine Specific [place] 1.023 Urine Ketones NEGATIVE Urine Nitrite NEGATIVE Urine Bilirubin NEGATIVE Urine Urobilinogen NEGATIVE Urine Leukocyte Esterase NEGATIVE Urine Microscopic RBC 61 H Urine Microscopic WBC 0 Urine Squamous Epithelial Cells FEW Urine Amorphous Crystals FEW A Urine Bacteria FEW A Urine Hyaline Casts FEW A Urine Mucus MANY A Urine Hemoglobin 2+ H Urine Glucose NEGATIVE Urine Total Protein 1+ H White Blood Count 14.9 H Red Blood Count 3.59 L Hemoglobin 10.9 L Hematocrit 34.5 L Mean Corpuscular Volume 96.1 Mean Corpuscular Hemoglobin 30.4 Mean Corpuscular Hemoglobin Concent 31.6 L Red Cell Distribution Width 15.6 H Platelet Count 138 #L Mean Platelet Volume 12.1 H Neutrophils % 73.8 Lymphocytes % 14.6 L Monocytes % 8.7 Eosinophils % 0.0 Basophils % 0.3 Nucleated Red Blood Cells % 5.5 H Neutrophils # 11.0 H Lymphocytes # 2.2 Monocytes # 1.3 H Eosinophils # 0.0 Basophils # 0.0 Nucleated Red Blood Cells # 0.8 H Sodium Level 137 Potassium Level 5.0 Chloride Level 108 Carbon Dioxide Level 22 Anion Gap 12 Blood Urea Nitrogen 36 #H Creatinine 0.90 Glucose Level 155 Calcium Level 7.4 L Phosphorus Level 3.2 Magnesium Level 2.1 Total Bilirubin 0.2 Direct Bilirubin 0.00 Indirect Bilirubin 0.2 Aspartate Amino Transf (AST/SGOT) Alanine Aminotransferase (ALT/SGPT) 1787 H Alkaline Phosphatase 73 Total Protein 5.8 L Albumin 2.8 L Globulin 3.00 Albumin/Globulin Ratio 0.93 Lab Scanned Report REFERENCE LAB Test 05/25/17 08:17 05/25/17 12:24 05/25/17 17:13 Bedside Glucose 155 167 203 Medications Medications Current Medications Ondansetron HCl (Zofran Inj) 4 mg Q6H PRN IV NAUSEA AND/OR VOMITING Last administered on 05/25/17 13:57; Admin Dose 4 MG; Start 05/18/17 at 06:30 Pantoprazole 40 mg 40 mg DAILY@06 IV Last administered on 05/25/17 06:12; Admin Dose 40 MG; Start 05/18/17 at 07:00 Levofloxacin/ Dextrose (Levaquin 750 Mg/ D5W 150 ml (Pmx)) 150 ml @ 100 mls/hr Q24H IVPB Last administered on 05/24/17 14:30; Admin Dose 100 MLS/HR; Start at 14:30 Acetaminophen (Tylenol Tab) 1,000 mg Q6H PRN PO PAIN AND OR ELEVATED TEMP Last administered on 05/24/17 08:26; Admin Dose 1,000 MG; Start 05/21/17 at 14:00 Miscellaneous Information 1 ea NOTE XX ; Start 05/23/17 at 10:00 Glucose (Glutose) 15 gm Q15M PRN PO DECREASED GLUCOSE; Start 05/23/17 at 10:00 Glucose (Glutose) 22.5 gm Q15M PRN PO DECREASED GLUCOSE; Start 05/23/17 at 10:00 Dextrose (D50w Syringe) 25 ml Q15M PRN IV DECREASED GLUCOSE; Start 05/23/17 at 10:00 Dextrose (D50w Syringe) 50 ml Q15M PRN IV DECREASED GLUCOSE; Start 05/23/17 at 10:00 Glucagon (Glucagen) 1 mg Q15M PRN IM DECREASED GLUCOSE; Start 05/23/17 at 10:00 Glucose (Glutose) 15 gm Q15M PRN BUCCAL DECREASED GLUCOSE; Start 05/23/17 at 10: 00 Morphine Sulfate (morphine) 4 mg Q3H PRN IV PAIN Last administered on 05/25/17 13:57; Admin Dose 4 MG; Start 05/23/17 at 14:00 Diagnostic Test (Pha) (Accu-Chek) 1 ea 02 XX ; Start 05/24/17 at 02:00 Meclizine HCl 25 mg 25 mg Q8H PRN PO NAUSEA; Start 05/24/17 at 09:00 Sodium Chloride 1,000 ml @ 50 mls/hr Q20H IV Last administered on 05/25/17 00: 54; Admin Dose 50 MLS/HR; Start 7/5/17 at 09:00 Cefepime HCl (Maxipime 2gm/50 ml (Pmx)) 50 ml @ 100 mls/hr Q12 IVPB Last administered on 05/25/17 08:22; Admin Dose 100 MLS/HR; Start 05/24/17 at 11:30 Bisacodyl (Dulcolax) 10 mg DAILY PRN PO CONSTIPATION Last administered on 23:56; Admin Dose 10 MG; Start 05/24/17 at 23:00 Methylprednisolone Sodium Succinate (Solu-Medrol) 60 mg Q12 IV ; Start 05/25/17 at 21:00 ADRIÁN STALLINGS May 25, 2017 18:35
--- NOTE | 2017-05-25 18:57 | CONS ---
Date/Time of Note Date/Time of Note DATE: 05/25/17 TIME: 18:55 Assessment/Plan Assessment/Plan Chief Complaint/Hosp Course Transferred to telemetry, alert, feels good, looks comfortable, afebrile Antimicrobials: Cefepime, Levaquin Indwelling's: Left sided chest tubes Physical examination: Well-developed well-nourished young woman who is in no distress. Head atraumatic, normocephalic sclera nonicteric pupils reactive to light equally. Neck is supple, trachea midline. Chest rise symmetrical, breath sounds diminished to left. Abdomen soft bowel tones present. Extremities without cyanosis, trace dependent edema. Assessment: 1. Pericardial effusion, status post pericardial window, left thoracotomy and pulmonary decortication on May 22, 2017 2. S/p postop respiratory failure 3. Systemic lupus erythematosus 4. Cecil's thyroiditis 5. Leukocytosis, remains on Solu Medrol 6. Bronchiolitis 7. Transaminitis==> poss 2 to Levaquin Plan: Remains stable, continue Cefepime, GI rec-s noted, will dc Levaquin, follow recommendations of consultants. No evidence for malignancy per patho report, pending CMV titer Discussed with staff Problems: Consultation Date/Type/Reason Admit Date/Time May 18, 2017 at 05:57 Initial Consult Date 05/21/17 Type of Consultation: ID Referring Provider: ADRIÁN STALLINGS Exam/Review of Systems Vital Signs Vitals Vital Signs Date Time Temp Pulse Resp B/P Pulse Ox O2 Delivery O2 Flow Rate FiO2 05/25/17 16:47 2.0 05/25/17 16:11 97.8 65 14 109/73 100 05/25/17 08:37 Nasal Cannula 05/23/17 11:40 40 Intake and Output 05/24/17 05/24/17 05/25/17 15:00 23:00 07:00 Intake Total 220 ml 800 ml 1150 ml Output Total 15 ml 550 ml 1280 ml Balance 205 ml 250 ml -130 ml Results Result Diagram: 05/25/17 0645 05/25/17 0645 Results 24 hrs Laboratory Tests Test 05/24/17 22:05 05/24/17 22:30 05/25/17 06:45 05/25/17 07:47 Bedside Glucose 162 Urine Color DASIA Urine Clarity TURBID A Urine pH 5.0 Urine Specific [place] 1.023 Urine Ketones NEGATIVE Urine Nitrite NEGATIVE Urine Bilirubin NEGATIVE Urine Urobilinogen NEGATIVE Urine Leukocyte Esterase NEGATIVE Urine Microscopic RBC 61 H Urine Microscopic WBC 0 Urine Squamous Epithelial Cells FEW Urine Amorphous Crystals FEW A Urine Bacteria FEW A Urine Hyaline Casts FEW A Urine Mucus MANY A Urine Hemoglobin 2+ H Urine Glucose NEGATIVE Urine Total Protein 1+ H White Blood Count 14.9 H Red Blood Count 3.59 L Hemoglobin 10.9 L Hematocrit 34.5 L Mean Corpuscular Volume 96.1 Mean Corpuscular Hemoglobin 30.4 Mean Corpuscular Hemoglobin Concent 31.6 L Red Cell Distribution Width 15.6 H Platelet Count 138 #L Mean Platelet Volume 12.1 H Neutrophils % 73.8 Lymphocytes % 14.6 L Monocytes % 8.7 Eosinophils % 0.0 Basophils % 0.3 Nucleated Red Blood Cells % 5.5 H Neutrophils # 11.0 H Lymphocytes # 2.2 Monocytes # 1.3 H Eosinophils # 0.0 Basophils # 0.0 Nucleated Red Blood Cells # 0.8 H Sodium Level 137 Potassium Level 5.0 Chloride Level 108 Carbon Dioxide Level 22 Anion Gap 12 Blood Urea Nitrogen 36 #H Creatinine 0.90 Glucose Level 155 Calcium Level 7.4 L Phosphorus Level 3.2 Magnesium Level 2.1 Total Bilirubin 0.2 Direct Bilirubin 0.00 Indirect Bilirubin 0.2 Aspartate Amino Transf (AST/SGOT) Alanine Aminotransferase (ALT/SGPT) 1787 H Alkaline Phosphatase 73 Total Protein 5.8 L Albumin 2.8 L Globulin 3.00 Albumin/Globulin Ratio 0.93 Lab Scanned Report REFERENCE LAB Test 05/25/17 08:17 05/25/17 12:24 05/25/17 17:13 Bedside Glucose 155 167 203 Medications Medications Current Medications Ondansetron HCl (Zofran Inj) 4 mg Q6H PRN IV NAUSEA AND/OR VOMITING Last administered on 05/25/17 13:57; Admin Dose 4 MG; Start 05/18/17 at 06:30 Pantoprazole 40 mg 40 mg DAILY@06 IV Last administered on 05/25/17 06:12; Admin Dose 40 MG; Start 05/18/17 at 07:00 Levofloxacin/ Dextrose (Levaquin 750 Mg/ D5W 150 ml (Pmx)) 150 ml @ 100 mls/hr Q24H IVPB Last administered on 05/24/17 14:30; Admin Dose 100 MLS/HR; Start at 14:30 Acetaminophen (Tylenol Tab) 1,000 mg Q6H PRN PO PAIN AND OR ELEVATED TEMP Last administered on 05/24/17 08:26; Admin Dose 1,000 MG; Start 05/21/17 at 14:00 Miscellaneous Information 1 ea NOTE XX ; Start 05/23/17 at 10:00 Glucose (Glutose) 15 gm Q15M PRN PO DECREASED GLUCOSE; Start 05/23/17 at 10:00 Glucose (Glutose) 22.5 gm Q15M PRN PO DECREASED GLUCOSE; Start 05/23/17 at 10:00 Dextrose (D50w Syringe) 25 ml Q15M PRN IV DECREASED GLUCOSE; Start 05/23/17 at 10:00 Dextrose (D50w Syringe) 50 ml Q15M PRN IV DECREASED GLUCOSE; Start 05/23/17 at 10:00 Glucagon (Glucagen) 1 mg Q15M PRN IM DECREASED GLUCOSE; Start 05/23/17 at 10:00 Glucose (Glutose) 15 gm Q15M PRN BUCCAL DECREASED GLUCOSE; Start 05/23/17 at 10: 00 Morphine Sulfate (morphine) 4 mg Q3H PRN IV PAIN Last administered on 05/25/17 13:57; Admin Dose 4 MG; Start 05/23/17 at 14:00 Diagnostic Test (Pha) (Accu-Chek) 1 ea 02 XX ; Start 05/24/17 at 02:00 Meclizine HCl 25 mg 25 mg Q8H PRN PO NAUSEA; Start 05/24/17 at 09:00 Sodium Chloride 1,000 ml @ 50 mls/hr Q20H IV Last administered on 05/25/17 00: 54; Admin Dose 50 MLS/HR; Start 05/24/17 at 09:00 Cefepime HCl (Maxipime 2gm/50 ml (Pmx)) 50 ml @ 100 mls/hr Q12 IVPB Last administered on 05/25/17 08:22; Admin Dose 100 MLS/HR; Start 05/24/17 at 11:30 Bisacodyl (Dulcolax) 10 mg DAILY PRN PO CONSTIPATION Last administered on 23:56; Admin Dose 10 MG; Start 05/24/17 at 23:00 Methylprednisolone Sodium Succinate (Solu-Medrol) 60 mg Q12 IV ; Start 05/25/17 at 21:00 JANNY LUTZ NP May 25, 2017 18:57
--- NOTE | 2017-05-25 19:32 | CONS ---
Date/Time of Note Date/Time of Note DATE: 05/25/17 TIME: 19:07 Assessment/Plan Assessment/Plan Chief Complaint/Hosp Course Impression: 1. Acute renal failure .Her renal function is improved and serum creatinine is normal . She does have some mild proteinuria which could be consistent with SLE . 2. Positive REYNALDO with high titer , consistent with SLE and this seems to be reason for her current illness . She has been on high doses of steroids . 3. Elevated liver enzymes .hepatitis serologies are negative .Could be due to Levaquin , which was discontinued . Will order CMV serologies . 4. Pericardial effusion , now with pericardial window . 5. Anemia 6. Bronchiolitis 7. Cecil's thyroiditis with hypothyroidism 8. Low serum complements 9. Hyperkalemia , resolved 10. Lactic acidosis , resolved . Plan: 1 . Since her renal function is improved , I will sign off at this point and see again on request . Problems: Consultation Date/Type/Reason Admit Date/Time May 18, 2017 at 05:57 Initial Consult Date 05/23/17 Type of Consultation: renal Referring Provider: ADRIÁN STALLINGS 24 HR Interval Summary Free Text/Dictation Patient is in bed . She is now on telemetry floor .She is ill appearing and is having some pleuritic chest pain . Exam/Review of Systems Vital Signs Vitals Vital Signs Date Time Temp Pulse Resp B/P Pulse Ox O2 Delivery O2 Flow Rate FiO2 05/25/17 16:47 2.0 05/25/17 16:11 97.8 65 14 109/73 100 05/25/17 08:37 Nasal Cannula 05/23/17 11:40 40 Intake and Output 05/24/17 05/24/17 05/25/17 15:00 23:00 07:00 Intake Total 220 ml 800 ml 1150 ml Output Total 15 ml 550 ml 1280 ml Balance 205 ml 250 ml -130 ml Exam Constitutional: alert, frail, oriented, well developed Neck: supple Respiratory: crackles/rales, diminished breath sounds Cardiovascular: regular rate and rhythm, rub Gastrointestinal: non-tender, soft Musculoskeletal: nl extremities to inspection Results Result Diagram: 05/25/17 0645 05/25/17 0645 Results 24 hrs Laboratory Tests Test 05/24/17 22:05 05/24/17 22:30 05/25/17 06:45 05/25/17 07:47 Bedside Glucose 162 Urine Color DASIA Urine Clarity TURBID A Urine pH 5.0 Urine Specific [place] 1.023 Urine Ketones NEGATIVE Urine Nitrite NEGATIVE Urine Bilirubin NEGATIVE Urine Urobilinogen NEGATIVE Urine Leukocyte Esterase NEGATIVE Urine Microscopic RBC 61 H Urine Microscopic WBC 0 Urine Squamous Epithelial Cells FEW Urine Amorphous Crystals FEW A Urine Bacteria FEW A Urine Hyaline Casts FEW A Urine Mucus MANY A Urine Hemoglobin 2+ H Urine Glucose NEGATIVE Urine Total Protein 1+ H White Blood Count 14.9 H Red Blood Count 3.59 L Hemoglobin 10.9 L Hematocrit 34.5 L Mean Corpuscular Volume 96.1 Mean Corpuscular Hemoglobin 30.4 Mean Corpuscular Hemoglobin Concent 31.6 L Red Cell Distribution Width 15.6 H Platelet Count 138 #L Mean Platelet Volume 12.1 H Neutrophils % 73.8 Lymphocytes % 14.6 L Monocytes % 8.7 Eosinophils % 0.0 Basophils % 0.3 Nucleated Red Blood Cells % 5.5 H Neutrophils # 11.0 H Lymphocytes # 2.2 Monocytes # 1.3 H Eosinophils # 0.0 Basophils # 0.0 Nucleated Red Blood Cells # 0.8 H Sodium Level 137 Potassium Level 5.0 Chloride Level 108 Carbon Dioxide Level 22 Anion Gap 12 Blood Urea Nitrogen 36 #H Creatinine 0.90 Glucose Level 155 Calcium Level 7.4 L Phosphorus Level 3.2 Magnesium Level 2.1 Total Bilirubin 0.2 Direct Bilirubin 0.00 Indirect Bilirubin 0.2 Aspartate Amino Transf (AST/SGOT) Alanine Aminotransferase (ALT/SGPT) 1787 H Alkaline Phosphatase 73 Total Protein 5.8 L Albumin 2.8 L Globulin 3.00 Albumin/Globulin Ratio 0.93 Lab Scanned Report REFERENCE LAB Test 05/25/17 08:17 05/25/17 12:24 05/25/17 17:13 Bedside Glucose 155 167 203 Medications Medications Current Medications Ondansetron HCl (Zofran Inj) 4 mg Q6H PRN IV NAUSEA AND/OR VOMITING Last administered on 05/25/17 13:57; Admin Dose 4 MG; Start 05/18/17 at 06:30 Pantoprazole (Protonix Iv) 40 mg DAILY@06 IV Last administered on 05/25/17 06: 12; Admin Dose 40 MG; Start 05/18/17 at 07:00 Acetaminophen (Tylenol Tab) 1,000 mg Q6H PRN PO PAIN AND OR ELEVATED TEMP Last administered on 05/24/17 08:26; Admin Dose 1,000 MG; Start 05/21/17 at 14:00 Miscellaneous Information 1 ea NOTE XX ; Start 05/23/17 at 10:00 Glucose (Glutose) 15 gm Q15M PRN PO DECREASED GLUCOSE; Start 05/23/17 at 10:00 Glucose (Glutose) 22.5 gm Q15M PRN PO DECREASED GLUCOSE; Start 05/23/17 at 10:00 Dextrose (D50w Syringe) 25 ml Q15M PRN IV DECREASED GLUCOSE; Start 05/23/17 at 10:00 Dextrose (D50w Syringe) 50 ml Q15M PRN IV DECREASED GLUCOSE; Start 05/23/17 at 10:00 Glucagon (Glucagen) 1 mg Q15M PRN IM DECREASED GLUCOSE; Start 05/23/17 at 10:00 Glucose (Glutose) 15 gm Q15M PRN BUCCAL DECREASED GLUCOSE; Start 05/23/17 at 10: 00 Morphine Sulfate (morphine) 4 mg Q3H PRN IV PAIN Last administered on 05/25/17 13:57; Admin Dose 4 MG; Start 05/23/17 at 14:00 Diagnostic Test (Pha) (Accu-Chek) 1 ea 02 XX ; Start 05/24/17 at 02:00 Meclizine HCl 25 mg 25 mg Q8H PRN PO NAUSEA; Start 05/24/17 at 09:00 Sodium Chloride 1,000 ml @ 50 mls/hr Q20H IV Last administered on 05/25/17 00: 54; Admin Dose 50 MLS/HR; Start 05/24/17 at 09:00 Cefepime HCl (Maxipime 2gm/50 ml (Pmx)) 50 ml @ 100 mls/hr Q12 IVPB Last administered on 05/25/17 08:22; Admin Dose 100 MLS/HR; Start 05/24/17 at 11:30 Bisacodyl (Dulcolax) 10 mg DAILY PRN PO CONSTIPATION Last administered on 23:56; Admin Dose 10 MG; Start 05/24/17 at 23:00 Methylprednisolone Sodium Succinate (Solu-Medrol) 60 mg Q12 IV ; Start 05/25/17 at 21:00 MATEUS BEDOLLA MD May 25, 2017 19:20
--- NOTE | 2017-05-25 23:24 | CONS ---
Date/Time of Note Date/Time of Note DATE: 05/25/17 TIME: 23:22 Assessment/Plan Assessment/Plan Chief Complaint/Hosp Course Bilateral mild to moderate axillary lymphadenopathy, MORE ON THE L and diffuse cervical adenopathy on Thyroid USS 03/2017. BIOCHEMICAL W-UP- P CT ABD- Prominent bilateral inguinal and left external iliac chain lymph nodes, which are nonspecific. BX L AXILLARY LN WHEN PT IS MORE STABLE WILL PROCEED WITH BX- SINCE IF PT HAS A LYMPHOMA IT MAY RESPOND TO STEROIDS D/W DR GRAHAM- HE DIDN'T FELL LN- AND DIDN'T DO THE BX Left axillary lymph node, ultrasound-guided needle biopsies with touch imprints: -- Benign lymphoid tissue. 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 POS WINDOW Bilateral infectious/inflammatory bronchiolitis. Positive rheumatoid factor RHEUMATOLOGY EVAL Pericardial effusion-moderate by echo with no signs of echo tamponade at this time. Cardiomyopathy-EF 40-45% by echo Acute Shortness of breath Increased LFT's Problems: Consultation Date/Type/Reason Admit Date/Time May 18, 2017 at 05:57 Initial Consult Date 05/19/17 Type of Consultation: [facility] Referring Provider: ADRIÁN STALLINGS 24 HR Interval Summary Free Text/Dictation Underwent left axillary lymph node biopsy yesterday. Chest tube still in place , draining. Exam/Review of Systems Vital Signs Vitals Vital Signs Date Time Temp Pulse Resp B/P Pulse Ox O2 Delivery O2 Flow Rate FiO2 05/25/17 20:52 2.0 05/25/17 20:07 58 05/25/17 19:56 98.9 18 125/97 100 05/25/17 08:37 Nasal Cannula 05/23/17 11:40 40 Intake and Output 05/24/17 05/24/17 05/25/17 15:00 23:00 07:00 Intake Total 220 ml 800 ml 1150 ml Output Total 15 ml 550 ml 1280 ml Balance 205 ml 250 ml -130 ml Exam Constitutional: alert, oriented, other (ill looking) Psych: anxiety Head: atraumatic, normocephalic Eyes: PERRL, No icteric ENMT: mucosa pink and moist Neck: non-tender, supple, No jvd Respiratory: clear to auscultation, diminished breath sounds Cardiovascular: murmurs/extra sounds, regular rate and rhythm, No edema Gastrointestinal: bowel sounds, non-tender, soft Musculoskeletal: nl extremities to inspection, nl gait and stance Extremities: normal pulses, No edema Neurological: lethargic, nl mental status, No focal weakness Skin: No rash or lesions LN- MILD BL LN-NEHEMIAH BREAST- NO MASSES Results Result Diagram: 05/25/17 0645 05/25/17 0645 Results 24 hrs Laboratory Tests Test 05/25/17 06:45 05/25/17 07:47 05/25/17 08:17 05/25/17 12:24 White Blood Count 14.9 H Red Blood Count 3.59 L Hemoglobin 10.9 L Hematocrit 34.5 L Mean Corpuscular Volume 96.1 Mean Corpuscular Hemoglobin 30.4 Mean Corpuscular Hemoglobin Concent 31.6 L Red Cell Distribution Width 15.6 H Platelet Count 138 #L Mean Platelet Volume 12.1 H Neutrophils % 73.8 Lymphocytes % 14.6 L Monocytes % 8.7 Eosinophils % 0.0 Basophils % 0.3 Nucleated Red Blood Cells % 5.5 H Neutrophils # 11.0 H Lymphocytes # 2.2 Monocytes # 1.3 H Eosinophils # 0.0 Basophils # 0.0 Nucleated Red Blood Cells # 0.8 H Sodium Level 137 Potassium Level 5.0 Chloride Level 108 Carbon Dioxide Level 22 Anion Gap 12 Blood Urea Nitrogen 36 #H Creatinine 0.90 Glucose Level 155 Calcium Level 7.4 L Phosphorus Level 3.2 Magnesium Level 2.1 Total Bilirubin 0.2 Direct Bilirubin 0.00 Indirect Bilirubin 0.2 Aspartate Amino Transf (AST/SGOT) Alanine Aminotransferase (ALT/SGPT) 1787 H Alkaline Phosphatase 73 Total Protein 5.8 L Albumin 2.8 L Globulin 3.00 Albumin/Globulin Ratio 0.93 Lab Scanned Report REFERENCE LAB Bedside Glucose 155 167 Test 05/25/17 17:13 05/25/17 21:40 Bedside Glucose 203 186 Medications Medications Current Medications Ondansetron HCl (Zofran Inj) 4 mg Q6H PRN IV NAUSEA AND/OR VOMITING Last administered on 05/25/17t 13:57; Admin Dose 4 MG; Start 05/18/17 at 06:30 Pantoprazole (Protonix Iv) 40 mg DAILY@06 IV Last administered on 05/25/17 06: 12; Admin Dose 40 MG; Start 05/18/17 at 07:00 Acetaminophen (Tylenol Tab) 1,000 mg Q6H PRN PO PAIN AND OR ELEVATED TEMP Last administered on 05/24/17 08:26; Admin Dose 1,000 MG; Start 05/21/17 at 14:00 Miscellaneous Information 1 ea NOTE XX ; Start 05/23/17 at 10:00 Glucose (Glutose) 15 gm Q15M PRN PO DECREASED GLUCOSE; Start 05/23/17 at 10:00 Glucose (Glutose) 22.5 gm Q15M PRN PO DECREASED GLUCOSE; Start 05/23/17 at 10:00 Dextrose (D50w Syringe) 25 ml Q15M PRN IV DECREASED GLUCOSE; Start 05/23/17 at 10:00 Dextrose (D50w Syringe) 50 ml Q15M PRN IV DECREASED GLUCOSE; Start 05/23/17 at 10:00 Glucagon (Glucagen) 1 mg Q15M PRN IM DECREASED GLUCOSE; Start 05/23/17 at 10:00 Glucose (Glutose) 15 gm Q15M PRN BUCCAL DECREASED GLUCOSE; Start 05/23/17 at 10: 00 Morphine Sulfate (morphine) 4 mg Q3H PRN IV PAIN Last administered on 05/25/17 22:58; Admin Dose 4 MG; Start 05/23/17 at 14:00 Diagnostic Test (Pha) (Accu-Chek) 1 ea 02 XX ; Start 05/24/17 at 02:00 Meclizine HCl 25 mg 25 mg Q8H PRN PO NAUSEA; Start 05/24/17 at 09:00 Sodium Chloride 1,000 ml @ 50 mls/hr Q20H IV Last administered on 05/25/17 00: 54; Admin Dose 50 MLS/HR; Start 05/24/17 at 09:00 Cefepime HCl (Maxipime 2gm/50 ml (Pmx)) 50 ml @ 100 mls/hr Q12 IVPB Last administered on 05/25/17 21:38; Admin Dose 100 MLS/HR; Start 05/24/17 at 11:30 Bisacodyl (Dulcolax) 10 mg DAILY PRN PO CONSTIPATION Last administered on 23:56; Admin Dose 10 MG; Start 05/24/17 at 23:00 Methylprednisolone Sodium Succinate (Solu-Medrol) 60 mg Q12 IV Last administered on 05/25/17 21:38; Admin Dose 60 MG; Start 05/25/17 at 21:00 Guaifenesin/ Dextromethorphan (Robitussin Dm Liquid Cup) 10 ml Q6H PRN PO COUGH ; Start 05/25/17 at 23:30 Procedures Procedures [facility] a non-profit non-[facility] asset [address] [place] [address] ; Lab No: [id number] Date: 05/24/2017 INTRA-OPERATIVE TOUCH IMPRINTS WITH IMMEDIATE EXAMINATION: - Hypocellular imprints. Tissue taken for flow cytometry and cultures/DK (; 5:45 p.m.) SPECIMEN: Left axillary lymph node, ultrasound-guided core needle biopsies with touch imprints CLINICAL: Lymphadenopathy GROSS EXAMINATION: Received in formalin are B5 fixative are six needle core biopsies of hargrove-franco tissue that measure 0.2 to 0.4 cm and are each less than 0.1 cm in diameter. The B5 fixed tissue is embedded in cassette 1 with the formalin fixed tissue in cassette 2. Also received are four touch imprints that are stained and submitted for rapid interpretation. MICROSCOPIC DESCRIPTION: Core needle biopsies of the left axillary lymph node contain lymph node parenchyma composed predominantly of small, round, uniform lymphocytes. Occasional sinus histiocytes are identified. One core shows a very small germinal center. No granulomas are seen and there is no evidence of metastatic malignancy. No Anid-Pawan cells or variants are identified. The histologic features are those of benign lymphoid tissue. There is no evidence of malignancy. FLOW CYTOMETRY: Please see the included report of flow cytometry performed at [facility] (case no. [id number]; 05/25/2017). Due to low cellularity, a limited flow cytometry panel is performed. There is no immunophenotypic evidence of B-cell non-Hodgkin lymphoma or T-cell lymphoproliferative disorder. Lymphocytes represent 84.8% of the cell population analyzed with T-cells representing 51% and mature B-cells 47%, polyclonal. MICROSCOPIC DIAGNOSIS: Left axillary lymph node, ultrasound-guided needle biopsies with touch imprints: -- Benign lymphoid tissue. -- There is no evidence of malignancy. Lymph node flow cytometry: -- No immunophenotypic evidence of B-cell non-Hodgkin lymphoma or T-cell lymphoma in a limited flow cytometry panel. COMMENT: Tissue was submitted for routine, acid-fast and fungal cultures and separate supplemental reports will follow from the Microbiology Department. This case also has been reviewed by Tarun Kim M.D., who concurs with the above interpretation. MP/[id number]/tm Date of Service: 05/24/17; Date Received: 05/24/17 Dictated: 05/25/17; Transcribed: 05/25/17; Sent by Fax: 05/25/17; Reviewed: ALEXIS Wasserman M.D. Pathologist Electronically Signed 05/25/2017 JAYDA WASSERMAN M.D. [facility] AGE/SEX/: 26/F 1990 MR NO: [id number] VISIT: [id number] ROOM NO: [id number] PHYSICIAN: Nikki LUCIANO, LAZ OCONNELL M.D., DEEPA Garcia TISSUE EXAMINATION REPORT DEEPA OCONNELL MD May 25, 2017 23:24
[2017-05-25] MEDS ORDERED: GUAIFENESIN/DM 5ML CUP PO PRN (23:30)
[2017-05-26] VITALS (12 sets, daily range): BP systolic 115–128; BP diastolic 74–93; PULSE 48–64; RESP 18–20
[2017-05-26] MEDS: ACCU-CHEK XX SCH (02:00)
[2017-05-26] MEDS: morphine 4 MG/ML VIAL IV PRN ×4 (03:06→21:56)
[2017-05-26] MEDS: PANTOPRAZOLE 40 MG INJ IV SCH (06:18)
[2017-05-26] MEDS: FUROSEMIDE 20 MG INJ IV SCH ×2 (06:18→17:26)
[2017-05-26] MEDS: LEVOTHYROXINE 125 MCG TAB PO SCH (06:18)
[2017-05-26 06:58] LABS: ADD SCAN DIFF NO
[2017-05-26 07:11] LABS: BASOPHIL # 0.1 10^3/ul (0.0-0.1); BASOPHILS % 0.5 % (0.0-2.0); HEMATOCRIT 33.5 % (37.0-47.0); HEMOGLOBIN 10.9 g/dl (12.0-16.0); LYMPHOCYTES # 2.1 10^3/ul (0.8-2.9); LYMPHOCYTES % 13.3 % (15.0-51.0); MEAN CORPUSCULAR HEMOGLOBIN 31.6 pg (29.0-33.0); MEAN CORPUSCULAR HGB CONC 32.5 g/dl (32.0-37.0); MEAN CORPUSCULAR VOLUME 97.1 fl (82.0-101.0); MEAN PLATELET VOLUME 11.7 fl (7.4-10.4); MONOCYTE # 1.4 10^3/ul (0.3-0.9); MONOCYTES % 8.5 % (0.0-11.0); NEUTROPHIL # 11.6 10^3/ul (1.6-7.5); NEUTROPHILS % 73.2 % (39.0-77.0); NUCLEATED RED BLOOD CELLS # 2.2 10^3/ul (0.0-0.0); NUCLEATED RED BLOOD CELLS% 13.7 /100WBC (0.0-0.0); PLATELET COUNT 112 10^3/UL (140-415); RED BLOOD COUNT 3.45 10^6/ul (4.20-5.40); RED CELL DISTRIBUTION WIDTH 15.6 % (11.5-14.5); WHITE BLOOD COUNT 15.8 10^3/ul (4.8-10.8)
[2017-05-26 07:42] LABS: ALBUMIN/GLOBULIN RATIO 0.96; BILIRUBIN,INDIRECT 0.2 mg/dl (0-1.1); BILIRUBIN,TOTAL 0.2 mg/dl (0.2-1.3); CREATININE 0.92 mg/dl (0.44-1.00); TOTAL PROTEIN 6.1 g/dl (6.1-8.1)
[2017-05-26 07:47] LABS: POTASSIUM 5.3 mmol/L (3.5-5.1)
[2017-05-26 07:52] LABS: AMYLASE 122 U/L (11-123)
[2017-05-26 08:12] LABS: C-REACTIVE PROTEIN 1.5 mg/dl (0.0-0.9)
[2017-05-26] MEDS: METHYLPREDNISOLONE 125 MG INJ IV SCH ×2 (08:12→21:40)
[2017-05-26] MEDS: CEFEPIME 2GM/50 ML (PMX) 50 ML IVPB SCH ×2 (08:13→21:40)
--- NOTE | 2017-05-26 08:31 | RADRPT ---
PROCEDURE: US Abdomen and Retroperitoneum. CLINICAL INDICATION: Abnormal LFTs TECHNIQUE: Multiple real-time longitudinal and transverse images were acquired of the patient's ab domen and retroperitoneum utilizing a curved array transducer. COMPARISON: CT from 05/20/2017 FINDINGS: The liver is normal in size and echogenicity without focal mass or intrahepatic biliary dilatation. Normal hepatopetal flow is seen within the main portal vein. Sludge is seen within the gallbladder. There is no pericholecystic fluid or gallbladder wall thickening or gallstones. No intra or extrahe patic biliary dilatation is seen. The common bile duct measures 3.3 mm in maximal dimension. The v isualized portions of the pancreas are unremarkable with obscuration of the tail of the pancreas. T he spleen is not well seen secondary to left-sided chest tube. No free fluid is identified. The right kidney measures 11.1 cm in length. The left kidney was not well visualized secondary to left-sided chest tube. There is normal echogenicity within the right kidney without evidence of hyd ronephrosis, mass, or calculus is seen. The aorta and IVC are unremarkable. IMPRESSION: Gallbladder sludge without definite evidence of acute cholecystitis. The left kidney and spleen are not well visualized. Otherwise, unremarkable abdominal and retroperitoneal ultrasound. RPTAT: JJ .Ashu Colmenares MD, MD Date Time Electronically viewed and signed by .Ashu Colmenares MD, on 05/26/2017 08:30 .A/
--- NOTE | 2017-05-26 08:32 | CONS ---
Date/Time of Note Date/Time of Note DATE: 05/26/17 TIME: 08:16 Consult Date/Type/Reason Admit Date/Time May 18, 2017 at 05:57 Initial Consult Date 05/22/17 Type of Consultation: Rheum Ordering Provider: ADRIÁN STALLINGS Subjective Comfortable. No new complaints. Chest tube still in place. Objective Vital Signs Date Time Temp Pulse Resp B/P Pulse Ox O2 Delivery O2 Flow Rate FiO2 05/26/17 07:58 Nasal Cannula 2.0 05/26/17 07:38 98.1 56 20 115/77 100 05/23/17 11:40 40 Intake and Output 05/25/17 05/25/17 05/26/17 15:00 23:00 07:00 Intake Total 50 ml 520 ml 400 ml Output Total 30 ml 1020 ml Balance 20 ml 520 ml -620 ml Exam Alert and oriented. NAD. Skin without rash. HEENT without acute lesions. Neck. No definite lymphadenopathy noted. Chest Scattered crackles. Chest tubes in place. Heart RR . Abdomen. Soft. No masses or tenderness. Ext No cyanosis or edema. MS No synovitis. Neurol grossly intact. No definite muscle weakness. Psych. No definite anxiety at present. Results/Medications Result Diagram: 05/26/17 0620 05/26/17 0620 Results 24 hrs Laboratory Tests Test 05/25/17 08:17 05/25/17 12:24 05/25/17 17:13 05/25/17 21:40 Bedside Glucose 155 167 203 186 Test 05/26/17 06:20 05/26/17 07:51 White Blood Count 15.8 H Red Blood Count 3.45 L Hemoglobin 10.9 L Hematocrit 33.5 L Mean Corpuscular Volume 97.1 Mean Corpuscular Hemoglobin 31.6 Mean Corpuscular Hemoglobin Concent 32.5 Red Cell Distribution Width 15.6 H Platelet Count 112 L Mean Platelet Volume 11.7 H Neutrophils % 73.2 Lymphocytes % 13.3 L Monocytes % 8.5 Eosinophils % 0.0 Basophils % 0.5 Nucleated Red Blood Cells % 13.7 H Neutrophils # 11.6 H Lymphocytes # 2.1 Monocytes # 1.4 H Eosinophils # 0.0 Basophils # 0.1 Nucleated Red Blood Cells # 2.2 H Sodium Level 139 Potassium Level 5.3 H Chloride Level 105 Carbon Dioxide Level 24 Anion Gap 15 Blood Urea Nitrogen 46 H Creatinine 0.92 Glucose Level 169 Lactic Acid Level 2.5 H Calcium Level 8.0 L Magnesium Level 2.3 Total Bilirubin 0.2 Direct Bilirubin 0.00 Indirect Bilirubin 0.2 Aspartate Amino Transf (AST/SGOT) 1452 H Alanine Aminotransferase (ALT/SGPT) 1822 H Alkaline Phosphatase 78 Creatine Kinase 116 C-Reactive Protein 1.5 H Total Protein 6.1 Albumin 3.0 L Globulin 3.10 Albumin/Globulin Ratio 0.96 Amylase Level 122 Lipase 198 Thyroid Stimulating Hormone (TSH) 2.010 Bedside Glucose 177 Medications Current Medications Ondansetron HCl (Zofran Inj) 4 mg Q6H PRN IV NAUSEA AND/OR VOMITING Last administered on 05/25/17 13:57; Admin Dose 4 MG; Start 05/18/17 at 06:30 Pantoprazole (Protonix Iv) 40 mg DAILY@06 IV Last administered on 05/26/17 06: 18; Admin Dose 40 MG; Start 05/18/17 at 07:00 Acetaminophen (Tylenol Tab) 1,000 mg Q6H PRN PO PAIN AND OR ELEVATED TEMP Last administered on 05/24/17 08:26; Admin Dose 1,000 MG; Start 05/21/17 at 14:00 Miscellaneous Information 1 ea NOTE XX ; Start 05/23/17 at 10:00 Glucose (Glutose) 15 gm Q15M PRN PO DECREASED GLUCOSE; Start 05/23/17 at 10:00 Glucose (Glutose) 22.5 gm Q15M PRN PO DECREASED GLUCOSE; Start 05/23/17 at 10:00 Dextrose (D50w Syringe) 25 ml Q15M PRN IV DECREASED GLUCOSE; Start 05/23/17 at 10:00 Dextrose (D50w Syringe) 50 ml Q15M PRN IV DECREASED GLUCOSE; Start 05/23/17 at 10:00 Glucagon (Glucagen) 1 mg Q15M PRN IM DECREASED GLUCOSE; Start 05/23/17 at 10:00 Glucose (Glutose) 15 gm Q15M PRN BUCCAL DECREASED GLUCOSE; Start 05/23/17 at 10: 00 Morphine Sulfate (morphine) 4 mg Q3H PRN IV PAIN Last administered on 05/26/17 03:06; Admin Dose 4 MG; Start 05/23/17 at 14:00 Diagnostic Test (Pha) (Accu-Chek) 1 ea 02 XX ; Start 05/24/17 at 02:00 Meclizine HCl 25 mg 25 mg Q8H PRN PO NAUSEA; Start 05/24/17 at 09:00 Sodium Chloride 1,000 ml @ 50 mls/hr Q20H IV Last administered on 05/25/17 00: 54; Admin Dose 50 MLS/HR; Start 05/24/17 at 09:00 Cefepime HCl (Maxipime 2gm/50 ml (Pmx)) 50 ml @ 100 mls/hr Q12 IVPB Last administered on 05/25/17 21:38; Admin Dose 100 MLS/HR; Start 05/24/17 at 11:30 Bisacodyl (Dulcolax) 10 mg DAILY PRN PO CONSTIPATION Last administered on 23:56; Admin Dose 10 MG; Start 05/24/17 at 23:00 Methylprednisolone Sodium Succinate (Solu-Medrol) 60 mg Q12 IV Last administered on 05/25/17 21:38; Admin Dose 60 MG; Start 05/25/17 at 21:00 Guaifenesin/ Dextromethorphan (Robitussin Dm Liquid Cup) 10 ml Q6H PRN PO COUGH Last administered on 05/26/17 00:51; Admin Dose 10 ML; Start 05/25/17 at 23 :30 Assessment/Plan Chief Complaint/Hosp Course Ass. 1. Systemic Lupus Erythematosus with highly positive REYNALDO, low C3 and C4, Cecil's Thyroiditis, pericarditis, lymphadenopathy, bronchiolitis, Elev. ESR, Hypergammaglobulinemia, Leukopenia (until recently). Negative DS DNA does not rule out Lupus, as only a minority of Lupus patients have DS DNA positivity (particularly those with renal disease). 2. Marked transaminitis. CK only mildly elevated (likely due to the surgery) initially and normal now. Acute EBV and Hepatitis serologies negative, and Smooth muscle antibodies (for autoimmune hepatitis) also negative. CMV titers pending. Possibly due to Levaquin, which has now been stopped. 3. Lymphadenopathy. Second biopsy also negative for neoplastic process. Appears reactive. 4. Leukocytosis, anemia, decreased platelet count recently, improving. No evidence of Hemolysis. Leukocytosis at present in part due to the steroids. 5. Possible mild hypocalcemia Relatively low albumin. (ionized calcium 1.0). Does have low Vitamin D level. 6. Cecil's Thyroiditis 7. Severe Hypothyroidism. TSH now decreased to 2.0. 8. Pericardial effusion. Now s/p pericardial window placement. 9. Hyperglycemia, due to steroids. 10.Lactic acidosis, Improved. Problems: Additional Assessment/Plan Plan: Continue Solumedrol at 60mg q12 hours YOHANA DURAND MD May 26, 2017 08:26
[2017-05-26] MEDS: BISACODYL (EC) 5 MG TAB PO PRN (08:33)
[2017-05-26] MEDS: INSULIN ASPART [NOVOLOG] 3 ML PEN SC SCH ×4 (08:45→21:51)
[2017-05-26] MEDS: ONDANSETRON 4 MG INJ IV PRN ×2 (09:30→17:26)
--- NOTE | 2017-05-26 13:45 | CONS ---
Date/Time of Note Date/Time of Note DATE: 05/26/17 TIME: 13:42 Assessment/Plan Assessment/Plan Chief Complaint/Hosp Course IMp: 1.Pericardial effusion-moderate by echo with no signs of echo tamponade by initial echo. Sable BP, HR around 100. ? 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 s/p CT Recc: -maintain on tele -Continue synthroid with TSH now down to 2 -follow BP/HR -Follow volume status closely on gentle lasix diuresis -Continue steroids/abx's and f/u cx data -Ongoing Rheum eval/heme-onc eval -Follow CT output Problems: Consultation Date/Type/Reason Admit Date/Time May 18, 2017 at 05:57 Initial Consult Date 05/19/17 Type of Consultation: cardiology Reason for Consultation pericardial effusion/CHF Referring Provider: ADRIÁN STALLINGS Exam/Review of Systems Vital Signs Vitals Vital Signs Date Time Temp Pulse Resp B/P Pulse Ox O2 Delivery O2 Flow Rate FiO2 05/26/17 12:13 2.0 05/26/17 12:12 56 05/26/17 11:26 97.8 18 120/80 100 05/26/17 07:58 Nasal Cannula 05/23/17 11:40 40 Intake and Output 05/25/17 05/25/17 05/26/17 15:00 23:00 07:00 Intake Total 50 ml 520 ml 400 ml Output Total 30 ml 1020 ml Balance 20 ml 520 ml -620 ml Exam Review of Systems: CONSTITUTIONAL: No fevers, chills. PULMONARY: No sob CARDIOVASCULAR: pain at CT site GASTROINTESTINAL: No nausea/vomiting. GENITOURINARY: No hematuria/dysuria. MUSCULOSKELETAL: No myagias/arthalgias. PSYCHIATRIC: The patient denies depression. NEUROLOGIC: No weakness Constitutional: alert Psych: no complaints Head: normocephalic ENMT: mucosa pink and moist Neck: jvd (9 cm water), supple Respiratory: diminished breath sounds (at bases/B) Cardiovascular: other (L sided CT in place), regular rate and rhythm Gastrointestinal: non-tender, soft Musculoskeletal: muscle tone (normal) Extremities: edema (none) Results Result Diagram: 05/26/17 0620 05/26/17 0620 Results 24 hrs Laboratory Tests Test 05/25/17 17:13 05/25/17 21:40 05/26/17 06:20 05/26/17 07:51 Bedside Glucose 203 186 177 White Blood Count 15.8 H Red Blood Count 3.45 L Hemoglobin 10.9 L Hematocrit 33.5 L Mean Corpuscular Volume 97.1 Mean Corpuscular Hemoglobin 31.6 Mean Corpuscular Hemoglobin Concent 32.5 Red Cell Distribution Width 15.6 H Platelet Count 112 L Mean Platelet Volume 11.7 H Neutrophils % 73.2 Lymphocytes % 13.3 L Monocytes % 8.5 Eosinophils % 0.0 Basophils % 0.5 Nucleated Red Blood Cells % 13.7 H Neutrophils # 11.6 H Lymphocytes # 2.1 Monocytes # 1.4 H Eosinophils # 0.0 Basophils # 0.1 Nucleated Red Blood Cells # 2.2 H Erythrocyte Sedimentation Rate 15 Sodium Level 139 Potassium Level 5.3 H Chloride Level 105 Carbon Dioxide Level 24 Anion Gap 15 Blood Urea Nitrogen 46 H Creatinine 0.92 Glucose Level 169 Lactic Acid Level 2.5 H Calcium Level 8.0 L Magnesium Level 2.3 Total Bilirubin 0.2 Direct Bilirubin 0.00 Indirect Bilirubin 0.2 Aspartate Amino Transf (AST/SGOT) 1452 H Alanine Aminotransferase (ALT/SGPT) 1822 H Alkaline Phosphatase 78 Creatine Kinase 116 C-Reactive Protein 1.5 H Total Protein 6.1 Albumin 3.0 L Globulin 3.10 Albumin/Globulin Ratio 0.96 Amylase Level 122 Lipase 198 Thyroid Stimulating Hormone (TSH) 2.010 Test 05/26/17 11:39 05/26/17 12:03 Lab Scanned Report REFERENCE LAB Bedside Glucose 225 H Medications Medications Current Medications Ondansetron HCl (Zofran Inj) 4 mg Q6H PRN IV NAUSEA AND/OR VOMITING Last administered on 05/26/17 09:30; Admin Dose 4 MG; Start 05/18/17 at 06:30 Pantoprazole (Protonix Iv) 40 mg DAILY@06 IV Last administered on 05/26/17 06: 18; Admin Dose 40 MG; Start 05/18/17 at 07:00 Acetaminophen (Tylenol Tab) 1,000 mg Q6H PRN PO PAIN AND OR ELEVATED TEMP Last administered on 05/24/17 08:26; Admin Dose 1,000 MG; Start 05/21/17 at 14:00 Miscellaneous Information 1 ea NOTE XX ; Start 05/23/17 at 10:00 Glucose (Glutose) 15 gm Q15M PRN PO DECREASED GLUCOSE; Start 05/23/17 at 10:00 Glucose (Glutose) 22.5 gm Q15M PRN PO DECREASED GLUCOSE; Start 05/23/17 at 10:00 Dextrose (D50w Syringe) 25 ml Q15M PRN IV DECREASED GLUCOSE; Start 05/23/17 at 10:00 Dextrose (D50w Syringe) 50 ml Q15M PRN IV DECREASED GLUCOSE; Start 05/23/17 at 10:00 Glucagon (Glucagen) 1 mg Q15M PRN IM DECREASED GLUCOSE; Start 05/23/17 at 10:00 Glucose (Glutose) 15 gm Q15M PRN BUCCAL DECREASED GLUCOSE; Start 05/23/17 at 10: 00 Morphine Sulfate (morphine) 4 mg Q3H PRN IV PAIN Last administered on 05/26/17 09:30; Admin Dose 4 MG; Start 05/23/17 at 14:00 Diagnostic Test (Pha) (Accu-Chek) 1 ea 02 XX ; Start 05/24/17 at 02:00 Meclizine HCl 25 mg 25 mg Q8H PRN PO NAUSEA; Start 05/24/17 at 09:00 Sodium Chloride 1,000 ml @ 50 mls/hr Q20H IV Last administered on 05/25/17 00: 54; Admin Dose 50 MLS/HR; Start 05/24/17 at 09:00 Cefepime HCl (Maxipime 2gm/50 ml (Pmx)) 50 ml @ 100 mls/hr Q12 IVPB Last administered on 05/26/17 08:13; Admin Dose 100 MLS/HR; Start 05/24/17 at 11:30 Bisacodyl (Dulcolax) 10 mg DAILY PRN PO CONSTIPATION Last administered on 08:33; Admin Dose 10 MG; Start 05/24/17 at 23:00 Methylprednisolone Sodium Succinate (Solu-Medrol) 60 mg Q12 IV Last administered on 05/26/17 08:12; Admin Dose 60 MG; Start 05/25/17 at 21:00 Guaifenesin/ Dextromethorphan (Robitussin Dm Liquid Cup) 10 ml Q6H PRN PO COUGH Last administered on 05/26/17 00:51; Admin Dose 10 ML; Start 05/25/17 at 23 :30 GENEVIEVE HERNANDEZ May 26, 2017 13:45
--- NOTE | 2017-05-26 14:04 | CONS ---
Date/Time of Note Date/Time of Note DATE: 05/26/17 TIME: 13:57 Assessment/Plan Assessment/Plan Chief Complaint/Hosp Course 26-year-old [place] single young lady recently admitted and worked up at [facility]. She presented with change in voice is gravelly voice thickened cool dry skin and a goiter. She is found to have a TSH in excess of 100 and a low free T4. As patient describes that she had an ultrasound-guided biopsy of the submandibular lymph glands. Pathology was consistent with benign reactive process the lymph nodes were 3.1 cm in size. She was placed on levothyroxine 75 mcg a day and discharged to follow-up in the clinic. She has a 3 month history of cough without fevers chills or sweats. She has no other known medical problems the best of the information the family can give. We have received information from [facility] which is reviewed in conjunction with this case. At that time she has developed pericardial tamponade on requiring placement of a window. 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 We will recheck her labs tomorrow to verify. The TSH dropping from [id number] range to 2.0 is actually a little bit atypical. As such I will repeat her labs tomorrow to verify. However I do believe that she is coming into euthyroid state nicely Consultation Date/Type/Reason Admit Date/Time May 18, 2017 at 05:57 Initial Consult Date 05/21/17 Type of Consultation: Endocrinology Reason for Consultation Antibody positive thyroid disease with hypothyroidism Referring Provider: ADRIÁN STALLINGS 24 HR Interval Summary Free Text/Dictation Patient reports she is feeling better was having tenderness from the procedural sites Exam/Review of Systems Vital Signs Vitals Vital Signs Date Time Temp Pulse Resp B/P Pulse Ox O2 Delivery O2 Flow Rate FiO2 05/26/17 12:13 2.0 05/26/17 12:12 56 05/26/17 11:26 97.8 18 120/80 100 05/26/17 07:58 Nasal Cannula 05/23/17 11:40 40 Intake and Output 05/25/17 05/25/17 05/26/17 15:00 23:00 07:00 Intake Total 50 ml 520 ml 400 ml Output Total 30 ml 1020 ml Balance 20 ml 520 ml -620 ml Exam Constitutional: alert, oriented Respiratory: clear to auscultation, normal air movement Skin: other (Improving though still with stigmata of myxedema) Results Result Diagram: 05/26/17 0620 05/26/17 0620 Results 24 hrs Laboratory Tests Test 05/25/17 17:13 05/25/17 21:40 05/26/17 06:20 05/26/17 07:51 Bedside Glucose 203 186 177 White Blood Count 15.8 H Red Blood Count 3.45 L Hemoglobin 10.9 L Hematocrit 33.5 L Mean Corpuscular Volume 97.1 Mean Corpuscular Hemoglobin 31.6 Mean Corpuscular Hemoglobin Concent 32.5 Red Cell Distribution Width 15.6 H Platelet Count 112 L Mean Platelet Volume 11.7 H Neutrophils % 73.2 Lymphocytes % 13.3 L Monocytes % 8.5 Eosinophils % 0.0 Basophils % 0.5 Nucleated Red Blood Cells % 13.7 H Neutrophils # 11.6 H Lymphocytes # 2.1 Monocytes # 1.4 H Eosinophils # 0.0 Basophils # 0.1 Nucleated Red Blood Cells # 2.2 H Erythrocyte Sedimentation Rate 15 Sodium Level 139 Potassium Level 5.3 H Chloride Level 105 Carbon Dioxide Level 24 Anion Gap 15 Blood Urea Nitrogen 46 H Creatinine 0.92 Glucose Level 169 Lactic Acid Level 2.5 H Calcium Level 8.0 L Magnesium Level 2.3 Total Bilirubin 0.2 Direct Bilirubin 0.00 Indirect Bilirubin 0.2 Aspartate Amino Transf (AST/SGOT) 1452 H Alanine Aminotransferase (ALT/SGPT) 1822 H Alkaline Phosphatase 78 Creatine Kinase 116 C-Reactive Protein 1.5 H Total Protein 6.1 Albumin 3.0 L Globulin 3.10 Albumin/Globulin Ratio 0.96 Amylase Level 122 Lipase 198 Thyroid Stimulating Hormone (TSH) 2.010 Test 05/26/17 11:39 05/26/17 12:03 Lab Scanned Report REFERENCE LAB Bedside Glucose 225 H Medications Medications Current Medications Ondansetron HCl (Zofran Inj) 4 mg Q6H PRN IV NAUSEA AND/OR VOMITING Last administered on 05/26/17t 09:30; Admin Dose 4 MG; Start 05/18/17 at 06:30 Pantoprazole (Protonix Iv) 40 mg DAILY@06 IV Last administered on 05/26/17 06: 18; Admin Dose 40 MG; Start 05/18/17 at 07:00 Acetaminophen (Tylenol Tab) 1,000 mg Q6H PRN PO PAIN AND OR ELEVATED TEMP Last administered on 05/24/17 08:26; Admin Dose 1,000 MG; Start 05/21/17 at 14:00 Miscellaneous Information 1 ea NOTE XX ; Start 05/23/17 at 10:00 Glucose (Glutose) 15 gm Q15M PRN PO DECREASED GLUCOSE; Start 05/23/17 at 10:00 Glucose (Glutose) 22.5 gm Q15M PRN PO DECREASED GLUCOSE; Start 05/23/17 at 10:00 Dextrose (D50w Syringe) 25 ml Q15M PRN IV DECREASED GLUCOSE; Start 05/23/17 at 10:00 Dextrose (D50w Syringe) 50 ml Q15M PRN IV DECREASED GLUCOSE; Start 05/23/17 at 10:00 Glucagon (Glucagen) 1 mg Q15M PRN IM DECREASED GLUCOSE; Start 05/23/17 at 10:00 Glucose (Glutose) 15 gm Q15M PRN BUCCAL DECREASED GLUCOSE; Start 05/23/17 at 10: 00 Morphine Sulfate (morphine) 4 mg Q3H PRN IV PAIN Last administered on 05/26/17 09:30; Admin Dose 4 MG; Start 05/23/17 at 14:00 Diagnostic Test (Pha) (Accu-Chek) 1 ea 02 XX ; Start 05/24/17 at 02:00 Meclizine HCl 25 mg 25 mg Q8H PRN PO NAUSEA; Start 05/24/17 at 09:00 Sodium Chloride 1,000 ml @ 50 mls/hr Q20H IV Last administered on 05/25/17 00: 54; Admin Dose 50 MLS/HR; Start 05/24/17 at 09:00 Cefepime HCl (Maxipime 2gm/50 ml (Pmx)) 50 ml @ 100 mls/hr Q12 IVPB Last administered on 05/26/17 08:13; Admin Dose 100 MLS/HR; Start 05/24/17 at 11:30 Bisacodyl (Dulcolax) 10 mg DAILY PRN PO CONSTIPATION Last administered on 08:33; Admin Dose 10 MG; Start 05/24/17 at 23:00 Methylprednisolone Sodium Succinate (Solu-Medrol) 60 mg Q12 IV Last administered on 05/26/17 08:12; Admin Dose 60 MG; Start 05/25/17 at 21:00 Guaifenesin/ Dextromethorphan (Robitussin Dm Liquid Cup) 10 ml Q6H PRN PO COUGH Last administered on 05/26/17 00:51; Admin Dose 10 ML; Start 05/25/17 at 23 :30 ISABELLA FRENCH MD May 26, 2017 14:04
--- NOTE | 2017-05-26 15:01 | PN ---
Date/Time of Note Date/Time of Note DATE: 05/26/17 TIME: 14:59 Assessment/Plan VTE Prophylaxis VTE Prophylaxis Intervention: SCD's Lines/Catheters IV Catheter Type (from Nrs): Peripheral IV Urinary Cath still in place: No Assessment/Plan Chief Complaint/Hosp Course 26 yo F discharged from [facility] February 2017 after new diagnosis of severe hypothyroidism who now presents with shortness of breath and is found to have pericardial effusion as well as bronchiolitis 1. SLE with highly positive REYNALDO Rheumatology on the case Continue Solu-Medrol 2. 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 Moderate pericardial effusion likely autoimmune Status post pericardial window as well as pulmonary decortication, follow-up on cytology cultures Cardiology on the case as well as CT surgery 3. Bilateral infectious/inflammatory bronchiolitis Continue cefepime but DC Levaquin secondary to transaminitis 4. Bilateral mild to moderate axillary lymphadenopathy and diffuse cervical adenopathy on Thyroid USS 03/2017. Pathology from needle biopsy showed reactive lymphocytes Pathology from biopsy of lymph node shows no evidence of malignancy Bone marrow biopsy still on hold as patient is short of breath and unstable for another biopsy 5. Acute transaminitis: Severely elevated today GI consultation treated, eval for autoimmune hepatitis Hepatitis panel is negative DC'd Levaquin as may be be contributing to her transaminitis 6. Dyslipidemia 7. Cardiomyopathy-EF 40-45% by echo 8. New Raynaud's phenomenon and hand petechiae Rheumatology consult appreciated 9. Acute kidney injury Creatinine now stable Nephrology consultation appreciated 10. Acute respiratory distress-resolved Pulmonology following Prophylaxis: SCDs Problems: Subjective 24 Hr Interval Summary Cardiovascular: chest pain Exam/Review of Systems Vital Signs Vitals Vital Signs Date Time Temp Pulse Resp B/P Pulse Ox O2 Delivery O2 Flow Rate FiO2 05/26/17 12:13 2.0 05/26/17 12:12 56 05/26/17 11:26 97.8 18 120/80 100 05/26/17 07:58 Nasal Cannula 05/23/17 11:40 40 Intake and Output 05/25/17 05/25/17 05/26/17 15:00 23:00 07:00 Intake Total 50 ml 520 ml 400 ml Output Total 30 ml 1020 ml Balance 20 ml 520 ml -620 ml Exam Constitutional: alert, oriented Respiratory: clear to auscultation Cardiovascular: other (Rub noted) Gastrointestinal: soft, No distended Musculoskeletal: nl extremities to inspection Results Result Diagram: 05/26/17 0620 05/26/17 0620 Results 24 hrs Laboratory Tests Test 05/25/17 17:13 05/25/17 21:40 05/26/17 06:20 05/26/17 07:51 Bedside Glucose 203 186 177 White Blood Count 15.8 H Red Blood Count 3.45 L Hemoglobin 10.9 L Hematocrit 33.5 L Mean Corpuscular Volume 97.1 Mean Corpuscular Hemoglobin 31.6 Mean Corpuscular Hemoglobin Concent 32.5 Red Cell Distribution Width 15.6 H Platelet Count 112 L Mean Platelet Volume 11.7 H Neutrophils % 73.2 Lymphocytes % 13.3 L Monocytes % 8.5 Eosinophils % 0.0 Basophils % 0.5 Nucleated Red Blood Cells % 13.7 H Neutrophils # 11.6 H Lymphocytes # 2.1 Monocytes # 1.4 H Eosinophils # 0.0 Basophils # 0.1 Nucleated Red Blood Cells # 2.2 H Erythrocyte Sedimentation Rate 15 Sodium Level 139 Potassium Level 5.3 H Chloride Level 105 Carbon Dioxide Level 24 Anion Gap 15 Blood Urea Nitrogen 46 H Creatinine 0.92 Glucose Level 169 Lactic Acid Level 2.5 H Calcium Level 8.0 L Magnesium Level 2.3 Total Bilirubin 0.2 Direct Bilirubin 0.00 Indirect Bilirubin 0.2 Aspartate Amino Transf (AST/SGOT) 1452 H Alanine Aminotransferase (ALT/SGPT) 1822 H Alkaline Phosphatase 78 Creatine Kinase 116 C-Reactive Protein 1.5 H Total Protein 6.1 Albumin 3.0 L Globulin 3.10 Albumin/Globulin Ratio 0.96 Amylase Level 122 Lipase 198 Thyroid Stimulating Hormone (TSH) 2.010 Test 05/26/17 11:39 05/26/17 12:03 Lab Scanned Report REFERENCE LAB Bedside Glucose 225 H Medications Medications Current Medications Ondansetron HCl (Zofran Inj) 4 mg Q6H PRN IV NAUSEA AND/OR VOMITING Last administered on 05/26/17 09:30; Admin Dose 4 MG; Start 05/18/17 at 06:30 Pantoprazole (Protonix Iv) 40 mg DAILY@06 IV Last administered on 05/26/17 06: 18; Admin Dose 40 MG; Start 05/18/17 at 07:00 Acetaminophen (Tylenol Tab) 1,000 mg Q6H PRN PO PAIN AND OR ELEVATED TEMP Last administered on 05/24/17 08:26; Admin Dose 1,000 MG; Start 05/21/17 at 14:00 Miscellaneous Information 1 ea NOTE XX ; Start 05/23/17 at 10:00 Glucose (Glutose) 15 gm Q15M PRN PO DECREASED GLUCOSE; Start 05/23/17 at 10:00 Glucose (Glutose) 22.5 gm Q15M PRN PO DECREASED GLUCOSE; Start 05/23/17 at 10:00 Dextrose (D50w Syringe) 25 ml Q15M PRN IV DECREASED GLUCOSE; Start 05/23/17 at 10:00 Dextrose (D50w Syringe) 50 ml Q15M PRN IV DECREASED GLUCOSE; Start 05/23/17 at 10:00 Glucagon (Glucagen) 1 mg Q15M PRN IM DECREASED GLUCOSE; Start 05/23/17 at 10:00 Glucose (Glutose) 15 gm Q15M PRN BUCCAL DECREASED GLUCOSE; Start 05/23/17 at 10: 00 Morphine Sulfate (morphine) 4 mg Q3H PRN IV PAIN Last administered on 05/26/17 09:30; Admin Dose 4 MG; Start 05/23/17 at 14:00 Diagnostic Test (Pha) (Accu-Chek) 1 ea 02 XX ; Start 05/24/17 at 02:00 Meclizine HCl 25 mg 25 mg Q8H PRN PO NAUSEA; Start 05/24/17 at 09:00 Sodium Chloride 1,000 ml @ 50 mls/hr Q20H IV Last administered on 05/25/17 00: 54; Admin Dose 50 MLS/HR; Start 05/24/17 at 09:00 Cefepime HCl (Maxipime 2gm/50 ml (Pmx)) 50 ml @ 100 mls/hr Q12 IVPB Last administered on 05/26/17 08:13; Admin Dose 100 MLS/HR; Start 05/24/17 at 11:30 Bisacodyl (Dulcolax) 10 mg DAILY PRN PO CONSTIPATION Last administered on 08:33; Admin Dose 10 MG; Start 05/24/17 at 23:00 Methylprednisolone Sodium Succinate (Solu-Medrol) 60 mg Q12 IV Last administered on 05/26/17 08:12; Admin Dose 60 MG; Start 05/25/17 at 21:00 Guaifenesin/ Dextromethorphan (Robitussin Dm Liquid Cup) 10 ml Q6H PRN PO COUGH Last administered on 05/26/17 00:51; Admin Dose 10 ML; Start 05/25/17 at 23 :30 ADRIÁN STALLINGS May 26, 2017 15:01
--- NOTE | 2017-05-26 16:45 | CONS ---
Date/Time of Note Date/Time of Note DATE: 05/26/17 TIME: 16:43 Assessment/Plan Assessment/Plan Chief Complaint/Hosp Course Subjective: Patient just received morphine, lying comfortably in bed, no fevers Antimicrobials: Cefepime Indwelling's: Left sided chest tubes Physical examination: Well-developed well-nourished young woman who is in no distress. Head atraumatic, normocephalic sclera nonicteric pupils reactive to light equally. Neck is supple, trachea midline. Chest rise symmetrical, breath sounds diminished to left. Abdomen soft bowel tones present. Extremities without cyanosis, trace dependent edema. Assessment: 1. Pericardial effusion, status post pericardial window, left thoracotomy and pulmonary decortication on May 22, 2017 2. S/p postop respiratory failure 3. Systemic lupus erythematosus 4. Cecil's thyroiditis 5. Leukocytosis, remains on Solu Medrol 6. Bronchiolitis 7. Transaminitis==> Abdominal ultrasound revealed gallbladder sludge without definite evidence of acute cholecystitis Plan: Remains stable, continue Cefepime, steroids taper per rheumatology, follow pulmonary, cardiothoracic surgery, GI recommendations Discussed with staff Problems: Consultation Date/Type/Reason Admit Date/Time May 18, 2017 at 05:57 Initial Consult Date 05/21/17 Type of Consultation: Infectious disease Referring Provider: ADRIÁN STALLINGS Exam/Review of Systems Vital Signs Vitals Vital Signs Date Time Temp Pulse Resp B/P Pulse Ox O2 Delivery O2 Flow Rate FiO2 05/26/17 16:11 51 05/26/17 15:39 98.0 18 128/89 96 05/26/17 12:13 2.0 05/26/17 07:58 Nasal Cannula 05/23/17 11:40 40 Intake and Output 05/25/17 05/25/17 05/26/17 15:00 23:00 07:00 Intake Total 50 ml 520 ml 400 ml Output Total 30 ml 1020 ml Balance 20 ml 520 ml -620 ml Results Result Diagram: 05/26/17 0620 05/26/17 0620 Results 24 hrs Laboratory Tests Test 05/25/17 17:13 05/25/17 21:40 05/26/17 06:20 05/26/17 07:51 Bedside Glucose 203 186 177 White Blood Count 15.8 H Red Blood Count 3.45 L Hemoglobin 10.9 L Hematocrit 33.5 L Mean Corpuscular Volume 97.1 Mean Corpuscular Hemoglobin 31.6 Mean Corpuscular Hemoglobin Concent 32.5 Red Cell Distribution Width 15.6 H Platelet Count 112 L Mean Platelet Volume 11.7 H Neutrophils % 73.2 Lymphocytes % 13.3 L Monocytes % 8.5 Eosinophils % 0.0 Basophils % 0.5 Nucleated Red Blood Cells % 13.7 H Neutrophils # 11.6 H Lymphocytes # 2.1 Monocytes # 1.4 H Eosinophils # 0.0 Basophils # 0.1 Nucleated Red Blood Cells # 2.2 H Erythrocyte Sedimentation Rate 15 Sodium Level 139 Potassium Level 5.3 H Chloride Level 105 Carbon Dioxide Level 24 Anion Gap 15 Blood Urea Nitrogen 46 H Creatinine 0.92 Glucose Level 169 Lactic Acid Level 2.5 H Calcium Level 8.0 L Magnesium Level 2.3 Total Bilirubin 0.2 Direct Bilirubin 0.00 Indirect Bilirubin 0.2 Aspartate Amino Transf (AST/SGOT) 1452 H Alanine Aminotransferase (ALT/SGPT) 1822 H Alkaline Phosphatase 78 Creatine Kinase 116 C-Reactive Protein 1.5 H Total Protein 6.1 Albumin 3.0 L Globulin 3.10 Albumin/Globulin Ratio 0.96 Amylase Level 122 Lipase 198 Thyroid Stimulating Hormone (TSH) 2.010 Test 05/26/17 11:39 05/26/17 12:03 Lab Scanned Report REFERENCE LAB Bedside Glucose 225 H Medications Medications Current Medications Ondansetron HCl (Zofran Inj) 4 mg Q6H PRN IV NAUSEA AND/OR VOMITING Last administered on 05/26/17 09:30; Admin Dose 4 MG; Start 05/18/17 at 06:30 Pantoprazole (Protonix Iv) 40 mg DAILY@06 IV Last administered on 05/26/17 06: 18; Admin Dose 40 MG; Start 05/18/17 at 07:00 Acetaminophen (Tylenol Tab) 1,000 mg Q6H PRN PO PAIN AND OR ELEVATED TEMP Last administered on 05/24/17 08:26; Admin Dose 1,000 MG; Start 05/21/17 at 14:00 Miscellaneous Information 1 ea NOTE XX ; Start 05/23/17 at 10:00 Glucose (Glutose) 15 gm Q15M PRN PO DECREASED GLUCOSE; Start 05/23/17 at 10:00 Glucose (Glutose) 22.5 gm Q15M PRN PO DECREASED GLUCOSE; Start 05/23/17 at 10:00 Dextrose (D50w Syringe) 25 ml Q15M PRN IV DECREASED GLUCOSE; Start 05/23/17 at 10:00 Dextrose (D50w Syringe) 50 ml Q15M PRN IV DECREASED GLUCOSE; Start 05/23/17 at 10:00 Glucagon (Glucagen) 1 mg Q15M PRN IM DECREASED GLUCOSE; Start 05/23/17 at 10:00 Glucose (Glutose) 15 gm Q15M PRN BUCCAL DECREASED GLUCOSE; Start 05/23/17 at 10: 00 Morphine Sulfate (morphine) 4 mg Q3H PRN IV PAIN Last administered on 05/26/17 09:30; Admin Dose 4 MG; Start 05/23/17 at 14:00 Diagnostic Test (Pha) (Accu-Chek) 1 ea 02 XX ; Start 05/24/17 at 02:00 Meclizine HCl 25 mg 25 mg Q8H PRN PO NAUSEA; Start 05/24/17 at 09:00 Sodium Chloride 1,000 ml @ 50 mls/hr Q20H IV Last administered on 05/25/17 00: 54; Admin Dose 50 MLS/HR; Start 05/24/17 at 09:00 Cefepime HCl (Maxipime 2gm/50 ml (Pmx)) 50 ml @ 100 mls/hr Q12 IVPB Last administered on 05/26/17 08:13; Admin Dose 100 MLS/HR; Start 05/24/17 at 11:30 Bisacodyl (Dulcolax) 10 mg DAILY PRN PO CONSTIPATION Last administered on 08:33; Admin Dose 10 MG; Start 05/24/17 at 23:00 Methylprednisolone Sodium Succinate (Solu-Medrol) 60 mg Q12 IV Last administered on 05/26/17 08:12; Admin Dose 60 MG; Start 05/25/17 at 21:00 Guaifenesin/ Dextromethorphan (Robitussin Dm Liquid Cup) 10 ml Q6H PRN PO COUGH Last administered on 05/26/17 00:51; Admin Dose 10 ML; Start 05/25/17 at 23 :30 JANNY LUTZ NP May 26, 2017 16:45
--- NOTE | 2017-05-26 17:02 | PN ---
Date/Time of Note Date/Time of Note DATE: 05/26/17 TIME: 17:01 Assessment/Plan VTE Prophylaxis VTE Prophylaxis Intervention: other Lines/Catheters IV [facility]ter Type (from [facility]): Peripheral IV Urinary Cath still in place: No Assessment/Plan Chief Complaint/Hosp Course Patient with pericardial effusion Status post pericardial window Chest tube with 70 cc of drainage Awaiting pathology We will continue chest tube suction one more day Discussed with the referring physicians Problems: Subjective 24 Hr Interval Summary Respiratory: no complaints Cardiovascular: no complaints Gastrointestinal: no complaints Genitourinary: no complaints Musculoskeletal: no complaints Skin: no complaints Neurologic: no complaints Exam/Review of Systems Vital Signs Vitals Vital Signs Date Time Temp Pulse Resp B/P Pulse Ox O2 Delivery O2 Flow Rate FiO2 05/26/17 16:11 51 05/26/17 15:39 98.0 18 128/89 96 05/26/17 12:13 2.0 05/26/17 07:58 Nasal Cannula 05/23/17 11:40 40 Intake and Output 05/25/17 05/25/17 05/26/17 15:00 23:00 07:00 Intake Total 50 ml 520 ml 400 ml Output Total 30 ml 1020 ml Balance 20 ml 520 ml -620 ml Exam ENMT: nl external ears & nose, nl lips & teeth, nl nasal mucosa & septum Neck: non-tender, supple Respiratory: clear to auscultation, normal air movement Cardiovascular: nl pulses, regular rate and rhythm Results Result Diagram: 05/26/17 0620 05/26/17 0620 Results 24 hrs Laboratory Tests Test 05/25/17 17:13 05/25/17 21:40 05/26/17 06:20 05/26/17 07:51 Bedside Glucose 203 186 177 White Blood Count 15.8 H Red Blood Count 3.45 L Hemoglobin 10.9 L Hematocrit 33.5 L Mean Corpuscular Volume 97.1 Mean Corpuscular Hemoglobin 31.6 Mean Corpuscular Hemoglobin Concent 32.5 Red Cell Distribution Width 15.6 H Platelet Count 112 L Mean Platelet Volume 11.7 H Neutrophils % 73.2 Lymphocytes % 13.3 L Monocytes % 8.5 Eosinophils % 0.0 Basophils % 0.5 Nucleated Red Blood Cells % 13.7 H Neutrophils # 11.6 H Lymphocytes # 2.1 Monocytes # 1.4 H Eosinophils # 0.0 Basophils # 0.1 Nucleated Red Blood Cells # 2.2 H Erythrocyte Sedimentation Rate 15 Sodium Level 139 Potassium Level 5.3 H Chloride Level 105 Carbon Dioxide Level 24 Anion Gap 15 Blood Urea Nitrogen 46 H Creatinine 0.92 Glucose Level 169 Lactic Acid Level 2.5 H Calcium Level 8.0 L Magnesium Level 2.3 Total Bilirubin 0.2 Direct Bilirubin 0.00 Indirect Bilirubin 0.2 Aspartate Amino Transf (AST/SGOT) 1452 H Alanine Aminotransferase (ALT/SGPT) 1822 H Alkaline Phosphatase 78 Creatine Kinase 116 C-Reactive Protein 1.5 H Total Protein 6.1 Albumin 3.0 L Globulin 3.10 Albumin/Globulin Ratio 0.96 Amylase Level 122 Lipase 198 Thyroid Stimulating Hormone (TSH) 2.010 Test 05/26/17 11:39 05/26/17 12:03 Lab Scanned Report REFERENCE LAB Bedside Glucose 225 H Medications Medications Current Medications Ondansetron HCl (Zofran Inj) 4 mg Q6H PRN IV NAUSEA AND/OR VOMITING Last administered on 05/26/17 09:30; Admin Dose 4 MG; Start 05/18/17 at 06:30 Pantoprazole (Protonix Iv) 40 mg DAILY@06 IV Last administered on 05/26/17 06: 18; Admin Dose 40 MG; Start 05/18/17 at 07:00 Acetaminophen (Tylenol Tab) 1,000 mg Q6H PRN PO PAIN AND OR ELEVATED TEMP Last administered on 05/24/17 08:26; Admin Dose 1,000 MG; Start 05/21/17 at 14:00 Miscellaneous Information 1 ea NOTE XX ; Start 05/23/17 at 10:00 Glucose (Glutose) 15 gm Q15M PRN PO DECREASED GLUCOSE; Start 05/23/17 at 10:00 Glucose (Glutose) 22.5 gm Q15M PRN PO DECREASED GLUCOSE; Start 05/23/17 at 10:00 Dextrose (D50w Syringe) 25 ml Q15M PRN IV DECREASED GLUCOSE; Start 05/23/17 at 10:00 Dextrose (D50w Syringe) 50 ml Q15M PRN IV DECREASED GLUCOSE; Start 05/23/17 at 10:00 Glucagon (Glucagen) 1 mg Q15M PRN IM DECREASED GLUCOSE; Start 05/23/17 at 10:00 Glucose (Glutose) 15 gm Q15M PRN BUCCAL DECREASED GLUCOSE; Start 05/23/17 at 10: 00 Morphine Sulfate (morphine) 4 mg Q3H PRN IV PAIN Last administered on 05/26/17 09:30; Admin Dose 4 MG; Start 05/23/17 at 14:00 Diagnostic Test (Pha) (Accu-Chek) 1 ea 02 XX ; Start 05/24/17 at 02:00 Meclizine HCl 25 mg 25 mg Q8H PRN PO NAUSEA; Start 05/24/17 at 09:00 Sodium Chloride 1,000 ml @ 50 mls/hr Q20H IV Last administered on 05/25/17 00: 54; Admin Dose 50 MLS/HR; Start 05/24/17 at 09:00 Cefepime HCl (Maxipime 2gm/50 ml (Pmx)) 50 ml @ 100 mls/hr Q12 IVPB Last administered on 05/26/17 08:13; Admin Dose 100 MLS/HR; Start 05/24/17 at 11:30 Bisacodyl (Dulcolax) 10 mg DAILY PRN PO CONSTIPATION Last administered on 08:33; Admin Dose 10 MG; Start 05/24/17 at 23:00 Methylprednisolone Sodium Succinate (Solu-Medrol) 60 mg Q12 IV Last administered on 05/26/17 08:12; Admin Dose 60 MG; Start 05/25/17 at 21:00 Guaifenesin/ Dextromethorphan (Robitussin Dm Liquid Cup) 10 ml Q6H PRN PO COUGH Last administered on 05/26/17 00:51; Admin Dose 10 ML; Start 05/25/17 at 23 :30 KRYSTAL HARRIS MD May 26, 2017 17:02
--- NOTE | 2017-05-26 18:58 | CONS ---
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 Ultrasound showed evidence of sludge in the gallbladder with possibility patient may be passing sludge from the common bile duct to be related to abnormal liver functions We will monitor the liver function Hepatitis B surface antigen and hepatitis C antibody negative Certainly she could have a lupus hepatitis Plan monitor liver functions Depending upon the liver panel we may have to consider ERCP and liver biopsy or probably just watch Consultation Date/Type/Reason Admit Date/Time May 18, 2017 at 05:57 Initial Consult Date 05/23/17 Type of Consultation: Infectious disease Referring Provider: ADRIÁN STALLINGS 24 HR Interval Summary Free Text/Dictation Patient has a nonspecific abdominal discomfort Denies any vomiting GI bleeding or diarrhea Exam/Review of Systems Vital Signs Vitals Vital Signs Date Time Temp Pulse Resp B/P Pulse Ox O2 Delivery O2 Flow Rate FiO2 05/26/17 16:11 51 05/26/17 15:39 98.0 18 128/89 96 05/26/17 12:13 2.0 05/26/17 07:58 Nasal Cannula 05/23/17 11:40 40 Intake and Output 05/25/17 05/25/17 05/26/17 15:00 23:00 07:00 Intake Total 50 ml 520 ml 400 ml Output Total 30 ml 1020 ml Balance 20 ml 520 ml -620 ml Exam Patient appears to be comfortable Vital signs are normal Abdomen is nontender Liver functions are not available from today Results Result Diagram: 05/26/17 0620 05/26/17 0620 Results 24 hrs Laboratory Tests Test 05/25/17 21:40 05/26/17 06:20 05/26/17 07:51 05/26/17 11:39 Bedside Glucose 186 177 White Blood Count 15.8 H Red Blood Count 3.45 L Hemoglobin 10.9 L Hematocrit 33.5 L Mean Corpuscular Volume 97.1 Mean Corpuscular Hemoglobin 31.6 Mean Corpuscular Hemoglobin Concent 32.5 Red Cell Distribution Width 15.6 H Platelet Count 112 L Mean Platelet Volume 11.7 H Neutrophils % 73.2 Lymphocytes % 13.3 L Monocytes % 8.5 Eosinophils % 0.0 Basophils % 0.5 Nucleated Red Blood Cells % 13.7 H Neutrophils # 11.6 H Lymphocytes # 2.1 Monocytes # 1.4 H Eosinophils # 0.0 Basophils # 0.1 Nucleated Red Blood Cells # 2.2 H Erythrocyte Sedimentation Rate 15 Sodium Level 139 Potassium Level 5.3 H Chloride Level 105 Carbon Dioxide Level 24 Anion Gap 15 Blood Urea Nitrogen 46 H Creatinine 0.92 Glucose Level 169 Lactic Acid Level 2.5 H Calcium Level 8.0 L Magnesium Level 2.3 Total Bilirubin 0.2 Direct Bilirubin 0.00 Indirect Bilirubin 0.2 Aspartate Amino Transf (AST/SGOT) 1452 H Alanine Aminotransferase (ALT/SGPT) 1822 H Alkaline Phosphatase 78 Creatine Kinase 116 C-Reactive Protein 1.5 H Total Protein 6.1 Albumin 3.0 L Globulin 3.10 Albumin/Globulin Ratio 0.96 Amylase Level 122 Lipase 198 Thyroid Stimulating Hormone (TSH) 2.010 Lab Scanned Report REFERENCE LAB Test 05/26/17 12:03 05/26/17 17:24 Bedside Glucose 225 H 246 H Medications Medications Current Medications Ondansetron HCl (Zofran Inj) 4 mg Q6H PRN IV NAUSEA AND/OR VOMITING Last administered on 05/26/17 17:26; Admin Dose 4 MG; Start 05/18/17 at 06:30 Pantoprazole (Protonix Iv) 40 mg DAILY@06 IV Last administered on 05/26/17 06: 18; Admin Dose 40 MG; Start 05/18/17 at 07:00 Acetaminophen (Tylenol Tab) 1,000 mg Q6H PRN PO PAIN AND OR ELEVATED TEMP Last administered on 05/24/17 08:26; Admin Dose 1,000 MG; Start 05/21/17 at 14:00 Miscellaneous Information 1 ea NOTE XX ; Start 05/23/17 at 10:00 Glucose (Glutose) 15 gm Q15M PRN PO DECREASED GLUCOSE; Start 05/23/17 at 10:00 Glucose (Glutose) 22.5 gm Q15M PRN PO DECREASED GLUCOSE; Start 05/23/17 at 10:00 Dextrose (D50w Syringe) 25 ml Q15M PRN IV DECREASED GLUCOSE; Start 05/23/17 at 10:00 Dextrose (D50w Syringe) 50 ml Q15M PRN IV DECREASED GLUCOSE; Start 05/23/17 at 10:00 Glucagon (Glucagen) 1 mg Q15M PRN IM DECREASED GLUCOSE; Start 05/23/17 at 10:00 Glucose (Glutose) 15 gm Q15M PRN BUCCAL DECREASED GLUCOSE; Start 05/23/17 at 10: 00 Morphine Sulfate (morphine) 4 mg Q3H PRN IV PAIN Last administered on 05/26/17 17:26; Admin Dose 4 MG; Start 05/23/17 at 14:00 Diagnostic Test (Pha) (Accu-Chek) 1 ea 02 XX ; Start 05/24/17 at 02:00 Meclizine HCl 25 mg 25 mg Q8H PRN PO NAUSEA; Start 05/24/17 at 09:00 Sodium Chloride 1,000 ml @ 50 mls/hr Q20H IV Last administered on 05/25/17 00: 54; Admin Dose 50 MLS/HR; Start 05/24/17 at 09:00 Cefepime HCl (Maxipime 2gm/50 ml (Pmx)) 50 ml @ 100 mls/hr Q12 IVPB Last administered on 05/26/17 08:13; Admin Dose 100 MLS/HR; Start 05/24/17 at 11:30 Bisacodyl (Dulcolax) 10 mg DAILY PRN PO CONSTIPATION Last administered on 08:33; Admin Dose 10 MG; Start 05/24/17 at 23:00 Methylprednisolone Sodium Succinate (Solu-Medrol) 60 mg Q12 IV Last administered on 05/26/17 08:12; Admin Dose 60 MG; Start 05/25/17 at 21:00 Guaifenesin/ Dextromethorphan (Robitussin Dm Liquid Cup) 10 ml Q6H PRN PO COUGH Last administered on 05/26/17 00:51; Admin Dose 10 ML; Start 05/25/17 at 23 :30 SHUBHAM JENNINGS MD May 26, 2017 18:57
[2017-05-26] MEDS: SOD CHLORIDE 0.9% 1,000 ML IV SCH (21:40)
--- NOTE | 2017-05-26 23:31 | CONS ---
Date/Time of Note Date/Time of Note DATE: 05/26/17 TIME: 23:30 Assessment/Plan Assessment/Plan Chief Complaint/Hosp Course Bilateral mild to moderate axillary lymphadenopathy, MORE ON THE L and diffuse cervical adenopathy on Thyroid USS 03/2017. BIOCHEMICAL W-UP- P CT ABD- Prominent bilateral inguinal and left external iliac chain lymph nodes, which are nonspecific. BX L AXILLARY LN WHEN PT IS MORE STABLE WILL PROCEED WITH BX- SINCE IF PT HAS A LYMPHOMA IT MAY RESPOND TO STEROIDS D/W DR GRAHAM- HE DIDN'T FELL LN- AND DIDN'T DO THE BX Left axillary lymph node, ultrasound-guided needle biopsies with touch imprints: -- Benign lymphoid tissue. 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 POS WINDOW Bilateral infectious/inflammatory bronchiolitis. Positive rheumatoid factor RHEUMATOLOGY EVAL Pericardial effusion-moderate by echo with no signs of echo tamponade at this time. Cardiomyopathy-EF 40-45% by echo Acute Shortness of breath Increased LFT's Problems: Consultation Date/Type/Reason Admit Date/Time May 18, 2017 at 05:57 Initial Consult Date 05/19/17 Type of Consultation: [facility] Referring Provider: ADRIÁN STALLINGS 24 HR Interval Summary Free Text/Dictation Constitutional: alert, oriented, other (ill looking) Psych: anxiety Head: atraumatic, normocephalic Eyes: PERRL, No icteric ENMT: mucosa pink and moist Neck: non-tender, supple, No jvd Respiratory: clear to auscultation, diminished breath sounds Cardiovascular: murmurs/extra sounds, regular rate and rhythm, No edema Gastrointestinal: bowel sounds, non-tender, soft Musculoskeletal: nl extremities to inspection, nl gait and stance Extremities: normal pulses, No edema Neurological: lethargic, nl mental status, No focal weakness Skin: No rash or lesions LN- MILD BL LN-NEHEMIAH BREAST- NO MASSES Exam/Review of Systems Vital Signs Vitals Vital Signs Date Time Temp Pulse Resp B/P Pulse Ox O2 Delivery O2 Flow Rate FiO2 05/26/17 20:10 48 05/26/17 19:47 98.9 19 122/85 99 05/26/17 12:13 2.0 05/26/17 07:58 Nasal Cannula 05/23/17 11:40 40 Intake and Output 05/25/17 05/25/17 05/26/17 15:00 23:00 07:00 Intake Total 50 ml 520 ml 400 ml Output Total 30 ml 1020 ml Balance 20 ml 520 ml -620 ml Results Result Diagram: 05/26/17 0620 05/26/17 0620 Results 24 hrs Laboratory Tests Test 05/26/17 06:20 05/26/17 07:51 05/26/17 11:39 05/26/17 12:03 White Blood Count 15.8 H Red Blood Count 3.45 L Hemoglobin 10.9 L Hematocrit 33.5 L Mean Corpuscular Volume 97.1 Mean Corpuscular Hemoglobin 31.6 Mean Corpuscular Hemoglobin Concent 32.5 Red Cell Distribution Width 15.6 H Platelet Count 112 L Mean Platelet Volume 11.7 H Neutrophils % 73.2 Lymphocytes % 13.3 L Monocytes % 8.5 Eosinophils % 0.0 Basophils % 0.5 Nucleated Red Blood Cells % 13.7 H Neutrophils # 11.6 H Lymphocytes # 2.1 Monocytes # 1.4 H Eosinophils # 0.0 Basophils # 0.1 Nucleated Red Blood Cells # 2.2 H Erythrocyte Sedimentation Rate 15 Sodium Level 139 Potassium Level 5.3 H Chloride Level 105 Carbon Dioxide Level 24 Anion Gap 15 Blood Urea Nitrogen 46 H Creatinine 0.92 Glucose Level 169 Lactic Acid Level 2.5 H Calcium Level 8.0 L Magnesium Level 2.3 Total Bilirubin 0.2 Direct Bilirubin 0.00 Indirect Bilirubin 0.2 Aspartate Amino Transf (AST/SGOT) 1452 H Alanine Aminotransferase (ALT/SGPT) 1822 H Alkaline Phosphatase 78 Creatine Kinase 116 C-Reactive Protein 1.5 H Total Protein 6.1 Albumin 3.0 L Globulin 3.10 Albumin/Globulin Ratio 0.96 Amylase Level 122 Lipase 198 Thyroid Stimulating Hormone (TSH) 2.010 Bedside Glucose 177 225 H Lab Scanned Report REFERENCE LAB Test 05/26/17 17:24 05/26/17 21:43 Bedside Glucose 246 H 226 H Medications Medications Current Medications Ondansetron HCl (Zofran Inj) 4 mg Q6H PRN IV NAUSEA AND/OR VOMITING Last administered on 05/26/17 17:26; Admin Dose 4 MG; Start 05/18/17 at 06:30 Pantoprazole (Protonix Iv) 40 mg DAILY@06 IV Last administered on 05/26/17 06: 18; Admin Dose 40 MG; Start 05/18/17 at 07:00 Acetaminophen (Tylenol Tab) 1,000 mg Q6H PRN PO PAIN AND OR ELEVATED TEMP Last administered on 05/24/17 08:26; Admin Dose 1,000 MG; Start 05/21/17 at 14:00 Miscellaneous Information 1 ea NOTE XX ; Start 05/23/17 at 10:00 Glucose (Glutose) 15 gm Q15M PRN PO DECREASED GLUCOSE; Start 05/23/17 at 10:00 Glucose (Glutose) 22.5 gm Q15M PRN PO DECREASED GLUCOSE; Start 05/23/17 at 10:00 Dextrose (D50w Syringe) 25 ml Q15M PRN IV DECREASED GLUCOSE; Start 05/23/17 at 10:00 Dextrose (D50w Syringe) 50 ml Q15M PRN IV DECREASED GLUCOSE; Start 05/23/17 at 10:00 Glucagon (Glucagen) 1 mg Q15M PRN IM DECREASED GLUCOSE; Start 05/23/17 at 10:00 Glucose (Glutose) 15 gm Q15M PRN BUCCAL DECREASED GLUCOSE; Start 05/23/17 at 10: 00 Morphine Sulfate (morphine) 4 mg Q3H PRN IV PAIN Last administered on 05/26/17 21:56; Admin Dose 4 MG; Start 05/23/17 at 14:00 Diagnostic Test (Pha) (Accu-Chek) 1 ea 02 XX ; Start 05/24/17 at 02:00 Meclizine HCl 25 mg 25 mg Q8H PRN PO NAUSEA; Start 05/24/17 at 09:00 Sodium Chloride 1,000 ml @ 50 mls/hr Q20H IV Last administered on 05/26/17 21: 40; Admin Dose 50 MLS/HR; Start 05/24/17 at 09:00 Cefepime HCl (Maxipime 2gm/50 ml (Pmx)) 50 ml @ 100 mls/hr Q12 IVPB Last administered on 05/26/17 21:40; Admin Dose 100 MLS/HR; Start 05/24/17 at 11:30 Bisacodyl (Dulcolax) 10 mg DAILY PRN PO CONSTIPATION Last administered on 08:33; Admin Dose 10 MG; Start 05/24/17 at 23:00 Methylprednisolone Sodium Succinate (Solu-Medrol) 60 mg Q12 IV Last administered on 05/26/17 21:40; Admin Dose 60 MG; Start 05/25/17 at 21:00 Guaifenesin/ Dextromethorphan (Robitussin Dm Liquid Cup) 10 ml Q6H PRN PO COUGH Last administered on 05/26/17 00:51; Admin Dose 10 ML; Start 05/25/17 at 23 :30 DEEPA OCONNELL MD May 26, 2017 23:31
[2017-05-27] VITALS (10 sets, daily range): BP systolic 109–167; BP diastolic 79–102; PULSE 49–60; RESP 18–20
[2017-05-27] MEDS: morphine 4 MG/ML VIAL IV PRN ×2 (00:52→14:09)
[2017-05-27] MEDS: ACCU-CHEK XX SCH (02:00)
[2017-05-27] MEDS: LEVOTHYROXINE 125 MCG TAB PO SCH (06:28)
[2017-05-27] MEDS: PANTOPRAZOLE 40 MG INJ IV SCH (06:28)
[2017-05-27] MEDS: FUROSEMIDE 20 MG INJ IV SCH (06:29)
[2017-05-27] MEDS ORDERED: SUCCINYLCHOLINE CHLORIDE 100 MG/5 ML SYG IV ONE (07:00)
[2017-05-27] MEDS ORDERED: CA CHLORIDE 10% 10 ML SYRINGE ONE (07:00)
[2017-05-27] MEDS ORDERED: DEXTROSE 50% 50 ML SYRINGE ONE (07:00)
[2017-05-27] MEDS ORDERED: NA BICARBONATE 8.4% 50 ML SYG ONE (07:00)
[2017-05-27] MEDS ORDERED: EPINEPHrine 0.1 MG/ML SYG ONE (07:00)
--- NOTE | 2017-05-27 08:34 | CONS ---
Date/Time of Note Date/Time of Note DATE: 05/27/17 TIME: 08:32 Assessment/Plan Assessment/Plan Chief Complaint/Hosp Course IMp: 1.Pericardial effusion-moderate by echo with no signs of echo tamponade by initial echo. Sable BP, HR around 100. ? 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 s/p CT Recc: -maintain on tele -Continue synthroid -follow BP/HR -Follow volume status closely on gentle lasix diuresis which I will decrease to daily given increasing BUn/director financial services ratioo -Continue steroids/abx's and f/u cx data -Ongoing Rheum eval/heme-onc eval -Follow CT output with possible removal soon Problems: Consultation Date/Type/Reason Admit Date/Time May 18, 2017 at 05:57 Initial Consult Date 05/19/17 Type of Consultation: cardiology Reason for Consultation pericardial effusion Referring Provider: ADRIÁN STALLINGS Exam/Review of Systems Vital Signs Vitals Vital Signs Date Time Temp Pulse Resp B/P Pulse Ox O2 Delivery O2 Flow Rate FiO2 05/27/17 08:10 55 05/27/17 07:53 98.0 20 109/79 98 05/26/17 20:00 Nasal Cannula 2.0 05/23/17 11:40 40 Intake and Output 05/26/17 05/26/17 05/27/17 15:00 23:00 07:00 Intake Total 450 ml 750 ml Output Total 350 ml 720 ml Balance -350 ml 450 ml 30 ml Exam Review of Systems: CONSTITUTIONAL: No fevers, chills. PULMONARY: No sob CARDIOVASCULAR: No chest pain/palpitations GASTROINTESTINAL: No nausea/vomiting. GENITOURINARY: No hematuria/dysuria. MUSCULOSKELETAL: No myagias/arthalgias. PSYCHIATRIC: The patient denies depression. NEUROLOGIC: mild generalized weakness Constitutional: alert Psych: no complaints Head: normocephalic ENMT: mucosa pink and moist Neck: jvd (8-9 cm water), supple Respiratory: diminished breath sounds (at bases/B) Cardiovascular: other (CT in place L sided), regular rate and rhythm Gastrointestinal: non-tender, soft Musculoskeletal: muscle tone (normal) Extremities: edema (none) Neurological: other (No focal deficits) Results Result Diagram: 05/26/17 0620 05/26/17 0620 Results 24 hrs Laboratory Tests Test 05/26/17 11:39 05/26/17 12:03 05/26/17 17:24 05/26/17 21:43 Lab Scanned Report REFERENCE LAB Bedside Glucose 225 H 246 H 226 H Test 05/27/17 02:22 Bedside Glucose 222 H Medications Medications Current Medications Ondansetron HCl (Zofran Inj) 4 mg Q6H PRN IV NAUSEA AND/OR VOMITING Last administered on 05/26/17 17:26; Admin Dose 4 MG; Start 05/18/17 at 06:30 Pantoprazole (Protonix Iv) 40 mg DAILY@06 IV Last administered on 05/27/17 06: 28; Admin Dose 40 MG; Start 05/18/17 at 07:00 Acetaminophen (Tylenol Tab) 1,000 mg Q6H PRN PO PAIN AND OR ELEVATED TEMP Last administered on 05/24/17 08:26; Admin Dose 1,000 MG; Start 05/21/17 at 14:00 Miscellaneous Information 1 ea NOTE XX ; Start 05/23/17 at 10:00 Glucose (Glutose) 15 gm Q15M PRN PO DECREASED GLUCOSE; Start 05/23/17 at 10:00 Glucose (Glutose) 22.5 gm Q15M PRN PO DECREASED GLUCOSE; Start 05/23/17 at 10:00 Dextrose (D50w Syringe) 25 ml Q15M PRN IV DECREASED GLUCOSE; Start 05/23/17 at 10:00 Dextrose (D50w Syringe) 50 ml Q15M PRN IV DECREASED GLUCOSE; Start 05/23/17 at 10:00 Glucagon (Glucagen) 1 mg Q15M PRN IM DECREASED GLUCOSE; Start 05/23/17 at 10:00 Glucose (Glutose) 15 gm Q15M PRN BUCCAL DECREASED GLUCOSE; Start 05/23/17 at 10: 00 Morphine Sulfate (morphine) 4 mg Q3H PRN IV PAIN Last administered on 05/27/17 00:52; Admin Dose 4 MG; Start 05/23/17 at 14:00 Diagnostic Test (Pha) (Accu-Chek) 1 ea 02 XX ; Start 05/24/17 at 02:00 Meclizine HCl 25 mg 25 mg Q8H PRN PO NAUSEA; Start 05/24/17 at 09:00 Sodium Chloride 1,000 ml @ 50 mls/hr Q20H IV Last administered on 05/26/17 21: 40; Admin Dose 50 MLS/HR; Start 05/24/17 at 09:00 Cefepime HCl (Maxipime 2gm/50 ml (Pmx)) 50 ml @ 100 mls/hr Q12 IVPB Last administered on 05/26/17 21:40; Admin Dose 100 MLS/HR; Start 05/24/17 at 11:30 Bisacodyl (Dulcolax) 10 mg DAILY PRN PO CONSTIPATION Last administered on 08:33; Admin Dose 10 MG; Start 05/24/17 at 23:00 Methylprednisolone Sodium Succinate (Solu-Medrol) 60 mg Q12 IV Last administered on 05/26/17 21:40; Admin Dose 60 MG; Start 05/25/17 at 21:00 Guaifenesin/ Dextromethorphan (Robitussin Dm Liquid Cup) 10 ml Q6H PRN PO COUGH Last administered on 05/26/17 00:51; Admin Dose 10 ML; Start 05/25/17 at 23 :30 GENEVIEVE HERNANDEZ May 27, 2017 08:34
[2017-05-27] MEDS: METHYLPREDNISOLONE 125 MG INJ IV SCH (08:35)
[2017-05-27] MEDS: INSULIN ASPART [NOVOLOG] 3 ML PEN SC SCH ×3 (08:37→18:34)
[2017-05-27] MEDS: CEFEPIME 2GM/50 ML (PMX) 50 ML IVPB SCH (08:48)
[2017-05-27] MEDS ORDERED: FUROSEMIDE 20 MG INJ IV SCH (09:00)
--- NOTE | 2017-05-27 09:29 | CONS ---
Date/Time of Note Date/Time of Note DATE: 05/27/17 TIME: 09:26 Assessment/Plan Assessment/Plan Chief Complaint/Hosp Course 26[facility] and worked up at [facility]. She presented with change in voice is gravelly voice thickened cool dry skin and a goiter. She is found to have a TSH in excess of 100 and a low free T4. As patient describes that she had an ultrasound-guided biopsy of the submandibular lymph glands. Pathology was consistent with benign reactive process the lymph nodes were 3.1 cm in size. She was placed on levothyroxine 75 mcg a day and discharged to follow-up in the clinic. She has a 3 month history of cough without fevers chills or sweats. She has no other known medical problems the best of the information the family can give. We have received information from [facility] which is reviewed in conjunction with this case. At that time she has developed pericardial tamponade on requiring placement of a window. She is being seen in rheumatologic consultation, below and hematology consultation Problems: (1) SLE (systemic lupus erythematosus) Status: Acute Comment: As per rheumatology. This is a significant issue. I am not going to address the dosing on her steroids or other rheumatologic medications. She does however have steroid-induced hyperglycemia. I will be giving her medications to adjust for that. If necessary we will use NPH insulin time with the dosing of the IV steroids. 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 Please note awaiting follow-up labs clinically improved Consultation Date/Type/Reason Admit Date/Time May 18, 2017 at 05:57 Initial Consult Date 05/21/17 Type of Consultation: Endocrinology Reason for Consultation Hypothyroidism; steroid-induced hyperglycemia Referring Provider: ADRIÁN STALLINGS 26 HR Interval Summary Free Text/Dictation Patient reports she feels slightly better today. She is not getting up and around. Constitutional: no complaints (Denies fevers chills or sweats) Detailed Summary Respiratory: no complaints (Denies shortness of breath or cough) Cardiovascular: chest pain (Chest pain at surgical incision sites) Gastrointestinal: no complaints Exam/Review of Systems Vital Signs Vitals Vital Signs Date Time Temp Pulse Resp B/P Pulse Ox O2 Delivery O2 Flow Rate FiO2 05/27/17 08:10 55 05/27/17 07:53 98.0 20 109/79 98 05/26/17 20:00 Nasal Cannula 2.0 05/23/17 11:40 40 Intake and Output 05/26/17 05/26/17 05/27/17 15:00 23:00 07:00 Intake Total 450 ml 750 ml Output Total 350 ml 720 ml Balance -350 ml 450 ml 30 ml Exam Constitutional: alert, oriented Neck: non-tender, supple, thyromegaly (Thyroid is firm and woody) Respiratory: clear to auscultation, normal air movement Skin: other (Skin is still thickened and cool.) Results Result Diagram: 05/26/17 0620 05/26/17 0620 Results 24 hrs Laboratory Tests Test 05/26/17 11:39 05/26/17 12:03 05/26/17 17:24 05/26/17 21:43 Lab Scanned Report REFERENCE LAB Bedside Glucose 225 H 246 H 226 H Test 05/27/17 02:22 05/27/17 08:34 Bedside Glucose 222 H 211 Medications Medications Current Medications Ondansetron HCl (Zofran Inj) 4 mg Q6H PRN IV NAUSEA AND/OR VOMITING Last administered on 05/26/17 17:26; Admin Dose 4 MG; Start 05/18/17 at 06:30 Pantoprazole (Protonix Iv) 40 mg DAILY@06 IV Last administered on 05/27/17 06: 28; Admin Dose 40 MG; Start 05/18/17 at 07:00 Acetaminophen (Tylenol Tab) 1,000 mg Q6H PRN PO PAIN AND OR ELEVATED TEMP Last administered on 05/24/17 08:26; Admin Dose 1,000 MG; Start 05/21/17 at 14:00 Miscellaneous Information 1 ea NOTE XX ; Start 05/23/17 at 10:00 Glucose (Glutose) 15 gm Q15M PRN PO DECREASED GLUCOSE; Start 05/23/17 at 10:00 Glucose (Glutose) 22.5 gm Q15M PRN PO DECREASED GLUCOSE; Start 05/23/17 at 10:00 Dextrose (D50w Syringe) 25 ml Q15M PRN IV DECREASED GLUCOSE; Start 05/23/17 at 10:00 Dextrose (D50w Syringe) 50 ml Q15M PRN IV DECREASED GLUCOSE; Start 05/23/17 at 10:00 Glucagon (Glucagen) 1 mg Q15M PRN IM DECREASED GLUCOSE; Start 05/23/17 at 10:00 Glucose (Glutose) 15 gm Q15M PRN BUCCAL DECREASED GLUCOSE; Start 05/23/17 at 10: 00 Morphine Sulfate (morphine) 4 mg Q3H PRN IV PAIN Last administered on 05/27/17 00:52; Admin Dose 4 MG; Start 05/23/17 at 14:00 Diagnostic Test (Pha) (Accu-Chek) 1 ea 02 XX ; Start 05/24/17 at 02:00 Meclizine HCl 25 mg 25 mg Q8H PRN PO NAUSEA; Start 05/24/17 at 09:00 Sodium Chloride 1,000 ml @ 50 mls/hr Q20H IV Last administered on 05/26/17 21: 40; Admin Dose 50 MLS/HR; Start 05/24/17 at 09:00 Cefepime HCl (Maxipime 2gm/50 ml (Pmx)) 50 ml @ 100 mls/hr Q12 IVPB Last administered on 05/27/17 08:48; Admin Dose 100 MLS/HR; Start 05/24/17 at 11:30 Bisacodyl (Dulcolax) 10 mg DAILY PRN PO CONSTIPATION Last administered on 08:33; Admin Dose 10 MG; Start 05/24/17 at 23:00 Methylprednisolone Sodium Succinate (Solu-Medrol) 60 mg Q12 IV Last administered on 05/27/17 08:35; Admin Dose 60 MG; Start 05/25/17 at 21:00 Guaifenesin/ Dextromethorphan (Robitussin Dm Liquid Cup) 10 ml Q6H PRN PO COUGH Last administered on 05/26/17 00:51; Admin Dose 10 ML; Start 05/25/17 at 23 :30 Furosemide (Lasix) 20 mg DAILY IV ; Start 05/27/17 at 09:00 ISABELLA FRENCH MD May 27, 2017 09:29
[2017-05-27 09:34] LABS: ADD SCAN DIFF NO
[2017-05-27 09:36] LABS: ABNORMAL IP MESSAGE 1; BASOPHILS % 0.2 % (0.0-2.0); HEMATOCRIT 33.9 % (37.0-47.0); HEMOGLOBIN 10.6 g/dl (12.0-16.0); LYMPHOCYTES # 2.6 10^3/ul (0.8-2.9); LYMPHOCYTES % 16.1 % (15.0-51.0); MEAN CORPUSCULAR HEMOGLOBIN 30.3 pg (29.0-33.0); MEAN CORPUSCULAR HGB CONC 31.3 g/dl (32.0-37.0); MEAN CORPUSCULAR VOLUME 96.9 fl (82.0-101.0); MEAN PLATELET VOLUME 12.4 fl (7.4-10.4); MONOCYTE # 1.1 10^3/ul (0.3-0.9); MONOCYTES % 6.8 % (0.0-11.0); NEUTROPHIL # 11.2 10^3/ul (1.6-7.5); NEUTROPHILS % 68.6 % (39.0-77.0); NUCLEATED RED BLOOD CELLS # 2.7 10^3/ul (0.0-0.0); NUCLEATED RED BLOOD CELLS% 16.4 /100WBC (0.0-0.0); PLATELET COUNT 101 10^3/UL (140-415); RED CELL DISTRIBUTION WIDTH 15.8 % (11.5-14.5); WHITE BLOOD COUNT 16.3 10^3/ul (4.8-10.8)
[2017-05-27 09:59] LABS: ALBUMIN 3.3 g/dl (3.3-4.9); BILIRUBIN,INDIRECT 0.4 mg/dl (0-1.1); BILIRUBIN,TOTAL 0.4 mg/dl (0.2-1.3); CALCIUM 8.2 mg/dl (8.4-10.2); CREATININE 0.79 mg/dl (0.44-1.00); POTASSIUM 4.3 mmol/L (3.5-5.1); TOTAL PROTEIN 6.6 g/dl (6.1-8.1)
[2017-05-27] MEDS: metFORMIN 500 MG TAB PO SCH ×2 (10:09→17:27)
[2017-05-27 10:12] LABS: T3 UPTAKE 35.4 % (23.5-40.5)
[2017-05-27 11:40] LABS: THYROID STIMULATING HORMONE 1.13 MIU/L (0.465-4.680)
--- NOTE | 2017-05-27 12:11 | PN ---
Date/Time of Note Date/Time of Note DATE: 05/27/17 TIME: 12:05 Assessment/Plan VTE Prophylaxis VTE Prophylaxis Intervention: SCD's Lines/Catheters IV Catheter Type (from [facility]): Saline Lock Urinary Cath still in place: No Assessment/Plan Chief Complaint/Hosp Course 26 yo F discharged from [place] February 2017 after new diagnosis of severe hypothyroidism who now presents with shortness of breath and is found to have pericardial effusion as well as bronchiolitis 1. SLE with highly positive REYNALDO Rheumatology on the case Continue Solu-Medrol 2. 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 Moderate pericardial effusion likely autoimmune Status post pericardial window as well as pulmonary decortication, follow-up on cytology cultures Cardiology on the case as well as CT surgery Continue chest tube drainage 3. Bilateral infectious/inflammatory bronchiolitis-chest x-ray shows improvement Continue cefepime but DC Levaquin secondary to transaminitis Continue chest tube drainage Pulmonary following 4. Bilateral mild to moderate axillary lymphadenopathy and diffuse cervical adenopathy on Thyroid USS 03/2017. Pathology from needle biopsy showed reactive lymphocytes Pathology from biopsy of lymph node shows no evidence of malignancy Bone marrow biopsy still on hold as patient is short of breath and unstable for another biopsy 5. Acute transaminitis: Beginning to trend down GI consultation treated, eval for autoimmune hepatitis Hepatitis panel is negative DC'd Levaquin as was likely contributing to her transaminitis 6. Dyslipidemia 7. Cardiomyopathy-EF 40-45% by echo 8. New Raynaud's phenomenon and hand petechiae Rheumatology consult appreciated 9. Acute kidney injury Creatinine now stable Nephrology consultation appreciated Prophylaxis: SCDs Problems: Subjective 24 Hr Interval Summary Cardiovascular: chest pain Exam/Review of Systems Vital Signs Vitals Vital Signs Date Time Temp Pulse Resp B/P Pulse Ox O2 Delivery O2 Flow Rate FiO2 05/27/17 08:10 55 05/27/17 08:00 Nasal Cannula 2.0 05/27/17 07:53 98.0 20 109/79 98 05/23/17 11:40 40 Intake and Output 05/26/17 05/26/17 05/27/17 15:00 23:00 07:00 Intake Total 450 ml 750 ml Output Total 350 ml 720 ml Balance -350 ml 450 ml 30 ml Exam Constitutional: alert Respiratory: clear to auscultation Cardiovascular: regular rate and rhythm Gastrointestinal: soft, No distended Musculoskeletal: nl extremities to inspection Results Result Diagram: 05/27/17 0920 05/27/17 0920 Results 24 hrs Laboratory Tests Test 05/26/17 17:24 05/26/17 21:43 05/27/17 02:22 05/27/17 08:34 Bedside Glucose 246 H 226 H 222 H 211 Test 05/27/17 09:20 05/27/17 11:48 White Blood Count 16.3 H Red Blood Count 3.50 L Hemoglobin 10.6 L Hematocrit 33.9 L Mean Corpuscular Volume 96.9 Mean Corpuscular Hemoglobin 30.3 Mean Corpuscular Hemoglobin Concent 31.3 L Red Cell Distribution Width 15.8 H Platelet Count 101 L Mean Platelet Volume 12.4 H Neutrophils % 68.6 Lymphocytes % 16.1 Monocytes % 6.8 Eosinophils % 0.0 Basophils % 0.2 Nucleated Red Blood Cells % 16.4 H Neutrophils # 11.2 H Lymphocytes # 2.6 Monocytes # 1.1 H Eosinophils # 0.0 Basophils # 0.0 Nucleated Red Blood Cells # 2.7 H Sodium Level 140 Potassium Level 4.3 Chloride Level 100 Carbon Dioxide Level 28 Anion Gap 16 Blood Urea Nitrogen 41 H Creatinine 0.79 Glucose Level 203 Calcium Level 8.2 L Total Bilirubin 0.4 Direct Bilirubin 0.00 Indirect Bilirubin 0.4 Aspartate Amino Transf (AST/SGOT) 708 H Alanine Aminotransferase (ALT/SGPT) 1462 H Alkaline Phosphatase 96 Total Protein 6.6 Albumin 3.3 Globulin 3.30 H Albumin/Globulin Ratio 1.00 Thyroid Stimulating Hormone (TSH) 1.130 Free Thyroxine Index 3.72 Thyroxine (T4) 10.5 Triiodothyronine (T3) Uptake 35.4 Bedside Glucose 230 H Medications Medications Current Medications Ondansetron HCl (Zofran Inj) 4 mg Q6H PRN IV NAUSEA AND/OR VOMITING Last administered on 05/26/17 17:26; Admin Dose 4 MG; Start 05/18/17 at 06:30 Acetaminophen (Tylenol Tab) 1,000 mg Q6H PRN PO PAIN AND OR ELEVATED TEMP Last administered on 05/24/17 08:26; Admin Dose 1,000 MG; Start 05/21/17 at 14:00 Miscellaneous Information 1 ea NOTE XX ; Start 05/23/17 at 10:00 Glucose (Glutose) 15 gm Q15M PRN PO DECREASED GLUCOSE; Start 05/23/17 at 10:00 Glucose (Glutose) 22.5 gm Q15M PRN PO DECREASED GLUCOSE; Start 05/23/17 at 10:00 Dextrose (D50w Syringe) 25 ml Q15M PRN IV DECREASED GLUCOSE; Start 05/23/17 at 10:00 Dextrose (D50w Syringe) 50 ml Q15M PRN IV DECREASED GLUCOSE; Start 05/23/17 at 10:00 Glucagon (Glucagen) 1 mg Q15M PRN IM DECREASED GLUCOSE; Start 05/23/17 at 10:00 Glucose (Glutose) 15 gm Q15M PRN BUCCAL DECREASED GLUCOSE; Start 05/23/17 at 10: 00 Morphine Sulfate (morphine) 4 mg Q3H PRN IV PAIN Last administered on 05/27/17 00:52; Admin Dose 4 MG; Start 05/23/17 at 14:00 Diagnostic Test (Pha) (Accu-Chek) 1 ea 02 XX ; Start 05/24/17 at 02:00 Meclizine HCl 25 mg 25 mg Q8H PRN PO NAUSEA; Start 05/24/17 at 09:00 Sodium Chloride 1,000 ml @ 50 mls/hr Q20H IV Last administered on 05/26/17 21: 40; Admin Dose 50 MLS/HR; Start 05/24/17 at 09:00 Cefepime HCl (Maxipime 2gm/50 ml (Pmx)) 50 ml @ 100 mls/hr Q12 IVPB Last administered on 05/27/17 08:48; Admin Dose 100 MLS/HR; Start 05/24/17 at 11:30 Bisacodyl (Dulcolax) 10 mg DAILY PRN PO CONSTIPATION Last administered on 08:33; Admin Dose 10 MG; Start 05/24/17 at 23:00 Methylprednisolone Sodium Succinate (Solu-Medrol) 60 mg Q12 IV Last administered on 05/27/17 08:35; Admin Dose 60 MG; Start 05/25/17 at 21:00 Guaifenesin/ Dextromethorphan (Robitussin Dm Liquid Cup) 10 ml Q6H PRN PO COUGH Last administered on 05/26/17 00:51; Admin Dose 10 ML; Start 05/25/17 at 23 :30 Furosemide (Lasix) 20 mg DAILY IV Last administered on 05/27/17 11:45; Admin Dose 20 MG; Start 05/27/17 at 09:00 Pantoprazole (Protonix Tab) 40 mg DAILY@06 PO ; Start 05/28/17 at 06:00 ADRIÁN STALLINGS May 27, 2017 12:10
--- NOTE | 2017-05-27 13:08 | CONS ---
Date/Time of Note Date/Time of Note DATE: 05/27/17 TIME: 13:07 Consult Date/Type/Reason Admit Date/Time May 18, 2017 at 05:57 Initial Consult Date 05/23/17 Type of Consultation: Rheumatology Ordering Provider: ADRIÁN STALLINGS Subjective Feels better with less SOB, and weakness Objective Vital Signs Date Time Temp Pulse Resp B/P Pulse Ox O2 Delivery O2 Flow Rate FiO2 05/27/17 12:12 60 05/27/17 08:00 Nasal Cannula 2.0 05/27/17 07:53 98.0 20 109/79 98 05/23/17 11:40 40 Intake and Output 05/26/17 05/26/17 05/27/17 15:00 23:00 07:00 Intake Total 450 ml 750 ml Output Total 350 ml 720 ml Balance -350 ml 450 ml 30 ml Exam Alert and oriented. NAD. Skin without rash. HEENT without acute lesions. Neck. No definite lymphadenopathy noted. Chest Scattered crackles. Chest tubes in place. Heart RR . Abdomen. Soft. No masses or tenderness. Ext Cold fingertips. Good pulses. Left hand and arm with swelling. No erythema , no warmth. MS No synovitis. Neurol grossly intact. No definite muscle weakness. Psych. No definite anxiety at present. Results/Medications Result Diagram: 05/27/1791905/27/17 0920 Results 24 hrs Laboratory Tests Test 05/26/17 17:24 05/26/17 21:43 05/27/17 02:22 05/27/17 08:34 Bedside Glucose 246 H 226 H 222 H 211 Test 05/27/17 09:20 05/27/17 11:48 White Blood Count 16.3 H Red Blood Count 3.50 L Hemoglobin 10.6 L Hematocrit 33.9 L Mean Corpuscular Volume 96.9 Mean Corpuscular Hemoglobin 30.3 Mean Corpuscular Hemoglobin Concent 31.3 L Red Cell Distribution Width 15.8 H Platelet Count 101 L Mean Platelet Volume 12.4 H Neutrophils % 68.6 Lymphocytes % 16.1 Monocytes % 6.8 Eosinophils % 0.0 Basophils % 0.2 Nucleated Red Blood Cells % 16.4 H Neutrophils # 11.2 H Lymphocytes # 2.6 Monocytes # 1.1 H Eosinophils # 0.0 Basophils # 0.0 Nucleated Red Blood Cells # 2.7 H Sodium Level 140 Potassium Level 4.3 Chloride Level 100 Carbon Dioxide Level 28 Anion Gap 16 Blood Urea Nitrogen 41 H Creatinine 0.79 Glucose Level 203 Calcium Level 8.2 L Total Bilirubin 0.4 Direct Bilirubin 0.00 Indirect Bilirubin 0.4 Aspartate Amino Transf (AST/SGOT) 708 H Alanine Aminotransferase (ALT/SGPT) 1462 H Alkaline Phosphatase 96 Total Protein 6.6 Albumin 3.3 Globulin 3.30 H Albumin/Globulin Ratio 1.00 Thyroid Stimulating Hormone (TSH) 1.130 Free Thyroxine Index 3.72 Thyroxine (T4) 10.5 Triiodothyronine (T3) Uptake 35.4 Bedside Glucose 230 H Medications Current Medications Ondansetron HCl (Zofran Inj) 4 mg Q6H PRN IV NAUSEA AND/OR VOMITING Last administered on 05/26/17 17:26; Admin Dose 4 MG; Start 05/18/17 at 06:30 Acetaminophen (Tylenol Tab) 1,000 mg Q6H PRN PO PAIN AND OR ELEVATED TEMP Last administered on 05/24/17 08:26; Admin Dose 1,000 MG; Start 05/21/17 at 14:00 Miscellaneous Information 1 ea NOTE XX ; Start 05/23/17 at 10:00 Glucose (Glutose) 15 gm Q15M PRN PO DECREASED GLUCOSE; Start 05/23/17 at 10:00 Glucose (Glutose) 22.5 gm Q15M PRN PO DECREASED GLUCOSE; Start 05/23/17 at 10:00 Dextrose (D50w Syringe) 25 ml Q15M PRN IV DECREASED GLUCOSE; Start 05/23/17 at 10:00 Dextrose (D50w Syringe) 50 ml Q15M PRN IV DECREASED GLUCOSE; Start 05/23/17 at 10:00 Glucagon (Glucagen) 1 mg Q15M PRN IM DECREASED GLUCOSE; Start 05/23/17 at 10:00 Glucose (Glutose) 15 gm Q15M PRN BUCCAL DECREASED GLUCOSE; Start 05/23/17 at 10: 00 Morphine Sulfate (morphine) 4 mg Q3H PRN IV PAIN Last administered on 05/27/17 00:52; Admin Dose 4 MG; Start 05/23/17 at 14:00 Diagnostic Test (Pha) (Accu-Chek) 1 ea 02 XX ; Start 05/24/17 at 02:00 Meclizine HCl 25 mg 25 mg Q8H PRN PO NAUSEA; Start 05/24/17 at 09:00 Sodium Chloride 1,000 ml @ 50 mls/hr Q20H IV Last administered on 05/26/17 21: 40; Admin Dose 50 MLS/HR; Start 05/24/17 at 09:00 Cefepime HCl (Maxipime 2gm/50 ml (Pmx)) 50 ml @ 100 mls/hr Q12 IVPB Last administered on 05/27/17 08:48; Admin Dose 100 MLS/HR; Start 05/24/17 at 11:30 Bisacodyl (Dulcolax) 10 mg DAILY PRN PO CONSTIPATION Last administered on 08:33; Admin Dose 10 MG; Start 05/24/17 at 23:00 Methylprednisolone Sodium Succinate (Solu-Medrol) 60 mg Q12 IV Last administered on 05/27/17 08:35; Admin Dose 60 MG; Start 05/25/17 at 21:00 Guaifenesin/ Dextromethorphan (Robitussin Dm Liquid Cup) 10 ml Q6H PRN PO COUGH Last administered on 05/26/17 00:51; Admin Dose 10 ML; Start 05/25/17 at 23 :30 Furosemide (Lasix) 20 mg DAILY IV Last administered on 05/27/17 11:45; Admin Dose 20 MG; Start 05/27/17 at 09:00 Pantoprazole (Protonix Tab) 40 mg DAILY@06 PO ; Start 05/28/17 at 06:00 Assessment/Plan Chief Complaint/Hosp Course Ass. 1. Systemic Lupus Erythematosus with highly positive REYNALDO, low C3 and C4, Cecil's Thyroiditis, pericarditis, lymphadenopathy, bronchiolitis, Elev. ESR, Hypergammaglobulinemia, Leukopenia (until recently). Negative DS DNA does not rule out Lupus, as only a minority of Lupus patients have DS DNA positivity (particularly those with renal disease). Has been On Solumedrol 60 mg BID since 05/26 and continue on this dose for now. 2. Marked transaminitis slightly improving. CK only mildly elevated (likely due to the surgery) initially and normal now. Acute EBV and Hepatitis serologies negative, and Smooth muscle antibodies (for autoimmune hepatitis) also negative. CMV titers pending. Possibly due to Levaquin, which has now been stopped. 3. Lymphadenopathy. Second biopsy also negative for neoplastic process. Appears reactive. 4. Leukocytosis, anemia, decreased platelet count recently, improving. No evidence of Hemolysis. Leukocytosis at present in part due to the steroids. 5. Possible mild hypocalcemia Relatively low albumin. (ionized calcium 1.0). Does have low Vitamin D level. 6. Cecil's Thyroiditis endocrine is treating. 7. Severe Hypothyroidism. TSH now decreased to 2.0. 8. Pericardial effusion. Now s/p pericardial window placement. 9. Hyperglycemia, due to steroids. 10.Lactic acidosis, Improved. 11. Proteinuria improved but may still consider renal biopsy in the future when patient is more stable since if Lupus renal involvement, this will change long tern medication considerations 12 Left arm swelling likely secondary to IV infiltration, however will continue to monitor- if does not resolve, will need imaging. Problems: SMITH ESPINOSA MD May 27, 2017 13:08
--- NOTE | 2017-05-27 13:27 | PN ---
Date/Time of Note Date/Time of Note DATE: 05/27/17 TIME: 13:26 Assessment/Plan Lines/Catheters IV Catheter Type (from Nrsg): Saline Lock Anthony in Place (from Nrsg): No Assessment/Plan Chief Complaint/Hosp Course Patient with pericardial effusion Status post pericardial window Chest tube with 70 cc of drainage Awaiting pathology We will DC CT Discussed with the referring physicians Problems: Subjective 24 Hr Interval Summary Constitutional: improved Pain Control: mild Exam/Review of Systems Vital Signs Vitals Vital Signs Date Time Temp Pulse Resp B/P Pulse Ox O2 Delivery O2 Flow Rate FiO2 05/27/17 12:12 60 05/27/17 08:00 Nasal Cannula 2.0 05/27/17 07:53 98.0 20 109/79 98 05/23/17 11:40 40 Intake and Output 05/26/17 05/26/17 05/27/17 15:00 23:00 07:00 Intake Total 450 ml 750 ml Output Total 350 ml 720 ml Balance -350 ml 450 ml 30 ml Exam ENMT: mucosa pink and moist, nl external ears & nose, nl lips & teeth, nl nasal mucosa & septum Neck: non-tender, supple Respiratory: clear to auscultation, normal air movement Cardiovascular: nl pulses, regular rate and rhythm Results Result Diagram: 05/27/1791905/27/17919 KRYSTAL HARRIS MD May 27, 2017 13:27
[2017-05-27] MEDS: SOD CHLORIDE 0.9% 1,000 ML IV SCH (15:43)
--- NOTE | 2017-05-27 16:21 | CONS ---
Date/Time of Note Date/Time of Note DATE: 05/27/17 TIME: 16:19 Assessment/Plan Assessment/Plan Chief Complaint/Hosp Course Subjective: Patient just received morphine, lying comfortably in bed, no fevers , chest tubes discontinued Antimicrobials: Cefepime Physical examination: Well-developed well-nourished young woman who is in no distress. Head atraumatic, normocephalic sclera nonicteric pupils reactive to light equally. Neck is supple, trachea midline. Chest rise symmetrical, breath sounds diminished to left. Abdomen soft bowel tones present. Extremities without cyanosis, trace dependent edema. Assessment: 1. Pericardial effusion, status post pericardial window, left thoracotomy and pulmonary decortication on May 22, 2017 2. S/p postop respiratory failure 3. Systemic lupus erythematosus 4. Cecil's thyroiditis 5. Leukocytosis, remains on Solu Medrol 6. Bronchiolitis 7. Transaminitis==> Abdominal ultrasound revealed gallbladder sludge without definite evidence of acute cholecystitis Plan: Remains stable, continue Cefepime, steroids taper per rheumatology, follow pulmonary, cardiothoracic surgery, GI recommendations Discussed with staff Problems: Consultation Date/Type/Reason Admit Date/Time May 18, 2017 at 05:57 Initial Consult Date 05/21/17 Type of Consultation: Infection Referring Provider: ADRIÁN STALLINGS Exam/Review of Systems Vital Signs Vitals Vital Signs Date Time Temp Pulse Resp B/P Pulse Ox O2 Delivery O2 Flow Rate FiO2 05/27/17 15:53 98.0 56 20 167/102 100 05/27/17 08:00 Nasal Cannula 2.0 05/23/17 11:40 40 Intake and Output 05/26/17 05/26/17 05/27/17 15:00 23:00 07:00 Intake Total 450 ml 750 ml Output Total 350 ml 720 ml Balance -350 ml 450 ml 30 ml Results Result Diagram: 05/27/17 0920 05/27/17 0920 Results 24 hrs Laboratory Tests Test 05/26/17 17:24 05/26/17 21:43 05/27/17 02:22 05/27/17 08:34 Bedside Glucose 246 H 226 H 222 H 211 Test 05/27/17 09:20 05/27/17 11:48 White Blood Count 16.3 H Red Blood Count 3.50 L Hemoglobin 10.6 L Hematocrit 33.9 L Mean Corpuscular Volume 96.9 Mean Corpuscular Hemoglobin 30.3 Mean Corpuscular Hemoglobin Concent 31.3 L Red Cell Distribution Width 15.8 H Platelet Count 101 L Mean Platelet Volume 12.4 H Neutrophils % 68.6 Lymphocytes % 16.1 Monocytes % 6.8 Eosinophils % 0.0 Basophils % 0.2 Nucleated Red Blood Cells % 16.4 H Neutrophils # 11.2 H Lymphocytes # 2.6 Monocytes # 1.1 H Eosinophils # 0.0 Basophils # 0.0 Nucleated Red Blood Cells # 2.7 H Sodium Level 140 Potassium Level 4.3 Chloride Level 100 Carbon Dioxide Level 28 Anion Gap 16 Blood Urea Nitrogen 41 H Creatinine 0.79 Glucose Level 203 Calcium Level 8.2 L Total Bilirubin 0.4 Direct Bilirubin 0.00 Indirect Bilirubin 0.4 Aspartate Amino Transf (AST/SGOT) 708 H Alanine Aminotransferase (ALT/SGPT) 1462 H Alkaline Phosphatase 96 Total Protein 6.6 Albumin 3.3 Globulin 3.30 H Albumin/Globulin Ratio 1.00 Thyroid Stimulating Hormone (TSH) 1.130 Free Thyroxine Index 3.72 Thyroxine (T4) 10.5 Triiodothyronine (T3) Uptake 35.4 Bedside Glucose 230 H Medications Medications Current Medications Ondansetron HCl (Zofran Inj) 4 mg Q6H PRN IV NAUSEA AND/OR VOMITING Last administered on 05/26/17 17:26; Admin Dose 4 MG; Start 05/18/17 at 06:30 Acetaminophen (Tylenol Tab) 1,000 mg Q6H PRN PO PAIN AND OR ELEVATED TEMP Last administered on 05/24/17 08:26; Admin Dose 1,000 MG; Start 05/21/17 at 14:00 Miscellaneous Information 1 ea NOTE XX ; Start 05/23/17 at 10:00 Glucose (Glutose) 15 gm Q15M PRN PO DECREASED GLUCOSE; Start 05/23/17 at 10:00 Glucose (Glutose) 22.5 gm Q15M PRN PO DECREASED GLUCOSE; Start 05/23/17 at 10:00 Dextrose (D50w Syringe) 25 ml Q15M PRN IV DECREASED GLUCOSE; Start 05/23/17 at 10:00 Dextrose (D50w Syringe) 50 ml Q15M PRN IV DECREASED GLUCOSE; Start 05/23/17 at 10:00 Glucagon (Glucagen) 1 mg Q15M PRN IM DECREASED GLUCOSE; Start 05/23/17 at 10:00 Glucose (Glutose) 15 gm Q15M PRN BUCCAL DECREASED GLUCOSE; Start 05/23/17 at 10: 00 Morphine Sulfate (morphine) 4 mg Q3H PRN IV PAIN Last administered on 05/27/17 14:09; Admin Dose 4 MG; Start 05/23/17 at 14:00 Diagnostic Test (Pha) (Accu-Chek) 1 ea 02 XX ; Start 05/24/17 at 02:00 Meclizine HCl 25 mg 25 mg Q8H PRN PO NAUSEA; Start 05/24/17 at 09:00 Sodium Chloride 1,000 ml @ 50 mls/hr Q20H IV Last administered on 05/26/17 21: 40; Admin Dose 50 MLS/HR; Start 05/24/17 at 09:00 Cefepime HCl (Maxipime 2gm/50 ml (Pmx)) 50 ml @ 100 mls/hr Q12 IVPB Last administered on 05/27/17 08:48; Admin Dose 100 MLS/HR; Start 05/24/17 at 11:30 Bisacodyl (Dulcolax) 10 mg DAILY PRN PO CONSTIPATION Last administered on 08:33; Admin Dose 10 MG; Start 05/24/17 at 23:00 Methylprednisolone Sodium Succinate (Solu-Medrol) 60 mg Q12 IV Last administered on 05/27/17 08:35; Admin Dose 60 MG; Start 05/25/17 at 21:00 Guaifenesin/ Dextromethorphan (Robitussin Dm Liquid Cup) 10 ml Q6H PRN PO COUGH Last administered on 05/26/17 00:51; Admin Dose 10 ML; Start 05/25/17 at 23 :30 Furosemide (Lasix) 20 mg DAILY IV Last administered on 05/27/17 11:45; Admin Dose 20 MG; Start 05/27/17 at 09:00 Pantoprazole (Protonix Tab) 40 mg DAILY@06 PO ; Start 05/28/17 at 06:00 JANNY LUTZ NP May 27, 2017 16:20
[2017-05-27] MEDS ORDERED: NALOXONE (0.4 MG/ML) INJ ONE (17:08)
[2017-05-27] MEDS ORDERED: NALOXONE (0.4 MG/ML) INJ IV ONE (17:30)
--- NOTE | 2017-05-27 18:21 | CONS ---
Date/Time of Note Date/Time of Note DATE: 05/27/17 TIME: 18:18 Assessment/Plan Assessment/Plan Chief Complaint/Hosp Course Bilateral mild to moderate axillary lymphadenopathy, MORE ON THE L and diffuse cervical adenopathy on Thyroid USS 03/2017. BIOCHEMICAL W-UP- P CT ABD- Prominent bilateral inguinal and left external iliac chain lymph nodes, which are nonspecific. BX L AXILLARY LN WHEN PT IS MORE STABLE WILL PROCEED WITH BX- SINCE IF PT HAS A LYMPHOMA IT MAY RESPOND TO STEROIDS D/W DR GRAHAM- HE DIDN'T FELL LN- AND DIDN'T DO THE BX Left axillary lymph node, ultrasound-guided needle biopsies with touch imprints: -- Benign lymphoid tissue. 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 POS WINDOW Bilateral infectious/inflammatory bronchiolitis. Positive rheumatoid factor RHEUMATOLOGY F-UP Pericardial effusion-moderate by echo with no signs of echo tamponade at this time. Cardiomyopathy-EF 40-45% by echo Acute Shortness of breath Increased LFT's Problems: Consultation Date/Type/Reason Admit Date/Time May 18, 2017 at 05:57 Initial Consult Date 05/19/17 Type of Consultation: [facility] Referring Provider: ADRIÁN STALLINGS 24 HR Interval Summary Free Text/Dictation all noted Status post pericardial window Chest tube with 70 cc of drainage Awaiting pathology platelet count - slowly going down Exam/Review of Systems Vital Signs Vitals Vital Signs Date Time Temp Pulse Resp B/P Pulse Ox O2 Delivery O2 Flow Rate FiO2 05/27/17 16:34 60 05/27/17 15:53 98.0 20 167/102 100 05/27/17 08:00 Nasal Cannula 2.0 05/23/17 11:40 40 Intake and Output 05/26/17 05/26/17 05/27/17 15:00 23:00 07:00 Intake Total 450 ml 750 ml Output Total 350 ml 720 ml Balance -350 ml 450 ml 30 ml Exam Exam Constitutional: alert Respiratory: clear to auscultation Cardiovascular: regular rate and rhythm Gastrointestinal: soft, No distended Musculoskeletal: nl extremities to inspection Results Result Diagram: 05/27/17 0920 05/27/17 0920 Results 24 hrs Laboratory Tests Test 05/26/17 21:43 05/27/17 02:22 05/27/17 08:34 05/27/17 09:20 Bedside Glucose 226 H 222 H 211 White Blood Count 16.3 H Red Blood Count 3.50 L Hemoglobin 10.6 L Hematocrit 33.9 L Mean Corpuscular Volume 96.9 Mean Corpuscular Hemoglobin 30.3 Mean Corpuscular Hemoglobin Concent 31.3 L Red Cell Distribution Width 15.8 H Platelet Count 101 L Mean Platelet Volume 12.4 H Neutrophils % 68.6 Lymphocytes % 16.1 Monocytes % 6.8 Eosinophils % 0.0 Basophils % 0.2 Nucleated Red Blood Cells % 16.4 H Neutrophils # 11.2 H Lymphocytes # 2.6 Monocytes # 1.1 H Eosinophils # 0.0 Basophils # 0.0 Nucleated Red Blood Cells # 2.7 H Sodium Level 140 Potassium Level 4.3 Chloride Level 100 Carbon Dioxide Level 28 Anion Gap 16 Blood Urea Nitrogen 41 H Creatinine 0.79 Glucose Level 203 Calcium Level 8.2 L Total Bilirubin 0.4 Direct Bilirubin 0.00 Indirect Bilirubin 0.4 Aspartate Amino Transf (AST/SGOT) 708 H Alanine Aminotransferase (ALT/SGPT) 1462 H Alkaline Phosphatase 96 Total Protein 6.6 Albumin 3.3 Globulin 3.30 H Albumin/Globulin Ratio 1.00 Thyroid Stimulating Hormone (TSH) 1.130 Free Thyroxine Index 3.72 Thyroxine (T4) 10.5 Triiodothyronine (T3) Uptake 35.4 Test 05/27/17 11:48 05/27/17 17:03 Bedside Glucose 230 H 194 Medications Medications Current Medications Ondansetron HCl (Zofran Inj) 4 mg Q6H PRN IV NAUSEA AND/OR VOMITING Last administered on 05/26/17 17:26; Admin Dose 4 MG; Start 05/18/17 at 06:30 Acetaminophen (Tylenol Tab) 1,000 mg Q6H PRN PO PAIN AND OR ELEVATED TEMP Last administered on 05/24/17 08:26; Admin Dose 1,000 MG; Start 05/21/17 at 14:00 Miscellaneous Information 1 ea NOTE XX ; Start 05/23/17 at 10:00 Glucose (Glutose) 15 gm Q15M PRN PO DECREASED GLUCOSE; Start 05/23/17 at 10:00 Glucose (Glutose) 22.5 gm Q15M PRN PO DECREASED GLUCOSE; Start 05/23/17 at 10:00 Dextrose (D50w Syringe) 25 ml Q15M PRN IV DECREASED GLUCOSE; Start 05/23/17 at 10:00 Dextrose (D50w Syringe) 50 ml Q15M PRN IV DECREASED GLUCOSE; Start 05/23/17 at 10:00 Glucagon (Glucagen) 1 mg Q15M PRN IM DECREASED GLUCOSE; Start 05/23/17 at 10:00 Glucose (Glutose) 15 gm Q15M PRN BUCCAL DECREASED GLUCOSE; Start 05/23/17 at 10: 00 Morphine Sulfate (morphine) 4 mg Q3H PRN IV PAIN Last administered on 05/27/17 14:09; Admin Dose 4 MG; Start 05/23/17 at 14:00 Diagnostic Test (Pha) (Accu-Chek) 1 ea 02 XX ; Start 05/24/17 at 02:00 Meclizine HCl 25 mg 25 mg Q8H PRN PO NAUSEA; Start 05/24/17 at 09:00 Sodium Chloride 1,000 ml @ 50 mls/hr Q20H IV Last administered on 05/26/17 21: 40; Admin Dose 50 MLS/HR; Start 05/24/17 at 09:00 Cefepime HCl (Maxipime 2gm/50 ml (Pmx)) 50 ml @ 100 mls/hr Q12 IVPB Last administered on 05/27/17 08:48; Admin Dose 100 MLS/HR; Start 05/24/17 at 11:30 Bisacodyl (Dulcolax) 10 mg DAILY PRN PO CONSTIPATION Last administered on 08:33; Admin Dose 10 MG; Start 05/24/17 at 23:00 Methylprednisolone Sodium Succinate (Solu-Medrol) 60 mg Q12 IV Last administered on 05/27/17 08:35; Admin Dose 60 MG; Start 05/25/17 at 21:00 Guaifenesin/ Dextromethorphan (Robitussin Dm Liquid Cup) 10 ml Q6H PRN PO COUGH Last administered on 05/26/17 00:51; Admin Dose 10 ML; Start 05/25/17 at 23 :30 Furosemide (Lasix) 20 mg DAILY IV Last administered on 05/27/17 11:45; Admin Dose 20 MG; Start 05/27/17 at 09:00 Pantoprazole (Protonix Tab) 40 mg DAILY@06 PO ; Start 05/28/17 at 06:00 DEEPA OCONNELL MD May 27, 2017 18:21
[2017-05-27] MEDS ORDERED: ALTEPLASE 100 MG IV ONE (18:45)
--- NOTE | 2017-05-27 19:03 | EN ---
Date/Time of Note Date/Time of Note DATE: 05/27/17 TIME: 19:02 Event Note Surgery Surgery Event Note Date/Time of Note Date/Time of Note Date/Time of Note DATE: 05/27/17 TIME: 18:41 Operative Report Operative Report Procedure Date: May 27, 2017 Preoperative Diagnosis Cardiopulmonary arrest Postoperative Diagnosis Same Operation Performed 1 left femoral central line placement 2 left femoral arterial line placement 3 left chest tube placement, 24 [place] Surgeon: KRYSTAL HARRIS MD Anesthesia: other Estimated Blood Loss: minimal Tubes/Drains Chest tube Placed to Complications: None Pt Condition Post Procedure: critical Disposition: other Operative\Procedure Findings This is a 26-year-old female who presented to the hospital with pericardial effusion, cardiomyopathy ejection fraction, elevated transaminases and hypothyroidism patient underwent a pericardial window placement . Postoperatively the patient had severe lactic acidosis which improved . her chest tube drainage diminished over the course of the next several days the last 24 hour chest tube drainage with 70 cc of serous fluid with no air leak the chest tubes were removed today at the time of the removal of Valsalva maneuver was done. Patient tolerated procedure well About 2-1/2 hours after the removal of the chest tube, she was awake and alert, complaining of pain, no shortness of breath reported, her blood pressure was found to be 167/102 with a heart rate of 56 respiration of 20 saturation of 100 % and no acute distress. Shortly after, the patient was given 4 mg of morphine, the patient became unresponsive, and PROSTHETICS TECHNICIAN was called, at that time I examined the patient, she was drowsy she had equal breath sounds on both sides with rhonchi on the left and trachea trachea was midline we could not get a blood pressure on her however she received Narcan and woke up and became agitated and in [place] she said she wanted to go home Subsequently blood pressure was obtained at systolic of 90 shortly after the patient became bradycardic and lost pulses and CODE BLUE was started I spoke with the emergency room physician who told me that during this time he could still palpate carotid pulses but no femoral pulses chest compressions were started patient was transferred to the intensive care unit using a Seldinger technique I quickly put a left femoral arterial line and a femoral triple-lumen catheter she was reset to see resuscitated with inotropic medication medications including epinephrine and bicarb , D50 calcium carbonate , and normal saline bolus the left chest chest tube site was examined and prophylactically a chest tube was inserted . no bleeding was noted no gush of air was noted no improvement in hemodynamics were seen patient continued to be in PEA. The emergency room physician discussed the possibility of PE with me and I told him it is okay to give the TPA as a last resort 100 mg of TPA was given no improvement in hemodynamics are noted again there was no chest tube bleeding seen and there was no air leak from the chest tube the code was continued and subsequently called off by the emergency room physician. family contacted Copies To: Copies To: KRYSTAL HARRIS MD May 27, 2017 19:00 KRYSTAL HARRIS MD May 27, 2017 19:03
--- NOTE | 2017-05-27 19:16 | EN ---
Date/Time of Note Date/Time of Note DATE: 05/27/17 TIME: 19:08 ER Progress Note I was called to the patient's bedside because of a CODE BLUE. In short: I was called to the floor because the patient had a cardiac arrest. It appears the patient was somnolent and received Narcan became very agitated and then collapsed. Upon arrival the patient had no pulses and I initiated chest compressions. She recently had pericardial effusion, pericardial window and a chest tube that was removed recently. General: Unresponsive Head: Normocephalic, atraumatic Eyes: Fixed and dilated pupils ENT: Moist mucous membranes Neck: Supple, no lymphadenopathy Respiratory: No spontaneous respiratory activity, with bagging there are bilateral breath sounds, trachea was midline, left lung field with slightly rhonchorous Cardiovascular: No spontaneous cardiac activity Abdominal: Soft, non-protuberant, no pulsatile mass : Deferred MSK: No spontaneous motor activity Neurologic: No spontaneous neurologic activity Skin: No evidence of trauma Cardiopulmonary Resuscitation by me: See code documentation for specific details. ACLS and BLS were performed with high quality chest compressions and minimal interruptions. Reversible causes were assessed and treated. PROCEDURE(S): Intraosseous Line Placement by me: Patient consented, area prepped, time out performed. Anesthesia: None Location: Right anteromedial, Proximal Tibia (1-3 cm below Tibial tuberosity) Device: EZ-IO Needle blue 2.5 cm Technique: EZ-IO Drill Results: Bone Marrow Aspirated, No extravasation Complications: No evidence of extravasation, compartment syndrome, growth plate damage, or fat embolism CODE BLUE events: Upon arrival initiated ACLS. Multiple rounds of medication were provided including epinephrine, calcium, bicarbonate. The patient would intermittently have pulses at a rate of around 120 and 1 rapidly become bradycardic and rest. On exam she seemed to only gained pulses around the carotids, not in the extremities or femoral veins bilaterally. The patient did not appear to have evidence of tension pneumothorax as she had good breath sounds bilaterally, trachea is midline. The patient recently had a chest tube removed and there seem to be communication with no gush of air. The patient was additionally given Narcan. The patient did not have access and a right tibial IO was placed as documented above. The patient was intubated by anesthesia. We had return of spontaneous circulation multiple times but again rapidly she would lose pulses become bradycardic and with PEA. Continued rounds of ACLS was initiated with chest compressions, epinephrine, calcium, bicarbonate with no significant difference. The patient was transferred with me at the bedside to the ICU. During the route the patient had another cardiac arrest and was given epinephrine and chest compressions. Chest compressions were continued until arrival in the ICU. The patient had a pulse and rhythm check at that time. Upon arrival to the ICU the patient never regained pulses. We continue multiple rounds of ACLS with no response. The patient continued to be in PEA and eventually asystole. Dr. Wing was the surgeon who performed the surgery and he was rapidly available on the phone. We discussed the possible differential diagnosis. He was rapidly to the patient's bedside in the ICU. He placed a left-sided chest tube, a left femoral line in the left femoral arterial line. Please see his documentation. Based on our conversations the differential included dissection , pulmonary embolism. This seemed to be more consistent with pulmonary embolism given the fact that the patient had no hemothorax to the left side of the chest and had a pericardial window. This did not seem to be consistent with cardiac tamponade, tension pneumothorax. Based on the patient's agitation and use of Narcan this could be medication related however the patient had an airway and received reversal agents. This makes this etiology less likely given that these issues have been corrected. The last possibility was a pulmonary embolism given the patient's recent surgery there is a risk however at this point with aggressive resuscitation efforts the benefits of TPA outweigh the risks. The patient was given 100 mg of TPA in an attempt to reverse a pulmonary embolism. The patient was given a 100 mg bolus tPA and multiple rounds of chest compressions were continued after completion. However, the patient never regained pulses. I attempted to have a conversation with the family but they were too distraught even despite the use of an feather trimmer. The family was eventually informed of the patient's . After these aggressive and thorough resuscitation efforts the patient had no spontaneous neurologic activity, no spontaneous respiratory activity and no spontaneous cardiac activity. The patient's final rhythm was PEA. Time of at 1838. Disposition: Diagnostic impression: PEA cardiac arrest MATEUS CRISTINA MD May 27, 2017 19:16
[2017-05-28] MEDS ORDERED: PANTOPRAZOLE (EC) 40 MG TAB PO SCH (06:00)
--- NOTE | 2017-05-28 14:48 | OPR ---
Date/Time of Note Date/Time of Note DATE: 05/28/17 TIME: 14:46 Operative Report Procedure Date: May 27, 2017 Preoperative Diagnosis SP Pericardial window Postoperative Diagnosis Same Operation Performed Removal of chest tube Surgeon: KRYSTAL HARRIS MD Anesthesia: other Estimated Blood Loss: minimal Tubes/Drains Chest tube Placed to Complications: None Pt Condition Post Procedure: critical Disposition: other Operative\Procedure Findings Patient was placed in the right lateral decubitus position Prepped and draped in usual sterile fashion The chest tube sutures were cut Vaseline gauze was applied to the chest tube site Patient was given instruction to give a Valsalva Appropriate dressing with was applied Chest tubes were pulled rapidly Chest x-ray was ordered Appropriate dressing applied KRYSTAL HARRIS MD May 28, 2017 14:47
== END 2017-05-27 18:38 | disposition expired | DRG 264 ==
LOC: FTE 21:12 → MS4 05-18 05:57 → ICU 05-21 17:15 → MS4 05-24 10:23 → ICU 05-27 18:07
PROVIDERS: ADMIT Family Medicine; ATTEND Family Medicine
PROC: 0BDP0ZZ Extraction of Left Pleura, Open Approach (ICD-10-PCS; 2017-05-22)
PROC: 07B63ZX Excision of Left Axillary Lymphatic, Percutaneous Approach, Diagnostic (ICD-10-PCS; principal; 2017-05-24)
PROC: 06HN33Z Insertion of Infusion Device into Left Femoral Vein, Percutaneous Approach (ICD-10-PCS; 2017-05-27)
PROC: 0W9B00Z Drainage of Left Pleural Cavity with Drainage Device, Open Approach (ICD-10-PCS; 2017-05-27)
DX: I31.3 Pericardial effusion (noninflammatory) (principal); I26.99 Other pulmonary embolism without acute cor pulmonale; J95.821 Acute postprocedural respiratory failure; N17.9 Acute kidney failure, unspecified; E87.2 Acidosis; I42.9 Cardiomyopathy, unspecified; I95.9 Hypotension, unspecified; J21.9 Acute bronchiolitis, unspecified; M35.8 Other specified systemic involvement of connective tissue; I46.9 Cardiac arrest, cause unspecified; D89.2 Hypergammaglobulinemia, unspecified; H83.09 Labyrinthitis, unspecified ear; I50.9 Heart failure, unspecified; D50.9 Iron deficiency anemia, unspecified; Z66 Do not resuscitate; E78.5 Hyperlipidemia, unspecified; E06.3 Autoimmune thyroiditis; E06.5 Other chronic thyroiditis; E83.51 Hypocalcemia; E03.9 Hypothyroidism, unspecified; M32.9 Systemic lupus erythematosus, unspecified; T80.89XA Other complications following infusion, transfusion and therapeutic injection, initial encounter; R74.0 Nonspecific elevation of levels of transaminase and lactic acid dehydrogenase [LDH]; R59.1 Generalized enlarged lymph nodes; R53.83 Other fatigue; R52 Pain, unspecified; R73.9 Hyperglycemia, unspecified; R80.9 Proteinuria, unspecified; R76.0 Raised antibody titer; R09.02 Hypoxemia; Y83.8 Other surgical procedures as the cause of abnormal reaction of the patient, or of later complication, without mention of misadventure at the time of the procedure; Y82.8 Other medical devices associated with adverse incidents
CPT/HCPCS: 31500; 36600; 71010; 71275; 74178; 76700; 76942; 80048; 80053; 80061; 80076; 81001; 81003; 82040; 82150; 82306; 82330; 82533; 82550; 82570; 82607; 82746; 82784; 82785; 82803; 82962; 83010; 83036; 83090; 83540; 83605; 83615; 83690; 83735; 83880; 84100; 84155; 84156; 84165; 84166; 84300; 84436; 84439; 84443; 84479; 84481; 84484; 84560; 85025; 85610; 85651; 85730; 86021; 86038; 86140; 86160; 86200; 86226; 86235; 86255; 86320; 86325; 86376; 86430; 86480; 86580; 86664; 86703; 86706; 86800; 86803; 86850; 86870; 86900; 86901; 87040; 87070; 87075; 87081; 87086; 87102; 87116; 87340; 87496; 88305; 88307; 88313; 92950; 93005; 93306; 93308; 94002; 94003; 94770; 97162; J1940; C9113; J0171; J0690; J0692; J1170; J1644; J1815; J1956; J2060; J2250; J2270; J2310; J2370; J2405; J2543; J2710; J2930; J2997; J3010; J3370; J7030; J7040; J7050; J7120; J7512; J7999; Q9967